=== PATIENT | male | born 1965 | race Caucasian/White ===

== ENCOUNTER 2016-06-21 07:11 | Inpatient (IN) | payer OTHER ==
[2016-06-21] VITALS (8 sets, daily range): BP systolic 144–172; BP diastolic 89–102; PULSE 88–101; TEMP 37.3–37.8; O2SAT 96–100; Ht 172.7 cm; Wt 89.8 kg
[~2016-06-21] VITALS: Ht 172.7 cm; Wt 89.8 kg
[~2016-06-21 07:11] MED LIST: ATEN-173 PO; CARB200T PO; CARB200T3 PO; VLT/50 PO
[2016-06-21] MEDS ORDERED: SODIUM CHLORIDE 0.9% 1000ML 1,000 ML IV STA ×2 (07:17→08:24)
[2016-06-21] MEDS ORDERED: FAMOTIDINE 20MG/102 ML D5W IV STA (07:17)
[2016-06-21] MEDS ORDERED: ONDANSETRON 8 MG/54 ML D5W IV STA (07:17)
[2016-06-21] MEDS ORDERED: PANTOprazole INJ 80 MG in DEXTROSE 5% 100ML IV SCH (07:30)
[2016-06-21] MEDS ORDERED: MULTI-VITAMIN INFUSION INJ 10 ML, THIAMINE HCL INJ 100 MG, FoLIC ACID INJ 1 MG in SODIU... IV ONE (07:45)
[2016-06-21] MEDS ORDERED: PANTOprazole INJ 40 MG in DEXTROSE 5% 100ML IV SCH (07:45)
[2016-06-21] MEDS ORDERED: LORAZEPAM 2 MG/ML 1 ML VIAL IV STA ×2 (07:45→08:58)
[2016-06-21] MEDS ORDERED: OCTREOTIDE IV BOLUS & DRIP IV STA ×2 (07:45→10:20)
[2016-06-21 07:59] LABS: HEMATOCRIT 34.5 % (42-52); MEAN CELL VOLUME 96.1 fL (80-100); MEAN CORPUSCULAR HEMOGLOBIN 33.7 pg (25-34); MEAN CORPUSCULAR HGB CONC 35.1 g/dl (32-36); MEAN PLATELET VOLUME 9.7 fL (7.4-10.4); PLATELET COUNT 209 K/uL (130-400); RED BLOOD COUNT 3.59 M/uL (4.7-6.1)
[2016-06-21 08:05] LABS: INR 1.1 (0.9-1.1); PARTIAL THROMBOPLASTIN RATIO 1.2; PROTHROMBIN TIME (PATIENT) 12.3 SECONDS (9.0-12.0)
[2016-06-21 08:12] LABS: ISTAT CREATININE 0.7 mg/dl (0.6-1.3); ISTAT HEMOGLOBIN 12.9 g/dl (14.0-18.0); ISTAT IONIZED CALCIUM 1.03 mmol/l (1.12-1.32)
[2016-06-21 08:13] LABS: BUN/CREATININE RATIO 31.8 (10-20); CALCIUM 8.5 mg/dl (8.5-10.1); CREATININE 1.1 mg/dl (0.60-1.40)
[2016-06-21] MEDS ORDERED: DAPTOmycin IV 500 MG in SODIUM CHLORIDE 0.9% 50ML 50 ML IV STA (08:19)
[2016-06-21] MEDS ORDERED: AZTREONAM IV 2,000 MG in DEXTROSE 5% 100ML 100 ML IV STA (08:19)
[2016-06-21] MEDS ORDERED: POTASSIUM CHLORIDE 10 MEQ / 100ML WTR IV STA (08:24)
[2016-06-21 08:38] LABS: BASO % 0.1 %; BASO ABS # 0.01 K/uL (0-0.2); COMPLETE YES; HYPERSEGMENTED POLYS 1+; IG% 0.6 %; LYMPH % 10.6 %; LYMPH ABS # 1.72 K/uL (1.2-3.4); MONO % 8.9 %; NEUT % 79.8 %
[2016-06-21] MEDS ORDERED: ASPI325T39 PO (08:38)
[2016-06-21] MEDS ORDERED: OCTREOTIDE ACETATE INJ 500 MCG in NSS 100ML IV SCH ×2 (09:00→20:30)
[2016-06-21] MEDS ORDERED: OCTREOTIDE ACETATE INJ 100 MCG in SYRINGE 9 ML IV ONE (09:00)
--- NOTE | 2016-06-21 09:06 | History and Physical ---
History & Physical Date & Time of Service: Jun 21, 2016 at 09:05 Chief Complaint: Rectal Bleed,Black Stool,Diarrhea,Vomit Up Blood Primary Care Physician: Ashish Alvarez M.D. History of Present Illness Source: patient 51M with a PMHx of seizure disorder, mental retardation and alcoholism was brought in to the hospital by his mother. Mother is not present at bedside for exam, however was present for the ER physician evaluation. Patient is a poor historian. During the exam patient continually kept taking sips from his vomit bag. Patient had received 2mg of ATIVAN during the physical. Vomitus is pink tinged and small in amount. Chart review reveals previous grand mal seizures and prior admissions for alcohol withdrawal. ROS: Difficult to appreciate, patient states that he is in pain in his legs bilaterally, worse in his right leg. Pt denies chest pain, denies SOB. PMHx: Pt denies any chronic medical issues. Allergies: Penicillins (according to chart) Meds: Chart review reveals pt is on a seizure medication, pt is unable to verify the history. SHx: At first denies any alcohol use, then admitted having 4 beers in Sunday ( Superbowl Sunday) and then beer on the Sunday prior to that. Past Medical/Surgical History Medical Problems: (1) HTN (hypertension) Status: Chronic Family History Cancer Diabetes mellitus Hypertension Lung disease Seizures Social History Smoking Status: Never Smoker Marital Status: Housing status: lives with family (mom), other Occupational Status: disabled Immunizations History of Influenza Vaccine: Yes Influenza Vaccine Date: Apr 11, 2012 History of Tetanus Vaccine?: Yes Tetanus Immunization Date: Nov 04, 2001 History of Pneumococcal: No History of Hepatitis B Vaccine: No Multi-Drug Resistant Organisms History of MDRO: No Allergies Coded Allergies: Penicillins (Verified Allergy, Unknown, 06/21/16) Home Medications Miscellaneous Medications Aspirin (Aspirin Ec), 325 MG PO Review of Systems Constitutional: + sweats, No chills, No fever Respiratory: No cough, No shortness of breath Cardiovascular: No chest pain Abdomen: + diarrhea, + vomiting Physical Exam Vital Signs Date Time Temp Pulse Resp B/P Pulse Ox O2 Delivery O2 Flow Rate FiO2 06/21/16 08:40 126 22 159/95 97 Room Air 06/21/16 08:18 124 24 161/99 95 Room Air 06/21/16 07:40 132 06/21/16 07:40 131 32 174/103 96 Room Air 06/21/16 07:39 96 Room Air 06/21/16 07:15 37.2 137 20 116/78 95 Room Air General Appearance: WD/WN, + mild distress, + obese Respiratory/Chest: chest non-tender, lungs clear, normal breath sounds, no respiratory distress, no accessory muscle use Cardiovascular: no edema, no gallop, no JVD, no murmur, + tachycardia Abdomen/GI: normal bowel sounds, non tender, soft, no organomegaly, no pulsatile mass, normal rectal exam Extremities/Musculoskelatal: normal inspection, no calf tenderness, no pedal edema Neurologic/Psych: normal mood/affect, normal reflexes, oriented x 3, + pertinent finding (Patient is stuporous and cannot intelligibly answer questions , alert to person, place and time. Poor historian - doesn't know why his mother brought him to the hospital.) Diagnostics Laboratory Results Results Past 24 Hours Test 06/21/16 07:45 06/21/16 07:53 06/21/16 08:01 06/21/16 08:51 Range/Units White Blood Count 16.30 4.8-10.8 K/uL Red Blood Count 3.59 4.7-6.1 M/uL Hemoglobin 12.1 14.0-18.0 g/dL Hematocrit 34.5 42-52 % Mean Corpuscular Volume 96.1 80-100 fL Mean Corpuscular Hemoglobin 33.7 25-34 pg Mean Corpuscular Hemoglobin Concent 35.1 32-36 g/dl Platelet Count 209 130-400 K/uL Mean Platelet Volume 9.7 7.4-10.4 fL Neutrophils (%) (Auto) 79.8 % Lymphocytes (%) (Auto) 10.6 % Monocytes (%) (Auto) 8.9 % Eosinophils (%) (Auto) 0.0 % Basophils (%) (Auto) 0.1 % Neutrophils # (Auto) 13.03 1.4-6.5 K/uL Lymphocytes # (Auto) 1.72 1.2-3.4 K/uL Monocytes # (Auto) 1.45 0.11-0.59 K/uL Eosinophils # (Auto) 0.00 0-0.5 K/uL Basophils # (Auto) 0.01 0-0.2 K/uL RDW Standard Deviation 46.8 36.4-46.3 fL RDW Coefficient of Variation 13.3 11.5-14.5 % Immature Granulocyte % (Auto) 0.6 % Immature Granulocyte # (Auto) 0.09 0.00-0.02 K/uL Hypersegmented Polys 1+ Prothrombin Time 12.3 9.0-12.0 SECONDS Prothromb Time International Ratio 1.1 0.9-1.1 Activated Partial Thromboplast Time 30.8 21.0-31.0 SECONDS Partial Thromboplastin Ratio 1.2 Sodium Level 124 136-145 mmol/L Potassium Level 3.0 3.5-5.1 mmol/L Chloride Level 85 98-107 mmol/L Carbon Dioxide Level 26 21-32 mmol/L Anion Gap 13.0 19.0 16-25 mmol/L Blood Urea Nitrogen 35 7-18 mg/dl Creatinine 1.10 0.60-1.40 mg/dl Est Creatinine Clear Calc Drug Dose 77.7 ml/min Estimated GFR () 90.2 Estimated GFR (Non- 77.9 BUN/Creatinine Ratio 31.8 10-20 Random Glucose 116 70-99 mg/dl Calcium Level 8.5 8.5-10.1 mg/dl Total Bilirubin 2.1 0.2-1 mg/dl Direct Bilirubin 0.5 0-0.2 mg/dl Aspartate Amino Transf (AST/SGOT) 54 15-37 U/L Alanine Aminotransferase (ALT/SGPT) 33 12-78 U/L Alkaline Phosphatase 30 45-117 U/L Troponin I 0.046 0-0.045 ng/ml Total Protein 6.8 6.4-8.2 gm/dl Albumin 3.0 3.4-5.0 gm/dl Lipase 95 73-393 U/L Bedside Lactic Acid Venous 3.08 0.90-1.70 mmol/L Bedside Hemoglobin 12.9 14.0-18.0 g/dl Bedside Hematocrit 38 42-52 % Bedside Sodium 124 135-144 mEq/L Bedside Potassium 3.0 3.3-5.0 mEq/L Bedside Chloride 83 101-112 mEq/L Bedside Total CO2 26 24-31 mEq/l Bedside Blood Urea Nitrogen 32 7-18 mg/dl Bedside Creatinine 0.7 0.6-1.3 mg/dl Bedside Glucose (other) 121 70-99 mg/dl Bedside Ionized Calcium (Leigh) 1.03 1.12-1.32 mmol/l Microbiology Results 06/21/16 Blood Culture, Received Pending 06/21/16 Blood Culture, Received Pending Diagnostic Radiology SINGLE VIEW CHEST CLINICAL HISTORY: Hematemesis. FINDINGS: An AP, portable, upright chest radiograph is compared to study dated 04/17/2012. Correlation is made with chest CT dated 08/06/2010. The examination is degraded by portable technique and patient rotation. The heart is top normal for projection. The pulmonary vasculature is noncongested. There is minimal bibasilar atelectasis. The lungs and pleural spaces are otherwise clear. No pneumothorax is seen. The bony thorax is grossly intact. IMPRESSION: No acute cardiopulmonary abnormality. EKG Sinus tachycardia Possible Anterior infarct , age undetermined Abnormal ECG When compared with ECG of 25-JUN-2012 09:50, OR interval has decreased Vent. rate has increased BY 60 BPM Borderline criteria for Anterior infarct are now Present T wave amplitude has decreased in Anterior leads Impression Assessment and Plan 51M with a PMH of seizures, MR and alcoholism brought in by mom for hematemesis and hematochesia. Patient received 2mg of Ativan in the ER. labs are significant for elevated WBC. Blood cultures drawn in the ER and pt is started on aztreonam and daptomycin in the ER. Hematemesis and dark stool - Possibly2/2 likely esophageal varices from Alcoholism - Pt is vomiting in the ER, given a vomit bag. - Hemoglobin 12.1, Monitor Serially - Consult GI. Spoke to PA with GI - she will see him soon. - c/w Protonix drip and Octreotide. - IVF. Diarrhea - Consider colonoscopy. - follow up C. Diff. - possibly due to gi bleed AMS likely 2/2 to MR, withdrawal symptoms and Ativan administration - Patient is a poor historian and unable to follow commands. Alcoholism w withdrawel symtpoms - Pt denies significant alcohol history, chart review and sipping from vomit bag indicate otherwise. Family states he is a chronic drinker x 6 years. - s/p 2units of Ativan in the ER. - Banana bag x 2 + Thiamine administration. - Consider ethyl alcohol level and urine tox screen. - Ativan PRN. Possible Sepsis - Pt is tachycardic with altered mental status. - Lactate and wbc elevated - Chest X-ray shows no acute process. - Blood cultures drawn and patient is started on Daptomycin and Aztreonam. - f/u UA. Electrolytes - Hyponatremia: Banana bag then dextrose, and monitor closely - Hypokalemia: Replete potassium D5+20meq KCl 150mls/hr as maintenance. - Hypophosphatemia: Replace with K Phos 30mmol. Dispo: SCDs, Full Code, admit to tele. Resident Involvement: Resident Care Provided Care Provided: Adult Hospital Medicine Reviewed: Pt Seen/Exam by Me History 51 y/o M with h/o alcohol abuse brought to ED for mental status change, black stool and bloody vomitus unable give any history Constitutional: denies: fever General Appearance: mild distress (restless in bed) Respiratory: no respiratory distress, decreased breath sounds Cardiovascular: regular rate, rhythm Gastrointestinal: normal bowel sounds, non tender, soft Neurologic/Psychiatric: other (restless, drowsy, unable to hold conversation) Skin Characteristics: warm/dry Assessment/Plan I have reviewed the medical record and performed a history and physical examination of this patient today. I have discussed the case with Dr. Nava. The above note reflects my findings, conclusions, and recommendations.
--- NOTE | 2016-06-21 09:39 | DIAGNOSTIC IMAGING REPORT ---
SINGLE VIEW CHEST CLINICAL HISTORY: Hematemesis. FINDINGS: An AP, portable, upright chest radiograph is compared to study dated 04/17/2012. Correlation is made with chest CT dated 08/06/2010. The examination is degraded by portable technique and patient rotation. The heart is top normal for projection. The pulmonary vasculature is noncongested. There is minimal bibasilar atelectasis. The lungs and pleural spaces are otherwise clear. No pneumothorax is seen. The bony thorax is grossly intact. IMPRESSION: No acute cardiopulmonary abnormality. Electronically signed by: Audi Bartlett M.D. 06/21/2016 9:38 AM Dictated Date/Time: 06/21/2016 9:36 AM
[2016-06-21] MEDS ORDERED: ONDANSETRON INJ 2 MG/ML 2 ML VIAL IV PRN ×2 (10:15→12:15)
[2016-06-21] MEDS ORDERED: LORAZEPAM 2 MG/ML 1 ML VIAL IV PRN (10:15)
[2016-06-21] MEDS ORDERED: INFLUENZA ADMINISTRATION CHARGE ONE (10:15)
[2016-06-21] MEDS ORDERED: INFLUENZA VIRUS QUAD VACCINE 0.5 ML SYR IM. ONE (10:15)
[2016-06-21] MEDS ORDERED: ONDANSETRON INJ 2 MG/ML 2 ML VIAL ONE (10:36)
[2016-06-21] MEDS ORDERED: LIDOCAINE HCL 2% 2 ML VIAL (20MG/ML) ONE (10:36)
[2016-06-21] MEDS ORDERED: PROPOFOL IV EMULSION 10 MG/ML 20 ML VIAL IV ONE (10:36)
[2016-06-21] MEDS ORDERED: MIDAZOLAM HCL 1 MG/ML 2ML VIAL ONE (10:36)
[2016-06-21] MEDS ORDERED: DEXAMETHASONE SOD INJ 4 MG/ML VIAL ONE (10:36)
[2016-06-21] MEDS ORDERED: FENTANYL CITRATE INJ 50 MCG/1 ML 2 ML VIAL ONE (10:36)
--- NOTE | 2016-06-21 10:38 | Gastrointestinal Consultation ---
Gastrointestinal Consultation Date of Consultation: Jun 21, 2016 Attending Physician: Dr. Colon Consulting Physician: Ashlee Monroe PA-C Reason for Consultation: Upper GI bleeding History of Present Illness Patient is a 51 year old male with a past medical history of alcoholism and mental retardation who was brought to the hospital by his mother for reported episodes of severe vomiting with bright red blood. She reported that the bleeding was significant and covered the bathroom of their house. She reports that the patient has continued struggles with alcohol abuse. He reports his last drink was during the Super Bowl. She reported in the ER that for several weeks prior, he had been vomiting and they noted some dark coffee-ground material, until today when it was bright red. The patient has never had an EGD. He does not follow-up routinely with a medical provider. During my evaluation the patient is lethargic, however he was recently given 2 gm Ativan IV. He continues to vomit pink-tinged vomit, but I do not note bright red blood during my visit. He is having issues managing his secretions to an extent and is notably drooling during exam. There is no reported history of NSAID use or family history of IBD or GI malignancy. History is limited by patient's mental status. Mother is not available for further discussion at the time of my visit. Attempted to call provided number and was not able to be reached. Family History Cancer Diabetes mellitus Hypertension Lung disease Seizures Social History Smoking Status: Never Smoker Alcohol Use: occasionally Marital Status: Housing Status: lives with family Occupation Status: disabled Allergies Coded Allergies: Penicillins (Verified Allergy, Unknown, 06/21/16) Current Medications Home Meds and Scripts Medications Dose Route/Sig Max Daily Dose Days Date Category Aspirin Ec (Aspirin) 325 Mg Tab 325 Mg PO 06/21/16 Reported Review of Systems Poor participation with ROS due to mental status; mother unavailable Physical Exam Date Time Temp Pulse Resp B/P Pulse Ox O2 Delivery O2 Flow Rate FiO2 06/21/16 10:13 118 28 164/102 96 Room Air 06/21/16 09:52 118 26 167/102 96 Room Air 06/21/16 09:34 119 26 155/82 94 Room Air 06/21/16 09:14 148/90 06/21/16 09:13 117 26 170/106 98 Room Air 06/21/16 08:55 97 Room Air 06/21/16 08:40 126 22 159/95 97 Room Air 06/21/16 08:18 124 24 161/99 95 Room Air 06/21/16 07:40 132 06/21/16 07:40 131 32 174/103 96 Room Air 06/21/16 07:39 96 Room Air 06/21/16 07:15 37.2 137 20 116/78 95 Room Air General Appearance: + mild distress Eyes: normal inspection, PERRL Respiratory/Chest: chest non-tender, lungs clear Cardiovascular: regular rate, rhythm Abdomen: normal bowel sounds, non tender, soft, + pertinent finding (Vomiting) Extremities: non-tender Neurologic/Psych: alert Laboratory Results Last 24 Hours Test 06/21/16 07:45 06/21/16 07:53 06/21/16 08:01 06/21/16 09:07 White Blood Count 16.30 K/uL Red Blood Count 3.59 M/uL Hemoglobin 12.1 g/dL Hematocrit 34.5 % Mean Corpuscular Volume 96.1 fL Mean Corpuscular Hemoglobin 33.7 pg Mean Corpuscular Hemoglobin Concent 35.1 g/dl Platelet Count 209 K/uL Mean Platelet Volume 9.7 fL Neutrophils (%) (Auto) 79.8 % Lymphocytes (%) (Auto) 10.6 % Monocytes (%) (Auto) 8.9 % Eosinophils (%) (Auto) 0.0 % Basophils (%) (Auto) 0.1 % Neutrophils # (Auto) 13.03 K/uL Lymphocytes # (Auto) 1.72 K/uL Monocytes # (Auto) 1.45 K/uL Eosinophils # (Auto) 0.00 K/uL Basophils # (Auto) 0.01 K/uL RDW Standard Deviation 46.8 fL RDW Coefficient of Variation 13.3 % Immature Granulocyte % (Auto) 0.6 % Immature Granulocyte # (Auto) 0.09 K/uL Hypersegmented Polys 1+ Prothrombin Time 12.3 SECONDS Prothromb Time International Ratio 1.1 Activated Partial Thromboplast Time 30.8 SECONDS Partial Thromboplastin Ratio 1.2 Sodium Level 124 mmol/L Potassium Level 3.0 mmol/L Chloride Level 85 mmol/L Carbon Dioxide Level 26 mmol/L Anion Gap 13.0 mmol/L 19.0 mmol/L Blood Urea Nitrogen 35 mg/dl Creatinine 1.10 mg/dl Est Creatinine Clear Calc Drug Dose 77.7 ml/min Estimated GFR () 90.2 Estimated GFR (Non- 77.9 BUN/Creatinine Ratio 31.8 Random Glucose 116 mg/dl Calcium Level 8.5 mg/dl Total Bilirubin 2.1 mg/dl Direct Bilirubin 0.5 mg/dl Aspartate Amino Transf (AST/SGOT) 54 U/L Alanine Aminotransferase (ALT/SGPT) 33 U/L Alkaline Phosphatase 30 U/L Troponin I 0.046 ng/ml Total Protein 6.8 gm/dl Albumin 3.0 gm/dl Lipase 95 U/L Bedside Lactic Acid Venous 3.08 mmol/L Bedside Hemoglobin 12.9 g/dl Bedside Hematocrit 38 % Bedside Sodium 124 mEq/L Bedside Potassium 3.0 mEq/L Bedside Chloride 83 mEq/L Bedside Total CO2 26 mEq/l Bedside Blood Urea Nitrogen 32 mg/dl Bedside Creatinine 0.7 mg/dl Bedside Glucose (other) 121 mg/dl Bedside Ionized Calcium (Leigh) 1.03 mmol/l Ammonia 20.0 umol/L Test 06/21/16 10:07 Impression Patient is a 51 year old male who presents to the hospital for vomiting with GI bleeding. Plan 1) Continue Protonix infusion. 2) Monitor airway. 3) EGD in OR for further evaluation of upper GI bleed. Patient is at high risk for aspiration given continued vomiting and poor management of his secretions. 4) Continue alcohol withdrawal precautions. 5) Hgb stable for now, however continue to monitor H/H Thank you for allowing us to participate in the care of this patient. If you should have any further questions or concerns, do not hesitate to contact us. Agree with BERT Sparrow as above Abd: Soft, NT, ND, +BS Witnessed hematemesis in ER Patient unable to provide consent and caregiver (mother) not able to be reached on phone number she provided. This constitutes an emergency situation and we will proceed with EGD for further evaluation of Hematemesis. Continue Protonix gtt at this time. EGD will be done in the OR with general anesthesia to ensure airway protection.
[2016-06-21] MEDS ORDERED: LACTATED RINGER'S 1000ML 1,000 ML IV PRN (12:14)
--- NOTE | 2016-06-21 13:03 | GI REPORT ---
Procedure Date: 06/21/2016 12:03 PM Procedure: Upper GI endoscopy Indications: Hematemesis Medicines: General Anesthesia, Monitored Anesthesia Care Complications: No immediate complications. Estimated Blood Loss: Estimated blood loss: none. Procedure: Pre-Anesthesia Assessment: - Prior to the procedure, a History and Physical was performed, and patient medications and allergies were reviewed. The patient's tolerance of previous anesthesia was also reviewed. The risks and benefits of the procedure and the sedation options and risks were discussed with the patient. All questions were answered, and informed consent was obtained. Prior Anticoagulants: The patient has taken no previous anticoagulant or antiplatelet agents. ASA Grade Assessment: IV - A patient with severe systemic disease that is a constant threat to life. After reviewing the risks and benefits, the patient was deemed in satisfactory condition to undergo the procedure. After obtaining informed consent, the endoscope was passed under direct vision. Throughout the procedure, the patient's blood pressure, pulse, and oxygen saturations were monitored continuously. The Scope was introduced through the mouth, and advanced to the second part of duodenum. The upper GI endoscopy was accomplished without difficulty. The patient tolerated the procedure well. Findings: Few cratered esophageal ulcers with oozing blood and stigmata of recent bleeding were found. The largest lesion was 5 mm in largest dimension. Area was successfully injected with 5 mL of a 1:10,000 solution of epinephrine for hemostasis. Coagulation for hemostasis using heater probe was successful. The stomach was normal. The examined duodenum was normal. Impression: - Bleeding esophageal ulcers. Injected. Treated with a heater probe. - Normal stomach. - Normal examined duodenum. - No specimens collected. Recommendation: - Admit the patient to ICU for ongoing care. - NPO today. - Give Protonix (pantoprazole): 8 mg/hr IV by continuous infusion for 3 days. - Repeat the upper endoscopy PRN to evaluate the response to therapy. - Monitor for signs of alcohol withdrawal. Carlito Silva, DO 06/21/2016 1:03:11 PM This report has been signed electronically. Note Initiated On: 06/21/2016 12:03 PM I attest to the content of the Intraoperative Record and orders documented therein, exceptions below
[2016-06-21] MEDS ORDERED: SUCCINYLCHOLINE CHLORIDE 20 MG/ML 10 ML VIAL IV ONE (13:36)
[2016-06-21] MEDS ORDERED: ROCURONIUM BROMIDE 10 MG/ML 5 ML VIAL ONE (13:36)
--- NOTE | 2016-06-21 13:41 | Anesthesiology Progress Note ---
Anesthesia Post Op Note Date & Time Jun 21, 2016 at 13:40 Vital Signs Pain Intensity: 0 Vital Signs Past 12 Hours Date Time Temp Pulse Resp B/P Pulse Ox O2 Delivery O2 Flow Rate FiO2 06/21/16 13:35 108 25 173/103 99 Nasal Cannula 4 06/21/16 13:25 110 30 157/100 100 Mask 10 06/21/16 13:15 111 27 173/107 100 Mask 10 06/21/16 13:08 37.8 114 19 161/93 99 Mask 10 06/21/16 11:23 110 20 152/113 96 06/21/16 11:01 108 24 169/96 96 Room Air 06/21/16 10:34 106 26 174/102 95 Room Air 06/21/16 10:13 118 28 164/102 96 Room Air 06/21/16 09:52 118 26 167/102 96 Room Air 06/21/16 09:34 119 26 155/82 94 Room Air 06/21/16 09:14 148/90 06/21/16 09:13 117 26 170/106 98 Room Air 06/21/16 08:55 97 Room Air 06/21/16 08:40 126 22 159/95 97 Room Air 06/21/16 08:18 124 24 161/99 95 Room Air 06/21/16 07:40 132 06/21/16 07:40 131 32 174/103 96 Room Air 06/21/16 07:39 96 Room Air 06/21/16 07:15 37.2 137 20 116/78 95 Room Air Notes Mental Status: alert / awake / arousable, participated in evaluation Pt Amnestic to Procedure: Yes Nausea / Vomiting: adequately controlled Pain: adequately controlled Airway Patency, RR, SpO2: stable & adequate BP & HR: stable & adequate Hydration State: stable & adequate Anesthetic Complications: no major complications apparent Groggy w/ elevated BP but unchanged from pre-op.
[2016-06-21] MEDS: PANTOprazole INJ 40 MG in DEXTROSE 5% 100ML IV SCH ×3 (14:30→23:55)
[2016-06-21] MEDS ORDERED: THIAMINE HCL INJ 250 MG in SODIUM CHLORIDE 0.9% 50ML 50 ML IV STA (15:50)
[2016-06-21] MEDS ORDERED: LORAZEPAM 1 MG TAB PO PRN (16:00)
[2016-06-21 16:24] LABS: COMPLETE YES; HEMATOCRIT 29.1 % (42-52); IG% 0.3 %; LYMPH % 4.5 %; LYMPH ABS # 0.54 K/uL (1.2-3.4); MEAN CELL VOLUME 94.8 fL (80-100); MEAN CORPUSCULAR HEMOGLOBIN 33.6 pg (25-34); MEAN CORPUSCULAR HGB CONC 35.4 g/dl (32-36); MEAN PLATELET VOLUME 9.8 fL (7.4-10.4); MONO % 4.8 %; NEUT % 90.4 %; PLATELET COUNT 154 K/uL (130-400); RED BLOOD COUNT 3.07 M/uL (4.7-6.1); WHITE BLOOD COUNT 11.98 K/uL (4.8-10.8)
[2016-06-21] MEDS ORDERED: POTASSIUM PHOS 3 MMOL/1 ML INFUSION IV STA (16:27)
[2016-06-21 16:50] LABS: ALB/GLOB RATIO 0.7 (0.9-2); BUN/CREATININE RATIO 29.3 (10-20); CALCIUM 7.4 mg/dl (8.5-10.1); CREATININE 0.71 mg/dl (0.60-1.40); FERRITIN 807.2 ng/ml (8.0-388.0); POTASSIUM 3.5 mmol/L (3.5-5.1)
[2016-06-21] MEDS: THIAMINE HCL INJ 500 MG in SODIUM CHLORIDE 0.9% 50ML 50 ML IV SCH (16:52)
[2016-06-21] MEDS: D5NSS + 20MEQ KCL 1,000 ML IV SCH (16:52)
[2016-06-21] MEDS ORDERED: POTASSIUM PHOSPHATE INJ 30 MMOL in SODIUM CHLORIDE 0.9% 500ML 500 ML IV SCH (17:00)
[2016-06-21] MEDS ORDERED: VANCOMYCIN CONSULT ACTIVE PRN (17:15)
[2016-06-21 17:22] LABS: URINE APPEARANCE CLEAR (CLEAR); URINE BILIRUBIN NEG (NEG); URINE COLOR YELLOW; URINE NITRITE NEG (NEG); URINE SPECIFIC GRAVITY 1.003 (1.000-1.030); UROBILINOGEN NEG (NEG)
[2016-06-21 17:35] LABS: MANUAL MICROSCOPIC REQUIRED? NO; REVIEW REQ? NO
[2016-06-21 17:40] LABS: BENZODIAZEPINE, URINE NEG (NEG); COCAINE,URINE NEG (NEG); PHENCYCLIDINE, URINE NEG (NEG)
--- NOTE | 2016-06-21 17:40 | Medical Consult ---
Consultation Date of Consultation: Jun 21, 2016. Attending Physician: Renata Colon M.D. Reason for Consultation: Daptomycin therapy History of Present Illness History obtained from medical records and discussion with medical staff. Patient unable to provide adequate history. 51-year-old male with history of mental retardation and longstanding alcohol abuse, has apparently been ill for several weeks with nausea, vomiting, diarrhea , And cough, with episodes coffee-ground emesis as well as hematemesis. was finally brought to the hospital and admitted, and has undergone endoscopy with finding of bleeding esophageal ulcerations. He has been started on empiric antibiotic therapy for possible sepsis with daptomycin and aztreonam. Patient has history of penicillin allergy. Thus far blood cultures are no growth, chest x-ray, read by me, shows no evidence of pneumonia. No report of ill contacts. Past Medical/Surgical History Medical Problems: (1) GI bleed (2) HTN (hypertension) (4) seizure disorder (5) alcohol abuse Family History Cancer Diabetes mellitus Hypertension Lung disease Seizures Social History Smoking Status: Never Smoker Marital Status: Housing Status: lives with family Occupation Status: disabled Allergies Coded Allergies: Penicillins (Verified Allergy, Unknown, 06/21/16) Current Inpatient Medications Current Inpatient Medications Medications (Trade) Dose Ordered Sig/Jr Route Start Time Stop Time Status Last Admin Dose Admin Octreotide Acetate 500 mcg/ Sodium Chloride 105 ml @ 10 mls/hr [id number] IV 06/21/16 09:00 06/21/16 19:29 06/21/16 10:08 10 MLS/HR Potassium Chloride/Dextrose/ Sod Cl (D5nss + 20meq KCl) 1,000 ml @ 150 mls/hr [id number] IV 06/21/16 16:00 07/21/16 15:59 06/21/16 16:52 150 MLS/HR Ondansetron HCl 4 mg 4 mg Q6H PRN IV 06/21/16 10:15 07/21/16 10:14 Multivitamins/ Thiamine HCl/ Folic Acid/Sodium Chloride (Mvi Infusion Inj/Vitamin B-1 Inj/Folvite Inj/ Nss 1000ml) 1,011.2 ml @ 500 mls/ hr TODAY@0700 IV 06/22/16 07:00 06/22/16 09:02 Lorazepam 1 mg 1 mg ONE PRN IV 06/21/16 10:15 07/05/16 10:14 Aztreonam 2000 mg/ Dextrose 110 ml @ 100 mls/hr Q8H IV 06/21/16 18:00 06/23/16 17:59 Pantoprazole Sodium 40 mg/ Dextrose 100 ml @ 20 mls/hr Q5H IV 06/21/16 13:00 07/21/16 12:59 06/21/16 14:30 20 MLS/HR Octreotide Acetate/Sodium Chloride (Sandostatin Inj/ Nss 100ml) 105 ml @ 10 mls/hr [id number] IV 06/21/16 20:30 07/21/16 20:29 Lorazepam 1 mg 1 mg ONE PRN PO 06/21/16 16:00 07/05/16 15:59 Thiamine HCl 500 mg/Sodium Chloride 55 ml @ 110 mls/hr Q8@0000,0800,1600 IV 06/21/16 16:30 06/24/16 08:29 06/21/16 16:52 110 MLS/HR Potassium Phosphate/Sodium Chloride (Potassium Phosphate Inj/Nss 500ml) 510 ml @ 88 mls/hr TODAY@1700 IV 06/21/16 17:00 06/21/16 23:00 06/21/16 16:57 88 MLS/HR Vancomycin HCl (Consult) 1 ea UD PRN N/A 06/21/16 17:15 07/21/16 17:14 Review of Systems Not obtainable at present because of mental status Physical Exam Date Time Temp Pulse Resp B/P Pulse Ox O2 Delivery O2 Flow Rate FiO2 06/21/16 16:00 37.8 101 14 172/102 100 Nasal Cannula 4.0 06/21/16 15:00 113 22 169/113 98 Nasal Cannula 4 06/21/16 14:45 108 25 175/116 95 Nasal Cannula 4 06/21/16 14:30 108 25 170/106 98 Nasal Cannula 4 06/21/16 14:15 117 22 172/103 98 Nasal Cannula 4 06/21/16 14:00 111 26 169/106 96 Nasal Cannula 4 06/21/16 13:45 38.0 114 28 166/108 99 Nasal Cannula 4 06/21/16 13:35 108 25 173/103 99 Nasal Cannula 4 06/21/16 13:25 110 30 157/100 100 Mask 10 06/21/16 13:15 111 27 173/107 100 Mask 10 06/21/16 13:08 37.8 114 19 161/93 99 Mask 10 06/21/16 11:23 110 20 152/113 96 06/21/16 11:01 108 24 169/96 96 Room Air 06/21/16 10:34 106 26 174/102 95 Room Air 06/21/16 10:13 118 28 164/102 96 Room Air 06/21/16 09:52 118 26 167/102 96 Room Air 06/21/16 09:34 119 26 155/82 94 Room Air 06/21/16 09:14 148/90 06/21/16 09:13 117 26 170/106 98 Room Air 06/21/16 08:55 97 Room Air 06/21/16 08:40 126 22 159/95 97 Room Air 06/21/16 08:18 124 24 161/99 95 Room Air 06/21/16 07:40 132 06/21/16 07:40 131 32 174/103 96 Room Air 06/21/16 07:39 96 Room Air 06/21/16 07:15 37.2 137 20 116/78 95 Room Air General Appearance: WD/WN, no apparent distress Head: normocephalic, atraumatic Eyes: normal inspection, + abnormal sclerae exam (icteric) ENT: normal ENT inspection, pharynx normal Neck: supple, no adenopathy, thyroid normal, trachea midline Respiratory/Chest: chest non-tender, lungs clear, normal breath sounds, no respiratory distress Cardiovascular: regular rate, rhythm, no gallop, no murmur Abdomen/GI: normal bowel sounds, non tender, soft, no organomegaly Back: normal inspection, no CVA tenderness Extremities/Musculoskelatal: no calf tenderness, non-tender Neurologic/Psych: alert, + disoriented Skin: normal color, warm/dry, no rash Lymphatic: no adenopathy Laboratory Results Date/Time Source Procedure Growth Status 06/21/16 08:54 Blood Blood Culture Pending Received 06/21/16 08:48 Blood Blood Culture Pending Received 06/21/16 16:30 Urine,Catheterized Urine Culture Pending Received Last 24 Hours Test 06/21/16 07:45 06/21/16 07:53 06/21/16 08:01 06/21/16 09:07 White Blood Count 16.30 K/uL Red Blood Count 3.59 M/uL Hemoglobin 12.1 g/dL Hematocrit 34.5 % Mean Corpuscular Volume 96.1 fL Mean Corpuscular Hemoglobin 33.7 pg Mean Corpuscular Hemoglobin Concent 35.1 g/dl Platelet Count 209 K/uL Mean Platelet Volume 9.7 fL Neutrophils (%) (Auto) 79.8 % Lymphocytes (%) (Auto) 10.6 % Monocytes (%) (Auto) 8.9 % Eosinophils (%) (Auto) 0.0 % Basophils (%) (Auto) 0.1 % Neutrophils # (Auto) 13.03 K/uL Lymphocytes # (Auto) 1.72 K/uL Monocytes # (Auto) 1.45 K/uL Eosinophils # (Auto) 0.00 K/uL Basophils # (Auto) 0.01 K/uL RDW Standard Deviation 46.8 fL RDW Coefficient of Variation 13.3 % Immature Granulocyte % (Auto) 0.6 % Immature Granulocyte # (Auto) 0.09 K/uL Hypersegmented Polys 1+ Prothrombin Time 12.3 SECONDS Prothromb Time International Ratio 1.1 Activated Partial Thromboplast Time 30.8 SECONDS Partial Thromboplastin Ratio 1.2 Sodium Level 124 mmol/L Potassium Level 3.0 mmol/L Chloride Level 85 mmol/L Carbon Dioxide Level 26 mmol/L Anion Gap 13.0 mmol/L 19.0 mmol/L Blood Urea Nitrogen 35 mg/dl Creatinine 1.10 mg/dl Est Creatinine Clear Calc Drug Dose 77.7 ml/min Estimated GFR () 90.2 Estimated GFR (Non- 77.9 BUN/Creatinine Ratio 31.8 Random Glucose 116 mg/dl Calcium Level 8.5 mg/dl Phosphorus Level 1.0 mg/dl Magnesium Level 2.0 mg/dl Total Bilirubin 2.1 mg/dl Direct Bilirubin 0.5 mg/dl Aspartate Amino Transf (AST/SGOT) 54 U/L Alanine Aminotransferase (ALT/SGPT) 33 U/L Alkaline Phosphatase 30 U/L Troponin I 0.046 ng/ml Total Protein 6.8 gm/dl Albumin 3.0 gm/dl Lipase 95 U/L Hepatitis C Antibody Screen NEG Bedside Lactic Acid Venous 3.08 mmol/L Bedside Hemoglobin 12.9 g/dl Bedside Hematocrit 38 % Bedside Sodium 124 mEq/L Bedside Potassium 3.0 mEq/L Bedside Chloride 83 mEq/L Bedside Total CO2 26 mEq/l Bedside Blood Urea Nitrogen 32 mg/dl Bedside Creatinine 0.7 mg/dl Bedside Glucose (other) 121 mg/dl Bedside Ionized Calcium (Leigh) 1.03 mmol/l Ammonia 20.0 umol/L Test 06/21/16 10:55 06/21/16 15:58 06/21/16 16:30 06/21/16 16:40 Ethyl Alcohol mg/dL < 3.0 mg/dl White Blood Count 11.98 K/uL Red Blood Count 3.07 M/uL Hemoglobin 10.3 g/dL Hematocrit 29.1 % Mean Corpuscular Volume 94.8 fL Mean Corpuscular Hemoglobin 33.6 pg Mean Corpuscular Hemoglobin Concent 35.4 g/dl Platelet Count 154 K/uL Mean Platelet Volume 9.8 fL Neutrophils (%) (Auto) 90.4 % Lymphocytes (%) (Auto) 4.5 % Monocytes (%) (Auto) 4.8 % Eosinophils (%) (Auto) 0.0 % Basophils (%) (Auto) 0.0 % Neutrophils # (Auto) 10.83 K/uL Lymphocytes # (Auto) 0.54 K/uL Monocytes # (Auto) 0.57 K/uL Eosinophils # (Auto) 0.00 K/uL Basophils # (Auto) 0.00 K/uL RDW Standard Deviation 46.6 fL RDW Coefficient of Variation 13.4 % Immature Granulocyte % (Auto) 0.3 % Immature Granulocyte # (Auto) 0.04 K/uL Sodium Level 131 mmol/L Potassium Level 3.5 mmol/L Chloride Level 94 mmol/L Carbon Dioxide Level 24 mmol/L Anion Gap 13.0 mmol/L Blood Urea Nitrogen 21 mg/dl Creatinine 0.71 mg/dl Est Creatinine Clear Calc Drug Dose 120.4 ml/min Estimated GFR () 126.8 Estimated GFR (Non- 109.4 BUN/Creatinine Ratio 29.3 Random Glucose 162 mg/dl Calcium Level 7.4 mg/dl Iron Level 148 mcg/dl Total Iron Binding Capacity 208 mcg/dl Ferritin 807.2 ng/ml Total Bilirubin 1.3 mg/dl Aspartate Amino Transf (AST/SGOT) 38 U/L Alanine Aminotransferase (ALT/SGPT) 25 U/L Alkaline Phosphatase 26 U/L Troponin I 0.039 ng/ml Total Protein 5.7 gm/dl Albumin 2.4 gm/dl Globulin 3.3 gm/dl Albumin/Globulin Ratio 0.7 Vitamin B12 Level 475 pg/mL Procalcitonin 16.83 ng/mL Lactic Acid Level 1.0 mmol/L Patient Name: BRADY HESTER Unit Number: [id number] Dictated: 06/21/16935 Transcribed: 06/21/16935 EV Printed Date/Time: [~ rep prt dt]/[~ rep prt tm] [~ rep ct labl] - [~ rep ct ivnm] [facility] Radiology Department [place], [place] [id number] Dictated: 06/21/16935 Transcribed: 06/21/16935 EV Printed Date/Time: [~ rep prt dt]/[~ rep prt tm] [~ rep ct labl] - [~ rep ct ivnm] SINGLE VIEW CHEST CLINICAL HISTORY: Hematemesis. FINDINGS: An AP, portable, upright chest radiograph is compared to study dated 04/17/2012. Correlation is made with chest CT dated 08/06/2010. The examination is degraded by portable technique and patient rotation. The heart is top normal for projection. The pulmonary vasculature is noncongested. There is minimal bibasilar atelectasis. The lungs and pleural spaces are otherwise clear. No pneumothorax is seen. The bony thorax is grossly intact. IMPRESSION: No acute cardiopulmonary abnormality. Electronically signed by: Audi Bartlett M.D. 06/21/2016 9:38 AM Dictated Date/Time: 06/21/2016 9:36 AM The status of this report is Signed. Draft = Not yet reviewed or approved by Radiologist. Signed = Reviewed and approved by Radiologist. <AttendingPhy></AttendingPhy> <FamilyPhy>Ashish Alvarez M.D.</FamilyPhy> < PrimaryPhy>Ashish Alvarez M.D.</PrimaryPhy> <UnitNumber>[id number]</UnitNumber > <VisitNumber>[id number]</VisitNumber> <PatientName>BRADY HESTER</ PatientName> <DateOfBirth>1965</DateOfBirth> <Location>[facility]</Location> < ServiceDate>06/21/16</ServiceDate> <MNE>ESINDI</MNE> <OrderingPhy>Justo Valdez MD</OrderingPhy> <OrderingPhyMNE>f rep ord dr moran</OrderingPhyMNE> < DictatingPhyMNE>f rep dict dr moran</DictatingPhyMNE> <CCListMNE>f rep ct jhonye</ CCListMNE> <AdmittingPhyMNE>f pt admit dr moran</AdmittingPhyMNE> <AttendingPhyMNE >f pt attend dr moran</AttendingPhyMNE> <ConsultingPhyMNE>f pt consult dr moran</ConsultingPhyMNE> <FamilyPhyMNE>f pt fam dr moran</FamilyPhyMNE> <OtherPhyMNE>f pt other dr moran</OtherPhyMNE> < PrimaryPhyMNE>f pt prim care dr moran</PrimaryPhyMNE> <ReferringPhyMNE>f pt referring dr moran</ReferringPhyMNE> Assessment & Plan 51-year-old male with history of seizure disorder and alcohol abuse, now presents with acute gastrointestinal bleed with esophageal ulcerations seen on endoscopy. Patient with fever post procedure, and agree with empiric antibiotic coverage pending culture results and further workup. No obvious source of infection evident at present. Have substituted vancomycin for daptomycin as vancomycin will cover potential for pulmonary process given repeated vomiting episodes. Will follow and adjust antibiotics as necessary.
--- NOTE | 2016-06-21 17:45 | Critical Care Consultation ---
Critical Care Consultation Date of Consultation: Jun 21, 2016. Attending Physician: Renata Colon M.D. History of Present Illness Hx from mother at bedside as patient sedated from anaesthesia. Mother had illness with stomach cramps, diarrhea and cough 3 weeks previously. He caught the same illness afterwards but never got better and became progressively worse. Wouldn't drink much water, eating his normal (poor) diet of chips, cookies and lunch meat. He was chewing then gagging, then vomiting with blood in his vomit. His last alcoholic drink was on Sunday. He passes blood in his urine and stool for the past 2-3 years getting progressively worse and has not sought medical attention for this. In the past 2-3 days the diarrhea became much worse and he was passing large amounts of black stool. He has been crawling around on hands and knees for the last 2-3 days to get around the house mainly to the bathroom. He has been a heavy alcohol drinker since his teenager years. Since his father' s 6 years ago he has been drinking at least a 6 pack daily. He was living in a motel until Feb 2016 but then ran out of money so moved in with his mother since then. His alcohol consumption has decreased to 1-2 beers/day since that time. He has previously gone through drug and alcohol rehabilitation at [place]. As above his last alcoholic drink was on Sunday. He has had balance problems for years but getting worse in the last 2-3 years. 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 Occasional memory short term memory issues but appears to be intermittent. He also has intermittent vision problems where he finds he cannot reads but his mother is unable to give me further details of this. No known chest pain or shortness of breath. Takes 81mg ASA in the morning, no other medication or supplements. Initially prescribed by Dr Alvarez (not seen for 6 years) for his heart. No previous known WA. No previous stroke. Previously on seizure medication but hasn't taken it for many years. Reportedly previous seizures related to high fevers. Not previous been seen by neurology. Past Medical/Surgical History Chronic GI and urine blood, not previously investigated Alcohol Seizures Family History Cancer Diabetes mellitus Hypertension Lung disease Seizures Father dies in his 70's from lung ca. (lifelong smoker) No IBD or GI malignancy Social History Smoking Status: Never Smoker Smokeless Tobacco Use: Yes Alcohol Use: heavy Drug Use: none Marital Status: Housing Status: lives with family Occupation Status: disabled Allergies Coded Allergies: Penicillins (Verified Allergy, Unknown, 06/21/16) Home Medications Miscellaneous Medications Aspirin (Aspirin Ec), 325 MG PO Current Inpatient Medications Current Inpatient Medications Medications (Trade) Dose Ordered Sig/Jr Route Start Time Stop Time Status Last Admin Dose Admin Octreotide Acetate 500 mcg/ Sodium Chloride 105 ml @ 10 mls/hr [id number] IV 06/21/16 09:00 06/21/16 19:29 06/21/16 10:08 10 MLS/HR Potassium Chloride/Dextrose/ Sod Cl (D5nss + 20meq KCl) 1,000 ml @ 150 mls/hr [id number] IV 06/21/16 16:00 07/21/16 15:59 Ondansetron HCl 4 mg 4 mg Q6H PRN IV 06/21/16 10:15 07/21/16 10:14 Multivitamins/ Thiamine HCl/ Folic Acid/Sodium Chloride (Mvi Infusion Inj/Vitamin B-1 Inj/Folvite Inj/ Nss 1000ml) 1,011.2 ml @ 500 mls/ hr TODAY@0700 IV 06/22/16 07:00 06/22/16 09:02 Lorazepam 1 mg 1 mg ONE PRN IV 06/21/16 10:15 07/05/16 10:14 Daptomycin 500 mg/ Sodium Chloride 60 ml @ 100 mls/hr Q24H IV 06/22/16 09:00 06/24/16 08:59 Aztreonam 2000 mg/ Dextrose 110 ml @ 100 mls/hr Q8H IV 06/21/16 18:00 06/23/16 17:59 Pantoprazole Sodium 40 mg/ Dextrose 100 ml @ 20 mls/hr Q5H IV 06/21/16 13:00 07/21/16 12:59 06/21/16 14:30 20 MLS/HR Octreotide Acetate/Sodium Chloride (Sandostatin Inj/ Nss 100ml) 105 ml @ 10 mls/hr [id number] IV 06/21/16 20:30 07/21/16 20:29 Ondansetron HCl 4 mg 4 mg ONE PRN IV 06/21/16 12:15 06/21/16 17:15 Lactated Ringer's 1,000 ml @ 110 mls/hr Q9H6M PRN IV 06/21/16 12:14 06/21/16 17:14 Thiamine HCl/ Sodium Chloride (Vitamin B-1 Inj/ Nss 50ml) 52.5 ml @ 208 mls/hr QAM IV 06/22/16 09:00 06/26/16 08:59 Lorazepam (Ativan Tab) 1 mg ONE PRN PO 06/21/16 16:00 07/05/16 15:59 Review of Systems Unable to obtain due to patient sedation. Physical Exam Date Time Temp Pulse Resp B/P Pulse Ox O2 Delivery O2 Flow Rate FiO2 06/21/16 16:00 37.8 101 14 172/102 100 Nasal Cannula 4.0 06/21/16 15:00 113 22 169/113 98 Nasal Cannula 4 06/21/16 14:45 108 25 175/116 95 Nasal Cannula 4 06/21/16 14:30 108 25 170/106 98 Nasal Cannula 4 06/21/16 14:15 117 22 172/103 98 Nasal Cannula 4 06/21/16 14:00 111 26 169/106 96 Nasal Cannula 4 06/21/16 13:45 38.0 114 28 166/108 99 Nasal Cannula 4 06/21/16 13:35 108 25 173/103 99 Nasal Cannula 4 06/21/16 13:25 110 30 157/100 100 Mask 10 06/21/16 13:15 111 27 173/107 100 Mask 10 06/21/16 13:08 37.8 114 19 161/93 99 Mask 10 06/21/16 11:23 110 20 152/113 96 06/21/16 11:01 108 24 169/96 96 Room Air 06/21/16 10:34 106 26 174/102 95 Room Air 06/21/16 10:13 118 28 164/102 96 Room Air 06/21/16 09:52 118 26 167/102 96 Room Air 06/21/16 09:34 119 26 155/82 94 Room Air 06/21/16 09:14 148/90 06/21/16 09:13 117 26 170/106 98 Room Air 06/21/16 08:55 97 Room Air 06/21/16 08:40 126 22 159/95 97 Room Air 06/21/16 08:18 124 24 161/99 95 Room Air 06/21/16 07:40 132 06/21/16 07:40 131 32 174/103 96 Room Air 06/21/16 07:39 96 Room Air 06/21/16 07:15 37.2 137 20 116/78 95 Room Air General Appearance: WD/WN, no apparent distress (sedated), + pertinent finding (patient gown covered in urine) Head: normocephalic, atraumatic (old scar across right eyelid) Eyes: PERRL (small) Neck: supple, no JVD, trachea midline Respiratory/Chest: chest non-tender, lungs clear, normal breath sounds, no respiratory distress, no accessory muscle use Cardiovascular: regular rate, rhythm, no murmur, normal peripheral pulses Abdomen/GI: normal bowel sounds, non tender, soft, + pertinent finding ( palpable bladder) Back: no CVA tenderness Extremities/Musculoskelatal: normal inspection, no calf tenderness, normal capillary refill, no pedal edema Neurologic/Psych: + pertinent finding (patient is sedated) Skin: warm/dry, no rash, + jaundice, + pertinent finding (excoration vernon around anus) Laboratory Results Last 24 Hours Test 06/21/16 07:45 06/21/16 07:53 06/21/16 08:01 06/21/16 09:07 White Blood Count 16.30 K/uL Red Blood Count 3.59 M/uL Hemoglobin 12.1 g/dL Hematocrit 34.5 % Mean Corpuscular Volume 96.1 fL Mean Corpuscular Hemoglobin 33.7 pg Mean Corpuscular Hemoglobin Concent 35.1 g/dl Platelet Count 209 K/uL Mean Platelet Volume 9.7 fL Neutrophils (%) (Auto) 79.8 % Lymphocytes (%) (Auto) 10.6 % Monocytes (%) (Auto) 8.9 % Eosinophils (%) (Auto) 0.0 % Basophils (%) (Auto) 0.1 % Neutrophils # (Auto) 13.03 K/uL Lymphocytes # (Auto) 1.72 K/uL Monocytes # (Auto) 1.45 K/uL Eosinophils # (Auto) 0.00 K/uL Basophils # (Auto) 0.01 K/uL RDW Standard Deviation 46.8 fL RDW Coefficient of Variation 13.3 % Immature Granulocyte % (Auto) 0.6 % Immature Granulocyte # (Auto) 0.09 K/uL Hypersegmented Polys 1+ Prothrombin Time 12.3 SECONDS Prothromb Time International Ratio 1.1 Activated Partial Thromboplast Time 30.8 SECONDS Partial Thromboplastin Ratio 1.2 Sodium Level 124 mmol/L Potassium Level 3.0 mmol/L Chloride Level 85 mmol/L Carbon Dioxide Level 26 mmol/L Anion Gap 13.0 mmol/L 19.0 mmol/L Blood Urea Nitrogen 35 mg/dl Creatinine 1.10 mg/dl Est Creatinine Clear Calc Drug Dose 77.7 ml/min Estimated GFR () 90.2 Estimated GFR (Non- 77.9 BUN/Creatinine Ratio 31.8 Random Glucose 116 mg/dl Calcium Level 8.5 mg/dl Phosphorus Level 1.0 mg/dl Magnesium Level 2.0 mg/dl Total Bilirubin 2.1 mg/dl Direct Bilirubin 0.5 mg/dl Aspartate Amino Transf (AST/SGOT) 54 U/L Alanine Aminotransferase (ALT/SGPT) 33 U/L Alkaline Phosphatase 30 U/L Troponin I 0.046 ng/ml Total Protein 6.8 gm/dl Albumin 3.0 gm/dl Lipase 95 U/L Hepatitis C Antibody Screen NEG Bedside Lactic Acid Venous 3.08 mmol/L Bedside Hemoglobin 12.9 g/dl Bedside Hematocrit 38 % Bedside Sodium 124 mEq/L Bedside Potassium 3.0 mEq/L Bedside Chloride 83 mEq/L Bedside Total CO2 26 mEq/l Bedside Blood Urea Nitrogen 32 mg/dl Bedside Creatinine 0.7 mg/dl Bedside Glucose (other) 121 mg/dl Bedside Ionized Calcium (Leigh) 1.03 mmol/l Ammonia 20.0 umol/L Test 06/21/16 10:55 06/21/16 12:00 06/21/16 15:58 06/21/16 16:00 Ethyl Alcohol mg/dL < 3.0 mg/dl White Blood Count 11.98 K/uL Red Blood Count 3.07 M/uL Hemoglobin 10.3 g/dL Hematocrit 29.1 % Mean Corpuscular Volume 94.8 fL Mean Corpuscular Hemoglobin 33.6 pg Mean Corpuscular Hemoglobin Concent 35.4 g/dl Platelet Count 154 K/uL Mean Platelet Volume 9.8 fL Neutrophils (%) (Auto) 90.4 % Lymphocytes (%) (Auto) 4.5 % Monocytes (%) (Auto) 4.8 % Eosinophils (%) (Auto) 0.0 % Basophils (%) (Auto) 0.0 % Neutrophils # (Auto) 10.83 K/uL Lymphocytes # (Auto) 0.54 K/uL Monocytes # (Auto) 0.57 K/uL Eosinophils # (Auto) 0.00 K/uL Basophils # (Auto) 0.00 K/uL RDW Standard Deviation 46.6 fL RDW Coefficient of Variation 13.4 % Immature Granulocyte % (Auto) 0.3 % Immature Granulocyte # (Auto) 0.04 K/uL Test 06/21/16 16:06 Diagnostic Results SINGLE VIEW CHEST CLINICAL HISTORY: Hematemesis. FINDINGS: An AP, portable, upright chest radiograph is compared to study dated 04/17/2012. Correlation is made with chest CT dated 08/06/2010. The examination is degraded by portable technique and patient rotation. The heart is top normal for projection. The pulmonary vasculature is noncongested. There is minimal bibasilar atelectasis. The lungs and pleural spaces are otherwise clear. No pneumothorax is seen. The bony thorax is grossly intact. IMPRESSION: No acute cardiopulmonary abnormality. Electronically signed by: Audi Bartlett M.D. 06/21/2016 9:38 AM Dictated Date/Time: 06/21/2016 9:36 AM Assessment & Plan 51 yo male with alcohol use disorder, Hx seizures, no routine medical care presented with diarrheal illness for 2-3 weeks with GI bleeding, hematemesis. Fever noted since admission with a high WBC, blood cultures taken and started on aztreonam and daptomycin in the ER. Neuro: Currently sedated from anesthesia s/p EGD in the OR Possible Wernicke's encephalopathy from history of balance issues and chronic alcohol use. At risk for alcohol withdrawal given previous alcohol use: AWSS scale, Ativan PRN for AWSS >5. B12 added to labs Alcohol and urine tox screen negative on admission CV: Sinus tachycardia: likely in response to sepsis Elevated troponin: no known chest pain or shortness of breath, EKG sinus tachy, possible anterior infarct age undetermined, T wave amplitude has decreased in anterior leads. 132bpm. Likely in response to sepsis, no family Hx of WA at a young age. Will repeat troponin and EKG. HTN: no known O/P hypertension, does not have routine medical care. Resp: CXR negative for infection. Will repeat in morning. Saturating well on 4L NC O2 at present. GI: Appreciate GI management. Continue Protonix drip. Bleeding ulcers injected with epinephrine and heat cauterization in the OR. Three peripheral IV (x2 in right arm, x1 left). Lipase negative for pancreatitis : chronic hematuria - will send UA + culture for sepsis workup. Maya cath to gravity insert - likely has urinary retention. I&Os No BESS on labs HEME: WBC elevated, neutrophilia, sepsis with unknown source. Hgb trend Q4H until morning and reassess Plt stable Endo: Corrected calcium 8.2 (WNL) Hyponatremia: likely beer drinker's potomania. Recheck Na sent. Urine Na to assess prerenal vs renal cause. Should correct without Na in fluids. Hypokalemia: GI losses most likely, repeat K and will replete as per ICU protocol. D5 + 20 meq KCl 150 MLS/HR as maintenance. Hypophosphatemia: likely cause from GI loss, vit D def. poor intake. Replace with K Phos 30 mmol. Repeat on tomorrow labs with Mg. ID: Sepsis, no current sign of shock. qSOFA on admission 2. Initial lactic acid 3. Repeat ordered. ID consult placed by hospitalist c.diff ordered (no Hx of Abx use) Add rapid influenza Added urine analysis sent with culture Blood cultures pending Continue aztreonam and daptomycin pending blood cultures and ID consult. VTE Prophylaxis - SCDs + TEDs. Chemical contraindicated due to GI bleed. Code - Full Disposition - Continued ICU stay due to risk of alcohol withdrawal and s/p EGD for acute GI bleed. Resident Physician Supervision Note: I was present with Dr. Joaquin Sauceda during the history and exam. I discussed the case with the resident and agree with the findings and plan as documented in the note. Any exceptions or clarifications are listed here: Patient with h/o alcohol abuse (beer), presented with UGI bleeding. S/p EGD, no transfusions required so far Continue Protonix drip, monitor CBC every 6 hours Documented By: Teo Lua MD Resident Tracking Resident Involvement: Resident Care Provided Care Provided: Adult Hospital Medicine (ICU)
[2016-06-21] MEDS: AZTREONAM IV 2,000 MG in DEXTROSE 5% 100ML 100 ML IV SCH (18:27)
[2016-06-21 19:58] LABS: HEMATOCRIT 28.2 % (42-52)
--- NOTE | 2016-06-21 20:49 | Pharmacy Progress Note ---
Pharmacy Antibiotic Consult Date of Service: Jun 21, 2016. Pharmacy Dosing Scope Pharmacy is consulted to initiate VANCOMYCIN IV dosing therapy, order appropriate labs and adjust drug dose/frequency. Subjective The patient is a 51 year old male admitted on Jun 21, 2016 at 10:25. Objective Height (Feet): 5 Height (Inches): 8.00 Weight (Kilograms): 73.000 Lab Results (24hrs): Laboratory Tests Test 06/21/16 07:45 06/21/16 15:58 BUN/Creatinine Ratio 31.8 29.3 Blood Urea Nitrogen 35 mg/dl 21 mg/dl Creatinine 1.10 mg/dl 0.71 mg/dl White Blood Count 16.30 K/uL 11.98 K/uL Red Blood Count 3.59 M/uL 3.07 M/uL Hemoglobin 12.1 g/dL 10.3 g/dL Hematocrit 34.5 % 29.1 % Mean Corpuscular Volume 96.1 fL 94.8 fL Mean Corpuscular Hemoglobin 33.7 pg 33.6 pg Mean Corpuscular Hemoglobin Concent 35.1 g/dl 35.4 g/dl Platelet Count 209 K/uL 154 K/uL Mean Platelet Volume 9.7 fL 9.8 fL Neutrophils (%) (Auto) 79.8 % 90.4 % Lymphocytes (%) (Auto) 10.6 % 4.5 % Monocytes (%) (Auto) 8.9 % 4.8 % Eosinophils (%) (Auto) 0.0 % 0.0 % Basophils (%) (Auto) 0.1 % 0.0 % Neutrophils # (Auto) 13.03 K/uL 10.83 K/uL Lymphocytes # (Auto) 1.72 K/uL 0.54 K/uL Monocytes # (Auto) 1.45 K/uL 0.57 K/uL Eosinophils # (Auto) 0.00 K/uL 0.00 K/uL Basophils # (Auto) 0.01 K/uL 0.00 K/uL Micro Results: * 06/21/16 -- Nasal -- pending * 06/21/16 -- Urine -- pending * 06/21/16 -- Blood x 2 -- pending Recent Pertinent Medications Item Value Date Time Daptomycin 500 mg/ 60 ml @ 100 mls/hr 06/22/16 0900 Sodium Chloride Q24H/IV Aztreonam 2000 mg/ 110 ml @ 100 mls/hr 06/21/16 1800 Dextrose Q8H/IV 06/21/16 1827 Assessment & Plan 51yo male admitted with GI bleed, developed fever post-endoscopy. Initially ordered AZACTAM and DAPTOMYCIN, but changed to AZACTAM and VANCOMYCIN to cover for possible pulmonary source of infection due to recent h/o vomiting. VANCOMYCIN: * Patient rec'd DAPTOMYCIN x 1 dose this morning at 0900. Will start VANCOMYCIN tomorrow morning (per Dr Prater). * Loading dose: VANCOMYCIN 1850mg (~25mg/kg) IV X 1 dose then VANCOMYCIN 1100mg (~15mg/kg) IV every 10 hours. * Estimated Pk parameters: Vd ~0.7 L/kg ke ~0.087 t1/2 ~8 hours * Goal trough level estimate: between 15 - 20 mcg/mL. * Trough level has been ordered for: @ 1330. Pharmacy will continue to follow and will adjust dose/frequency as necessary. Thank you
[2016-06-22] VITALS (16 sets, daily range): BP systolic 138–159; BP diastolic 68–97; PULSE 72–90; TEMP 36.5–37.2; O2SAT 94–99
[2016-06-22 00:11] LABS: HEMATOCRIT 27.6 % (42-52)
[2016-06-22] MEDS: D5NSS + 20MEQ KCL 1,000 ML IV SCH ×4 (01:01→17:51)
[2016-06-22] MEDS: THIAMINE HCL INJ 500 MG in SODIUM CHLORIDE 0.9% 50ML 50 ML IV SCH ×2 (01:02→08:03)
[2016-06-22] MEDS: AZTREONAM IV 2,000 MG in DEXTROSE 5% 100ML 100 ML IV SCH ×3 (01:46→17:51)
[2016-06-22] MEDS: PANTOprazole INJ 40 MG in DEXTROSE 5% 100ML IV SCH ×4 (04:55→21:18)
[2016-06-22 06:13] LABS: HEMATOCRIT 25.6 % (42-52); IG% 0.4 %; LYMPH % 4.8 %; LYMPH ABS # 0.37 K/uL (1.2-3.4); MEAN CELL VOLUME 95.5 fL (80-100); MEAN CORPUSCULAR HEMOGLOBIN 33.2 pg (25-34); MEAN CORPUSCULAR HGB CONC 34.8 g/dl (32-36); MEAN PLATELET VOLUME 10.1 fL (7.4-10.4); MONO % 11.4 %; NEUT % 83.4 %; PLATELET COUNT 151 K/uL (130-400); RED BLOOD COUNT 2.68 M/uL (4.7-6.1); WHITE BLOOD COUNT 7.78 K/uL (4.8-10.8)
[2016-06-22 06:38] LABS: BUN/CREATININE RATIO 25.2 (10-20); CALCIUM 7.3 mg/dl (8.5-10.1); CREATININE 0.6 mg/dl (0.60-1.40); MAGNESIUM 2.1 mg/dl (1.8-2.4); POTASSIUM 3.7 mmol/L (3.5-5.1)
[2016-06-22 06:44] LABS: COMPLETE YES
[2016-06-22 06:46] LABS: ALB/GLOB RATIO 0.8 (0.9-2); PHOSPHORUS 1.9 mg/dl (2.5-4.9)
[2016-06-22] MEDS ORDERED: MULTI-VITAMIN INFUSION INJ 10 ML, THIAMINE HCL INJ 100 MG, FoLIC ACID INJ 1 MG in SODIU... IV SCH (07:00)
[2016-06-22] MEDS ORDERED: POTASSIUM PHOS 3 MMOL/1 ML INFUSION IV STA (07:42)
[2016-06-22] MEDS ORDERED: VANCOMYCIN INJ 1,850 MG in SODIUM CHLORIDE 0.9% 500ML 500 ML IV SCH (08:00)
[2016-06-22] MEDS ORDERED: POTASSIUM PHOSPHATE INJ 30 MMOL in SODIUM CHLORIDE 0.9% 500ML 500 ML IV SCH (08:00)
[2016-06-22 08:19] LABS: HEMATOCRIT 25.5 % (42-52)
[2016-06-22] MEDS ORDERED: DAPTOmycin IV 500 MG in SODIUM CHLORIDE 0.9% 50ML 50 ML IV SCH (09:00)
[2016-06-22] MEDS ORDERED: THIAMINE HCL INJ 100 MG in SYRINGE 9 ML IV SCH (09:00)
[2016-06-22] MEDS ORDERED: THIAMINE HCL INJ 250 MG in SODIUM CHLORIDE 0.9% 50ML 50 ML IV SCH (09:00)
--- NOTE | 2016-06-22 09:25 | Gastroenterology Progress Note ---
Progress Note Date of Service: Jun 22, 2016 Subjective Pt evaluation today including: conversation w/ patient, physical exam, lab review, review of studies Patient is a 51 yo male admitted with hematemesis. He underwent an EGD in the OR emergently on 06/21 that indicated esophageal ulcerations with evidence of bleeding. These were treated with epi injection & coag therapy. He is presently on IV Protonix. H/H was 12.1/34.5 on admission and had since declined to 8.8/ 25.5. His initial mild troponin bump has since normalized. Patient reports heartburn. He reports that he has a "stomach ache." He denies any melena or further vomiting. He offers no further complaints but does express frustration that he will have to remain in the hospital for several days. Review of Systems Constitutional: No chills, No fever Respiratory: No cough, No shortness of breath Cardiac: No chest pain Abdomen: + pain, + problem reported (heartburn), No GI bleeding, No constipation, No diarrhea, No nausea, No vomiting Musculoskeletal: No joint pain Neuro: No problem reported Skin: No problem reported Medications Current Inpatient Medications Medications (Trade) Dose Ordered Sig/Jr Route Start Time Stop Time Status Last Admin Dose Admin Potassium Chloride/Dextrose/ Sod Cl (D5nss + 20meq KCl) 1,000 ml @ 150 mls/hr Q6H40M IV 06/21/16 16:00 07/21/16 15:59 06/22/16 01:01 150 MLS/HR Ondansetron HCl (Zofran Inj) 4 mg Q6H PRN IV 06/21/16 10:15 07/21/16 10:14 06/22/16 01:01 4 MG Lorazepam 1 mg 1 mg ONE PRN IV 06/21/16 10:15 07/05/16 10:14 Aztreonam 2000 mg/ Dextrose 110 ml @ 100 mls/hr Q8H IV 06/21/16 18:00 06/23/16 17:59 06/22/16 01:46 100 MLS/HR Pantoprazole Sodium/Dextrose (Protonix Inj/D5 100ml) 100 ml @ 20 mls/hr Q5H IV 06/21/16 13:00 07/21/16 12:59 06/22/16 04:55 20 MLS/HR Lorazepam 1 mg 1 mg ONE PRN PO 06/21/16 16:00 07/05/16 15:59 Thiamine HCl/ Sodium Chloride (Vitamin B-1 Inj/ Nss 50ml) 55 ml @ 110 mls/hr Q8@0000,0800,1600 IV 06/21/16 16:30 06/24/16 08:29 06/22/16 08:03 110 MLS/HR Vancomycin HCl 1 ea 1 ea UD PRN N/A 06/21/16 17:15 07/21/16 17:14 Vancomycin HCl 1850 mg/Sodium Chloride 537 ml @ 200 mls/hr TODAY@0800 IV 06/22/16 08:00 06/22/16 10:42 Vancomycin HCl 1100 mg/Sodium Chloride 272 ml @ 125 mls/hr Q10H IV 06/22/16 18:00 06/29/16 17:59 Potassium Phosphate/Sodium Chloride (Potassium Phosphate Inj/Nss 500ml) 510 ml @ 102 mls/hr TODAY@0800 IV 06/22/16 08:00 06/22/16 12:59 06/22/16 08:03 102 MLS/HR Objective Vital Signs Date Time Temp Pulse Resp B/P Pulse Ox O2 Delivery O2 Flow Rate FiO2 06/22/16 06:02 84 8 146/93 97 Room Air 06/22/16 04:58 80 0 153/96 95 06/22/16 04:01 36.5 84 16 94 Room Air 06/22/16 04:00 97 Room Air 06/22/16 02:01 84 22 153/68 95 Room Air 06/22/16 00:01 37.2 90 17 159/95 97 Room Air 06/21/16 23:59 97 Room Air 06/21/16 22:00 37.3 91 18 163/98 97 Room Air 06/21/16 20:00 37.5 88 14 144/89 96 Room Air 06/21/16 19:44 96 Room Air 06/21/16 19:00 91 3 147/95 98 Nasal Cannula 2.0 06/21/16 18:00 92 16 159/94 100 Nasal Cannula 2.0 06/21/16 16:00 37.8 101 14 172/102 100 Nasal Cannula 4.0 06/21/16 16:00 100 Nasal Cannula 4.0 06/21/16 15:00 113 22 169/113 98 Nasal Cannula 4 06/21/16 14:45 108 25 175/116 95 Nasal Cannula 4 06/21/16 14:30 108 25 170/106 98 Nasal Cannula 4 06/21/16 14:15 117 22 172/103 98 Nasal Cannula 4 06/21/16 14:00 111 26 169/106 96 Nasal Cannula 4 06/21/16 13:45 38.0 114 28 166/108 99 Nasal Cannula 4 06/21/16 13:35 108 25 173/103 99 Nasal Cannula 4 06/21/16 13:25 110 30 157/100 100 Mask 10 06/21/16 13:15 111 27 173/107 100 Mask 10 06/21/16 13:08 37.8 114 19 161/93 99 Mask 10 06/21/16 11:23 110 20 152/113 96 06/21/16 11:01 108 24 169/96 96 Room Air 06/21/16 10:34 106 26 174/102 95 Room Air 06/21/16 10:13 118 28 164/102 96 Room Air 06/21/16 09:52 118 26 167/102 96 Room Air 06/21/16 09:34 119 26 155/82 94 Room Air Physical Exam General Appearance: no apparent distress Eyes: normal inspection, PERRL ENT: hearing grossly normal Respiratory/Chest: lungs clear Cardiovascular: regular rate, rhythm Abdomen: normal bowel sounds, non tender, soft Extremities: non-tender Neurologic/Psych: alert Skin: normal color Laboratory Results Last 24 Hours Test 06/21/16 10:55 06/21/16 15:58 06/21/16 16:30 06/21/16 16:40 Ethyl Alcohol mg/dL < 3.0 mg/dl White Blood Count 11.98 K/uL Red Blood Count 3.07 M/uL Hemoglobin 10.3 g/dL Hematocrit 29.1 % Mean Corpuscular Volume 94.8 fL Mean Corpuscular Hemoglobin 33.6 pg Mean Corpuscular Hemoglobin Concent 35.4 g/dl Platelet Count 154 K/uL Mean Platelet Volume 9.8 fL Neutrophils (%) (Auto) 90.4 % Lymphocytes (%) (Auto) 4.5 % Monocytes (%) (Auto) 4.8 % Eosinophils (%) (Auto) 0.0 % Basophils (%) (Auto) 0.0 % Neutrophils # (Auto) 10.83 K/uL Lymphocytes # (Auto) 0.54 K/uL Monocytes # (Auto) 0.57 K/uL Eosinophils # (Auto) 0.00 K/uL Basophils # (Auto) 0.00 K/uL RDW Standard Deviation 46.6 fL RDW Coefficient of Variation 13.4 % Immature Granulocyte % (Auto) 0.3 % Immature Granulocyte # (Auto) 0.04 K/uL Sodium Level 131 mmol/L Potassium Level 3.5 mmol/L Chloride Level 94 mmol/L Carbon Dioxide Level 24 mmol/L Anion Gap 13.0 mmol/L Blood Urea Nitrogen 21 mg/dl Creatinine 0.71 mg/dl Est Creatinine Clear Calc Drug Dose 120.4 ml/min Estimated GFR () 126.8 Estimated GFR (Non- 109.4 BUN/Creatinine Ratio 29.3 Random Glucose 162 mg/dl Calcium Level 7.4 mg/dl Iron Level 148 mcg/dl Total Iron Binding Capacity 208 mcg/dl Ferritin 807.2 ng/ml Total Bilirubin 1.3 mg/dl Aspartate Amino Transf (AST/SGOT) 38 U/L Alanine Aminotransferase (ALT/SGPT) 25 U/L Alkaline Phosphatase 26 U/L Troponin I 0.039 ng/ml Total Protein 5.7 gm/dl Albumin 2.4 gm/dl Globulin 3.3 gm/dl Albumin/Globulin Ratio 0.7 Vitamin B12 Level 475 pg/mL Procalcitonin 16.83 ng/mL Urine Color YELLOW Urine Appearance CLEAR Urine pH 7.0 Urine Specific [place] 1.003 Urine Protein NEG Urine Glucose (UA) TRACE Urine Ketones TRACE Urine Occult Blood NEG Urine Nitrite NEG Urine Bilirubin NEG Urine Urobilinogen NEG Urine Leukocyte Esterase NEG Urine WBC (Auto) 1-5 /hpf Urine RBC (Auto) 0-4 /hpf Urine Hyaline Casts (Auto) 0 /lpf Urine Epithelial Cells (Auto) 5-10 /lpf Urine Bacteria (Auto) NEG Urine Random Sodium 41 mEq/L Urine Opiates Screen NEG Urine Methadone, Qualitative NEG Urine Barbiturates NEG Urine Phencyclidine (PCP) Level NEG Ur Amphetamine/Methamphetamine NEG MDMA (Ecstasy) Screen NEG Urine Benzodiazepines Screen NEG Urine Cocaine Metabolite NEG Urine Marijuana (THC) NEG Influenza Type A Antigen Neg for Influ A Influenza Type B Antigen Neg for Influ B Lactic Acid Level 1.0 mmol/L Test 06/21/16 19:43 06/22/16 00:02 06/22/16 05:45 06/22/16 08:10 Hemoglobin 9.9 g/dL 9.7 g/dL 8.9 g/dL 8.8 g/dL Hematocrit 28.2 % 27.6 % 25.6 % 25.5 % White Blood Count 7.78 K/uL Red Blood Count 2.68 M/uL Mean Corpuscular Volume 95.5 fL Mean Corpuscular Hemoglobin 33.2 pg Mean Corpuscular Hemoglobin Concent 34.8 g/dl Platelet Count 151 K/uL Mean Platelet Volume 10.1 fL Neutrophils (%) (Auto) 83.4 % Lymphocytes (%) (Auto) 4.8 % Monocytes (%) (Auto) 11.4 % Eosinophils (%) (Auto) 0.0 % Basophils (%) (Auto) 0.0 % Neutrophils # (Auto) 6.49 K/uL Lymphocytes # (Auto) 0.37 K/uL Monocytes # (Auto) 0.89 K/uL Eosinophils # (Auto) 0.00 K/uL Basophils # (Auto) 0.00 K/uL RDW Standard Deviation 47.0 fL RDW Coefficient of Variation 13.4 % Immature Granulocyte % (Auto) 0.4 % Immature Granulocyte # (Auto) 0.03 K/uL Red Blood Cell Morphology Unremarkable Sodium Level 137 mmol/L Potassium Level 3.7 mmol/L Chloride Level 103 mmol/L Carbon Dioxide Level 24 mmol/L Anion Gap 10.0 mmol/L Blood Urea Nitrogen 15 mg/dl Creatinine 0.60 mg/dl Est Creatinine Clear Calc Drug Dose 159.5 ml/min Estimated GFR () 135.9 Estimated GFR (Non- 117.2 BUN/Creatinine Ratio 25.2 Random Glucose 129 mg/dl Calcium Level 7.3 mg/dl Phosphorus Level 1.9 mg/dl Magnesium Level 2.1 mg/dl Total Bilirubin 0.7 mg/dl Aspartate Amino Transf (AST/SGOT) 21 U/L Alanine Aminotransferase (ALT/SGPT) 20 U/L Alkaline Phosphatase 21 U/L Total Protein 5.1 gm/dl Albumin 2.2 gm/dl Globulin 2.9 gm/dl Albumin/Globulin Ratio 0.8 25-Hydroxy Vitamin D Total 8.0 ng/ml Folate 5.89 ng/mL Assessment and Plan Patient is a 51 yo male with an upper GI bleed due to esophageal ulcerations. Patient has a history of alcohol abuse. H/H 8.8/25.5. 1) Continue Protonix infusion for 72 hours. 2) Add Carafate 1 gm four times daily due to patient's complaints of persistent heartburn. 3) Okay to advance to clear liquids for lunch on 06/22/2016 after 24 hours of IV Protonix drip. 4) Continue to monitor H/H, monitor for further signs of bleeding, & transfuse supportively if indicated. 5) Continue alcohol withdrawal precautions & supportive care per primary team. Thank you for allowing us to participate in the care of this patient. If you should have any further questions or concerns, do not hesitate to contact us. Agree with BERT Sparrow, as above No signs of overt GI bleeding Abd: Soft, NT, ND, +BS Continue current therapy with Protonix gtt and Carafate
--- NOTE | 2016-06-22 10:18 | EMERGENCY ROOM VISIT NOTE ---
History Report prepared by Min: Thaddeus Matthews Under the Supervision of: Dr. Justo Valdez M.D. First contact with patient: 07:17 Chief Complaint: RECTAL BLEEDING Stated Complaint: RECTAL BLEED,BLACK STOOL,DIARRHEA,VOMIT UP BLOOD Nursing Triage Summary: mother reports pt has been falling due to weakness started 2 weeks ago with spitting up blood and rectal bleeding . mother reports pt has black stool and coffee ground emesis. feels pt is dehydrated History of Present Illness The patient is a 51 year old male who presents to the Emergency Room with complaints of recurrent hematemesis for the past four weeks. His mother notes that the patient vomits a large amount of blood. The patient reports black tarry stools that are also watery. He has also been incontinent of stool without having the urge to go. The mother also notes that the patient has been falling frequently secondary to weakness. The patient recently fell and hit his head, however he denies any headaches. The patient has been to the ED in the past for alcohol problems. He has been dealing with alcoholism for many years. The patient hasn't had a drink since three days ago. The patient has dealt with withdrawal in the past. The patient has never had an endoscopy or colonoscopy. He follows up with Dr. Alvarez, Internal Medicine. Patient denies LOC, fevers, chills, diaphoresis, visual changes, neck pain, chest pain, breathing difficulties, abdominal pain, back pain, urinary symptoms, numbness, lymphadenopathy, rash, or other complaints. Source of History: patient, parent Onset: four weeks Position: other (GI) Quality: other (hematemesis) Timing: other (recurrent) Associated Symptoms: + diarrhea, + melena, + weakness Review of Systems See HPI for pertinent positives and negatives. A total of ten systems were reviewed and were otherwise negative. Past Medical & Surgical Medical Problems: (1) GI bleed (2) HTN (hypertension) Family History Cancer Diabetes mellitus Hypertension Lung disease Seizures Social History Smoking Status: Never Smoker Alcohol Use: occasionally Marital Status: Housing Status: lives with family Occupation Status: disabled Current/Historical Medications Miscellaneous Medications Aspirin (Aspirin Ec), 325 MG PO Allergies Coded Allergies: Penicillins (Verified Allergy, Unknown, 06/21/16) Physical Exam Vital Signs Date Time Temp Pulse Resp B/P Pulse Ox O2 Delivery O2 Flow Rate FiO2 06/21/16 10:13 118 28 164/102 96 Room Air 06/21/16 09:52 118 26 167/102 96 Room Air 06/21/16 09:34 119 26 155/82 94 Room Air 06/21/16 09:14 148/90 06/21/16 09:13 117 26 170/106 98 Room Air 06/21/16 08:55 97 Room Air 06/21/16 08:40 126 22 159/95 97 Room Air 06/21/16 08:18 124 24 161/99 95 Room Air 06/21/16 07:40 132 06/21/16 07:40 131 32 174/103 96 Room Air 06/21/16 07:39 96 Room Air 06/21/16 07:15 37.2 137 20 116/78 95 Room Air Physical Exam GENERAL: Awake, alert, ill-appearing, in moderate distress. HENT: Normocephalic, atraumatic. Oropharynx unremarkable. Coffee ground emesis around face. EYES: Pale conjunctiva. Sclera non-icteric. NECK: Supple. No nuchal rigidity. FROM. No JVD. RESPIRATORY: Clear to auscultation. CARDIAC: Tachycardic, normal rhythm. Extremities warm and well perfused. Pulses equal. ABDOMEN: Soft, non-distended. No tenderness to palpation. No rebound or guarding. No masses. RECTAL: black stool, Hemoccult positive. MUSCULOSKELETAL: Chest examination reveals no tenderness. The back is symmetrical on inspection without obvious abnormality. There is no CVA tenderness to palpation. No joint edema. LOWER EXTREMITIES: Calves are equal size bilaterally and non-tender. Trace lower extremity edema. No discoloration. NEURO: Normal sensorium. No sensory or motor deficits noted. SKIN: No rash or jaundice noted. Medical Decision & Procedures ER Provider Diagnostic Interpretation: X-ray: Per my interpretation, radiologist review. SINGLE VIEW CHEST CLINICAL HISTORY: Hematemesis. FINDINGS: An AP, portable, upright chest radiograph is compared to study dated 04/17/2012. Correlation is made with chest CT dated 08/06/2010. The examination is degraded by portable technique and patient rotation. The heart is top normal for projection. The pulmonary vasculature is noncongested. There is minimal bibasilar atelectasis. The lungs and pleural spaces are otherwise clear. No pneumothorax is seen. The bony thorax is grossly intact. IMPRESSION: No acute cardiopulmonary abnormality. Electronically signed by: Audi Bartlett M.D. 06/21/2016 9:38 AM Dictated Date/Time: 06/21/2016 9:36 AM Laboratory Results Test 06/21/16 07:45 06/21/16 07:53 06/21/16 08:01 06/21/16 09:07 Hypersegmented Polys 1+ Prothrombin Time 12.3 SECONDS (9.0-12.0) Prothromb Time International Ratio 1.1 (0.9-1.1) Activated Partial Thromboplast Time 30.8 SECONDS (21.0-31.0) Partial Thromboplastin Ratio 1.2 Direct Bilirubin 0.5 mg/dl (0-0.2) Lipase 95 U/L (73-393) Hepatitis C Antibody Screen NEG (NEG) Bedside Lactic Acid Venous 3.08 mmol/L (0.90-1.70) Bedside Hemoglobin 12.9 g/dl (14.0-18.0) Bedside Hematocrit 38 % (42-52) Bedside Sodium 124 mEq/L (135-144) Bedside Potassium 3.0 mEq/L (3.3-5.0) Bedside Chloride 83 mEq/L (101-112) Bedside Total CO2 26 mEq/l (24-31) Bedside Blood Urea Nitrogen 32 mg/dl (7-18) Bedside Creatinine 0.7 mg/dl (0.6-1.3) Bedside Glucose (other) 121 mg/dl (70-99) Bedside Ionized Calcium (Leigh) 1.03 mmol/l (1.12-1.32) Ammonia 20.0 umol/L (11-32) Laboratory results reviewed by me Medications Administered Medications (Trade) Dose Ordered Sig/Jr Route Start Time Stop Time Status Last Admin Dose Admin Sodium Chloride (Nss 1000ml) 1,000 ml @ 999 mls/hr Q1H1M STAT IV 06/21/16 07:17 06/21/16 08:17 DC 06/21/16 07:44 999 MLS/HR Ondansetron HCl (Zofran 8mg Iv) 8 mg NOW STAT IV 06/21/16 07:17 06/21/16 07:24 DC 06/21/16 07:44 8 MG Famotidine (Pepcid 20mg/100 ml) 20 mg ONE STAT IV 06/21/16 07:17 2/8/17 07:24 DC 06/21/16 07:58 20 MG Pantoprazole Sodium 1 ea 1 ea NOW STAT IV 06/21/16 07:17 06/21/16 07:24 DC 06/21/16 08:13 1 EA Pantoprazole Sodium 80 mg/ Dextrose 120 ml @ 480 mls/hr TODAY@0730 IV 06/21/16 07:30 06/21/16 07:44 DC 06/21/16 08:13 480 MLS/HR Pantoprazole Sodium/Dextrose (Protonix Inj/D5 100ml) 100 ml @ 20 mls/hr Q5H IV 06/21/16 07:45 06/21/16 12:44 DC 06/21/16 08:12 20 MLS/HR Lorazepam (Ativan Inj) 1 mg NOW STAT IV 06/21/16 07:45 06/21/16 07:47 DC 06/21/16 08:07 1 MG Octreotide Acetate 1 ea 1 ea NOW STAT IV 06/21/16 07:45 06/21/16 07:47 DC 06/21/16 09:43 1 EA Multivitamins 10 ml/Thiamine HCl 100 mg/Folic Acid 1 mg/Sodium Chloride 1,011.2 ml @ 200 mls/ hr Q5H4M ONCE IV 06/21/16 07:45 06/21/16 12:48 DC 06/21/16 08:31 200 MLS/HR Daptomycin 500 mg/ Sodium Chloride 60 ml @ 100 mls/hr NOW STAT IV 06/21/16 08:19 06/21/16 08:54 DC 06/21/16 08:53 100 MLS/HR Aztreonam/Dextrose (Azactam IV/D5 100ml) 110 ml @ 100 mls/hr NOW STAT IV 06/21/16 08:19 06/21/16 09:24 DC 06/21/16 09:06 100 MLS/HR Potassium Chloride 10 meq 10 meq NOW STAT IV 06/21/16 08:24 06/21/16 08:26 DC 06/21/16 08:32 10 MEQ Sodium Chloride 1,000 ml @ 999 mls/hr Q1H1M STAT IV 06/21/16 08:24 06/21/16 09:24 DC 06/21/16 08:51 999 MLS/HR Octreotide Acetate 100 mcg/ Syringe 10 ml @ 3 mls/min TODAY@0900 ONCE IV 06/21/16 09:00 06/21/16 09:03 DC 06/21/16 09:43 3 MLS/MIN Octreotide Acetate/Sodium Chloride (Sandostatin Inj/ Nss 100ml) 105 ml @ 10 mls/hr [id number] IV 06/21/16 09:00 06/21/16 18:13 DC 06/21/16 10:08 10 MLS/HR Lorazepam (Ativan Inj) 1 mg NOW STAT IV 06/21/16 08:58 06/21/16 08:59 DC 06/21/16 09:12 1 MG Ondansetron HCl (Zofran Inj) 4 mg Q6H PRN IV 06/21/16 10:15 07/21/16 10:14 06/22/16 01:01 4 MG ECG Indication: weakness Rate (beats per minute): 132 Rhythm: sinus tachycardia Findings: no acute ischemic change, other (PRWP) ED Course 0717: Protonix IV bolus/drip 1 ea IV, Famotidine 20 mg IV, Zofran 8 mg IV, NSS 1000 ml @ 999 mls/hr. 0725: The patient was evaluated in room A2. A complete history and physical exam was performed. 0730: Pantoprazole Sodium 80 mg / dextrose 120 ml @ 480 mls/hr IV. 0745: Multivitamins 10 ml / thiamine HCl 100 mg / Folic Acid 1 mg / NSS 1011.2 ml @ 200 mls/hr, Octreotide Acetate 1 ea IV, Ativan 1 mg IV, Protonix Sodium 40 mg / dextrose 100 ml @ 20 mls/hr. 0819: Aztreonam 2000 mg / dextrose 110 ml @ 100 mls/hr. 0824: NSS 1000 ml @ 999 mls/hr, Potassium Chloride 10 meq IV. 0835: Spoke with Dr. Boyer, [facility] Hospitalist. The patient will be evaluated. 0851: Reassessed the patient. He is doing better. 0900: Octreotide Acetate 500 mcg / NSS 105 ml @ 10 mls/hr, Octreotide Acetate 100 mcg / syringe 10 ml @ 3 mls/min. 0945: The patient appears confused and is acting out by pulling at his lines, so he will be restrained. Dr. Colon, [facility] Hospitalist, was updated. GI will be consulted and the patient will be taken to the ICU. Medical Decision Triage Nursing notes reviewed. The patient's presentation and history were concerning for possible GI bleed and alcoholism. Etiologies such as peptic ulcer disease, variceal bleed, gastritis, diverticulosis, AVM, coagulopathy, colitis, inflammatory bowel disease, malignancy,Yanira-Marinelli tear, esophagitis,epistaxis, fissure, hemorrhoids, withdrawal, electrolyte abnormalities, liver failure, as well as others were entertained. The patient was evaluated promptly upon arrival. He was ill. He was tachycardic. He had coffee-ground emesis dried on his face as well as heme- positive melanotic stools. 2 IVs were established. Normal saline hydration was initiated. Protonix, Pepcid, Ativan, and banana bag was ordered. The patient has a long history of alcoholism. He has never had an endoscopy performed. He previously had some elevation of LFTs. He has a high likelihood of varices and octreotide was ordered. The patient was reassessed frequently. His CBC revealed a leukocytosis. Mild anemia present. The patient had elevation of his lactate. I-STAT also revealed a low potassium at 3.0. The patient was given additional IV fluids. Potassium was repleted. Daptomycin and aztreonam administered for sepsis coverage. The patient's troponin was mildly elevated. Internal medicine was consulted. The patient was frequently reassessed. He did require additional IV Ativan. The patient was experiencing some mild confusion and pulling out his lines. Soft wrist restraints were ordered. The patient was one-on-one nursing. I did discuss the case with the [facility] service. The patient will be admitted to the ICU for GI consultation and further management. The chart was completed utilizing [employer] voice recognition software. Grammatical errors, random word insertions, pronoun errors, and incomplete sentences are an occasional consequence of this system due to software limitations, ambient noise, and hardware issues. Any formal questions or concerns about the content, text, or information contained within the body of this dictation should be directly addressed to the physician for clarification. Consults Time Called: 0825 Consulting Physician: Dr. Boyer [facility] Returned Call: [phone]: Spoke with Dr. Boyer [place] Hospitalist. The patient will be evaluated. Impression Primary Impression: GI bleed Additional Impressions: Hypokalemia Sepsis Alcohol abuse Critical Care I have personally spent greater than 75 minutes of critical care time in the direct management of this patient. This includes bedside care, interpretation of diagnostic studies, and testing, discussion with consultants, patient, and family members, and other required patient management activities. This 75 minutes is in excess of all separately billable procedures. Scribe Attestation The scribe's documentation has been prepared under my direction and personally reviewed by me in its entirety. I confirm that the note above accurately reflects all work, treatment, procedures, and medical decision making performed by me. Departure Information Dispostion Being Evaluated By Hospitalist Referrals Ashish Alvarez M.D. (PCP) Patient Instructions My New [facility] Problem Qualifiers
[2016-06-22] MEDS: SUCRALFATE 1 GM/10 ML UDC PO SCH ×3 (11:24→21:18)
[2016-06-22 11:27] LABS: HEMATOCRIT 25.3 % (42-52)
--- NOTE | 2016-06-22 11:42 | Critical Care Progress Note ---
Critical Care Progress Note Date of Service Jun 22, 2016. Attending Dr Durand Subjective Patient is alert and orientated x3 this morning. He continues to have abdominal pain but is much improved from yesterday. No nausea or vomiting. No BM since admission. Denies chest pain or shortness of breath. Has had a cough, URI Sx for the last week. Confirmed no recent antibiotics. Confirmed Hx taken from his mother yesterday. Although notes he was taking aspirin 325 mg BID for joint pains. Objective VITAL SIGNS: were reviewed as below GENERAL: no acute distress SKIN: Warm dry and pink, no rashes, no lesions HEAD: Normocephalic and atraumatic EYES: extraocular muscles intact, no nystagmus, pupils equal and reactive to light OROPHARYNX: non erythematous, clear and moist LUNGS: clear to auscultation, no accessory muscle use HEART: Regular rate and rhythm, heart sounds 1+2, no murmurs ABDOMEN: Generalized tenderness mostly in epigastric region, soft, non distended , bowel sounds normal EXTREMITIES: Warm and well perfused, no calf tenderness/swelling, no pedal edema. Missing all but his 1st toe on both feet (previously employment coach accident) . NEUROLOGICALLY: Awake alert and oriented without focal deficit. No facial droop. Cerebellar testing is within normal limits. There is no nystagmus. Speech is clear. Vision is grossly normal. MUSCULOSKELETAL: Good muscle tone. No evidence of trauma Assessment & Plan 51 yo male with alcohol use disorder, Hx seizures, no routine medical care presented with diarrheal illness for 2-3 weeks with GI bleeding, hematemesis. Fever noted since admission with a high WBC, blood cultures taken and started on aztreonam and daptomycin in the ER. EGD in OR emergently by Dr iSlva on showed bleeding esophageal ulcers. Neuro: No nystagmus and orientated x3. Less likely Wernicke's and will switch dose of thiamine to prophylaxis 250mg IV daily for 3 days. At risk for alcohol withdrawal given previous alcohol use: AWSS scale, Ativan PRN for AWSS >5. B12 + folate WNL. Vit D low, replace with 50,000 units weekly for 6 weeks, then 800 IU daily thereafter. Alcohol and urine tox screen negative on admission. Last alcoholic drink 5 days previously. Resistant to drug and alcohol rehabilitation. Previously been to [facility] CV: Sinus tachycardia resolved: likely in response to sepsis + hypovolemia Initial elevated troponin: no known chest pain or shortness of breath, EKG sinus tachy, possible anterior infarct age undetermined, T wave amplitude has decreased in anterior leads. 132bpm. Not ACS; likely demand ischemia in response to sepsis, troponin now WNL. HTN: no known O/P hypertension, does not have routine medical care. Continue to trend, appears mostly resolved without outpatient medications. Resp: CXR negative for infection. Repeat with 2 view this morning to assess for pneumonia as source of sepsis. Saturating well on room air. GI: Appreciate GI management. Continue Protonix drip for 72 hours. Bleeding esophageal ulcers injected with epinephrine and heat cauterization in the OR. Octreotide stopped as no sign of esophageal varices on EGD. Advance diet to clear liquids at lunch. Carafate added by GI. Three peripheral IV (x2 in right arm, x1 left). Lipase negative for pancreatitis Chronic GI bleeding outside of this episode warrants a colonoscopy as an outpatient. He is also 51 yo without a screening colonoscopy previously. : Chronic intermittent hematuria - UA negative for infection or blood. Culture pending Nunez cath to gravity insert 06/21/16 due to skin irritation and retention. D/c once up and moving likely tomorrow morning. No BESS on labs HEME: WBC elevated, neutrophilia, sepsis with unknown source. Hgb trend Q4H until morning and reassess Plt stable Endo: Ionized calcium 1.03. Replace with calcium gluconate. Hyponatremia resolved: likely beer drinker's potomania. Recheck Na sent. Urine Na to assess prerenal vs renal cause. Should correct without Na in fluids. Hypokalemia resolved: secondary to GI loss Hypophosphatemia: likely cause from GI loss, vit D def. poor intake. Replace Vit D as low as above. Additional 30 mmol K Phos ordered this morning. ID: SIRS, no apparent source, no current sign of shock. qSOFA on admission 2. Initial lactic acid 3, now WNL. ID consult - switched daptomycin to vancomycin c.diff ordered (no Hx of Abx use) Influenza negative Added urine analysis sent with culture Blood cultures pending Continue aztreonam and vancomycin pending blood cultures and ID advice. MRSA nose swab negative VTE Prophylaxis - SCDs + TEDs. Chemical contraindicated due to GI bleed. Code - Full Disposition - Can be stepped down from ICU as clinically improving. Hgb drop likely dilutional to a large extent. Uncertain discharge planning at this time as mother feels she is not coping with him at home. Resident Physician Supervision Note: I interviewed and examined the patient. Discussed with Dr. Sauceda and agree with findings and plan as documented in the note. Any exceptions or clarifications are listed here: The patient's care was discussed on multidisciplinary rounds. He has not had a BM since being in the icu and remains on a protonix infusion. Hgb stable at 8.8 after large drop. No transfusions and no hemodynamic instability today. He is taking clears and has no specific complaints. Will vinson h/h to Q6h and advance diet per GI. Continue PPI gtt x3 days. Carafate noted. Out of bed to chair and watch for signs of ETOH withdrawal. Receiving MVI, folate, thiamine. May need PT. Continue abx per IC service and suggest low threshold to deescalate them with WBC not elevated. No further fevers Fever could have been from bleeding. Keep nunez for another day due to groin excoriation. Ok to transfer to medical floor. Please reconsult if needed. Documented By: Roberta Durand Data Medications: Current Inpatient Medications Medications (Trade) Dose Ordered Sig/Jr Route Start Time Stop Time Status Last Admin Dose Admin Potassium Chloride/Dextrose/ Sod Cl (D5nss + 20meq KCl) 1,000 ml @ 150 mls/hr Q6H40M IV 06/21/16 16:00 07/21/16 15:59 06/22/16 01:01 150 MLS/HR Ondansetron HCl (Zofran Inj) 4 mg Q6H PRN IV 06/21/16 10:15 07/21/16 10:14 06/22/16 01:01 4 MG Lorazepam 1 mg 1 mg ONE PRN IV 06/21/16 10:15 07/05/16 10:14 Aztreonam 2000 mg/ Dextrose 110 ml @ 100 mls/hr Q8H IV 06/21/16 18:00 06/23/16 17:59 06/22/16 01:46 100 MLS/HR Pantoprazole Sodium/Dextrose (Protonix Inj/D5 100ml) 100 ml @ 20 mls/hr Q5H IV 06/21/16 13:00 07/21/16 12:59 06/22/16 04:55 20 MLS/HR Lorazepam (Ativan Tab) 1 mg ONE PRN PO 06/21/16 16:00 07/05/16 15:59 Vancomycin HCl 1 ea 1 ea UD PRN N/A 06/21/16 17:15 07/21/16 17:14 Vancomycin HCl 1100 mg/Sodium Chloride 272 ml @ 125 mls/hr Q10H IV 06/22/16 18:00 06/29/16 17:59 Potassium Phosphate/Sodium Chloride (Potassium Phosphate Inj/Nss 500ml) 510 ml @ 102 mls/hr TODAY@0800 IV 06/22/16 08:00 06/22/16 12:59 06/22/16 08:03 102 MLS/HR Sucralfate 1 gm 1 gm ACHS PO 06/22/16 11:00 07/22/16 10:59 Thiamine HCl/ Sodium Chloride (Vitamin B-1 Inj/ Nss 50ml) 52.5 ml @ 110 mls/hr DAILY IV 06/23/16 09:00 06/24/16 09:29 I & O: 24-Hour Column 06/22/16 07:59 Intake Total 7268 ml Output Total 2975 ml Balance 4293 ml Vital Signs: Date Time Temp Pulse Resp B/P Pulse Ox O2 Delivery O2 Flow Rate FiO2 06/22/16 10:00 90 20 138/85 98 Room Air 06/22/16 08:00 98 Room Air 06/22/16 08:00 37.1 74 16 151/91 98 Room Air 06/22/16 06:02 84 8 146/93 97 Room Air 06/22/16 04:58 80 0 153/96 95 06/22/16 04:01 36.5 84 16 94 Room Air 06/22/16 04:00 97 Room Air 06/22/16 02:01 84 22 153/68 95 Room Air 06/22/16 00:01 37.2 90 17 159/95 97 Room Air 06/21/16 23:59 97 Room Air 06/21/16 22:00 37.3 91 18 163/98 97 Room Air 06/21/16 20:00 37.5 88 14 144/89 96 Room Air 06/21/16 19:44 96 Room Air 06/21/16 19:00 91 3 147/95 98 Nasal Cannula 2.0 06/21/16 18:00 92 16 159/94 100 Nasal Cannula 2.0 06/21/16 16:00 37.8 101 14 172/102 100 Nasal Cannula 4.0 06/21/16 16:00 100 Nasal Cannula 4.0 06/21/16 15:00 113 22 169/113 98 Nasal Cannula 4 06/21/16 14:45 108 25 175/116 95 Nasal Cannula 4 06/21/16 14:30 108 25 170/106 98 Nasal Cannula 4 06/21/16 14:15 117 22 172/103 98 Nasal Cannula 4 06/21/16 14:00 111 26 169/106 96 Nasal Cannula 4 06/21/16 13:45 38.0 114 28 166/108 99 Nasal Cannula 4 06/21/16 13:35 108 25 173/103 99 Nasal Cannula 4 06/21/16 13:25 110 30 157/100 100 Mask 10 06/21/16 13:15 111 27 173/107 100 Mask 10 06/21/16 13:08 37.8 114 19 161/93 99 Mask 10 06/21/16 11:23 110 20 152/113 96 Laboratory Results: Last 24 Hours Test 06/21/16 15:58 06/21/16 16:30 06/21/16 16:40 06/21/16 19:43 White Blood Count 11.98 K/uL Red Blood Count 3.07 M/uL Hemoglobin 10.3 g/dL 9.9 g/dL Hematocrit 29.1 % 28.2 % Mean Corpuscular Volume 94.8 fL Mean Corpuscular Hemoglobin 33.6 pg Mean Corpuscular Hemoglobin Concent 35.4 g/dl Platelet Count 154 K/uL Mean Platelet Volume 9.8 fL Neutrophils (%) (Auto) 90.4 % Lymphocytes (%) (Auto) 4.5 % Monocytes (%) (Auto) 4.8 % Eosinophils (%) (Auto) 0.0 % Basophils (%) (Auto) 0.0 % Neutrophils # (Auto) 10.83 K/uL Lymphocytes # (Auto) 0.54 K/uL Monocytes # (Auto) 0.57 K/uL Eosinophils # (Auto) 0.00 K/uL Basophils # (Auto) 0.00 K/uL RDW Standard Deviation 46.6 fL RDW Coefficient of Variation 13.4 % Immature Granulocyte % (Auto) 0.3 % Immature Granulocyte # (Auto) 0.04 K/uL Sodium Level 131 mmol/L Potassium Level 3.5 mmol/L Chloride Level 94 mmol/L Carbon Dioxide Level 24 mmol/L Anion Gap 13.0 mmol/L Blood Urea Nitrogen 21 mg/dl Creatinine 0.71 mg/dl Est Creatinine Clear Calc Drug Dose 120.4 ml/min Estimated GFR () 126.8 Estimated GFR (Non- 109.4 BUN/Creatinine Ratio 29.3 Random Glucose 162 mg/dl Calcium Level 7.4 mg/dl Iron Level 148 mcg/dl Total Iron Binding Capacity 208 mcg/dl Ferritin 807.2 ng/ml Total Bilirubin 1.3 mg/dl Aspartate Amino Transf (AST/SGOT) 38 U/L Alanine Aminotransferase (ALT/SGPT) 25 U/L Alkaline Phosphatase 26 U/L Troponin I 0.039 ng/ml Total Protein 5.7 gm/dl Albumin 2.4 gm/dl Globulin 3.3 gm/dl Albumin/Globulin Ratio 0.7 Vitamin B12 Level 475 pg/mL Procalcitonin 16.83 ng/mL Urine Color YELLOW Urine Appearance CLEAR Urine pH 7.0 Urine Specific [place] 1.003 Urine Protein NEG Urine Glucose (UA) TRACE Urine Ketones TRACE Urine Occult Blood NEG Urine Nitrite NEG Urine Bilirubin NEG Urine Urobilinogen NEG Urine Leukocyte Esterase NEG Urine WBC (Auto) 1-5 /hpf Urine RBC (Auto) 0-4 /hpf Urine Hyaline Casts (Auto) 0 /lpf Urine Epithelial Cells (Auto) 5-10 /lpf Urine Bacteria (Auto) NEG Urine Random Sodium 41 mEq/L Urine Opiates Screen NEG Urine Methadone, Qualitative NEG Urine Barbiturates NEG Urine Phencyclidine (PCP) Level NEG Ur Amphetamine/Methamphetamine NEG MDMA (Ecstasy) Screen NEG Urine Benzodiazepines Screen NEG Urine Cocaine Metabolite NEG Urine Marijuana (THC) NEG Influenza Type A Antigen Neg for Influ A Influenza Type B Antigen Neg for Influ B Lactic Acid Level 1.0 mmol/L Test 06/22/16 00:02 06/22/16 05:45 06/22/16 08:10 06/22/16 11:00 Hemoglobin 9.7 g/dL 8.9 g/dL 8.8 g/dL Hematocrit 27.6 % 25.6 % 25.5 % White Blood Count 7.78 K/uL Red Blood Count 2.68 M/uL Mean Corpuscular Volume 95.5 fL Mean Corpuscular Hemoglobin 33.2 pg Mean Corpuscular Hemoglobin Concent 34.8 g/dl Platelet Count 151 K/uL Mean Platelet Volume 10.1 fL Neutrophils (%) (Auto) 83.4 % Lymphocytes (%) (Auto) 4.8 % Monocytes (%) (Auto) 11.4 % Eosinophils (%) (Auto) 0.0 % Basophils (%) (Auto) 0.0 % Neutrophils # (Auto) 6.49 K/uL Lymphocytes # (Auto) 0.37 K/uL Monocytes # (Auto) 0.89 K/uL Eosinophils # (Auto) 0.00 K/uL Basophils # (Auto) 0.00 K/uL RDW Standard Deviation 47.0 fL RDW Coefficient of Variation 13.4 % Immature Granulocyte % (Auto) 0.4 % Immature Granulocyte # (Auto) 0.03 K/uL Red Blood Cell Morphology Unremarkable Sodium Level 137 mmol/L Potassium Level 3.7 mmol/L Chloride Level 103 mmol/L Carbon Dioxide Level 24 mmol/L Anion Gap 10.0 mmol/L Blood Urea Nitrogen 15 mg/dl Creatinine 0.60 mg/dl Est Creatinine Clear Calc Drug Dose 159.5 ml/min Estimated GFR () 135.9 Estimated GFR (Non- 117.2 BUN/Creatinine Ratio 25.2 Random Glucose 129 mg/dl Calcium Level 7.3 mg/dl Phosphorus Level 1.9 mg/dl Magnesium Level 2.1 mg/dl Total Bilirubin 0.7 mg/dl Aspartate Amino Transf (AST/SGOT) 21 U/L Alanine Aminotransferase (ALT/SGPT) 20 U/L Alkaline Phosphatase 21 U/L Total Protein 5.1 gm/dl Albumin 2.2 gm/dl Globulin 2.9 gm/dl Albumin/Globulin Ratio 0.8 25-Hydroxy Vitamin D Total 8.0 ng/ml Folate 5.89 ng/mL Resident Tracking Resident Involvement: Resident Care Provided Care Provided: Adult Hospital Medicine (ICU)
[2016-06-22] MEDS ORDERED: ERGOCALCIFEROL 50,000 INTER.UNIT CAP PO SCH (12:00)
--- NOTE | 2016-06-22 16:09 | Family Medicine Progress Note ---
Progress Note Date of Service Jun 22, 2016. Subjective Pt evaluation today including: conversation w/ patient, physical exam, chart review, lab review The patient was seen and examined at bedside. No acute overnight events. Patient is resting comfortably at bedside. Patient remembers talking to me. Patient states that he drinks 6 beers per day (yesterday pt denies chronic alcohol usage). Last drink was Sunday. No tremors on exam. Pt denies having any pain but reports feeling nauseous. Pt doesn't remember his mom brining him to the hospital and doesn't remember the exact reason he was brought into the hospital. Plan of care was described to the patient and all questions were answered. Constitutional: No chills, No fever, No sweats, No weight loss Respiratory: No cough, No shortness of breath, No sputum, No wheezing Cardiovascular: No chest pain Abdomen: + nausea, No constipation, No diarrhea, No pain, No vomiting Musculoskeletal: No joint pain Male : No dysuria Objective Physical Exam General Appearance: WD/WN, no apparent distress Respiratory/Chest: chest non-tender, lungs clear, normal breath sounds, no respiratory distress, no accessory muscle use Cardiovascular: regular rate, rhythm, no edema, no gallop, no JVD, no murmur Abdomen: normal bowel sounds, non tender, soft, no organomegaly Extremities: non-tender, no pedal edema, no calf tenderness Neurologic/Psychiatric: + pertinent finding (No tremors on exam. Patient is able to raise both legs and has 5/5 muscle strengh in LE bilaterally. ) Skin: warm/dry Assessment and Plan 51M with a PMHx of seizures, MR and alcoholism brought in by mom for hematemesis and hematochezia. Patient received 2mg of Ativan in the ER. Labs are significant for elevated WBC. Alcohol and urine tox screen negative on admission. Pt reports his last drink was 3 days prior to admission (Sunday). Blood cultures drawn in the ER and pt is started on aztreonam and daptomycin in the ER for empiric sepsis treatment. Dr. Silva upper GI scoped the patient on 06/21/16 and was discharged into the ICU for esophageal bleeding. Patient was given Ativan PRN for withdrawal symptoms. Patient is improving clinically. Hematemesis and dark stool 2/2 Esophageal bleeding ulcers - Pt reports feeling nauseous but has not vomited today. S/p upper endoscopy with epinephrine injection and cauterization of esophageal bleeding ulcers in the ER. - Hemoglobin 8.8<--8.9<--12.1, likely due to hemodilution after correcting dehydration. - GI - c/w Protonix drip x 3 days, currently completing Day #1/3, discontinue Octreotide due to no varices seen on upper endoscopy. - GI - adding Carafate 1 gm four times daily for GERD like symptoms. - GI - Progress to clear liquids diet. - Continue to monitor Hemoglobin. Elevated Troponins - Peaked at 0.4, now downtrending, no STEMI on EKG, likely demand ischemia from tachycardia. Chronic Alcoholism - Family states he is a chronic drinker x 6 years. Negative ethyl alcohol level and urine tox in the ER. Lipase negative for acute pancreatitis. - s/p 2units of Ativan in the ER, no Ativan since, ativan is ordered PRN as per AWSS scale and hospital protocol. - s/p Banana bag x 2. - c/w thiamine supplementation. Possible Sepsis - Tachycardia and AMS has resolved, pt is AAO x 3 and responding to questions. MRSA swab negative. WBC downtrending. - Chest X-ray shows no acute process. - UA from catheter showed no growth of bacteria. - Blood cultures still pending. - c/w Aztreonam Day #2, per ID (Dr. Prater) substitute vancomycin for daptomycin as vanco provides better pulmonary coverage. Electrolytes - Hyponatremia: 137 today, resolved. - Hypokalemia: 3.7 today, c/w potassium supplementation. - Hypophosphatemia: 1.9 today - low, c/w phosphate supplementation. Diarrhea (resolved)- According to nursing notes, no diarrhea since admission. Dispo: SCDs, Full Code, ICU Resident Involvement: Resident Care Provided Care Provided: Adult Hospital Medicine Reviewed: Pt Seen/Exam by Me History had egd yesterday showing multiple esophageal ulcers more alert today Constitutional: denies: fever Respiratory: negative: short of breath Cardiovascular: denies chest pain Gastrointestinal/Abdominal: negative: abdominal pain, diarrhea General Appearance: no apparent distress Respiratory: lungs clear, no respiratory distress Cardiovascular: regular rate, rhythm Neurologic/Psychiatric: other (somnolent - easily arousable) Skin Characteristics: warm/dry Assessment/Plan I have reviewed the medical record and performed a history and physical examination of this patient today. I have discussed the case with Dr. James. The above note reflects my findings, conclusions, and recommendations. Transfer to U
--- NOTE | 2016-06-22 16:35 | Infectious Disease Progress Nt ---
Progress Note Date of Service Jun 22, 2016. Subjective Pt evaluation today including: conversation w/ patient, physical exam, chart review, lab review, review of studies, conversation w/ application consultant, review of inpatient medication list Patient more alert and conversant today. Temperature down. Cultures remain negative to date. No increase in cough or shortness of breath. Hemodynamically stable overnight. All Other Systems: Reviewed and Negative Medications Current Inpatient Medications Medications (Trade) Dose Ordered Sig/Jr Route Start Time Stop Time Status Last Admin Dose Admin Potassium Chloride/Dextrose/ Sod Cl (D5nss + 20meq KCl) 1,000 ml @ 150 mls/hr Q6H40M IV 06/21/16 16:00 07/21/16 15:59 06/22/16 11:25 150 MLS/HR Ondansetron HCl (Zofran Inj) 4 mg Q6H PRN IV 06/21/16 10:15 07/21/16 10:14 06/22/16 01:01 4 MG Lorazepam 1 mg 1 mg ONE PRN IV 06/21/16 10:15 07/05/16 10:14 Aztreonam 2000 mg/ Dextrose 110 ml @ 100 mls/hr Q8H IV 06/21/16 18:00 06/23/16 17:59 06/22/16 11:25 100 MLS/HR Pantoprazole Sodium/Dextrose (Protonix Inj/D5 100ml) 100 ml @ 20 mls/hr Q5H IV 06/21/16 13:00 07/21/16 12:59 06/22/16 16:16 20 MLS/HR Lorazepam (Ativan Tab) 1 mg ONE PRN PO 06/21/16 16:00 07/05/16 15:59 Vancomycin HCl (Consult) 1 ea UD PRN N/A 06/21/16 17:15 07/21/16 17:14 Sucralfate 1 gm 1 gm ACHS PO 06/22/16 11:00 07/22/16 10:59 06/22/16 16:15 1 GM Thiamine HCl/ Sodium Chloride (Vitamin B-1 Inj/ Nss 50ml) 52.5 ml @ 110 mls/hr DAILY IV 06/23/16 09:00 06/24/16 09:29 Ergocalciferol 28266 interunit 50,000 interunit Q7D@1200 PO 06/22/16 12:00 07/22/16 11:59 06/22/16 16:13 50,000 INTERUNIT Vancomycin HCl/ Sodium Chloride (Vancomycin Inj/ Nss 250ml) 275 ml @ 125 mls/hr Q8H IV 06/22/16 18:00 06/29/16 17:59 Objective Vital Signs Date Time Temp Pulse Resp B/P Pulse Ox O2 Delivery O2 Flow Rate FiO2 06/22/16 14:00 85 20 150/90 99 Room Air 06/22/16 12:00 99 Room Air 06/22/16 12:00 37.1 72 21 158/97 98 Room Air 06/22/16 10:00 90 20 138/85 98 Room Air 06/22/16 08:00 Room Air 06/22/16 08:00 98 Room Air 06/22/16 08:00 37.1 74 16 151/91 98 Room Air 06/22/16 06:02 84 8 146/93 97 Room Air 06/22/16 04:58 80 0 153/96 95 06/22/16 04:01 36.5 84 16 94 Room Air 06/22/16 04:00 97 Room Air 06/22/16 02:01 84 22 153/68 95 Room Air 06/22/16 00:01 37.2 90 17 159/95 97 Room Air 06/21/16 23:59 97 Room Air 06/21/16 22:00 37.3 91 18 163/98 97 Room Air 06/21/16 20:00 37.5 88 14 144/89 96 Room Air 06/21/16 19:44 96 Room Air 06/21/16 19:00 91 3 147/95 98 Nasal Cannula 2.0 06/21/16 18:00 92 16 159/94 100 Nasal Cannula 2.0 Physical Exam General Appearance: WD/WN, no apparent distress Eyes: normal inspection, EOMI, sclerae normal ENT: normal ENT inspection, pharynx normal Neck: supple, no adenopathy, trachea midline Respiratory/Chest: lungs clear, normal breath sounds, no respiratory distress Cardiovascular: regular rate, rhythm, no gallop, no murmur Abdomen: normal bowel sounds, non tender, soft, no organomegaly Extremities: non-tender, no calf tenderness Neurologic/Psychiatric: alert, oriented x 3 Skin: normal color, warm/dry, no rash Lymphatic: no adenopathy Laboratory Results Last 24 Hours Test 06/21/16 16:40 06/21/16 19:43 06/22/16 00:02 06/22/16 05:45 Lactic Acid Level 1.0 mmol/L Hemoglobin 9.9 g/dL 9.7 g/dL 8.9 g/dL Hematocrit 28.2 % 27.6 % 25.6 % White Blood Count 7.78 K/uL Red Blood Count 2.68 M/uL Mean Corpuscular Volume 95.5 fL Mean Corpuscular Hemoglobin 33.2 pg Mean Corpuscular Hemoglobin Concent 34.8 g/dl Platelet Count 151 K/uL Mean Platelet Volume 10.1 fL Neutrophils (%) (Auto) 83.4 % Lymphocytes (%) (Auto) 4.8 % Monocytes (%) (Auto) 11.4 % Eosinophils (%) (Auto) 0.0 % Basophils (%) (Auto) 0.0 % Neutrophils # (Auto) 6.49 K/uL Lymphocytes # (Auto) 0.37 K/uL Monocytes # (Auto) 0.89 K/uL Eosinophils # (Auto) 0.00 K/uL Basophils # (Auto) 0.00 K/uL RDW Standard Deviation 47.0 fL RDW Coefficient of Variation 13.4 % Immature Granulocyte % (Auto) 0.4 % Immature Granulocyte # (Auto) 0.03 K/uL Red Blood Cell Morphology Unremarkable Sodium Level 137 mmol/L Potassium Level 3.7 mmol/L Chloride Level 103 mmol/L Carbon Dioxide Level 24 mmol/L Anion Gap 10.0 mmol/L Blood Urea Nitrogen 15 mg/dl Creatinine 0.60 mg/dl Est Creatinine Clear Calc Drug Dose 159.5 ml/min Estimated GFR () 135.9 Estimated GFR (Non- 117.2 BUN/Creatinine Ratio 25.2 Random Glucose 129 mg/dl Calcium Level 7.3 mg/dl Phosphorus Level 1.9 mg/dl Magnesium Level 2.1 mg/dl Total Bilirubin 0.7 mg/dl Aspartate Amino Transf (AST/SGOT) 21 U/L Alanine Aminotransferase (ALT/SGPT) 20 U/L Alkaline Phosphatase 21 U/L Total Protein 5.1 gm/dl Albumin 2.2 gm/dl Globulin 2.9 gm/dl Albumin/Globulin Ratio 0.8 25-Hydroxy Vitamin D Total 8.0 ng/ml Folate 5.89 ng/mL Test 06/22/16 08:10 06/22/16 11:20 Hemoglobin 8.8 g/dL 8.8 g/dL Hematocrit 25.5 % 25.3 % Assessment and Plan 51-year-old male with history of seizure disorder and alcohol abuse, now presents with acute gastrointestinal bleed with esophageal ulcerations seen on endoscopy. Patient with fever post procedure, and agree with empiric antibiotic coverage pending culture results and further workup. No obvious source of infection evident at present. Have substituted vancomycin for daptomycin as vancomycin will cover potential for pulmonary process given repeated vomiting episodes. Will follow and adjust antibiotics as necessary.
[2016-06-22] MEDS: VANCOMYCIN INJ 1,250 MG in SODIUM CHLORIDE 0.9% 250ML 250 ML IV SCH (17:51)
[2016-06-22] MEDS ORDERED: VANCOMYCIN INJ 1,100 MG in SODIUM CHLORIDE 0.9% 250ML 250 ML IV SCH (18:00)
[2016-06-22 18:09] LABS: HEMATOCRIT 25.7 % (42-52)
--- NOTE | 2016-06-22 19:11 | DIAGNOSTIC IMAGING REPORT ---
TWO VIEW CHEST CLINICAL HISTORY: GI bleeding. FINDINGS: AP and lateral chest radiographs are compared to study dated 06/21/2016 and correlated with chest CT dated 08/06/2010. The AP view is degraded by patient rotation. The heart is top normal for projection. The mediastinal contour is within normal limits. Chronic interstitial thickening is unchanged. No airspace consolidation or pleural effusion is identified. There is no pneumothorax. The skeletal structures are osteopenic. The bony thorax appears intact. IMPRESSION: No acute cardiopulmonary abnormality and no significant change from yesterday. Electronically signed by: Audi Bartlett M.D. 06/22/2016 7:10 PM Dictated Date/Time: 06/22/2016 7:08 PM
[2016-06-22] MEDS ORDERED: ALUMINUM/MAGNESIUM/SIMETH (MAALOX MAX) 30 ML UDC PO PRN (20:45)
[2016-06-22 23:28] LABS: HEMATOCRIT 26.9 % (42-52)
[2016-06-23] VITALS (8 sets, daily range): BP systolic 145–163; BP diastolic 81–106; PULSE 73–103; TEMP 36.8–37.7; O2SAT 96–99
[2016-06-23] MEDS: D5NSS + 20MEQ KCL 1,000 ML IV SCH ×3 (01:28→15:35)
[2016-06-23] MEDS: AZTREONAM IV 2,000 MG in DEXTROSE 5% 100ML 100 ML IV SCH (01:38)
[2016-06-23] MEDS: VANCOMYCIN INJ 1,250 MG in SODIUM CHLORIDE 0.9% 250ML 250 ML IV SCH (01:38)
[2016-06-23] MEDS: PANTOprazole INJ 40 MG in DEXTROSE 5% 100ML IV SCH ×5 (01:38→22:23)
[2016-06-23] MEDS: SUCRALFATE 1 GM/10 ML UDC PO SCH ×4 (06:28→20:32)
[2016-06-23 07:39] LABS: HEMATOCRIT 27.1 % (42-52); MEAN CELL VOLUME 96.1 fL (80-100); MEAN CORPUSCULAR HEMOGLOBIN 32.6 pg (25-34); MEAN CORPUSCULAR HGB CONC 33.9 g/dl (32-36); PLATELET COUNT 160 K/uL (130-400); RED BLOOD COUNT 2.82 M/uL (4.7-6.1); WHITE BLOOD COUNT 8.19 K/uL (4.8-10.8)
[2016-06-23 08:13] LABS: BUN/CREATININE RATIO 8.8 (10-20); CALCIUM 7.3 mg/dl (8.5-10.1); CREATININE 0.6 mg/dl (0.60-1.40); POTASSIUM 3.6 mmol/L (3.5-5.1)
[2016-06-23 08:22] LABS: PHOSPHORUS 1.6 mg/dl (2.5-4.9)
[2016-06-23] MEDS: THIAMINE HCL INJ 250 MG in SODIUM CHLORIDE 0.9% 50ML 50 ML IV SCH (08:38)
[2016-06-23] MEDS ORDERED: VANCOMYCIN TROUGH SCH ×2 (09:30→13:30)
--- NOTE | 2016-06-23 09:43 | Gastroenterology Progress Note ---
Progress Note Date of Service: Jun 23, 2016 Subjective Pt evaluation today including: conversation w/ patient, physical exam, lab review, review of studies Follow-up of 51 yo male with upper GI bleeding found to have significant ulcerations of the esophagus. The patient reports that his abdominal discomfort and heartburn has subsided. He denies nausea or vomiting. He reports he is moving his bowels. He denies melena or hematochezia. His H/H is improved at 9.2/27.1 this AM. He continues on an IV Protonix infusion. Review of Systems Constitutional: + problem reported (subjective complaint of fever; currently afebrile) Respiratory: No cough, No shortness of breath Cardiac: No chest pain Abdomen: No GI bleeding, No constipation, No diarrhea, No nausea, No pain, No vomiting Musculoskeletal: No joint pain, No problem reported Skin: No problem reported Medications Current Inpatient Medications Medications (Trade) Dose Ordered Sig/Jr Route Start Time Stop Time Status Last Admin Dose Admin Potassium Chloride/Dextrose/ Sod Cl (D5nss + 20meq KCl) 1,000 ml @ 150 mls/hr Q6H40M IV 06/21/16 16:00 07/21/16 15:59 06/23/16 09:02 150 MLS/HR Ondansetron HCl (Zofran Inj) 4 mg Q6H PRN IV 06/21/16 10:15 07/21/16 10:14 06/22/16 01:01 4 MG Lorazepam 1 mg 1 mg ONE PRN IV 06/21/16 10:15 07/05/16 10:14 Pantoprazole Sodium/Dextrose (Protonix Inj/D5 100ml) 100 ml @ 20 mls/hr Q5H IV 06/21/16 13:00 07/21/16 12:59 06/23/16 06:26 20 MLS/HR Lorazepam (Ativan Tab) 1 mg ONE PRN PO 06/21/16 16:00 07/05/16 15:59 Sucralfate 1 gm 1 gm ACHS PO 06/22/16 11:00 07/22/16 10:59 06/23/16 06:28 1 GM Thiamine HCl/ Sodium Chloride (Vitamin B-1 Inj/ Nss 50ml) 52.5 ml @ 110 mls/hr DAILY IV 06/23/16 09:00 06/24/16 09:29 06/23/16 08:38 110 MLS/HR Ergocalciferol (Vitamin D Cap) 50,000 interunit Q7D@1200 PO 06/22/16 12:00 07/22/16 11:59 06/22/16 16:13 50,000 INTERUNIT Acetaminophen (Tylenol Tab) 650 mg Q4H PRN PO 06/22/16 20:45 07/22/16 20:44 Al Hydrox/Mg Hydrox/Simethicone (Maalox Max Susp) 15 ml Q6H PRN PO 06/22/16 20:45 07/22/16 20:44 06/22/16 21:18 15 ML Objective Vital Signs Date Time Temp Pulse Resp B/P Pulse Ox O2 Delivery O2 Flow Rate FiO2 06/23/16 08:00 36.9 86 18 147/87 96 06/23/16 04:00 Room Air 06/23/16 03:10 36.8 73 22 160/92 97 Room Air 06/22/16 23:59 Room Air 06/22/16 23:11 36.7 86 20 158/95 99 Room Air 06/22/16 20:00 97 Room Air 06/22/16 19:07 37.2 80 16 156/94 97 Room Air 06/22/16 18:47 37.1 79 21 98 06/22/16 18:00 79 21 150/91 98 Room Air 06/22/16 16:00 37.1 80 16 149/96 99 Room Air 06/22/16 16:00 Room Air 06/22/16 14:00 85 20 150/90 99 Room Air 06/22/16 12:00 99 Room Air 06/22/16 12:00 37.1 72 21 158/97 98 Room Air 06/22/16 10:00 90 20 138/85 98 Room Air Physical Exam General Appearance: no apparent distress Eyes: normal inspection, PERRL ENT: hearing grossly normal Respiratory/Chest: lungs clear, normal breath sounds Cardiovascular: regular rate, rhythm Abdomen: normal bowel sounds, non tender, soft Extremities: non-tender Neurologic/Psych: alert Skin: normal color Laboratory Results Last 24 Hours Test 06/22/16 11:20 06/22/16 17:37 06/22/16 23:18 06/23/16 07:26 Hemoglobin 8.8 g/dL 8.8 g/dL 9.1 g/dL 9.2 g/dL Hematocrit 25.3 % 25.7 % 26.9 % 27.1 % White Blood Count 8.19 K/uL Red Blood Count 2.82 M/uL Mean Corpuscular Volume 96.1 fL Mean Corpuscular Hemoglobin 32.6 pg Mean Corpuscular Hemoglobin Concent 33.9 g/dl RDW Standard Deviation 46.9 fL RDW Coefficient of Variation 13.4 % Platelet Count 160 K/uL Mean Platelet Volume 10.0 fL Sodium Level 131 mmol/L Potassium Level 3.6 mmol/L Chloride Level 98 mmol/L Carbon Dioxide Level 23 mmol/L Anion Gap 10.0 mmol/L Blood Urea Nitrogen 5 mg/dl Creatinine 0.60 mg/dl Est Creatinine Clear Calc Drug Dose 160.3 ml/min Estimated GFR () 135.9 Estimated GFR (Non- 117.2 BUN/Creatinine Ratio 8.8 Random Glucose 109 mg/dl Calcium Level 7.3 mg/dl Phosphorus Level 1.6 mg/dl Test 06/23/16 09:30 Assessment and Plan Patient is a 51 yo male with an upper GI bleed due to esophageal ulcerations. Patient has a history of alcohol abuse. H/H 9.2/27.1. Patient has been spiking intermittent fevers. Cultures are unremarkable thus far. Patient is being treated for a possible aspiration pneumonia given his original presentation of altered mental status & vomiting. 1) Continue Protonix infusion for total of 72 hours, after which time he can be transitioned to Protonix 40 mg BID. 2) Carafate 1 gm four times daily x 10 days. 3) Continue clear liquid diet. Anticipate transition to light diet in next 24 hours. 4) Continue to monitor H/H, monitor for further signs of bleeding, & transfuse supportively if indicated. 5) Continue alcohol withdrawal precautions, fever work-up & supportive care per primary team. Thank you for allowing us to participate in the care of this patient. If you should have any further questions or concerns, do not hesitate to contact us. Agree with BERT Sparrow as above Abd: Soft, NT, ND, +BS Continue current therapy No overt GI bleeding Advance diet as tolerated
[2016-06-23] MEDS: ACETAMINOPHEN 325 MG TAB PO PRN (11:46)
[2016-06-23] MEDS ORDERED: SODIUM PHOSPHATE 3 MMOL/1 ML INFUSION IV STA ×2 (14:53→14:55)
[2016-06-23] MEDS ORDERED: SODIUM PHOSPHATE INJ 21 MMOL in SODIUM CHLORIDE 0.9% 500ML 500 ML IV ONE (16:00)
--- NOTE | 2016-06-23 17:26 | Family Medicine Progress Note ---
Progress Note Date of Service Jun 23, 2016. Subjective Pt evaluation today including: conversation w/ patient, physical exam, chart review, lab review The patient was seen and examined at bedside. No acute overnight events. Patient has no complaints at the present time. Mom is present at bedside, mom corroborates that the pt is a chronic drinker and is concerned about his diet and nutritional status. Patient is resting comfortably in bed. Denies having any epigastric pain. Eating and urinating well. Plan of care was described to the patient and all questions were answered. Constitutional: No chills, No fever, No sweats, No weight loss Respiratory: No cough, No shortness of breath, No sputum, No wheezing Cardiovascular: No chest pain Abdomen: No diarrhea, No nausea, No pain, No vomiting Objective Physical Exam General Appearance: WD/WN, no apparent distress Respiratory/Chest: chest non-tender, lungs clear, normal breath sounds, no respiratory distress, no accessory muscle use Cardiovascular: regular rate, rhythm, no edema, no gallop, no JVD, no murmur Abdomen: normal bowel sounds, non tender, soft, no organomegaly Extremities: normal range of motion, non-tender, no pedal edema, no calf tenderness Neurologic/Psychiatric: alert, normal mood/affect, oriented x 3 Assessment and Plan 51M with a PMHx of seizures, MR and alcoholism brought in by mom for hematemesis and hematochezia. Patient received 2mg of Ativan in the ER. Labs are significant for elevated WBC. Alcohol and urine tox screen negative on admission. Pt reports his last drink was 3 days prior to admission (Sunday). Blood cultures drawn in the ER and pt is started on aztreonam and daptomycin in the ER for empiric sepsis treatment. Dr. Silva upper GI scoped the patient on 06/21/16 and was discharged into the ICU for esophageal bleeding. Patient was given Ativan PRN for withdrawal symptoms. Antibiotics were discontinued on 06/23 due to lack of source and clinical signs of infection. Patient is improving clinically. Hematemesis and dark stool 2/2 Esophageal bleeding ulcers - S/p upper endoscopy with epinephrine injection and cauterization of esophageal bleeding ulcers in the ER. - Hemoglobin 9.2<--8.8<--8.9<--12.1. - GI - c/w Protonix drip until Sunday, then Protonix 40mg BID. - adding Carafate 1 gm QID x 10 (Day #07/21) for GERD like symptoms. - If diet (clears) is tolerated, progress diet on Sunday - Continue to monitor Hemoglobin. Elevated Troponins- Peaked at 0.4, now downtrending, no STEMI on EKG, likely demand ischemia from tachycardia. Chronic Alcoholism - Negative ethyl alcohol level and urine tox in the ER. Lipase negative for acute pancreatitis. - s/p 2units of Ativan in the ER, no Ativan since, ativan is ordered PRN as per AWSS scale and hospital protocol. - s/p Banana bag x 2. - c/w thiamine supplementation. Possible Sepsis - s/p 2 days of Zosyn and Vanco. Blood and urine cultures resulted negative. Chest X-ray was negative. Pt has no clinical symptoms of infection. DC Abx. Electrolytes - Hyponatremia: today 131<--137 today, resolved. - Hypokalemia: today 3.6<--3.7, c/w potassium supplementation. - Hypophosphatemia: today 1.6<--1.9, c/w phosphate supplementation. Diarrhea (resolved)- According to nursing notes, no diarrhea since admission. Dispo: Full Code, Med Surg, Clear liquid diet advance tomorrow. Resident Involvement: Resident Care Provided Care Provided: Adult Hospital Medicine
[2016-06-24] VITALS (8 sets, daily range): BP systolic 157–178; BP diastolic 87–98; PULSE 76–86; TEMP 37–37.3; O2SAT 95–99
[2016-06-24] MEDS: ACETAMINOPHEN 325 MG TAB PO PRN ×3 (00:07→19:25)
[2016-06-24] MEDS: PANTOprazole INJ 40 MG in DEXTROSE 5% 100ML IV SCH ×3 (02:16→11:14)
[2016-06-24] MEDS: D5NSS + 20MEQ KCL 1,000 ML IV SCH ×2 (02:16→05:16)
[2016-06-24] MEDS: SUCRALFATE 1 GM/10 ML UDC PO SCH ×4 (06:09→20:37)
[2016-06-24] MEDS: THIAMINE HCL INJ 250 MG in SODIUM CHLORIDE 0.9% 50ML 50 ML IV SCH (08:45)
[2016-06-24] MEDS ORDERED: ACETAMINOPHEN 325 MG TAB ONE (08:48)
[2016-06-24 09:01] LABS: HEMATOCRIT 27.4 % (42-52); MEAN CELL VOLUME 95.8 fL (80-100); MEAN CORPUSCULAR HEMOGLOBIN 33.6 pg (25-34); MEAN PLATELET VOLUME 10.3 fL (7.4-10.4); PLATELET COUNT 180 K/uL (130-400); RED BLOOD COUNT 2.86 M/uL (4.7-6.1); WHITE BLOOD COUNT 7.54 K/uL (4.8-10.8)
[2016-06-24 09:40] LABS: BUN/CREATININE RATIO 5.2 (10-20); CALCIUM 7.9 mg/dl (8.5-10.1); CREATININE 0.65 mg/dl (0.60-1.40); MAGNESIUM 1.9 mg/dl (1.8-2.4); POTASSIUM 3.7 mmol/L (3.5-5.1)
[2016-06-24 09:56] LABS: PHOSPHORUS 2.8 mg/dl (2.5-4.9)
--- NOTE | 2016-06-24 15:48 | Family Medicine Progress Note ---
Progress Note Date of Service Jun 24, 2016. Subjective Pt evaluation today including: conversation w/ patient, physical exam, chart review, lab review Pain: Denies Patient was seen at the bedside. No acute events overnight. Patient complains of headache. Per nurse he received acetaminophen 650mg. Tolerating full liquid diet well. Denies SOB, nausea, vomiting, abdominal pain, constipation, diarrhea , melena, hematochezia, or any other additional problems. Constitutional: No fever, No weight loss Respiratory: No cough, No shortness of breath, No wheezing Cardiovascular: No chest pain, No edema Abdomen: No constipation, No diarrhea, No nausea, No pain, No vomiting Musculoskeletal: No muscle pain Skin: No rash Medications Current Inpatient Medications Medications (Trade) Dose Ordered Sig/Jr Route Start Time Stop Time Status Last Admin Dose Admin Ondansetron HCl (Zofran Inj) 4 mg Q6H PRN IV 06/21/16 10:15 07/21/16 10:14 06/22/16 01:01 4 MG Lorazepam (Ativan Inj) 1 mg ONE PRN IV 06/21/16 10:15 07/05/16 10:14 Lorazepam (Ativan Tab) 1 mg ONE PRN PO 06/21/16 16:00 07/05/16 15:59 Sucralfate (Carafate Susp) 1 gm ACHS PO 06/22/16 11:00 07/22/16 10:59 06/24/16 11:14 1 GM Ergocalciferol (Vitamin D Cap) 50,000 interunit Q7D@1200 PO 06/22/16 12:00 07/22/16 11:59 06/22/16 16:13 50,000 INTERUNIT Acetaminophen (Tylenol Tab) 650 mg Q4H PRN PO 06/22/16 20:45 07/22/16 20:44 06/24/16 08:51 650 MG Al Hydrox/Mg Hydrox/Simethicone (Maalox Max Susp) 15 ml Q6H PRN PO 06/22/16 20:45 07/22/16 20:44 06/22/16 21:18 15 ML Pantoprazole Sodium (Protonix Tab) 40 mg BID PO 06/24/16 21:00 07/24/16 20:59 Objective Vital Signs Date Time Temp Pulse Resp B/P Pulse Ox O2 Delivery O2 Flow Rate FiO2 06/24/16 11:39 37.0 76 22 165/98 97 Room Air 06/24/16 09:46 95 Room Air 06/24/16 08:15 37.3 80 18 178/94 95 Room Air 06/24/16 08:00 99 Room Air 06/24/16 02:35 86 158/87 06/24/16 01:44 99 Room Air 06/23/16 23:28 37.2 103 16 163/106 98 Room Air 06/23/16 18:15 91 16 145/81 99 Room Air 06/23/16 17:30 99 Room Air 06/23/16 16:38 37.7 81 18 96 2.0 06/23/16 16:00 Room Air Physical Exam General Appearance: no apparent distress Neck: supple, trachea midline Respiratory/Chest: chest non-tender, lungs clear, normal breath sounds, no respiratory distress Cardiovascular: regular rate, rhythm, no edema Abdomen: normal bowel sounds, non tender, soft Extremities: non-tender, no pedal edema Neurologic/Psychiatric: alert, normal mood/affect Skin: normal color, warm/dry, no rash Laboratory Results Results Past 24 Hours Test 06/24/16 08:35 Range/Units White Blood Count 7.54 4.8-10.8 K/uL Red Blood Count 2.86 4.7-6.1 M/uL Hemoglobin 9.6 14.0-18.0 g/dL Hematocrit 27.4 42-52 % Mean Corpuscular Volume 95.8 80-100 fL Mean Corpuscular Hemoglobin 33.6 25-34 pg Mean Corpuscular Hemoglobin Concent 35.0 32-36 g/dl RDW Standard Deviation 46.2 36.4-46.3 fL RDW Coefficient of Variation 13.1 11.5-14.5 % Platelet Count 180 130-400 K/uL Mean Platelet Volume 10.3 7.4-10.4 fL Sodium Level 131 136-145 mmol/L Potassium Level 3.7 3.5-5.1 mmol/L Chloride Level 98 98-107 mmol/L Carbon Dioxide Level 23 21-32 mmol/L Anion Gap 10.0 3-11 mmol/L Blood Urea Nitrogen 3 7-18 mg/dl Creatinine 0.65 0.60-1.40 mg/dl Est Creatinine Clear Calc Drug Dose 148.0 ml/min Estimated GFR () 131.5 Estimated GFR (Non- 113.4 BUN/Creatinine Ratio 5.2 10-20 Random Glucose 127 70-99 mg/dl Calcium Level 7.9 8.5-10.1 mg/dl Phosphorus Level 2.8 2.5-4.9 mg/dl Magnesium Level 1.9 1.8-2.4 mg/dl Assessment and Plan This is a 51 y/o M with a PMHx of seizures, mentally challenged and alcoholism brought in by mom for hematemesis and hematochezia. Patient received 2mg of Ativan in the ER. Labs were significant for elevated WBC. Alcohol and urine tox screen negative on admission. Pt reports his last drink was 3 days prior to admission (Sunday). Blood cultures drawn in the ER and pt is started on aztreonam and daptomycin in the ER for empiric sepsis treatment. Dr. Silva upper GI scoped the patient on 06/21/16 and was discharged into the ICU for esophageal bleeding. Patient was given Ativan PRN for withdrawal symptoms. Antibiotics were discontinued on 06/23/16 due to lack of source and clinical signs of infection. Patient is improving clinically. Removed nunez today and advance the diet to regular diet. 1. Hematemesis and dark stool 2/2 Esophageal bleeding ulcers - S/p upper endoscopy with epinephrine injection and cauterization of esophageal bleeding ulcers in the ER. - Hemoglobin continues to improve (9.6). - Per GI Recommendation - Switched Protonix drip to PO 40mg BID today (06/24) - Continue Carafate 1 gm QID x 10 (Day #4) for GERD like symptoms. - Advanced diet to regular diet (mechanical soft) - Continue to monitor H&H 2. Elevated Troponin (resolved) - Patient has normal troponin now - No STEMI on EKG, likely demand ischemia from tachycardia. 3. Chronic Alcoholism - Negative ethyl alcohol level and urine tox in the ER. Lipase negative for acute pancreatitis. - S/p 2units of Ativan in the ER, no Ativan since, ativan is ordered PRN as per AWSS scale and hospital protocol. - S/p Banana bag x 2. - Start thiamine 100mg PO today 4. Possible Sepsis - S/p 2 days of Zosyn and Vanco. D/c Abx given blood and urine cultures negative. Pt has no clinical symptoms of infection. - Chest X-ray was negative. 5. Electrolytes - Hyponatremia: continues to be 131, BMP tomorrow am - Hypokalemia: resolved - Hypophosphatemia: resolved, received supplement yesterday (06/23/16) 6. Diarrhea (resolved) - According to nursing notes, no diarrhea since admission. Dispo: Patient will be ambulating today with assistance if needed. Reassess tomorrow and possible discharge. Reviewed: Pt Seen/Exam by Me History no dark stool Constitutional: denies: fever Respiratory: negative: short of breath Cardiovascular: denies chest pain Gastrointestinal/Abdominal: negative: abdominal pain General Appearance: no apparent distress Respiratory: lungs clear, no respiratory distress Cardiovascular: regular rate, rhythm Gastrointestinal: normal bowel sounds, non tender, soft Neurologic/Psychiatric: alert, oriented x 3 Skin Characteristics: warm/dry Assessment/Plan I have reviewed the medical record and performed a history and physical examination of this patient today. I have discussed the case with Dr. Manzo. The above note reflects my findings, conclusions, and recommendations.
[2016-06-24] MEDS: PANTOprazole SOD 40 MG TAB PO SCH (20:37)
[2016-06-25 06:22] LABS: HEMATOCRIT 30.2 % (42-52); MEAN CELL VOLUME 97.4 fL (80-100); MEAN CORPUSCULAR HEMOGLOBIN 33.5 pg (25-34); MEAN CORPUSCULAR HGB CONC 34.4 g/dl (32-36); MEAN PLATELET VOLUME 10.7 fL (7.4-10.4); PLATELET COUNT 243 K/uL (130-400); WHITE BLOOD COUNT 12.08 K/uL (4.8-10.8)
[2016-06-25] MEDS: SUCRALFATE 1 GM/10 ML UDC PO SCH (06:24)
[2016-06-25 06:53] LABS: BUN/CREATININE RATIO 10.7 (10-20); CALCIUM 8.5 mg/dl (8.5-10.1); CREATININE 0.7 mg/dl (0.60-1.40); MAGNESIUM 2.1 mg/dl (1.8-2.4); POTASSIUM 3.9 mmol/L (3.5-5.1)
[2016-06-25] MEDS: ACETAMINOPHEN 325 MG TAB PO PRN (07:51)
[2016-06-25 08:00] VITALS: O2SAT 97
[2016-06-25 08:16] VITALS: BP 159/93; PULSE 82; TEMP 37.2; O2SAT 97
[2016-06-25] MEDS: PANTOprazole SOD 40 MG TAB PO SCH (08:54)
[2016-06-25] MEDS ORDERED: THIAMINE HCL 100 MG TAB PO SCH (09:00)
[2016-06-25] MEDS ORDERED: THM100 PO (09:08)
[2016-06-25] MEDS ORDERED: CRFUDL PO (09:08)
[2016-06-25] MEDS ORDERED: PRT40 PO (09:08)
--- NOTE | 2016-06-25 09:26 | Discharge Instructions ---
Discharge Instructions Admission Reason for Admission: Gi Bleed Discharge Discharge Diagnosis / Problem: Esophageal bleeding ulcers Discharge Goals Goal(s): Decrease discomfort, Improve disease control, Diagnostic testing Activity Recommendations Activity Limitations: resume your previous activity . Instructions / Follow-Up Instructions / Follow-Up You were admitted to the hospital for blood in vomit and stool. - You had a upper endoscopy done which showed that you have a esophageal bleeding ulcer. - You are prescribed 3 new medications. Take them as directed below: 1. Protonix 40mg, take two times daily 2. Carafate 1gm, take four times daily for 5 days 3. Thiamine (Vitamin B1) 100mg take daily - Follow up with your primary doctor in 1-2 weeks - Follow up with the Gastroenterology doctor also for possible another endoscopy If your symptoms become worse or have new symptoms, please inform your primary doctor or come back to the hospital. Current Hospital Diet Patient's current hospital diet: Regular Diet Discharge Diet Recommended Diet: Regular Diet Procedures Procedures Performed: Esophagogastroduodenoscopy Pending Studies Studies pending at discharge: no Medical Emergencies . Who to Call and When: Medical Emergencies: If at any time you feel your situation is an emergency, please call 911 immediately. . Non-Emergent Contact Non-Emergency issues call your: Primary Care Provider . . "Provider Documentation" section prepared by Maritza Manzo. VTE Core Measure Inpt VTE Proph given/why not?: Contraindicated
[2016-06-25 09:47] VITALS: BP 159/93; PULSE 82; TEMP 37.2; O2SAT 97
--- NOTE | 2016-06-25 18:41 | Discharge Summary ---
Discharge Summary Admission Date: Jun 21, 2016 at 10:25 Discharge Date: Jun 25, 2016 Discharge Disposition: Home Principal Diagnosis: Esophageal bleeding ulcers Immunizations: Have You Had Influenza Vaccine: Yes Influenza Vaccine Date: Apr 11, 2012 History of Tetanus Vaccine?: Yes Tetanus Immunization Date: Nov 04, 2001 History of Pneumococcal: No History of Hepatitis B Vaccine: No Procedures: Upper GI Endoscopy (06/21/16) Findings: Few cratered esophageal ulcers with oozing blood and stigmata of recent bleeding were found. The largest lesion was 5 mm in largest dimension. Area was successfully injected with 5 mL of a 1:10,000 solution of epinephrine for hemostasis. Coagulation for hemostasis using heater probe was successful. The stomach was normal. The examined duodenum was normal. Impression: - Bleeding esophageal ulcers. Injected. Treated with a heater probe. - Normal stomach. - Normal examined duodenum. - No specimens collected. Recommendation: - Admit the patient to ICU for ongoing care. - NPO today. - Give Protonix (pantoprazole): 8 mg/hr IV by continuous infusion for 3 days. - Repeat the upper endoscopy PRN to evaluate the response to therapy. - Monitor for signs of alcohol withdrawal. TWO VIEW CHEST CLINICAL HISTORY: GI bleeding. FINDINGS: AP and lateral chest radiographs are compared to study dated 06/21/2016 and correlated with chest CT dated 08/06/2010. The AP view is degraded by patient rotation. The heart is top normal for projection. The mediastinal contour is within normal limits. Chronic interstitial thickening is unchanged. No airspace consolidation or pleural effusion is identified. There is no pneumothorax. The skeletal structures are osteopenic. The bony thorax appears intact. IMPRESSION: No acute cardiopulmonary abnormality and no significant change from yesterday. Electronically signed by: Audi Bartlett M.D. 06/22/2016 7:10 PM Dictated Date/Time: 06/22/2016 7:08 PM (Maritza Manzo MD) Medication Reconciliation New Medications: Pantoprazole (Pantoprazole Sodium) 40 Mg Tab 40 MG PO BID for 30 Days, #60 TAB Sucralfate (Sucralfate) 1 Gm/10 Ml Susp 1 GM PO QID for 5 Days Thiamine HCl (Vitamin B-1) 100 Mg Tab 100 MG PO QAM for 30 Days, #30 TAB Continued Medications: Aspirin (Aspirin Ec) 325 Mg Tab 325 MG PO Discharge Exam Patient was seen at the bedside. No acute event overnight. Patient tolerated food well. Denies SOB, chest pain, nausea, vomiting, dizziness, melena, hematochezia, or any other additional complaints. Review of Systems: Constitutional: No chills, No fever Respiratory: No cough, No dyspnea on exertion, No shortness of breath, No sputum, No wheezing Cardiovascular: No chest pain, No edema Abdomen: No GI bleeding, No constipation, No diarrhea, No nausea, No pain, No vomiting Musculoskeletal: No muscle pain Genitourinary - Male: No dysuria Integumentary: No rash Physical Exam: General Appearance: WD/WN, no apparent distress Neck: supple, trachea midline Respiratory/Chest: chest non-tender, lungs clear, normal breath sounds, no respiratory distress Cardiovascular: regular rate, rhythm, no edema Abdomen / GI: normal bowel sounds, non tender, soft Extremities: no pedal edema, non-tender Neurologic/Psychiatric: alert, normal mood/affect Skin: normal color, warm/dry, no rash (Maritza Manzo MD) Review of Systems: Constitutional: No fever Respiratory: No shortness of breath Cardiovascular: No chest pain Abdomen: No GI bleeding, No nausea, No pain, No vomiting Physical Exam: General Appearance: no apparent distress Respiratory/Chest: lungs clear, no respiratory distress Cardiovascular: regular rate, rhythm Abdomen / GI: normal bowel sounds, non tender, soft Neurologic/Psychiatric: alert, oriented x 3 Skin: warm/dry (Renata Colon M.D.) Hospital Course This is a 51 y/o M with a PMHx of seizures, mentally challenged and alcoholism brought in by mom for hematemesis and hematochezia. Patient received 2mg of Ativan in the ER. Labs were significant for elevated WBC. Alcohol and urine tox screen negative on admission. Pt reports his last drink was 3 days prior to admission (Sunday). Blood cultures drawn in the ER and pt is started on aztreonam and daptomycin in the ER for empiric sepsis treatment. Dr. Silva performed upper GI endoscopy on 06/21/16 and was discharged into the ICU for esophageal bleeding. Patient was given Ativan PRN for withdrawal symptoms. Antibiotics were discontinued on 06/23/16 due to lack of source and clinical signs of infection. Removed Maya catheter on 06/24/16 and advance the diet to regular diet. 1. Hematemesis and dark stool 2/2 Esophageal bleeding ulcers - S/p upper endoscopy with epinephrine injection and cauterization of esophageal bleeding ulcers in the ER. - Hemoglobin continues to improve. On discharged his Hgb was 10.4 - Patient was started on Protonix drip and changed to PO 40mg BID on - Discharge home with Carafate 1 gm QID x 5 days for total 10 days course. Also Protonix 40mg BID. 2. Elevated Troponin (resolved) - Patient had elevated troponin but it resolved - No STEMI on EKG, likely demand ischemia from tachycardia. 3. Chronic Alcoholism - Negative ethyl alcohol level and urine tox in the ER. Lipase negative for acute pancreatitis. - S/p 2units of Ativan in the ER, no Ativan since, ativan was ordered PRN as per AWSS scale and hospital protocol. - S/p Banana bag x 2. - Discharged home with thiamine 100mg PO today 4. Possible Sepsis - S/p 2 days of Zosyn and Vanco. D/c Abx given blood and urine cultures negative. Pt has no clinical symptoms of infection. - Chest X-ray was negative. Patient was recommended to follow up with PCP and GI after discharge. Total Time Spent: Greater than 30 minutes This includes examination of the patient, discharge planning, medication reconciliation, and communication with other providers. (Maritza Manzo MD) I have reviewed the medical record and performed a history and physical examination of this patient today. I have discussed the case with Dr. Manzo. The above note reflects my findings, conclusions, and recommendations. Total Time Spent: Greater than 30 minutes (35 min) (Renata Colon M.D.) Discharge Instructions Please refer to the electronic Patient Visit Report (Discharge Instructions) for additional information. (Maritza Manzo MD) Additional Copies To Ashish Alvarez M.D.
[2016-06-26] MEDS ORDERED: CEFAZOLIN 1000MG/55 ML D5W IV SCH (06:00)
[2016-06-26] MEDS ORDERED: LACTATED RINGER'S 1000ML 1,000 ML IV SCH (06:00)
[2016-07-25] MEDS ORDERED: MULT-506 PO (12:18)
[2016-07-25] MEDS ORDERED: PANT1TAB48 PO (12:18)
== END 2016-06-25 10:04 | disposition home or self-care (01) | DRG 381 ==
LOC: ENRESERVTM → CANRESERV → ENRESERVDT → C.EDB 07:13 → C.MSICU 10:25 → CANBEDREQ 11:18 → C.2E 06-22 19:04 → C.MS2W 06-23 17:14
PROVIDERS: ADMIT Family Medicine; ATTEND Family Medicine
PROC: 3E0G8GC Introduction of Other Therapeutic Substance into Upper GI, Via Natural or Artificial Opening Endoscopic (ICD-10-PCS; principal; 2016-06-21 09:30)
PROC: 0W3P8ZZ Control Bleeding in Gastrointestinal Tract, Via Natural or Artificial Opening Endoscopic (ICD-10-PCS; principal; 2016-06-21 09:30)
DX: K22.11 Ulcer of esophagus with bleeding (principal); I24.8 Other forms of acute ischemic heart disease; E87.1 Hypo-osmolality and hyponatremia; F10.239 Alcohol dependence with withdrawal, unspecified; R65.10 Systemic inflammatory response syndrome (SIRS) of non-infectious origin without acute organ dysfunction; T51.0X2A Toxic effect of ethanol, intentional self-harm, initial encounter; E87.6 Hypokalemia; E83.39 Other disorders of phosphorus metabolism; R50.9 Fever, unspecified; R00.0 Tachycardia, unspecified; D64.9 Anemia, unspecified; R19.7 Diarrhea, unspecified; R29.6 Repeated falls; R33.9 Retention of urine, unspecified; R31.9 Hematuria, unspecified; S30.811A Abrasion of abdominal wall, initial encounter; X58.XXXA Exposure to other specified factors, initial encounter; Y92.230 Patient room in hospital as the place of occurrence of the external cause; E55.9 Vitamin D deficiency, unspecified; I10 Essential (primary) hypertension; G40.909 Epilepsy, unspecified, not intractable, without status epilepticus; F79 Unspecified intellectual disabilities; Z78.1 Physical restraint status; Z79.82 Long term (current) use of aspirin

== ENCOUNTER → 2016-07-05 | Outpatient (CLI) | payer OTHER ==
[~2016-07-05] MED LIST changes: +ASPI325T39 PO; -ATEN-173 PO; -CARB200T PO; -CARB200T3 PO; +CRFUDL PO; +CZR25 PO; +LOSA1TAB PO; +MULT-506 PO; +NZRCR EXT; +PANT1TAB48 PO; +PARO1TAB27 PO; +PRLSR20 PO; +PRT40 PO; +THIA100T11 PO; +THM100 PO; +VITACAP26; -VLT/50 PO
[2016-07-05 17:29] LABS: BASO % 0.4 %; BASO ABS # 0.04 K/uL (0-0.2); COMPLETE YES; EOS % 1.1 %; HEMATOCRIT 35.5 % (42-52); IG% 0.4 %; LYMPH % 9.5 %; LYMPH ABS # 0.96 K/uL (1.2-3.4); MEAN CORPUSCULAR HEMOGLOBIN 32.7 pg (25-34); MEAN CORPUSCULAR HGB CONC 32.7 g/dl (32-36); MEAN PLATELET VOLUME 8.8 fL (7.4-10.4); MONO % 5.8 %; NEUT % 82.8 %; PLATELET COUNT 506 K/uL (130-400); RED BLOOD COUNT 3.55 M/uL (4.7-6.1); WHITE BLOOD COUNT 10.06 K/uL (4.8-10.8)
[2016-07-05 19:23] LABS: ALT/SGPT 25 U/L (12-78); AST/SGOT 16 U/L (15-37); BLOOD UREA NITROGEN 10 mg/dl (7-18); BUN/CREATININE RATIO 12.6 (10-20); CALCIUM 8.9 mg/dl (8.5-10.1); CARBON DIOXIDE 28 mmol/L (21-32); CHLORIDE 100 mmol/L (98-107); CREATININE 0.76 mg/dl (0.60-1.40); GLUCOSE 93 mg/dl (70-99); SODIUM 136 mmol/L (136-145)
[2016-07-05 19:24] LABS: ALB/GLOB RATIO 0.9 (0.9-2); ALKALINE PHOSPHATASE 66 U/L (45-117)
[2016-07-06 06:10] LABS: ESTIMATED AVERAGE GLUCOSE 91 mg/dl; HA1C FLAG Normal (Normal)
== END | disposition home or self-care (01) ==
LOC: C.LABBFT 14:16
PROVIDERS: ATTEND Internal Medicine
DX: K22.11 Ulcer of esophagus with bleeding (principal); R73.9 Hyperglycemia, unspecified

== ENCOUNTER → 2016-07-26 | Day surgery (SDC) | payer OTHER ==
[2016-07-25 12:18] VITALS: BMI 28.0
[~2016-07-26] VITALS: Ht 172.7 cm; Wt 84.1 kg
[~2016-07-26] MED LIST changes: -ASPI325T39 PO; -CRFUDL PO; +FENTANYL CITRATE INJ 50 MCG/1 ML 2 ML VIAL ONE; +LIDOCAINE HCL 2% 2 ML VIAL (20MG/ML) ONE; +MIDAZOLAM HCL 1 MG/ML 2ML VIAL ONE; +PROPOFOL IV EMULSION 10 MG/ML 20 ML VIAL IV ONE; -PRT40 PO; -THM100 PO
[2016-07-26 13:36] VITALS: Ht 172.7 cm; Wt 84.1 kg
--- NOTE | 2016-07-26 14:24 | Endo History and Physical ---
History & Physical Date of Service: Jul 26, 2016. Chief Complaint: Rectal bleeding Referring Physician: Dr. Alvarez History of Present Illness Rectal bleed, FH colon cancer Past Surgical History Hx Cardiac Surgery: No Hx Internal Defibrillator: No Hx Pacemaker: No Hx Abdominal Surgery: Yes (HERNIA REPAIR) Hx of Implantable Prosthesis: No Hx Post-Op Nausea and Vomiting: No Hx Cancer Surgery: No Hx Thoracic Surgery: No Hx Orthopedic: Yes (RT FOOT TOE AMPUTATION EXCEPT LITTLE TOE) Hx Urinary Tract Surgery: No Family History Colon CA Social History Smoking Status: Never Smoker Hx Substance Use: No Hx Alcohol Use: Yes (4-5 DRINKS/DAY) Allergies Coded Allergies: Penicillins (Verified Allergy, Unknown, UNKNOWN - HAPPENED CHILD, ) Current Medications Reported Home Medications Medications Dose Route/Sig Max Daily Dose Days Date Category Protonix (Pantoprazole) 40 Mg Tab 40 Mg PO BID 07/25/16 Reported Multivitamin (Multivitamins) Tab 1 Tab PO QAM 07/25/16 Reported Vital Signs Weight (Kilograms): 84.09 Height (Feet): 5 Height (Inches): 8 Date Time Temp Pulse Resp B/P Pulse Ox O2 Delivery O2 Flow Rate FiO2 07/26/16 13:42 37 91 20 166/106 97 Room Air Physical Exam General Appearance: no apparent distress Respiratory/Chest: Auscultation: breath sounds normal Cardiovascular: Heart Auscultation: RRR Abdomen: Inspection & Palpation: soft, non-distended Assessment and Plan Rectal bleed - cscopy
--- NOTE | 2016-07-26 14:44 | Discharge Instructions ---
Endoscopy Patient Instructions Date / Procedure(s) Performed Jul 26, 2016. Colonoscopy Allergy Information Coded Allergies: Penicillins (Verified Allergy, Unknown, UNKNOWN - HAPPENED CHILD, ) Discharge Date / Findings Jul 26, 2016. normal exam Provider Instructions Activity Restrictions - No exercising or heavy lifting for 24 hours. - Do not drink alcohol the day of the procedure. - Do not drive a car or operate machinery until the day after the procedure. - Do not make any important decisions or sign important papers in 24 hours after the procedure. Following Day: - Return to full activity which may include returning to work/school. Diet Start your diet with liquids and light foods (jello, soup, juice, toast). Then eat your usual diet if not nauseated. Treatment For Common After Affects For mild abdominal pain, bloating, or excessive gas: - Rest - Eat lightly - Lie on right side Follow-Up Information Follow-up with Dr. Alvarez as scheduled Anesthesia Information What You Should Know You have had a procedure that required some medicine to reduce anxiety and discomfort. This treatment is called moderate sedation. After receiving the treatment, you may be sleepy, but you will be able to breathe on your own. The effects of the treatment may last for several hours. Follow these instructions along with Activity/Diet recommendations noted above: * Do NOT do anything where dizziness or clumsiness would be dangerous. * Rest quietly at home today, then you can be up and about tomorrow. * Have a responsible person stay with you the rest of today. * You may have had an I.V. today. If so, you may take the dressing off later today. Recommendations Call your doctor if: * Trouble breathing * Continuous vomiting for more than 24 hours * Temperature above 101 degrees * Severe abdominal pain or bloating * Pain not relieved by pain medicine ordered * There is increased drainage or redness from any incision * A large amount of rectal bleeding greater than 2-3 tablespoons. (If you had a polyp/s removed or have hemorrhoids, a small amount of blood - from the rectum is to be expected.) * You have any unanswered questions or concerns. IN THE EVENT OF A SERIOUS EMERGENCY, GO TO THE NEAREST EMERGENCY ROOM Your discharge instructions were prepared by provider Rhonda Cuello. Patient Instructions Signature Page Donald Hernandez Patient (or Guardian) Signature/Date: I have read and understand the instructions given to me by my caregivers. Caregiver/RN/Doctor Signature/Date: The above-named patient and/or guardian has received patient instructions on this date. + Original Patient Signature Page (only) stays with chart. Please make copy for patient.
--- NOTE | 2016-07-26 14:44 | GI REPORT ---
Procedure Date: 07/26/2016 2:24 PM Procedure: Colonoscopy Indications: Rectal bleeding Medicines: See the Anesthesia note for documentation of the administered medications Complications: No immediate complications. Estimated Blood Loss: Estimated blood loss: none. Procedure: Pre-Anesthesia Assessment: - ASA Grade Assessment: III - A patient with severe systemic disease. After I obtained informed consent, the scope was passed under direct vision. Throughout the procedure, the patient's blood pressure, pulse, and oxygen saturations were monitored continuously. The Scope was introduced through the anus and advanced to the terminal ileum. The colonoscopy was performed without difficulty. The patient tolerated the procedure well. The quality of the bowel preparation was good. Findings: The perianal and digital rectal examinations were normal. The entire examined colon appeared normal. The terminal ileum appeared normal. Impression: - The entire examined colon is normal. - The examined portion of the ileum was normal. - No specimens collected. Recommendation: - Discharge patient to home. Repeat exam in 10 years. Minda Lara MD 07/26/2016 2:43:59 PM This report has been signed electronically. Note Initiated On: 07/26/2016 2:24 PM I attest to the content of the Intraoperative Record and orders documented therein, exceptions below
[2016-07-26 15:15] VITALS: BP 155/98; PULSE 80; O2SAT 99
--- NOTE | 2016-07-26 15:19 | Anesthesiology Progress Note ---
Anesthesia Post Op Note Date & Time Jul 26, 2016 at 15:19 Vital Signs Pain Intensity: 0 Vital Signs Past 12 Hours Date Time Temp Pulse Resp B/P Pulse Ox O2 Delivery O2 Flow Rate FiO2 07/26/16 14:59 89 18 122/86 100 Room Air 07/26/16 14:44 89 16 147/85 98 Room Air 07/26/16 13:42 37 91 20 166/106 97 Room Air Notes Mental Status: alert / awake / arousable, participated in evaluation Pt Amnestic to Procedure: Yes Nausea / Vomiting: adequately controlled Pain: adequately controlled Airway Patency, RR, SpO2: stable & adequate BP & HR: stable & adequate Hydration State: stable & adequate Anesthetic Complications: no major complications apparent
== END | disposition home or self-care (01) ==
LOC: C.GI 13:02
PROVIDERS: ATTEND Internal Medicine Gastroenterology
DX: K62.5 Hemorrhage of anus and rectum (principal); Z80.0 Family history of malignant neoplasm of digestive organs; Z98.890 Other specified postprocedural states; Z89.421 Acquired absence of other right toe(s); Z88.0 Allergy status to penicillin

== ENCOUNTER → 2016-08-18 | Outpatient (CLI) | payer SELFPAY ==
[~2016-08-18] MED LIST changes: -FENTANYL CITRATE INJ 50 MCG/1 ML 2 ML VIAL ONE; +FLV1 PO; -LIDOCAINE HCL 2% 2 ML VIAL (20MG/ML) ONE; +LOSA100T65 PO; +METO25TA3 PO; -MIDAZOLAM HCL 1 MG/ML 2ML VIAL ONE; -PROPOFOL IV EMULSION 10 MG/ML 20 ML VIAL IV ONE
[2016-08-18 16:48] LABS: HEMATOCRIT 39.3 % (42-52); MEAN CELL VOLUME 89.1 fL (80-100); MEAN CORPUSCULAR HEMOGLOBIN 29.3 pg (25-34); MEAN CORPUSCULAR HGB CONC 32.8 g/dl (32-36); MEAN PLATELET VOLUME 9.4 fL (7.4-10.4); PLATELET COUNT 420 K/uL (130-400); RED BLOOD COUNT 4.41 M/uL (4.7-6.1); WHITE BLOOD COUNT 7.75 K/uL (4.8-10.8)
[2016-08-18 16:58] LABS: ALB/GLOB RATIO 0.9 (0.9-2); ALT/SGPT 25 U/L (12-78); AST/SGOT 38 U/L (15-37); BLOOD UREA NITROGEN 9 mg/dl (7-18); BUN/CREATININE RATIO 12.5 (10-20); CALCIUM 9.3 mg/dl (8.5-10.1); CARBON DIOXIDE 26 mmol/L (21-32); CHLORIDE 99 mmol/L (98-107); CREATININE 0.75 mg/dl (0.60-1.40); GLUCOSE 87 mg/dl (70-99); SODIUM 138 mmol/L (136-145)
[2016-08-18 17:09] LABS: ALKALINE PHOSPHATASE 65 U/L (45-117); THYROID STIMULATING HORMONE 0.742 uIu/ml (0.300-4.500)
== END | disposition home or self-care (01) ==
LOC: C.LABBFT 12:56
PROVIDERS: ATTEND Internal Medicine
DX: K92.2 Gastrointestinal hemorrhage, unspecified (principal); I10 Essential (primary) hypertension

== ENCOUNTER → 2016-09-01 | Day surgery (SDC) | payer SELFPAY ==
[2016-07-25 12:29] VITALS: Ht 172.7 cm; Wt 84.1 kg
[~2016-09-01] VITALS: Ht 172.7 cm; Wt 84.1 kg
[~2016-09-01] MED LIST changes: +ATROPINE SULFATE 0.1 MG/ML 5ML SYR IV PRN; +EpHEDrine SULFATE INJ 50 MG/ML AMP IV PRN; +LABETALOL HCL IV 5 MG/ML 20ML IV ONE; +LABETALOL HCL IV 5 MG/ML 20ML IV PRN; +LIDOCAINE HCL 2% 2 ML VIAL (20MG/ML) ONE; +MIDAZOLAM HCL 1 MG/ML 2ML VIAL ONE; +ONDANSETRON INJ 2 MG/ML 2 ML VIAL ONE; +PROPOFOL IV EMULSION 10 MG/ML 20 ML VIAL IV ONE; +SODIUM CHLORIDE 0.9% 500ML 500 ML IV ONE
--- NOTE | 2016-09-01 10:39 | Endo History and Physical ---
History & Physical Date of Service: Sep 01, 2016. Chief Complaint: GERD Referring Physician: Ashish Alvarez History of Present Illness 51 yo CM who presents for EGD secondary to GERD. Past Surgical History Hx Cardiac Surgery: No Hx Internal Defibrillator: No Hx Pacemaker: No Hx Abdominal Surgery: Yes (HERNIA REPAIR) Hx of Implantable Prosthesis: No Hx Post-Op Nausea and Vomiting: No Hx Cancer Surgery: No Hx Thoracic Surgery: No Hx Orthopedic: Yes (RT FOOT TOE AMPUTATION EXCEPT LITTLE TOE) Hx Urinary Tract Surgery: No Family History Colon CA Social History Smoking Status: Never Smoker Hx Substance Use: No Hx Alcohol Use: Yes (4-5 DRINKS/DAY) Allergies Coded Allergies: Penicillins (Verified Allergy, Unknown, UNKNOWN - HAPPENED CHILD, ) Current Medications Reported Home Medications Medications Dose Route/Sig Max Daily Dose Days Date Category Protonix (Pantoprazole) 40 Mg Tab 40 Mg PO BID 07/25/16 Reported Multivitamin (Multivitamins) Tab 1 Tab PO QAM 07/25/16 Reported Vital Signs Weight (Kilograms): 84.09 Height (Feet): 5 Height (Inches): 8 Date Time Temp Pulse Resp B/P Pulse Ox O2 Delivery O2 Flow Rate FiO2 09/01/16 10:23 92 20 165/97 94 Room Air 09/01/16 10:09 173/101 09/01/16 10:06 37.2 104 20 178/101 97 Room Air Physical Exam General Appearance: WD/WN, no apparent distress Respiratory/Chest: Auscultation: breath sounds normal Cardiovascular: Heart Auscultation: RRR Abdomen: Bowel Sounds: normal Inspection & Palpation: soft, non-distended, no tenderness, guarding & rebound Assessment and Plan Assessment: 51 yo CM who presents for EGD secondary to GERD. Plan: Proceed with EGD.
--- NOTE | 2016-09-01 11:10 | GI REPORT ---
Procedure Date: 09/01/2016 10:39 AM Procedure: Upper GI endoscopy Indications: Follow-up of esophageal ulcer Medicines: Monitored Anesthesia Care Complications: No immediate complications. Estimated Blood Loss: Estimated blood loss: none. Procedure: Pre-Anesthesia Assessment: - Prior to the procedure, a History and Physical was performed, and patient medications and allergies were reviewed. The patient's tolerance of previous anesthesia was also reviewed. The risks and benefits of the procedure and the sedation options and risks were discussed with the patient. All questions were answered, and informed consent was obtained. Prior Anticoagulants: The patient has taken no previous anticoagulant or antiplatelet agents. ASA Grade Assessment: III - A patient with severe systemic disease. After reviewing the risks and benefits, the patient was deemed in satisfactory condition to undergo the procedure. After obtaining informed consent, the endoscope was passed under direct vision. Throughout the procedure, the patient's blood pressure, pulse, and oxygen saturations were monitored continuously. The scope was introduced through the mouth, and advanced to the second part of duodenum. The upper GI endoscopy was accomplished without difficulty. The patient tolerated the procedure well. Findings: Moderately severe esophagitis with no bleeding was found. Biopsies were taken with a cold forceps for histology. A small hiatus hernia was present. Localized moderate inflammation characterized by erythema was found in the gastric antrum. Biopsies were taken with a cold forceps for histology. The examined duodenum was normal. Impression: - Moderately severe reflux esophagitis. Biopsied. - Small hiatus hernia. - Gastritis. Biopsied. - Normal examined duodenum. Recommendation: - Resume previous diet. - Continue present medications. - Await pathology results. - Return to GI clinic as previously scheduled. Carlito Silva DO 09/01/2016 11:08:54 AM This report has been signed electronically. Note Initiated On: 09/01/2016 10:39 AM I attest to the content of the Intraoperative Record and orders documented therein, exceptions below
--- NOTE | 2016-09-01 11:21 | Anesthesiology Progress Note ---
Anesthesia Post Op Note Date & Time Sep 01, 2016 at 11:20 Vital Signs Pain Intensity: 0 Vital Signs Past 12 Hours Date Time Temp Pulse Resp B/P Pulse Ox O2 Delivery O2 Flow Rate FiO2 09/01/16 11:10 87 20 136/84 96 Room Air 09/01/16 11:00 84 16 102/57 95 Room Air 09/01/16 10:23 92 20 165/97 94 Room Air 09/01/16 10:09 173/101 09/01/16 10:06 37.2 104 20 178/101 97 Room Air Notes Mental Status: alert / awake / arousable, participated in evaluation Pt Amnestic to Procedure: Yes Nausea / Vomiting: adequately controlled Pain: adequately controlled Airway Patency, RR, SpO2: stable & adequate BP & HR: stable & adequate Hydration State: stable & adequate Anesthetic Complications: no major complications apparent
[2016-09-01 11:23] VITALS: BP 139/82; PULSE 87; O2SAT 96
--- NOTE | 2016-09-01 11:31 | Discharge Instructions ---
Endoscopy Patient Instructions Date / Procedure(s) Performed Sep 01, 2016. EGD Allergy Information Coded Allergies: Penicillins (Verified Allergy, Unknown, UNKNOWN - HAPPENED CHILD, ) Discharge Date / Findings Sep 01, 2016. Gastritis s/p biopsies Hiatal hernia Esophagitis s/p biopsies Medication Instructions OK to resume all medications today as prescribed Reported Home Medications Medications Dose Route/Sig Max Daily Dose Days Date Category Protonix (Pantoprazole) 40 Mg Tab 40 Mg PO BID 07/25/16 Reported Multivitamin (Multivitamins) Tab 1 Tab PO QAM 07/25/16 Reported Provider Instructions Activity Restrictions - No exercising or heavy lifting for 24 hours. - Do not drink alcohol the day of the procedure. - Do not drive a car or operate machinery until the day after the procedure. - Do not make any important decisions or sign important papers in 24 hours after the procedure. Following Day: - Return to full activity which may include returning to work/school. Diet Start your diet with liquids and light foods (jello, soup, juice, toast). Then eat your usual diet if not nauseated. Treatment For Common After Affects For mild abdominal pain, bloating, or excessive gas: - Rest - Eat lightly - Lie on right side Follow-Up Information Follow-up with Carlito Silva as scheduled Anesthesia Information What You Should Know You have had a procedure that required some medicine to reduce anxiety and discomfort. This treatment is called moderate sedation. After receiving the treatment, you may be sleepy, but you will be able to breathe on your own. The effects of the treatment may last for several hours. Follow these instructions along with Activity/Diet recommendations noted above: * Do NOT do anything where dizziness or clumsiness would be dangerous. * Rest quietly at home today, then you can be up and about tomorrow. * Have a responsible person stay with you the rest of today. * You may have had an I.V. today. If so, you may take the dressing off later today. Recommendations Call your doctor if: * Trouble breathing * Continuous vomiting for more than 24 hours * Temperature above 101 degrees * Severe abdominal pain or bloating * Pain not relieved by pain medicine ordered * There is increased drainage or redness from any incision * A large amount of rectal bleeding greater than 2-3 tablespoons. (If you had a polyp/s removed or have hemorrhoids, a small amount of blood - from the rectum is to be expected.) * You have any unanswered questions or concerns. IN THE EVENT OF A SERIOUS EMERGENCY, GO TO THE NEAREST EMERGENCY ROOM Your discharge instructions were prepared by provider Carlito Silva. Patient Instructions Signature Page Donald Hernandez Patient (or Guardian) Signature/Date: I have read and understand the instructions given to me by my caregivers. Caregiver/RN/Doctor Signature/Date: The above-named patient and/or guardian has received patient instructions on this date. + Original Patient Signature Page (only) stays with chart. Please make copy for patient.
== END | disposition home or self-care (01) ==
LOC: C.GI 08:33
PROVIDERS: ATTEND Internal Medicine
DX: K21.0 Gastro-esophageal reflux disease with esophagitis (principal); K44.9 Diaphragmatic hernia without obstruction or gangrene; K29.70 Gastritis, unspecified, without bleeding; Z79.899 Other long term (current) drug therapy

== ENCOUNTER 2016-09-04 12:06 | Inpatient (IN) | payer OTHER ==
[~2016-09-04] VITALS: Ht 172.7 cm; Wt 83.9 kg
[~2016-09-04 12:06] MED LIST changes: -ATROPINE SULFATE 0.1 MG/ML 5ML SYR IV PRN; -CZR25 PO; -EpHEDrine SULFATE INJ 50 MG/ML AMP IV PRN; -FLV1 PO; -LABETALOL HCL IV 5 MG/ML 20ML IV ONE; -LABETALOL HCL IV 5 MG/ML 20ML IV PRN; -LIDOCAINE HCL 2% 2 ML VIAL (20MG/ML) ONE; -LOSA100T65 PO; -LOSA1TAB PO; -METO25TA3 PO; -MIDAZOLAM HCL 1 MG/ML 2ML VIAL ONE; -NZRCR EXT; -ONDANSETRON INJ 2 MG/ML 2 ML VIAL ONE; -PARO1TAB27 PO; -PRLSR20 PO; -PROPOFOL IV EMULSION 10 MG/ML 20 ML VIAL IV ONE; -SODIUM CHLORIDE 0.9% 500ML 500 ML IV ONE; -THIA100T11 PO; -VITACAP26
[2016-09-04] MEDS ORDERED: SODIUM CHLORIDE 0.9% 1000ML 1,000 ML IV STA ×2 (12:22)
--- NOTE | 2016-09-04 12:37 | DIAGNOSTIC IMAGING REPORT ---
CHEST ONE VIEW PORTABLE CLINICAL HISTORY: Gastrointestinal hemorrhage COMPARISON STUDY: 06/22/2016 FINDINGS: The heart is the upper limits of normal in size. There is no failure. There is no lobar consolidation. There are slightly prominent right basal markings likely atelectatic. No free intraperitoneal air is visualized[ IMPRESSION: Slightly prominent right basal markings likely atelectatic. No evidence of failure. No evidence of lobar consolidation. Electronically signed by: Alexis Gaming M.D. 09/04/2016 12:35 PM Dictated Date/Time: 09/04/2016 12:34 PM
[2016-09-04 12:42] LABS: ISTAT CREATININE 1.5 mg/dl (0.6-1.3); ISTAT HEMOGLOBIN 13.9 g/dl (14.0-18.0); ISTAT IONIZED CALCIUM 1.03 mmol/l (1.12-1.32)
[2016-09-04] MEDS ORDERED: PANTOprazole INJ 80 MG in DEXTROSE 5% 100ML IV SCH (12:45)
[2016-09-04 12:49] LABS: BASO % 0.2 %; BASO ABS # 0.03 K/uL (0-0.2); COMPLETE YES; HEMATOCRIT 38.1 % (42-52); IG% 0.2 %; LYMPH % 2.9 %; MEAN CELL VOLUME 90.1 fL (80-100); MEAN CORPUSCULAR HEMOGLOBIN 28.8 pg (25-34); MEAN PLATELET VOLUME 9.5 fL (7.4-10.4); MONO % 6.1 %; NEUT % 90.6 %; PLATELET COUNT 192 K/uL (130-400); RED BLOOD COUNT 4.23 M/uL (4.7-6.1); WHITE BLOOD COUNT 13.85 K/uL (4.8-10.8)
[2016-09-04 12:55] LABS: CALCIUM 8.7 mg/dl (8.5-10.1)
[2016-09-04 12:57] LABS: ALT/SGPT 34 U/L (12-78); BLOOD UREA NITROGEN 11 mg/dl (7-18); BUN/CREATININE RATIO 7.1 (10-20); CARBON DIOXIDE 23 mmol/L (21-32); CHLORIDE 99 mmol/L (98-107); GLUCOSE 97 mg/dl (70-99); MAGNESIUM 1.8 mg/dl (1.8-2.4); POTASSIUM 4.5 mmol/L (3.5-5.1); SODIUM 137 mmol/L (136-145)
[2016-09-04 12:59] LABS: ALKALINE PHOSPHATASE 54 U/L (45-117); AST/SGOT 72 U/L (15-37)
[2016-09-04] MEDS ORDERED: PANTOprazole INJ 40 MG in DEXTROSE 5% 100ML IV SCH ×2 (13:00→18:00)
[2016-09-04] MEDS ORDERED: PARO1TAB27 PO (13:10)
[2016-09-04] MEDS ORDERED: VITACAP26 (13:10)
[2016-09-04] MEDS: SODIUM CHLORIDE 0.9% 1000ML 1,000 ML IV SCH ×2 (14:14→23:15)
[2016-09-04 14:15] LABS: INR 0.9 (0.9-1.1); PARTIAL THROMBOPLASTIN RATIO 1.1
[2016-09-04] MEDS ORDERED: MAGNESIUM HYDROXIDE SUSP 30 ML UDC PO PRN (14:15)
[2016-09-04] MEDS ORDERED: LORAZEPAM 2 MG/ML 1 ML VIAL IV PRN (14:15)
[2016-09-04] MEDS ORDERED: POLYETHYLENE (MIRALAX) 17 GM PACK PO PRN (14:15)
[2016-09-04] MEDS ORDERED: ALUMINUM/MAGNESIUM/SIMETH (MAALOX MAX) 30 ML UDC PO PRN (14:15)
[2016-09-04] MEDS ORDERED: ONDANSETRON INJ 2 MG/ML 2 ML VIAL IV PRN (14:15)
[2016-09-04] MEDS ORDERED: ACETAMINOPHEN 325 MG TAB PO PRN (14:15)
[2016-09-04] MEDS ORDERED: PANTOprazole INJ 40 MG in DEXTROSE 5% 100ML 100 ML IV SCH (14:15)
[2016-09-04] MEDS ORDERED: LOSA1TAB PO (14:20)
[2016-09-04] MEDS ORDERED: THIA100T11 PO (14:20)
--- NOTE | 2016-09-04 14:21 | EMERGENCY ROOM VISIT NOTE ---
History Report prepared by Min: Brandy Pelaez Under the Supervision of: Dr. Audi San M.D. First contact with patient: 12:16 Chief Complaint: RECTAL BLEEDING Stated Complaint: BLEEDING History of Present Illness The patient is a 51 year old male who presents to the Emergency Room with complaints of persistent rectal bleeding that started 2-3 days ago. Per the patient's friend, the blood is dark red. He is also experiencing rectal pain. The patient's friend also states that the patient is always cold. The patient denies lightheadedness, dizziness, shortness of breath, palpitations, abdominal pain, and vomiting. He states that he experienced diarrhea yesterday after he ate 2 slices of pizza. The patient is not on any blood thinners. The patient's friend states that the patient has a bleeding ulcer in his intestine and he has been admitted to the hospital in the past for it. She thinks that he received a blood transfusion when he was admitted. The patient had an endoscopy done [address] Ricardo SOLIZ. Per the endoscopy report, the endoscopy revealed severe esophagitis without active bleeding as well as inflammation of the antrum of the stomach. Biopsies were obtained from the patient's esophagus and stomach. The patient's friend adds that he drinks a lot of alcohol at home. The patient states that his last drink of alcohol was last night. The patient's friend adds that the patient has been falling recently, but that is not new for him. He denies any recent syncopal events. The patient is on Prilosec. Source of History: patient, friend Onset: 2-3 days ago Position: other (rectum) Quality: other (rectal bleeding) Timing: other (persistent) Associated Symptoms: + diarrhea, No abdominal pain, No vomiting Note: rectal pain, no lightheadedness, no dizziness. no palpitations Review of Systems See HPI for pertinent positives & negatives. A total of 10 systems reviewed and were otherwise negative. Past Medical & Surgical Medical Problems: (1) GI bleed (2) HTN (hypertension) Family History Cancer Diabetes mellitus Hypertension Lung disease Seizures Social History Smoking Status: Never Smoker Alcohol Use: occasionally Drug Use: none Marital Status: Housing Status: lives with family Occupation Status: disabled Current/Historical Medications Scheduled Losartan Potassium (Cozaar), 25 MG PO DAILY Multivitamin (Multivitamin), 1 TAB PO QAM Pantoprazole (Protonix), 40 MG PO BID Thiamine Hcl (Vitamin B-1), 100 MG PO DAILY Miscellaneous Medications Vitamins C & E (Vitamin C) Allergies Coded Allergies: Penicillins (Verified Allergy, Unknown, UNKNOWN - HAPPENED CHILD, ) Physical Exam Vital Signs Date Time Temp Pulse Resp B/P Pulse Ox O2 Delivery O2 Flow Rate FiO2 09/04/16 14:27 98 Room Air 09/04/16 13:03 105 20 118/79 09/04/16 12:10 36.9 126 20 89/57 98 Room Air Physical Exam GENERAL: Patient is in no acute distress. HEENT: No acute trauma, normocephalic atraumatic, mucous membranes moist, no nasal congestion, no scleral icterus. NECK: No stridor, no adenopathy, no meningismus, trachea is midline. LUNGS: Clear to auscultation bilaterally, no wheeze, no rhonchi, breath sounds equal. HEART: Tachycardic with a regular rhythm, no murmurs ABDOMEN: Soft, nontender, bowel sounds positive, no hernias, no peritonitis. EXTREMITIES: No cyanosis or edema, full range of motion of all the joints without pain or difficulty, no signs for acute trauma. RECTAL: Maroon colored stool, heme positive. NEUROLOGIC: Oriented x 3, no acute motor or sensory deficits, no focal weakness. SKIN: No rash, no jaundice, no diaphoresis. Medical Decision & Procedures ER Provider Diagnostic Interpretation: X-ray results as stated below per interpretation by me and the radiologist: CHEST ONE VIEW PORTABLE IMPRESSION: Slightly prominent right basal markings likely atelectatic. No evidence of failure. No evidence of lobar consolidation. Electronically signed by: Alexis Gaming M.D. 09/04/2016 12:35 PM Dictated Date/Time: 09/04/2016 12:34 PM Laboratory Results 09/04/16 12:22 Red Blood Count 4.23, Mean Corpuscular Volume 90.1, Mean Corpuscular Hemoglobin 28.8, Mean Corpuscular Hemoglobin Concent 32.0, Mean Platelet Volume 9.5, Neutrophils (%) (Auto) 90.6, Lymphocytes (%) (Auto) 2.9, Monocytes (%) (Auto) 6.1, Eosinophils (%) (Auto) 0.0, Basophils (%) (Auto) 0.2, Neutrophils # (Auto) 12.54, Lymphocytes # (Auto) 0.40, Monocytes # (Auto) 0.85, Eosinophils # (Auto) 0.00, Basophils # (Auto) 0.03 09/04/16 12:22 Test 09/04/16 12:22 09/04/16 12:29 09/04/16 12:50 09/04/16 13:29 White Blood Count 13.85 K/uL (4.8-10.8) Red Blood Count 4.23 M/uL (4.7-6.1) Hemoglobin 12.2 g/dL (14.0-18.0) Hematocrit 38.1 % (42-52) Mean Corpuscular Volume 90.1 fL (80-100) Mean Corpuscular Hemoglobin 28.8 pg (25-34) Mean Corpuscular Hemoglobin Concent 32.0 g/dl (32-36) Platelet Count 192 K/uL (130-400) Mean Platelet Volume 9.5 fL (7.4-10.4) Neutrophils (%) (Auto) 90.6 % Lymphocytes (%) (Auto) 2.9 % Monocytes (%) (Auto) 6.1 % Eosinophils (%) (Auto) 0.0 % Basophils (%) (Auto) 0.2 % Neutrophils # (Auto) 12.54 K/uL (1.4-6.5) Lymphocytes # (Auto) 0.40 K/uL (1.2-3.4) Monocytes # (Auto) 0.85 K/uL (0.11-0.59) Eosinophils # (Auto) 0.00 K/uL (0-0.5) Basophils # (Auto) 0.03 K/uL (0-0.2) RDW Standard Deviation 54.4 fL (36.4-46.3) RDW Coefficient of Variation 16.5 % (11.5-14.5) Immature Granulocyte % (Auto) 0.2 % Immature Granulocyte # (Auto) 0.03 K/uL (0.00-0.02) Est Creatinine Clear Calc Drug Dose 62.5 ml/min Estimated GFR () 62.0 Estimated GFR (Non- 53.5 BUN/Creatinine Ratio 7.1 (10-20) Calcium Level 8.7 mg/dl (8.5-10.1) Magnesium Level 1.8 mg/dl (1.8-2.4) Total Bilirubin 0.6 mg/dl (0.2-1) Direct Bilirubin < 0.1 mg/dl (0-0.2) Aspartate Amino Transf (AST/SGOT) 72 U/L (15-37) Alanine Aminotransferase (ALT/SGPT) 34 U/L (12-78) Alkaline Phosphatase 54 U/L (45-117) Total Protein 7.5 gm/dl (6.4-8.2) Albumin 3.4 gm/dl (3.4-5.0) Lipase 188 U/L (73-393) Bedside Hemoglobin 13.9 g/dl (14.0-18.0) Bedside Hematocrit 41 % (42-52) Bedside Sodium 134 mEq/L (135-144) Bedside Potassium 4.6 mEq/L (3.3-5.0) Bedside Chloride 99 mEq/L (101-112) Bedside Total CO2 21 mEq/l (24-31) Anion Gap 20.0 mmol/L (16-25) Bedside Blood Urea Nitrogen 11 mg/dl (7-18) Bedside Creatinine 1.5 mg/dl (0.6-1.3) Bedside Glucose (other) 93 mg/dl (70-99) Bedside Ionized Calcium (Leigh) 1.03 mmol/l (1.12-1.32) Ethyl Alcohol mg/dL 143.0 mg/dl (0-3) Prothrombin Time 10.0 SECONDS (9.0-12.0) Prothromb Time International Ratio 0.9 (0.9-1.1) Activated Partial Thromboplast Time 28.9 SECONDS (21.0-31.0) Partial Thromboplastin Ratio 1.1 Laboratory results reviewed by me. Medications Administered Medications (Trade) Dose Ordered Sig/Jr Route Start Time Stop Time Status Last Admin Dose Admin Sodium Chloride 1,000 ml @ 200 mls/hr Q5H STAT IV 09/04/16 12:22 09/04/16 15:55 DC 09/04/16 12:22 200 MLS/HR Sodium Chloride 1,000 ml @ 999 mls/hr Q1H1M STAT IV 09/04/16 12:22 09/04/16 13:22 DC 09/04/16 12:22 999 MLS/HR Pantoprazole Sodium 80 mg/ Dextrose 120 ml @ 480 mls/hr 1245 IV 09/04/16 12:45 09/04/16 12:59 DC 09/04/16 13:01 480 MLS/HR Pantoprazole Sodium 40 mg/ Dextrose 100 ml @ 20 mls/hr Q5H IV 09/04/16 13:00 09/04/16 17:59 DC 09/04/16 13:01 20 MLS/HR Sodium Chloride (Nss 1000ml) 1,000 ml @ 125 mls/hr Q8H IV 09/04/16 14:14 10/04/16 14:13 09/04/16 14:14 125 MLS/HR Lorazepam (Ativan Inj) 1 mg ONE PRN IV 09/04/16 14:15 09/04/16 17:02 DC 09/04/16 17:02 2 MG ECG Indication: other (hypotension) Rate (beats per minute): 111 Rhythm: sinus tachycardia Findings: 1st degree AV block, no acute ischemic change, no ectopy ED Course 1217: The patient was evaluated in room B11. A complete history and physical exam was performed. 1222: Ordered Pantoprazole Sodium 1 ea IV, Sodium Chloride 1000 ml @ 999 mls/hr IV, Sodium Chloride 1000 ml @ 200 mls/hr IV 1241: Discussed the patient's case with Dr. Ricardo SOLIZ. He said to medically admit the patient and he will consult. He suspects that the bleeding is likely from a biopsy site. 1245: Ordered Pantoprazole Sodium 80 mg/Dextrose 120 ml @ 480 mls/hr IV 1300: Ordered Pantoprazole Sodium 40 mg/Dextrose 100 ml @ 20 mls/hr IV 1309: Discussed the patient's case with Dr[place]enee [facility] [place] The patient will be evaluated for further management. 1412: Upon reexamination the patient is resting comfortably. I discussed results and treatment plan with the patient and his friend. They verbalize agreement and understanding. The patient will be evaluated for further management. Medical Decision Differential diagnoses considered include upper GI bleeding, lower GI bleeding, anemia, alcohol intoxication, electrolyte imbalance, bleeding from biopsy sites , liver disease. There is a mild leukocytosis, this could be consistent with infection or possibly just the stress today's presentation. The patient is mildly anemic but the number is not critical. There was no significant electrolyte abnormality, kidney failure or hepatitis. No pancreatitis. There was no coagulopathy. Urinalysis does not show infection. EKG shows a sinus tachycardia, no acute ischemia. Chest film shows no free air or pneumonia. By my exam, the stool was maroon and dark and heme positive. Alcohol level was about 140. The patient received IV saline, he was given IV Protonix and placed on a Protonix drip. A blood transfusion was not required. His vital signs improved with the IV saline. The patient is likely bleeding from his recent biopsy sites. I did speak to the GI physician on-call. I spoke to the on-call hospitalist. Admission/ observation is warranted. The patient is aware of his findings and case management has been involved. Consults Time Called: 1226 Consulting Physician: Dr. Ricardo SOLIZ Returned Call: [phone] Discussed the patient's case with Dr. Ricardo SOLIZ. He said to medically admit the patient and he will consult. He suspects that the bleeding is likely from a biopsy site. Additional Consults: Time Called: [phone] Consulted Physician: Dr. Christina BRODY Returned Call: [phone] Additional Comments: Discussed the patient's case with Dr. Christina BRODY. The patient will be evaluated for further management. Impression Primary Impression: Upper gastrointestinal bleed Additional Impressions: Alcoholism Hypotension Scribe Attestation The scribe's documentation has been prepared under my direction and personally reviewed by me in its entirety. I confirm that the note above accurately reflects all work, treatment, procedures, and medical decision making performed by me. Departure Information Dispostion Being Evaluated By Hospitalist Referrals No Doctor, Assigned (PCP) Patient Instructions My [facility] Problem Qualifiers Additional Impressions: Hypotension Hypotension type: unspecified hypotension type Qualified Codes: I95.9 - Hypotension, unspecified
[2016-09-04 14:27] VITALS: O2SAT 98; Ht 172.7 cm; Wt 83.9 kg
[2016-09-04] MEDS: LIDOCAINE HCL 2% JELLY 30 ML TUBE EXT SCH ×2 (14:45→19:27)
[2016-09-04 15:15] VITALS: BP 133/70; PULSE 118; TEMP 38.4; O2SAT 93
[2016-09-04] MEDS ORDERED: FoLIC ACID INJ 1 MG in SYRINGE 9.8 ML IV ONE (15:15)
[2016-09-04 15:48] LABS: HEMATOCRIT 35.1 % (42-52)
[2016-09-04] MEDS: THIAMINE HCL INJ 100 MG in SYRINGE 9 ML IV SCH (16:51)
[2016-09-04] MEDS: PANTOprazole INJ 40 MG in DEXTROSE 5% 100ML IV SCH ×2 (16:51→22:14)
[2016-09-04] MEDS ORDERED: ACETAMINOPHEN IV 100 ML IV PRN (17:30)
[2016-09-04] MEDS ORDERED: GABAPENTIN 600 MG TAB PO SCH (18:00)
--- NOTE | 2016-09-04 18:15 | DIAGNOSTIC IMAGING REPORT ---
CT SCAN OF THE BRAIN WITHOUT IV CONTRAST CLINICAL HISTORY: Seizure. COMPARISON STUDY: CT of the brain dated 04/16/2014. TECHNIQUE: Unenhanced axial CT scan of the brain is performed from the vertex to the skull base. Automated dose control exposure was utilized. The vertex was scanned twice due to motion artifact. CT DOSE: 1003.45 mGycm FINDINGS: Brain parenchyma: There is asymmetric cerebellar atrophy mild cerebellar atrophy. Mild subcortical and periventricular microangiopathic disease is noted. There is no hemorrhage, mass effect, or evidence of acute territorial ischemia by CT criteria. Bryant-white matter is preserved. No extra-axial fluid collection is seen. Ventricles, sulci, cisterns: Normal in configuration. Intracranial vasculature: The visualized intracranial vasculature at the skull base is normal in appearance. Calvarium: Unremarkable. Sinuses and mastoids: The visualized paranasal sinuses are clear. The mastoid air cells are well pneumatized. Orbits: The bony orbits are grossly intact. IMPRESSION: 1. There is no hemorrhage, mass effect, or evidence of acute territorial ischemia by CT criteria. 2. There is asymmetric cerebellar atrophy as compared to the remaining brain parenchyma. Electronically signed by: Audi Bartlett M.D. 09/04/2016 6:12 PM Dictated Date/Time: 09/04/2016 6:10 PM
[2016-09-04 18:19] LABS: URINE APPEARANCE CLOUDY (CLEAR); URINE BILIRUBIN NEG (NEG); URINE COLOR YELLOW; URINE EPITHELIAL CELL AUTO >30 /lpf (0-5); URINE NITRITE NEG (NEG); URINE SPECIFIC GRAVITY 1.019 (1.000-1.030); UROBILINOGEN NEG (NEG); ZZURINE CULT IF INDIC CATH NO
[2016-09-04 18:23] LABS: MANUAL MICROSCOPIC REQUIRED? NO; REVIEW REQ? YES
[2016-09-04 18:35] LABS: URINE PATH CASTS 0-3 GRANULAR CASTS /lpf (0)
[2016-09-04 18:59] VITALS: BP 178/91; PULSE 139; TEMP 39.2; O2SAT 97
[2016-09-04 19:02] LABS: BENZODIAZEPINE, URINE NEG (NEG); COCAINE,URINE NEG (NEG); PHENCYCLIDINE, URINE NEG (NEG)
--- NOTE | 2016-09-04 19:04 | History and Physical ---
History & Physical Date & Time of Service: Sep 04, 2016 at 18:28 Chief Complaint: Gi Bleed Primary Care Physician: No Doctor, Assigned History of Present Illness Source: patient, clinic records, hospital records This is a 51 y/o male with a history of alcohol abuse, esophageal ulcer, hypertension, and hyperlipidemia who presented to the ED on 09/04 with abdominal pain and bright red blood per rectum. The patient had an EGD on 09/[address] Silva to follow an esophageal ulcer. The EGD revealed moderate to severe esophagitis without bleeding at that time as well as moderate gastritis. The patient did have a 6 pack of beer over the weekend and experienced some melena and diarrhea. The patient woke up early this morning around 3 AM with abdominal pain and copious bright red blood coming from his rectum. The patient describes the pain as a 4/10 dull pain in the center of his abdomen. Patient does have history of alcohol abuse and states that he typically drinks 2 -3 40 ounce beers a day. The patient also chews tobacco and will swallow the liquid. The patient states that he has stopped chewing tobacco recently and is trying to cut down his alcohol use. He states he is compliant with his Protonix. The patient denies fevers, chills, sweats, chest pain, palpitations, claudication, cough, wheezing, shortness of breath, nausea, vomiting, dysuria, hematuria, urinary retention, paralysis, weakness, numbness and tingling. Past Medical/Surgical History Medical Problems: (1) HTN (hypertension) Status: Chronic Alcohol abuse HLD H/o esophageal ulcer Family History Cancer Diabetes mellitus Hypertension Lung disease Seizures Stroke Social History Smoking Status: Never Smoker Smokeless Tobacco Use: Yes Alcohol Use: heavy Drug Use: none Marital Status: single Housing status: lives with family (mother), other Occupational Status: disabled Immunizations History of Influenza Vaccine: Yes Influenza Vaccine Date: Apr 11, 2012 History of Tetanus Vaccine?: Yes Tetanus Immunization Date: Nov 04, 2001 History of Pneumococcal: No History of Hepatitis B Vaccine: No Multi-Drug Resistant Organisms History of MDRO: No Allergies Coded Allergies: Penicillins (Verified Allergy, Unknown, UNKNOWN - HAPPENED CHILD, ) Home Medications Scheduled Losartan Potassium (Cozaar), 25 MG PO DAILY Multivitamin (Multivitamin), 1 TAB PO QAM Pantoprazole (Protonix), 40 MG PO BID Thiamine Hcl (Vitamin B-1), 100 MG PO DAILY Miscellaneous Medications Vitamins C & E (Vitamin C) Review of Systems Constitutional: No chills, No fever, No sweats Eyes: No diplopia, No eye pain, No worsening of vision ENT: No hearing loss, No sore throat, No trouble swallowing Respiratory: No cough, No shortness of breath, No wheezing Cardiovascular: No chest pain, No claudication, No palpitations Abdomen: + GI bleeding, + diarrhea, + pain, No nausea, No vomiting Musculoskeletal: No calf pain, No joint pain, No muscle pain Genitourinary - Male: No dysuria, No hematuria, No urinary retention Neurologic: No numbness/tingling, No paralysis, No weakness Integumentary: No color change, No itch, No rash Physical Exam Vital Signs Date Time Temp Pulse Resp B/P Pulse Ox O2 Delivery O2 Flow Rate FiO2 09/04/16 16:00 Room Air 09/04/16 15:15 38.4 118 24 133/70 93 Room Air 09/04/16 14:30 107 18 145/81 09/04/16 14:27 98 Room Air 09/04/16 13:03 105 20 118/79 09/04/16 12:10 36.9 126 20 89/57 98 Room Air General Appearance: WD/WN, no apparent distress Head: normocephalic, atraumatic Eyes: normal inspection, PERRL, EOMI, + pertinent finding (nystagmus with leftward gaze. Eyes appear bloodshot) ENT: normal ENT inspection, hearing grossly normal, pharynx normal Neck: supple, no JVD, trachea midline Respiratory/Chest: lungs clear, normal breath sounds, no respiratory distress Cardiovascular: no edema, no murmur, + tachycardia (regular rhythm) Abdomen/GI: normal bowel sounds, soft, + tenderness (RLQ TTP) Extremities/Musculoskelatal: normal inspection, no calf tenderness, no pedal edema Neurologic/Psych: alert, normal mood/affect, oriented x 3, + pertinent finding (fidgety, possible early withdrawal) Skin: normal color, warm/dry, no rash Diagnostics Laboratory Results Results Past 24 Hours Test 09/04/16 12:22 09/04/16 12:29 09/04/16 12:50 09/04/16 13:29 Range/Units White Blood Count 13.85 4.8-10.8 K/uL Red Blood Count 4.23 4.7-6.1 M/uL Hemoglobin 12.2 14.0-18.0 g/dL Hematocrit 38.1 42-52 % Mean Corpuscular Volume 90.1 80-100 fL Mean Corpuscular Hemoglobin 28.8 25-34 pg Mean Corpuscular Hemoglobin Concent 32.0 32-36 g/dl Platelet Count 192 130-400 K/uL Mean Platelet Volume 9.5 7.4-10.4 fL Neutrophils (%) (Auto) 90.6 % Lymphocytes (%) (Auto) 2.9 % Monocytes (%) (Auto) 6.1 % Eosinophils (%) (Auto) 0.0 % Basophils (%) (Auto) 0.2 % Neutrophils # (Auto) 12.54 1.4-6.5 K/uL Lymphocytes # (Auto) 0.40 1.2-3.4 K/uL Monocytes # (Auto) 0.85 0.11-0.59 K/uL Eosinophils # (Auto) 0.00 0-0.5 K/uL Basophils # (Auto) 0.03 0-0.2 K/uL RDW Standard Deviation 54.4 36.4-46.3 fL RDW Coefficient of Variation 16.5 11.5-14.5 % Immature Granulocyte % (Auto) 0.2 % Immature Granulocyte # (Auto) 0.03 0.00-0.02 K/uL Sodium Level 137 136-145 mmol/L Potassium Level 4.5 3.5-5.1 mmol/L Chloride Level 99 98-107 mmol/L Carbon Dioxide Level 23 21-32 mmol/L Anion Gap 15.0 20.0 16-25 mmol/L Blood Urea Nitrogen 11 7-18 mg/dl Creatinine 1.50 0.60-1.40 mg/dl Est Creatinine Clear Calc Drug Dose 62.5 ml/min Estimated GFR () 62.0 Estimated GFR (Non- 53.5 BUN/Creatinine Ratio 7.1 10-20 Random Glucose 97 70-99 mg/dl Calcium Level 8.7 8.5-10.1 mg/dl Magnesium Level 1.8 1.8-2.4 mg/dl Total Bilirubin 0.6 0.2-1 mg/dl Direct Bilirubin < 0.1 0-0.2 mg/dl Aspartate Amino Transf (AST/SGOT) 72 15-37 U/L Alanine Aminotransferase (ALT/SGPT) 34 12-78 U/L Alkaline Phosphatase 54 45-117 U/L Total Protein 7.5 6.4-8.2 gm/dl Albumin 3.4 3.4-5.0 gm/dl Lipase 188 73-393 U/L Bedside Hemoglobin 13.9 14.0-18.0 g/dl Bedside Hematocrit 41 42-52 % Bedside Sodium 134 135-144 mEq/L Bedside Potassium 4.6 3.3-5.0 mEq/L Bedside Chloride 99 101-112 mEq/L Bedside Total CO2 21 24-31 mEq/l Bedside Blood Urea Nitrogen 11 7-18 mg/dl Bedside Creatinine 1.5 0.6-1.3 mg/dl Bedside Glucose (other) 93 70-99 mg/dl Bedside Ionized Calcium (Leigh) 1.03 1.12-1.32 mmol/l Ethyl Alcohol mg/dL 143.0 0-3 mg/dl Prothrombin Time 10.0 9.0-12.0 SECONDS Prothromb Time International Ratio 0.9 0.9-1.1 Activated Partial Thromboplast Time 28.9 21.0-31.0 SECONDS Partial Thromboplastin Ratio 1.1 Test 09/04/16 15:33 09/04/16 17:06 09/04/16 17:55 Range/Units Hemoglobin 11.3 14.0-18.0 g/dL Hematocrit 35.1 42-52 % Bedside Glucose 103 70-99 mg/dl Urine Color YELLOW Urine Appearance CLOUDY CLEAR Urine pH 5.0 4.5-7.5 Urine Specific [place] 1.019 1.000-1.030 Urine Protein 2+ NEG Urine Glucose (UA) NEG NEG Urine Ketones 1+ NEG Urine Occult Blood 2+ NEG Urine Nitrite NEG NEG Urine Bilirubin NEG NEG Urine Urobilinogen NEG NEG Urine Leukocyte Esterase NEG NEG Microbiology Results 09/04/16 Blood Culture, Received Pending 09/04/16 Blood Culture, Received Pending Diagnostic Radiology Reviewed the following studies and agree with interpretation as follows: Patient Name: BRADY HESTER Unit Number: [id number] Dictated: 09/04/16 1234 Transcribed: 09/04/16 1234 ARG Printed Date/Time: [~ rep prt dt]/[~ rep prt tm] [~ rep ct labl] - [~ rep ct ivnm] [facility] [place] [place] [address] Dictated: 09/04/16 1234 Transcribed: 09/04/16 1234 ARG Printed Date/Time: [~ rep prt dt]/[~ rep prt tm] [~ rep ct labl] - [~ rep ct ivnm] Patient: BRADY HESTER Address1: [address] Rec: [id number] Address2: [address] Acct ID: [id number] [facility] Zip: [place] [address] Date: 1965 Sex: M Room/Bed: Ref Phy: No Doctor, Assigned SC: RAMESH Att Phy: Report #: [id number] Yoselyn Phy: No Doctor, Assigned Test: CXR1P Admit Phy: Quality Assurance/R&D Lab Technician: MARIBEL Interpreting Phy: Alexis Gaming M.D. Diagnosis: BLEEDING Ordering Phy: Audi San M.D. Service Date: 09/04/16 Admit Date: 09/04/16 MNE: [id number] CONF: DICTATED BY: Alexis Gaming M.D.]] CC: Audi San M.D. No Doctor, Assigned Endcc: [~ rep ct add3]] CHEST ONE VIEW PORTABLE CLINICAL HISTORY: Gastrointestinal hemorrhage COMPARISON STUDY: 06/22/2016 FINDINGS: The heart is the upper limits of normal in size. There is no failure. There is no lobar consolidation. There are slightly prominent right basal markings likely atelectatic. No free intraperitoneal air is visualized[ IMPRESSION: Slightly prominent right basal markings likely atelectatic. No evidence of failure. No evidence of lobar consolidation. Electronically signed by: Alexis Gaming M.D. 09/04/2016 12:35 PM Dictated Date/Time: 09/04/2016 12:34 PM The status of this report is Signed. Draft = Not yet reviewed or approved by Radiologist. Signed = Reviewed and approved by Radiologist. <AttendingPhy></AttendingPhy> <FamilyPhy>No Doctor, Assigned</FamilyPhy> < PrimaryPhy>No Doctor, Assigned</PrimaryPhy> <UnitNumber>[id number]</UnitNumber> <VisitNumber>[id number]</VisitNumber> <PatientName>BRADY HESTER</PatientName > <DateOfBirth>1965</DateOfBirth> <Location>[facility]</Location> <ServiceDate> 09/04/16</ServiceDate> <MNE>ESINDI</MNE> <OrderingPhy>Audi San M.D.</ OrderingPhy> <OrderingPhyMNE>f rep ord dr moran</OrderingPhyMNE> <DictatingPhyMNE> f rep dict dr moran</DictatingPhyMNE> <CCListMNE>f rep ct dean</CCListMNE> < AdmittingPhyMNE>f pt admit dr moran</AdmittingPhyMNE> <AttendingPhyMNE>f pt attend dr moran</AttendingPhyMNE> <ConsultingPhyMNE>f pt consult dr moran</ConsultingPhyMNE> <FamilyPhyMNE>f pt fam dr moran</FamilyPhyMNE> <OtherPhyMNE>f pt other dr moran</OtherPhyMNE> < PrimaryPhyMNE>f pt prim care dr moran</PrimaryPhyMNE> <ReferringPhyMNE>f pt referring dr moran</ReferringPhyMNE> Impression Assessment and Plan 51 y/o male with a history of alcohol abuse, esophageal ulcer, hypertension, and hyperlipidemia who presented to the ED on 09/04 with abdominal pain and bright red blood per rectum. EGD on 09/01 with severe esophagitis and moderate gastritis. The patient then drank six-pack of beer and had melena the last few days. Woke up this morning with abdominal pain and bright red blood per rectum. Patient tachycardic on arrival with a heart rate of 126. Hypotensive with a blood pressure of 89/57. Afebrile on arrival. CXR shows slightly prominent right basal markings, likely atelectatic. WBC elevated at 13.85. Hemoglobin stable at 12.2. Creatinine elevated above baseline at 1.5. Alcohol level 143. Patient received 1 L of fluid bolus in ED, BP improved to 118/79. GI bleed, likely upper/diarrhea--recent EGD with esophagitis, gastritis -Admit to telemetry -NPO -Protonix drip -NSS at 125 cc/hr -Check H&H q6h, hemoglobin currently stable -Type and screen, 2 units PRBC already type and crossed per ED orders -Consult GI, appreciate recs. Recent EGD performed by Dr. Silva -Check EKG -Check C. difficile and stool cultures Alcohol abuse/withdrawal -Alcohol withdrawal protocol -Seizure precautions -Lorazepam IV prn per protocol -Thiamine 100 mg IV qd -Folic acid 1 mg IV qd -Patient developed a seizure after being transferred to the floor. He received 2 mg Ativan IV. Patient also became febrile with a temperature of 39.4 -CT of head -Gabapentin per protocol -Insert Maya catheter, check UA, CII -Check urine drug screen -Obtain blood cultures BESS--baseline creatinine 0.7 -Creatinine 1.5 on arrival -IVF as above HTN--stable, currently low normal BP -Hold losartan for now GI prophylaxis -Maalox Max 15 mL PO q4h prn dyspepsia -Milk of magnesia 30 mL PO q6h prn constipation -Miralax 17 gm PO qd prn constipation -Zofran 4 mg IV q6h prn nausea DVT prophylaxis -Hold chemical prophylaxis due to GI bleed -DARSHAN costa and SCDs Code Status -Level I, FULL RESUSCITATION STATUS This chart was completed in part utilizing [employer] Speech Voice Recognition software. Attempts were made to minimize the grammatical errors, random word insertions, pronoun errors and incomplete sentences. Any formal questions or concerns about the content, text or information contained within the body of this dictation should be directly addressed to the provider for clarification. Level of Care Telemetry Advanced Directives Existing Living Will: No Existing Power of Aviation Support Equipment Repairer: No Resuscitation Status FULL RESUSCITATION VTE Prophylaxis VTE Risk Assessment Done? Y/N: Yes Risk Level: Moderate Given or contraindicated: T.E.DDoris Stockings, SCD's Note Attending Admission Note & Attestation: Pt seen/examined, chart reviewed, and care plan d/w CANDACE Hilton. I agree w/ the mejia components of her admission documentation. 51yo male with alcoholism and recently dx esophagitis/gastritis as seen on EGD just 3 days ago performed by Dr. Silva who presented today with concerns of BRBPR that started about 0300 this morning. He admits to etoh use throughout the weekend; last etoh was sometime late yesterday evening. He also had intermittent dark/melena type stools this weekend. Upon ER presentation today was tachycardic & hypotensive. BP quickly responded to IVF. During my first assessment in the ER he admitted to feeling shaky and admitted to past withdrawal symptoms with cessation of etoh. PMH, PSH, allergies, meds, sochx, famhx, ros - reviewed vitals - tachy, BP now normal gen - disheveled, smells of etoh mouth - poor dentition heart - tachy lungs - CTA b/l abd - soft, mildly tender at the junction of the RUQ and RLQ, BS+, no HSM ext - no edema neuro - tremors rectal - there is a wide swath of significant karoline-rectal irritation & macerated skin with drops of blood in this region; digital exam - ?external hemorrhoid but exam was difficult due to discomfort Cr 1.5 Hb 12.2 A/P: 1. alcoholism with probable, early withdrawal 2. known esophagitis/gastritis 3. BRBPR - etiology unclear; had normal colonoscopy just 1 month ago 4. abdominal discomfort in the setting of #3 - ischemia? infectious colitis? ( e.g. c diff, etc) 5. mild hypotension - resolved NPO PPI drip re-consult GI lidocaine jelly for karoline-rectal area consider CT abd/pelvis send c diff toxin etoh withdrawal precautions thiamine, folic acid, etc telemetry status Joaquin Vasquez MD
[2016-09-04 21:31] LABS: HEMATOCRIT 33.2 % (42-52)
[2016-09-04] MEDS ORDERED: GABAPENTIN 1200MG LOADING DOSE PO ONE (23:00)
[2016-09-04 23:06] VITALS: BP 169/92; PULSE 105; TEMP 37.2; O2SAT 99
[2016-09-05] VITALS (10 sets, daily range): BP systolic 137–187; BP diastolic 71–109; PULSE 76–113; TEMP 36.7–38.4; O2SAT 92–100
[2016-09-05] MEDS: LORAZEPAM 2 MG/ML 1 ML VIAL IV PRN ×3 (00:03→21:49)
[2016-09-05] MEDS: PANTOprazole INJ 40 MG in DEXTROSE 5% 100ML IV SCH ×2 (02:05→07:11)
[2016-09-05] MEDS: LIDOCAINE HCL 2% JELLY 30 ML TUBE EXT SCH ×4 (02:07→20:33)
[2016-09-05 02:40] LABS: BASO % 0.1 %; BASO ABS # 0.01 K/uL (0-0.2); COMPLETE YES; HEMATOCRIT 32.5 % (42-52); IG% 0.1 %; LYMPH % 5.7 %; LYMPH ABS # 0.39 K/uL (1.2-3.4); MEAN CORPUSCULAR HGB CONC 32.6 g/dl (32-36); MONO % 10.6 %; NEUT % 83.5 %; PLATELET COUNT 142 K/uL (130-400); RED BLOOD COUNT 3.65 M/uL (4.7-6.1); WHITE BLOOD COUNT 6.81 K/uL (4.8-10.8)
[2016-09-05 03:28] LABS: BUN/CREATININE RATIO 17.2 (10-20); CALCIUM 7.6 mg/dl (8.5-10.1); CREATININE 0.79 mg/dl (0.60-1.40); POTASSIUM 3.8 mmol/L (3.5-5.1)
[2016-09-05] MEDS: GABAPENTIN 600MG Q6H DOSE PO SCH ×2 (05:52→11:12)
--- NOTE | 2016-09-05 09:18 | Gastrointestinal Consultation ---
Gastrointestinal Consultation Date of Consultation: Sep 05, 2016 Attending Physician: Dr. Cisneros Consulting Physician: Dr. Silva/FLOR Yang Reason for Consultation: Rectal bleeding History of Present Illness Patient is a 51 year old male with a history of alcohol abuse admitted with a RAFAEL level of 143. He states he presented to the ER with reports of bright red rectal bleeding. On arrival, he was noted to have a H&H of 12.2 and 38.1. After fluid rehydration, his H&H has remained ~10. The patient remains heme negative and he reports today that he has not had any further bleeding rectally. Patient has been placed on a PPI ggt at 8 mg/hr. He has been kept NPO. He denies any nausea or vomiting, abdominal pain, odynophagia or dysphagia. Patient consumes 2 -3 40 ounces beers consistently every day per his report. He was previously diagnosed with an esophageal ulcer. Repeat EGD was performed by Dr. Silva 4 days ago which demonstrated severe esophagitis and gastritis. Past Medical/Surgical History Medical Problems: (1) Alcohol abuse Status: Acute (2) Alcoholism Status: Acute (3) Hypokalemia Status: Acute (4) Hypotension Status: Acute (5) Sepsis Status: Acute (6) Upper gastrointestinal bleed Status: Acute Past Medical History: 1. Alcohol abuse 2. Hyperlipidemia 3. Esophageal ulcer 4. Gastritis and esophagitis 5. Seizures Past Surgical History: 1. Upper endoscopy Family History Cancer Diabetes mellitus Hypertension Lung disease Seizures Stroke Social History Smoking Status: Never Smoker Alcohol Use: heavy Drug Use: none Marital Status: single Housing Status: lives with family Occupation Status: disabled Allergies Coded Allergies: Penicillins (Verified Allergy, Unknown, UNKNOWN - HAPPENED CHILD, ) Current Medications Home Meds and Scripts Medications Dose Route/Sig Max Daily Dose Days Date Category Vitamin B-1 (Thiamine HCl) 100 Mg Tab 100 Mg PO DAILY 09/04/16 Reported Cozaar (Losartan Potassium) 25 Mg Tab 25 Mg PO DAILY 09/04/16 Reported Vitamin C (Vitamins C & E) 1 Cap Cap 09/04/16 Reported Protonix (Pantoprazole) 40 Mg Tab 40 Mg PO BID 07/25/16 Reported Multivitamin (Multivitamins) Tab 1 Tab PO QAM 07/25/16 Reported Review of Systems Constitutional: No problem reported Eyes: No problem reported ENT: + see HPI Respiratory: No problem reported Cardiac: No problem reported Abdomen: + see HPI Musculoskeletal: No problem reported Male : No problem reported Neuro: No problem reported Psych: + see HPI, + substance abuse Skin: No problem reported Physical Exam Date Time Temp Pulse Resp B/P Pulse Ox O2 Delivery O2 Flow Rate FiO2 09/05/16 07:42 36.9 101 18 187/100 100 2.0 09/05/16 05:49 37.0 79 14 177/109 100 Nasal Cannula 2.0 09/05/16 04:00 Nasal Cannula 09/05/16 03:31 36.9 85 22 170/91 100 Nasal Cannula 2.0 09/05/16 02:09 36.7 76 12 153/90 100 Nasal Cannula 2.0 09/05/16 00:10 Nasal Cannula 09/04/16 23:06 37.2 105 20 169/92 99 Nasal Cannula 4.0 09/04/16 20:00 Room Air 09/04/16 18:59 39.2 139 20 178/91 97 Nasal Cannula 4.0 09/04/16 16:00 Room Air 09/04/16 15:15 38.4 118 24 133/70 93 Room Air 09/04/16 14:30 107 18 145/81 09/04/16 14:27 98 Room Air 09/04/16 13:03 105 20 118/79 09/04/16 12:10 36.9 126 20 89/57 98 Room Air General Appearance: no apparent distress Eyes: EOMI ENT: hearing grossly normal Neck: supple Respiratory/Chest: lungs clear, normal breath sounds, no respiratory distress Cardiovascular: regular rate, rhythm, no gallop, no murmur Abdomen: normal bowel sounds, non tender, soft Extremities: no pedal edema Neurologic/Psych: alert, normal mood/affect, oriented x 3 Skin: warm/dry Laboratory Results Last 24 Hours Test 09/04/16 12:22 09/04/16 12:29 09/04/16 12:50 09/04/16 13:29 White Blood Count 13.85 K/uL Red Blood Count 4.23 M/uL Hemoglobin 12.2 g/dL Hematocrit 38.1 % Mean Corpuscular Volume 90.1 fL Mean Corpuscular Hemoglobin 28.8 pg Mean Corpuscular Hemoglobin Concent 32.0 g/dl Platelet Count 192 K/uL Mean Platelet Volume 9.5 fL Neutrophils (%) (Auto) 90.6 % Lymphocytes (%) (Auto) 2.9 % Monocytes (%) (Auto) 6.1 % Eosinophils (%) (Auto) 0.0 % Basophils (%) (Auto) 0.2 % Neutrophils # (Auto) 12.54 K/uL Lymphocytes # (Auto) 0.40 K/uL Monocytes # (Auto) 0.85 K/uL Eosinophils # (Auto) 0.00 K/uL Basophils # (Auto) 0.03 K/uL RDW Standard Deviation 54.4 fL RDW Coefficient of Variation 16.5 % Immature Granulocyte % (Auto) 0.2 % Immature Granulocyte # (Auto) 0.03 K/uL Sodium Level 137 mmol/L Potassium Level 4.5 mmol/L Chloride Level 99 mmol/L Carbon Dioxide Level 23 mmol/L Anion Gap 15.0 mmol/L 20.0 mmol/L Blood Urea Nitrogen 11 mg/dl Creatinine 1.50 mg/dl Est Creatinine Clear Calc Drug Dose 62.5 ml/min Estimated GFR () 62.0 Estimated GFR (Non- 53.5 BUN/Creatinine Ratio 7.1 Random Glucose 97 mg/dl Calcium Level 8.7 mg/dl Magnesium Level 1.8 mg/dl Total Bilirubin 0.6 mg/dl Direct Bilirubin < 0.1 mg/dl Aspartate Amino Transf (AST/SGOT) 72 U/L Alanine Aminotransferase (ALT/SGPT) 34 U/L Alkaline Phosphatase 54 U/L Total Protein 7.5 gm/dl Albumin 3.4 gm/dl Lipase 188 U/L Bedside Hemoglobin 13.9 g/dl Bedside Hematocrit 41 % Bedside Sodium 134 mEq/L Bedside Potassium 4.6 mEq/L Bedside Chloride 99 mEq/L Bedside Total CO2 21 mEq/l Bedside Blood Urea Nitrogen 11 mg/dl Bedside Creatinine 1.5 mg/dl Bedside Glucose (other) 93 mg/dl Bedside Ionized Calcium (Leigh) 1.03 mmol/l Ethyl Alcohol mg/dL 143.0 mg/dl Prothrombin Time 10.0 SECONDS Prothromb Time International Ratio 0.9 Activated Partial Thromboplast Time 28.9 SECONDS Partial Thromboplastin Ratio 1.1 Test 09/04/16 15:33 09/04/16 17:06 09/04/16 17:55 09/04/16 18:00 Hemoglobin 11.3 g/dL Hematocrit 35.1 % Bedside Glucose 103 mg/dl Urine Color YELLOW Urine Appearance CLOUDY Urine pH 5.0 Urine Specific [place] 1.019 Urine Protein 2+ Urine Glucose (UA) NEG Urine Ketones 1+ Urine Occult Blood 2+ Urine Nitrite NEG Urine Bilirubin NEG Urine Urobilinogen NEG Urine Leukocyte Esterase NEG Urine WBC (Auto) 1-5 /hpf Urine RBC (Auto) 0-4 /hpf Urine Hyaline Casts (Auto) 5-10 /lpf Urine Epithelial Cells (Auto) >30 /lpf Urine Bacteria (Auto) NEG Urine Renal Epithelial Cells /lpf Urine Pathogenic Casts 0-3 GRANULAR CASTS /lpf Urine Opiates Screen NEG Urine Methadone, Qualitative NEG Urine Barbiturates NEG Urine Phencyclidine (PCP) Level NEG Ur Amphetamine/Methamphetamine NEG MDMA (Ecstasy) Screen NEG Urine Benzodiazepines Screen NEG Urine Cocaine Metabolite NEG Urine Marijuana (THC) NEG Stool Occult Blood NEGATIVE Test 09/04/16 21:20 09/04/16 23:45 09/05/16 02:30 09/05/16 08:26 Hemoglobin 10.8 g/dL 10.6 g/dL 10.8 g/dL Hematocrit 33.2 % 32.5 % 34.0 % Influenza Type A Antigen Neg for Influ A Influenza Type B Antigen Neg for Influ B White Blood Count 6.81 K/uL Red Blood Count 3.65 M/uL Mean Corpuscular Volume 89.0 fL Mean Corpuscular Hemoglobin 29.0 pg Mean Corpuscular Hemoglobin Concent 32.6 g/dl Platelet Count 142 K/uL Mean Platelet Volume 9.0 fL Neutrophils (%) (Auto) 83.5 % Lymphocytes (%) (Auto) 5.7 % Monocytes (%) (Auto) 10.6 % Eosinophils (%) (Auto) 0.0 % Basophils (%) (Auto) 0.1 % Neutrophils # (Auto) 5.68 K/uL Lymphocytes # (Auto) 0.39 K/uL Monocytes # (Auto) 0.72 K/uL Eosinophils # (Auto) 0.00 K/uL Basophils # (Auto) 0.01 K/uL RDW Standard Deviation 53.5 fL RDW Coefficient of Variation 16.3 % Immature Granulocyte % (Auto) 0.1 % Immature Granulocyte # (Auto) 0.01 K/uL Sodium Level 139 mmol/L Potassium Level 3.8 mmol/L Chloride Level 104 mmol/L Carbon Dioxide Level 30 mmol/L Anion Gap 5.0 mmol/L Blood Urea Nitrogen 14 mg/dl Creatinine 0.79 mg/dl Est Creatinine Clear Calc Drug Dose 117.9 ml/min Estimated GFR () 121.4 Estimated GFR (Non- 104.7 BUN/Creatinine Ratio 17.2 Random Glucose 102 mg/dl Calcium Level 7.6 mg/dl Impression Patient is a 51 year old male with a history of esophageal ulcer in the setting of chronic alcohol abuse admitted with rectal bleeding s/p repeat EGD with findings of esophagitis and gastritis although patient was noted to be heme negative. Plan 1. Transition to Protonix 40 mg PO BID. 2. Add Carafate 1 g ACHS x 10 days. 3. Advance diet as tolerated. 4. Recommend alcohol abstinence and consideration of alcohol treatment program although patient does not consent to either inpatient or outpatient rehab. 5. Recommend discharge to prevent decompensation from alcohol withdrawal. This was discussed with Dr. Cisneros by Dr. Silva. Agree with FLOR Yang as above Abd: Soft, NT, ND, +BS Continue current therapy No plans for invasive testing Discussed case with Dr. Vasquez
[2016-09-05] MEDS: SODIUM CHLORIDE 0.9% 1000ML 1,000 ML IV SCH (11:12)
[2016-09-05] MEDS: FoLIC ACID INJ 1 MG in SYRINGE 9.8 ML IV SCH (11:12)
[2016-09-05] MEDS: SUCRALFATE 1 GM/10 ML UDC PO SCH ×3 (11:12→20:34)
[2016-09-05] MEDS ORDERED: AMLODIPINE BESYLATE 5 MG TAB PO ONE (13:15)
--- NOTE | 2016-09-05 13:20 | Progress Note ---
Subjective Date of Service: Sep 05, 2016. Subjective Pt evaluation today including: conversation w/ patient, physical exam, chart review, lab review, review of studies, review of inpatient medication list Patient had a seizure yesterday afternoon. He has not received ativan IV at midnight last night and also started on gabapentin CIWA protocol along with prn ativan. Was also febrile >39C last night. Patient now tolerating liquid diet. No further BM as of today. No n/v. No abd pain. Problem List Medical Problems: (1) Alcohol abuse Status: Acute (2) Alcoholism Status: Acute (3) Hypokalemia Status: Acute (4) Hypotension Status: Acute (5) Sepsis Status: Acute (6) Upper gastrointestinal bleed Status: Acute Review of Systems All Other Systems: Reviewed and Negative Medications Acetaminophen (Ofirmev Iv) 100 ml @ 400 mls/hr Q8H PRN IV Last administered on 09/04/16 19:26; Admin Dose 400 MLS/HR; Start 09/04/16 at 17:30; Stop at 17:29 Acetaminophen (Tylenol Tab) 650 mg Q4H PRN PO; Start 09/04/16 at 14:15; Stop at 14:14 Al Hydrox/Mg Hydrox/Simethicone (Maalox Max Susp) 15 ml Q4H PRN PO; Start 09/04 at 14:15; Stop 10/04/16 at 14:14 Folic Acid/Syringe (Folvite Inj/ Syringe) 10 ml @ 5 mls/min QAM IV Last administered on 09/05/16 11:12; Admin Dose 5 MLS/MIN; Start 09/05/16 at 09:00; Stop 10/05/16 at 08:59 Gabapentin (Neurontin Tab) 600 mg Q12H PO; Start 09/07/16 at 00:00; Stop at 12:01 Gabapentin (Neurontin Tab) 600 mg Q24H PO; Start 09/08/16 at 12:00; Stop at 12:01 Gabapentin (Neurontin Tab) 600 mg Q8H PO; Start 09/05/16 at 22:00; Stop at 14:01 Heparin Sodium (Porcine) (Heparin 10 Unit/ ml 5 ml Flush) 5 ml PRN PRN FLUSH; Start 09/04/16 at 22:30; Stop 10/04/16 at 22:29 Lidocaine HCl 2 ml 2 ml Q6H EXT Last administered on 09/05/16 11:12; Admin Dose 2 ML; Start 09/04/16 at 14:45; Stop 10/04/16 at 14:44 Lorazepam (Ativan Inj) PRN Dosing -Active Protocol Q1H PRN IV Last administered on 09/05/16 00:03; Admin Dose 1 MG; Start 09/04/16 at 18:00; Stop 10/04/16 at 17:59 Magnesium Hydroxide (Milk Of Magnesia Susp) 30 ml Q12H PRN PO; Start 09/04/16 at 14:15; Stop 10/04/16 at 14:14 Ondansetron HCl (Zofran Inj) 4 mg Q6H PRN IV; Start 09/04/16 at 14:15; Stop at 14:14 Pantoprazole Sodium (Protonix Tab) 40 mg BID PO; Start 09/05/16 at 21:00; Stop 10/05/16 at 20:59 Polyethylene 17 gm 17 gm DAILY PRN PO; Start 09/04/16 at 14:15; Stop 10/04/16 at 14:14 Sodium Chloride (Nss 1000ml) 1,000 ml @ 125 mls/hr Q8H IV Last administered on 09/05/16 11:12; Admin Dose 125 MLS/HR; Start 09/04/16 at 14:14; Stop 10/04/16 at 14:13 Sucralfate (Carafate Susp) 1 gm QID PO Last administered on 09/05/16 11:12; Admin Dose 1 GM; Start 09/05/16 at 13:00; Stop 10/05/16 at 12:59 Thiamine HCl 100 mg/Syringe 10 ml @ 2 mls/min DAILY@1600 IV Last administered on 09/04/16 16:51; Admin Dose 2 MLS/MIN; Start 09/04/16 at 16:00; Stop at 15:59 Objective Vital Signs Date Time Temp Pulse Resp B/P Pulse Ox O2 Delivery O2 Flow Rate FiO2 09/05/16 12:00 Nasal Cannula 09/05/16 11:28 36.9 86 16 166/88 99 2.0 09/05/16 08:00 Nasal Cannula 09/05/16 07:42 36.9 101 18 187/100 100 2.0 09/05/16 05:49 37.0 79 14 177/109 100 Nasal Cannula 2.0 09/05/16 04:00 Nasal Cannula 09/05/16 03:31 36.9 85 22 170/91 100 Nasal Cannula 2.0 09/05/16 02:09 36.7 76 12 153/90 100 Nasal Cannula 2.0 09/05/16 00:10 Nasal Cannula 09/04/16 23:06 37.2 105 20 169/92 99 Nasal Cannula 4.0 09/04/16 20:00 Room Air 09/04/16 18:59 39.2 139 20 178/91 97 Nasal Cannula 4.0 09/04/16 16:00 Room Air 09/04/16 15:15 38.4 118 24 133/70 93 Room Air 09/04/16 14:30 107 18 145/81 09/04/16 14:27 98 Room Air Physical Exam Comments: nad, aox3, fine tremors noted s1 s2 tachycardic, no murmurs appreciated ctab no w/r/r abd soft nt/nd +BS no LE edema Laboratory Results Last 24 Hours Test 09/04/16 13:29 09/04/16 15:33 09/04/16 17:06 09/04/16 17:55 Prothrombin Time 10.0 SECONDS Prothromb Time International Ratio 0.9 Activated Partial Thromboplast Time 28.9 SECONDS Partial Thromboplastin Ratio 1.1 Hemoglobin 11.3 g/dL Hematocrit 35.1 % Bedside Glucose 103 mg/dl Urine Color YELLOW Urine Appearance CLOUDY Urine pH 5.0 Urine Specific [place] 1.019 Urine Protein 2+ Urine Glucose (UA) NEG Urine Ketones 1+ Urine Occult Blood 2+ Urine Nitrite NEG Urine Bilirubin NEG Urine Urobilinogen NEG Urine Leukocyte Esterase NEG Urine WBC (Auto) 1-5 /hpf Urine RBC (Auto) 0-4 /hpf Urine Hyaline Casts (Auto) 5-10 /lpf Urine Epithelial Cells (Auto) >30 /lpf Urine Bacteria (Auto) NEG Urine Renal Epithelial Cells /lpf Urine Pathogenic Casts 0-3 GRANULAR CASTS /lpf Urine Opiates Screen NEG Urine Methadone, Qualitative NEG Urine Barbiturates NEG Urine Phencyclidine (PCP) Level NEG Ur Amphetamine/Methamphetamine NEG MDMA (Ecstasy) Screen NEG Urine Benzodiazepines Screen NEG Urine Cocaine Metabolite NEG Urine Marijuana (THC) NEG Test 09/04/16 18:00 09/04/16 21:20 09/04/16 23:45 09/05/16 02:30 Stool Occult Blood NEGATIVE Hemoglobin 10.8 g/dL 10.6 g/dL Hematocrit 33.2 % 32.5 % Influenza Type A Antigen Neg for Influ A Influenza Type B Antigen Neg for Influ B White Blood Count 6.81 K/uL Red Blood Count 3.65 M/uL Mean Corpuscular Volume 89.0 fL Mean Corpuscular Hemoglobin 29.0 pg Mean Corpuscular Hemoglobin Concent 32.6 g/dl Platelet Count 142 K/uL Mean Platelet Volume 9.0 fL Neutrophils (%) (Auto) 83.5 % Lymphocytes (%) (Auto) 5.7 % Monocytes (%) (Auto) 10.6 % Eosinophils (%) (Auto) 0.0 % Basophils (%) (Auto) 0.1 % Neutrophils # (Auto) 5.68 K/uL Lymphocytes # (Auto) 0.39 K/uL Monocytes # (Auto) 0.72 K/uL Eosinophils # (Auto) 0.00 K/uL Basophils # (Auto) 0.01 K/uL RDW Standard Deviation 53.5 fL RDW Coefficient of Variation 16.3 % Immature Granulocyte % (Auto) 0.1 % Immature Granulocyte # (Auto) 0.01 K/uL Sodium Level 139 mmol/L Potassium Level 3.8 mmol/L Chloride Level 104 mmol/L Carbon Dioxide Level 30 mmol/L Anion Gap 5.0 mmol/L Blood Urea Nitrogen 14 mg/dl Creatinine 0.79 mg/dl Est Creatinine Clear Calc Drug Dose 117.9 ml/min Estimated GFR () 121.4 Estimated GFR (Non- 104.7 BUN/Creatinine Ratio 17.2 Random Glucose 102 mg/dl Calcium Level 7.6 mg/dl Test 09/05/16 08:26 Hemoglobin 10.8 g/dL Hematocrit 34.0 % CLINICAL HISTORY: Seizure. COMPARISON STUDY: CT of the brain dated 04/16/2014. TECHNIQUE: Unenhanced axial CT scan of the brain is performed from the vertex to the skull base. Automated dose control exposure was utilized. The vertex was scanned twice due to motion artifact. CT DOSE: 1003.45 mGycm FINDINGS: Brain parenchyma: There is asymmetric cerebellar atrophy mild cerebellar atrophy. Mild subcortical and periventricular microangiopathic disease is noted. There is no hemorrhage, mass effect, or evidence of acute territorial ischemia by CT criteria. Bryant-white matter is preserved. No extra-axial fluid collection is seen. Ventricles, sulci, cisterns: Normal in configuration. Intracranial vasculature: The visualized intracranial vasculature at the skull base is normal in appearance. Calvarium: Unremarkable. Sinuses and mastoids: The visualized paranasal sinuses are clear. The mastoid air cells are well pneumatized. Orbits: The bony orbits are grossly intact. IMPRESSION: 1. There is no hemorrhage, mass effect, or evidence of acute territorial ischemia by CT criteria. 2. There is asymmetric cerebellar atrophy as compared to the remaining brain parenchyma. Assessment and Plan 1. Alcohol Withdrawal - had seizure last night - started on CIWA protocol including gabapentin and ativan prn - last dose ativan midnight last night, cont monitoring withdrawal symptoms 2. Hematochezia - stable H/H, no further episodes - recent EGD with known severe esophagitis and gastritis - GI recommending converting to oral PPI and carafate - will do daily h/h at this point - alcohol cessation is recommended - tolerating diet, stop IVF 3. HTN - will hold losartan - will start him on amlodipine and will probably be a better option for someone who might have episodes of GI bleeding predisposing him to volume depletion and subsequent BESS - amlodipine 5mg 4. Fever - no source of infection - will re-check CXR for possible aspiration during seizure episode - BCX pending, no abx at this time, will monitor 5. hold off dvt ppx with hsq; start scd
[2016-09-05] MEDS ORDERED: NURSING VERBAL MED ORDER ONE (13:30)
--- NOTE | 2016-09-05 14:56 | DIAGNOSTIC IMAGING REPORT ---
CHEST ONE VIEW PORTABLE HISTORY: fever, cough COMPARISON: Chest 09/04/2016. FINDINGS: The right PICC terminates in the distal SVC. The heart remains top normal in size. No pleural effusions. No pneumothorax. No new focal lung consolidations. Slight prominence of interstitial markings, unchanged. No evidence for overt pulmonary edema. IMPRESSION: No significant change compared to the prior study. No acute process. Electronically signed by: Curly Stewart M.D. 09/05/2016 2:54 PM Dictated Date/Time: 09/05/2016 2:52 PM
[2016-09-05] MEDS: THIAMINE HCL INJ 100 MG in SYRINGE 9 ML IV SCH (15:23)
[2016-09-05] MEDS: GABAPENTIN 600MG Q8H DOSE PO SCH (20:34)
[2016-09-05] MEDS: PANTOprazole SOD 40 MG TAB PO SCH (20:34)
--- NOTE | 2016-09-05 22:10 | Progress Note ---
Progress Note Date of Service Sep 05, 2016. Progress Note Called at 21:40 informing me of patient appearing increasingly agitated and restless. I went to assess the patient. Patient was alerted to person only. Thinks he is at alcohol rehab currently. Seems a little paranoid. Hiding mother's phone number in his socks. Denies any hallucinations or delusions. Patient noted to be febrile and tachycardic No asterixis Normal extra-ocular eye movements Impression: Delirium tremens Plan: Continue alcohol withdrawal monitoring per protocol; Ativan and Gabapentin already on board patient already on daily thiamine and folate Will follow through remainder of overnight; if continues or worsens, we can also evaluate electrolytes including Mg, and Calcium Blood cultures for fever pending Urine and chest x-ray unremarkable for acute process
[2016-09-05] MEDS ORDERED: MULTI-VITAMIN INFUSION INJ 10 ML, THIAMINE HCL INJ 100 MG, FoLIC ACID INJ 1 MG in SODIU... IV ONE (22:30)
[2016-09-06] VITALS (13 sets, daily range): BP systolic 152–175; BP diastolic 85–104; PULSE 90–105; TEMP 36.7–38.2; O2SAT 91–97
[2016-09-06] MEDS: LORAZEPAM 2 MG/ML 1 ML VIAL IV PRN ×8 (03:04→23:51)
[2016-09-06] MEDS: LIDOCAINE HCL 2% JELLY 30 ML TUBE EXT SCH ×4 (03:17→21:32)
[2016-09-06] MEDS: GABAPENTIN 600MG Q8H DOSE PO SCH ×2 (05:50→13:51)
[2016-09-06 06:27] LABS: BASO % 0.5 %; BASO ABS # 0.03 K/uL (0-0.2); COMPLETE YES; EOS % 2.2 %; HEMATOCRIT 32.7 % (42-52); IG% 0.2 %; LYMPH % 12.7 %; MEAN CELL VOLUME 88.6 fL (80-100); MEAN CORPUSCULAR HGB CONC 32.7 g/dl (32-36); MEAN PLATELET VOLUME 10.5 fL (7.4-10.4); MONO % 20.8 %; NEUT % 63.6 %; PLATELET COUNT 127 K/uL (130-400); RED BLOOD COUNT 3.69 M/uL (4.7-6.1); WHITE BLOOD COUNT 5.52 K/uL (4.8-10.8)
[2016-09-06 07:09] LABS: ALB/GLOB RATIO 0.8 (0.9-2); BUN/CREATININE RATIO 6.5 (10-20); CALCIUM 8.2 mg/dl (8.5-10.1); CREATININE 0.74 mg/dl (0.60-1.40); MAGNESIUM 2.1 mg/dl (1.8-2.4); PHOSPHORUS 1.9 mg/dl (2.5-4.9); POTASSIUM 3.3 mmol/L (3.5-5.1)
[2016-09-06 07:11] LABS: FERRITIN 83.7 ng/ml (8.0-388.0)
[2016-09-06] MEDS ORDERED: LORAZEPAM 2 MG TAB PO SCH ×2 (07:15→09:00)
[2016-09-06] MEDS: SUCRALFATE 1 GM/10 ML UDC PO SCH ×4 (09:12→21:32)
[2016-09-06] MEDS: FoLIC ACID INJ 1 MG in SYRINGE 9.8 ML IV SCH (09:12)
[2016-09-06] MEDS: PANTOprazole SOD 40 MG TAB PO SCH ×2 (09:13→21:31)
[2016-09-06] MEDS: AMLODIPINE BESYLATE 5 MG TAB PO SCH (09:13)
[2016-09-06] MEDS ORDERED: POTASSIUM CHLORIDE 20 MEQ TABCR PO ONE (12:00)
--- NOTE | 2016-09-06 12:33 | Progress Note ---
Subjective Date of Service: Sep 06, 2016. Subjective Pt evaluation today including: conversation w/ patient, physical exam, lab review, review of studies, review of inpatient medication list Patient is confused. Remains on 1:1 and on seizure precautions. Receiving prn ativan for CIWA. Denies pain anywhere and eating drinking well per RN. Problem List Medical Problems: (1) Alcohol abuse Status: Acute (2) Alcoholism Status: Acute (3) Hypokalemia Status: Acute (4) Hypotension Status: Acute (5) Sepsis Status: Acute (6) Upper gastrointestinal bleed Status: Acute Review of Systems All Other Systems: Reviewed and Negative Medications Acetaminophen (Ofirmev Iv) 100 ml @ 400 mls/hr Q8H PRN IV Last administered on 09/04/16 19:26; Admin Dose 400 MLS/HR; Start 09/04/16 at 17:30; Stop at 17:29 Acetaminophen (Tylenol Tab) 650 mg Q4H PRN PO Last administered on 09/05/16 20 :33; Admin Dose 650 MG; Start 09/04/16 at 14:15; Stop 10/04/16 at 14:14 Al Hydrox/Mg Hydrox/Simethicone (Maalox Max Susp) 15 ml Q4H PRN PO; Start 09/04 at 14:15; Stop 10/04/16 at 14:14 Amlodipine Besylate (Norvasc Tab) 5 mg QAM PO Last administered on 09/06/16 09: 13; Admin Dose 5 MG; Start 09/06/16 at 09:00; Stop 10/06/16 at 08:59 Folic Acid/Syringe (Folvite Inj/ Syringe) 10 ml @ 5 mls/min QAM IV Last administered on 09/06/16 09:12; Admin Dose 5 MLS/MIN; Start 09/05/16 at 09:00; Stop 10/05/16 at 08:59 Gabapentin (Neurontin Tab) 600 mg Q12H PO; Start 09/07/16 at 00:00; Stop at 12:01 Gabapentin (Neurontin Tab) 600 mg Q24H PO; Start 09/08/16 at 12:00; Stop at 12:01 Heparin Sodium (Porcine) (Heparin 10 Unit/ ml 5 ml Flush) 5 ml PRN PRN FLUSH Last administered on 09/05/16 15:58; Admin Dose 5 ML; Start 09/04/16 at 22:30; Stop 10/04/16 at 22:29 Lidocaine HCl 2 ml 2 ml Q6H EXT Last administered on 09/06/16 09:12; Admin Dose 2 ML; Start 09/04/16 at 14:45; Stop 10/04/16 at 14:44 Lorazepam (Ativan Inj) PRN Dosing -Active Protocol Q1H PRN IV Last administered on 09/06/16 14:08; Admin Dose 2 MG; Start 09/04/16 at 18:00; Stop 10/04/16 at 17:59 Magnesium Hydroxide (Milk Of Magnesia Susp) 30 ml Q12H PRN PO; Start 09/04/16 at 14:15; Stop 10/04/16 at 14:14 Ondansetron HCl (Zofran Inj) 4 mg Q6H PRN IV; Start 09/04/16 at 14:15; Stop at 14:14 Oxazepam (Serax Cap) 10 mg Q12 PO; Start 09/08/16 at 07:00; Stop 09/09/16 at 07: 00 Oxazepam (Serax Cap) 10 mg Q6H PO; Start 09/06/16 at 14:00; Stop 09/07/16 at 07: 00 Oxazepam (Serax Cap) 10 mg Q8H PO; Start 09/07/16 at 07:00; Stop 09/08/16 at 07: 00 Pantoprazole Sodium (Protonix Tab) 40 mg BID PO Last administered on 09/06/16 09:13; Admin Dose 40 MG; Start 09/05/16 at 21:00; Stop 10/05/16 at 20:59 Polyethylene 17 gm 17 gm DAILY PRN PO; Start 09/04/16 at 14:15; Stop 10/04/16 at 14:14 Sucralfate (Carafate Susp) 1 gm QID PO Last administered on 09/06/16 12:41; Admin Dose 1 GM; Start 09/05/16 at 13:00; Stop 10/05/16 at 12:59 Thiamine HCl 100 mg/Syringe 10 ml @ 2 mls/min DAILY@1600 IV Last administered on 4/25/17at 15:23; Admin Dose 2 MLS/MIN; Start 09/04/16 at 16:00; Stop at 15:59 Objective Vital Signs Date Time Temp Pulse Resp B/P Pulse Ox O2 Delivery O2 Flow Rate FiO2 09/06/16 12:00 Room Air 09/06/16 08:00 92 Room Air 09/06/16 07:03 36.7 92 18 163/94 94 Room Air 09/06/16 06:00 36.8 90 18 168/102 92 Room Air 09/06/16 04:00 92 Room Air 09/06/16 03:59 37.2 95 18 156/91 92 Room Air 09/06/16 02:56 37.0 92 152/85 93 Room Air 09/06/16 00:01 92 Room Air 09/05/16 23:26 36.8 105 20 142/83 92 Room Air 09/05/16 20:00 95 Room Air 09/05/16 19:01 38.4 113 20 147/71 93 Room Air 09/05/16 16:00 95 Room Air 09/05/16 15:16 36.8 102 19 137/82 95 Room Air Physical Exam Comments: nad, confused and not oriented to time and place s1 s2 tachycardic, no murmurs appreciated ctab no w/r/r abd soft nt/nd +BS no LE edema Laboratory Results Last 24 Hours Test 09/06/16 05:49 White Blood Count 5.52 K/uL Red Blood Count 3.69 M/uL Hemoglobin 10.7 g/dL Hematocrit 32.7 % Mean Corpuscular Volume 88.6 fL Mean Corpuscular Hemoglobin 29.0 pg Mean Corpuscular Hemoglobin Concent 32.7 g/dl Platelet Count 127 K/uL Mean Platelet Volume 10.5 fL Neutrophils (%) (Auto) 63.6 % Lymphocytes (%) (Auto) 12.7 % Monocytes (%) (Auto) 20.8 % Eosinophils (%) (Auto) 2.2 % Basophils (%) (Auto) 0.5 % Neutrophils # (Auto) 3.51 K/uL Lymphocytes # (Auto) 0.70 K/uL Monocytes # (Auto) 1.15 K/uL Eosinophils # (Auto) 0.12 K/uL Basophils # (Auto) 0.03 K/uL RDW Standard Deviation 51.7 fL RDW Coefficient of Variation 15.9 % Immature Granulocyte % (Auto) 0.2 % Immature Granulocyte # (Auto) 0.01 K/uL Sodium Level 137 mmol/L Potassium Level 3.3 mmol/L Chloride Level 102 mmol/L Carbon Dioxide Level 28 mmol/L Anion Gap 7.0 mmol/L Blood Urea Nitrogen 5 mg/dl Creatinine 0.74 mg/dl Est Creatinine Clear Calc Drug Dose 125.9 ml/min Estimated GFR () 124.7 Estimated GFR (Non- 107.6 BUN/Creatinine Ratio 6.5 Random Glucose 96 mg/dl Calcium Level 8.2 mg/dl Phosphorus Level 1.9 mg/dl Magnesium Level 2.1 mg/dl Iron Level 28 mcg/dl Total Iron Binding Capacity 262 mcg/dl Transferrin 212 mg/dl Transferrin % Saturation 9 % Ferritin 83.7 ng/ml Total Bilirubin 0.6 mg/dl Aspartate Amino Transf (AST/SGOT) 89 U/L Alanine Aminotransferase (ALT/SGPT) 48 U/L Alkaline Phosphatase 44 U/L Total Protein 6.4 gm/dl Albumin 2.9 gm/dl Globulin 3.5 gm/dl Albumin/Globulin Ratio 0.8 Vitamin B12 Level 551 pg/mL Folate 8.71 ng/mL Assessment and Plan 1. Alcohol Withdrawal - no further seizres - started on CIWA protocol including gabapentin and ativan prn - cont CIWA - started on tapering doses of oxazepam and monitor 2. Hematochezia - no further episodes - hb stable - FOBT negative - no further intervention from GI 3. HTN - amlodipine 5mg - bp elevated, likely related to withdrawal - will cont to monitor - if persistently >170-180, will increase dose 4. Fever - no source of infection - will re-check CXR for possible aspiration during seizure episode - BCX pending, no abx at this time, will monitor 5. hold off dvt ppx with hsq; start scd
[2016-09-06] MEDS: OXAZEPAM 10MG CAP PO SCH ×2 (15:26→21:32)
[2016-09-06] MEDS: THIAMINE HCL INJ 100 MG in SYRINGE 9 ML IV SCH (19:06)
[2016-09-06] MEDS: GABAPENTIN 600MG Q12H DOSE PO SCH (23:54)
[2016-09-07] MEDS: OXAZEPAM 10MG CAP PO SCH (01:31)
[2016-09-07 03:34] VITALS: BP 173/105; PULSE 102; TEMP 37; O2SAT 94
[2016-09-07] MEDS: LIDOCAINE HCL 2% JELLY 30 ML TUBE EXT SCH ×4 (04:14→20:45)
[2016-09-07] MEDS: LORAZEPAM 2 MG/ML 1 ML VIAL IV PRN ×3 (05:56→10:03)
[2016-09-07 06:57] VITALS: BP 164/104; PULSE 98; TEMP 36.7; O2SAT 98
[2016-09-07] MEDS ORDERED: LORAZEPAM 2 MG TAB PO SCH (07:00)
[2016-09-07] MEDS ORDERED: OXAZEPAM 10MG CAP PO SCH (07:00)
[2016-09-07 07:06] LABS: BASO % 0.5 %; BASO ABS # 0.03 K/uL (0-0.2); COMPLETE YES; EOS % 3.7 %; HEMATOCRIT 36.3 % (42-52); IG% 0.2 %; LYMPH % 14.8 %; LYMPH ABS # 0.84 K/uL (1.2-3.4); MEAN CELL VOLUME 88.1 fL (80-100); MEAN CORPUSCULAR HEMOGLOBIN 28.2 pg (25-34); MEAN PLATELET VOLUME 10.1 fL (7.4-10.4); MONO % 17.2 %; NEUT % 63.6 %; PLATELET COUNT 143 K/uL (130-400); RED BLOOD COUNT 4.12 M/uL (4.7-6.1); WHITE BLOOD COUNT 5.69 K/uL (4.8-10.8)
[2016-09-07 07:34] LABS: BUN/CREATININE RATIO 5.2 (10-20); CALCIUM 8.8 mg/dl (8.5-10.1); CREATININE 0.64 mg/dl (0.60-1.40); MAGNESIUM 2.2 mg/dl (1.8-2.4); POTASSIUM 3.6 mmol/L (3.5-5.1)
[2016-09-07 07:39] LABS: PHOSPHORUS 2.5 mg/dl (2.5-4.9)
[2016-09-07] MEDS: FoLIC ACID INJ 1 MG in SYRINGE 9.8 ML IV SCH (08:23)
[2016-09-07] MEDS: AMLODIPINE BESYLATE 5 MG TAB PO SCH (08:23)
[2016-09-07] MEDS: PANTOprazole SOD 40 MG TAB PO SCH ×2 (08:24→20:55)
[2016-09-07] MEDS: SUCRALFATE 1 GM/10 ML UDC PO SCH ×4 (08:24→20:55)
--- NOTE | 2016-09-07 10:31 | Progress Note ---
Subjective Date of Service: Sep 07, 2016. Subjective Pt evaluation today including: conversation w/ patient, physical exam, review of studies, review of inpatient medication list Patient sleeping, was just given ativan for continued withdrawal symptoms. Per RN, mother was overwhelmed with patient's condition and anticipated care he will need. Patient remains confused and agitated at times, but tolerating meals. Problem List Medical Problems: (1) Alcohol abuse Status: Acute (2) Alcoholism Status: Acute (3) Hypokalemia Status: Acute (4) Hypotension Status: Acute (5) Sepsis Status: Acute (6) Upper gastrointestinal bleed Status: Acute Review of Systems All Other Systems: Reviewed and Negative Medications Acetaminophen (Ofirmev Iv) 100 ml @ 400 mls/hr Q8H PRN IV Last administered on 09/04/16 19:26; Admin Dose 400 MLS/HR; Start 09/04/16 at 17:30; Stop at 17:29 Acetaminophen (Tylenol Tab) 650 mg Q4H PRN PO Last administered on 09/05/16 20 :33; Admin Dose 650 MG; Start 09/04/16 at 14:15; Stop 10/04/16 at 14:14 Al Hydrox/Mg Hydrox/Simethicone (Maalox Max Susp) 15 ml Q4H PRN PO; Start 09/04 at 14:15; Stop 10/04/16 at 14:14 Amlodipine Besylate (Norvasc Tab) 5 mg QAM PO Last administered on 09/07/16 08: 23; Admin Dose 5 MG; Start 09/06/16 at 09:00; Stop 10/06/16 at 08:59 Folic Acid/Syringe (Folvite Inj/ Syringe) 10 ml @ 5 mls/min QAM IV Last administered on 09/07/16 08:23; Admin Dose 5 MLS/MIN; Start 09/05/16 at 09:00; Stop 10/05/16 at 08:59 Gabapentin (Neurontin Tab) 600 mg Q24H PO; Start 09/08/16 at 12:00; Stop at 12:01 Heparin Sodium (Porcine) (Heparin 10 Unit/ ml 5 ml Flush) 5 ml PRN PRN FLUSH Last administered on 09/06/16 16:12; Admin Dose 10 ML; Start 09/04/16 at 22:30 ; Stop 10/04/16 at 22:29 Lidocaine HCl 2 ml 2 ml Q6H EXT Last administered on 09/06/16 21:32; Admin Dose 2 ML; Start 09/04/16 at 14:45; Stop 10/04/16 at 14:44 Lorazepam (Ativan Inj) PRN Dosing -Active Protocol Q1H PRN IV Last administered on 09/07/16 10:03; Admin Dose 2 MG; Start 09/04/16 at 18:00; Stop 10/04/16 at 17:59 Magnesium Hydroxide (Milk Of Magnesia Susp) 30 ml Q12H PRN PO; Start 09/04/16 at 14:15; Stop 10/04/16 at 14:14 Ondansetron HCl (Zofran Inj) 4 mg Q6H PRN IV; Start 09/04/16 at 14:15; Stop at 14:14 Oxazepam (Serax Cap) 15 mg Q6H PO; Start 09/07/16 at 13:00; Stop 10/07/16 at 12: 59 Pantoprazole Sodium (Protonix Tab) 40 mg BID PO Last administered on 09/07/16 08:24; Admin Dose 40 MG; Start 09/05/16 at 21:00; Stop 10/05/16 at 20:59 Polyethylene 17 gm 17 gm DAILY PRN PO; Start 09/04/16 at 14:15; Stop 10/04/16 at 14:14 Sucralfate (Carafate Susp) 1 gm QID PO Last administered on 09/07/16 08:24; Admin Dose 1 GM; Start 09/05/16 at 13:00; Stop 10/05/16 at 12:59 Thiamine HCl 100 mg/Syringe 10 ml @ 2 mls/min DAILY@1600 IV Last administered on 09/06/16 19:06; Admin Dose 2 MLS/MIN; Start 09/04/16 at 16:00; Stop at 15:59 Objective Vital Signs Date Time Temp Pulse Resp B/P Pulse Ox O2 Delivery O2 Flow Rate FiO2 09/07/16 08:00 Room Air 09/07/16 06:57 36.7 98 22 164/104 98 Room Air 09/07/16 04:00 Room Air 09/07/16 03:34 37.0 102 22 173/105 94 Room Air 09/07/16 00:00 Room Air 09/06/16 22:23 36.7 90 17 155/94 91 Room Air 09/06/16 20:24 37.4 92 19 167/96 96 Room Air 09/06/16 20:07 37.2 94 20 161/97 97 Room Air 09/06/16 20:00 Room Air 09/06/16 19:23 37.1 100 21 175/98 93 Room Air 09/06/16 16:00 Room Air 09/06/16 15:00 37.1 105 16 165/104 94 Room Air 09/06/16 13:44 38.2 102 20 161/98 93 Room Air 09/06/16 12:00 Room Air Physical Exam Comments: nad, sleeping s1 s2 rrr, no murmurs appreciated ctab no w/r/r abd soft nt/nd +BS no LE edema Laboratory Results Last 24 Hours Test 09/07/16 06:00 White Blood Count 5.69 K/uL Red Blood Count 4.12 M/uL Hemoglobin 11.6 g/dL Hematocrit 36.3 % Mean Corpuscular Volume 88.1 fL Mean Corpuscular Hemoglobin 28.2 pg Mean Corpuscular Hemoglobin Concent 32.0 g/dl Platelet Count 143 K/uL Mean Platelet Volume 10.1 fL Neutrophils (%) (Auto) 63.6 % Lymphocytes (%) (Auto) 14.8 % Monocytes (%) (Auto) 17.2 % Eosinophils (%) (Auto) 3.7 % Basophils (%) (Auto) 0.5 % Neutrophils # (Auto) 3.62 K/uL Lymphocytes # (Auto) 0.84 K/uL Monocytes # (Auto) 0.98 K/uL Eosinophils # (Auto) 0.21 K/uL Basophils # (Auto) 0.03 K/uL RDW Standard Deviation 50.8 fL RDW Coefficient of Variation 15.7 % Immature Granulocyte % (Auto) 0.2 % Immature Granulocyte # (Auto) 0.01 K/uL Sodium Level 138 mmol/L Potassium Level 3.6 mmol/L Chloride Level 102 mmol/L Carbon Dioxide Level 28 mmol/L Anion Gap 8.0 mmol/L Blood Urea Nitrogen 3 mg/dl Creatinine 0.64 mg/dl Est Creatinine Clear Calc Drug Dose 144.6 ml/min Estimated GFR () 132.3 Estimated GFR (Non- 114.2 BUN/Creatinine Ratio 5.2 Random Glucose 81 mg/dl Calcium Level 8.8 mg/dl Phosphorus Level 2.5 mg/dl Magnesium Level 2.2 mg/dl Assessment and Plan 1. Alcohol Withdrawal - no further seizres - started on CIWA protocol including gabapentin and ativan prn - cont CIWA - will continue oxazepam and increase dose to 15mg q6h 2. Hematochezia - no further episodes - hb stable - FOBT negative - no further intervention from GI 3. HTN - amlodipine 5mg - bp elevated, likely related to withdrawal - will cont to monitor - if persistently >170-180, will increase dose 4. Fever - no source of infection - will re-check CXR for possible aspiration during seizure episode - BCX NGTD, no abx at this time - has been afebrile 5. hold off dvt ppx with hsq; start scd
[2016-09-07 11:15] VITALS: BP 148/95; PULSE 86; TEMP 36.6; O2SAT 96
[2016-09-07] MEDS: GABAPENTIN 600MG Q12H DOSE PO SCH (12:00)
[2016-09-07] MEDS: OXAZEPAM 15 MG CAP PO SCH ×2 (13:00→17:39)
[2016-09-07 15:43] VITALS: BP 127/85; PULSE 90; TEMP 36.8; O2SAT 97
[2016-09-07] MEDS: THIAMINE HCL INJ 100 MG in SYRINGE 9 ML IV SCH (17:38)
[2016-09-07 18:53] VITALS: BP 122/86; PULSE 99; TEMP 36.6; O2SAT 99
[2016-09-07 23:00] VITALS: BP 142/97; PULSE 98; TEMP 36.5; O2SAT 98
[2016-09-08] VITALS (9 sets, daily range): BP systolic 127–166; BP diastolic 80–116; PULSE 84–113; TEMP 36.4–37.3; O2SAT 97–99
[2016-09-08] MEDS: LORAZEPAM 2 MG/ML 1 ML VIAL IV PRN (00:27)
[2016-09-08] MEDS: OXAZEPAM 15 MG CAP PO SCH ×4 (00:27→22:25)
[2016-09-08] MEDS: LIDOCAINE HCL 2% JELLY 30 ML TUBE EXT SCH ×4 (02:45→20:39)
[2016-09-08] MEDS ORDERED: LORAZEPAM 2 MG TAB PO SCH (07:00)
[2016-09-08] MEDS ORDERED: OXAZEPAM 10MG CAP PO SCH (07:00)
[2016-09-08 07:38] LABS: HEMATOCRIT 36.3 % (42-52)
[2016-09-08] MEDS: SUCRALFATE 1 GM/10 ML UDC PO SCH ×4 (08:46→20:40)
[2016-09-08] MEDS: FoLIC ACID INJ 1 MG in SYRINGE 9.8 ML IV SCH (08:46)
[2016-09-08] MEDS: AMLODIPINE BESYLATE 5 MG TAB PO SCH (08:46)
[2016-09-08] MEDS: PANTOprazole SOD 40 MG TAB PO SCH ×2 (08:46→20:40)
--- NOTE | 2016-09-08 11:04 | Progress Note ---
Subjective Date of Service: Sep 08, 2016. Subjective Pt evaluation today including: conversation w/ patient, physical exam, lab review, review of studies, review of inpatient medication list More cooperative today. Last CIWA ativan given overnight. Arousable and eating meals. Problem List Medical Problems: (1) Alcohol abuse Status: Acute (2) Alcoholism Status: Acute (3) Hypokalemia Status: Acute (4) Hypotension Status: Acute (5) Sepsis Status: Acute (6) Upper gastrointestinal bleed Status: Acute Review of Systems All Other Systems: Reviewed and Negative Medications Acetaminophen (Ofirmev Iv) 100 ml @ 400 mls/hr Q8H PRN IV Last administered on 09/04/16 19:26; Admin Dose 400 MLS/HR; Start 09/04/16 at 17:30; Stop at 17:29 Acetaminophen (Tylenol Tab) 650 mg Q4H PRN PO Last administered on 09/05/16 20 :33; Admin Dose 650 MG; Start 09/04/16 at 14:15; Stop 10/04/16 at 14:14 Al Hydrox/Mg Hydrox/Simethicone (Maalox Max Susp) 15 ml Q4H PRN PO; Start 09/04 at 14:15; Stop 10/04/16 at 14:14 Amlodipine Besylate (Norvasc Tab) 5 mg QAM PO Last administered on 09/08/16 08: 46; Admin Dose 5 MG; Start 09/06/16 at 09:00; Stop 10/06/16 at 08:59 Folic Acid/Syringe (Folvite Inj/ Syringe) 10 ml @ 5 mls/min QAM IV Last administered on 09/08/16 08:46; Admin Dose 5 MLS/MIN; Start 09/05/16 at 09:00; Stop 10/05/16 at 08:59 Heparin Sodium (Porcine) (Heparin 10 Unit/ ml 5 ml Flush) 5 ml PRN PRN FLUSH Last administered on 09/08/16 07:38; Admin Dose 10 ML; Start 09/04/16 at 22:30 ; Stop 10/04/16 at 22:29 Lidocaine HCl 2 ml 2 ml Q6H EXT Last administered on 09/06/16 21:32; Admin Dose 2 ML; Start 09/04/16 at 14:45; Stop 10/04/16 at 14:44 Lorazepam (Ativan Inj) PRN Dosing -Active Protocol Q1H PRN IV Last administered on 09/08/16 00:27; Admin Dose 1 MG; Start 09/04/16 at 18:00; Stop 10/04/16 at 17:59 Magnesium Hydroxide (Milk Of Magnesia Susp) 30 ml Q12H PRN PO; Start 09/04/16 at 14:15; Stop 10/04/16 at 14:14 Ondansetron HCl (Zofran Inj) 4 mg Q6H PRN IV; Start 09/04/16 at 14:15; Stop at 14:14 Oxazepam (Serax Cap) 15 mg Q8H PO; Start 09/08/16 at 15:00; Stop 10/08/16 at 14: 59 Pantoprazole Sodium (Protonix Tab) 40 mg BID PO Last administered on 09/08/16 08:46; Admin Dose 40 MG; Start 09/05/16 at 21:00; Stop 10/05/16 at 20:59 Polyethylene 17 gm 17 gm DAILY PRN PO; Start 09/04/16 at 14:15; Stop 10/04/16 at 14:14 Sucralfate (Carafate Susp) 1 gm QID PO Last administered on 09/08/16 11:38; Admin Dose 1 GM; Start 09/05/16 at 13:00; Stop 10/05/16 at 12:59 Thiamine HCl 100 mg/Syringe 10 ml @ 2 mls/min DAILY@1600 IV Last administered on 09/07/16 17:38; Admin Dose 2 MLS/MIN; Start 09/04/16 at 16:00; Stop at 15:59 Objective Vital Signs Date Time Temp Pulse Resp B/P Pulse Ox O2 Delivery O2 Flow Rate FiO2 09/08/16 08:00 Room Air 09/08/16 07:00 36.7 89 16 157/100 98 Room Air 09/08/16 06:25 36.7 89 18 151/91 97 Room Air 09/08/16 04:00 Room Air 09/08/16 03:57 36.8 89 20 136/88 98 Room Air 09/08/16 02:17 36.6 84 18 142/86 98 Room Air 09/08/16 00:01 36.6 85 18 146/96 98 Room Air 09/07/16 23:59 Room Air 09/07/16 23:00 36.5 98 20 142/97 98 Room Air 09/07/16 20:00 Room Air 09/07/16 18:53 36.6 99 20 122/86 99 Room Air 09/07/16 16:00 Room Air 09/07/16 15:43 36.8 90 18 127/85 97 Room Air 09/07/16 12:00 Room Air 09/07/16 11:15 36.6 86 22 148/95 96 Room Air Physical Exam Comments: nad, arousable, still confused s1 s2 rrr, no murmurs appreciated ctab no w/r/r abd soft nt/nd +BS no LE edema Laboratory Results Last 24 Hours Test 09/08/16 07:00 Hemoglobin 11.5 g/dL Hematocrit 36.3 % Assessment and Plan 1. Alcohol Withdrawal - no further seizures - started on CIWA protocol including gabapentin and ativan prn - cont CIWA - will continue oxazepam and taper to q8h today 2. Hematochezia - no further episodes - hb stable - FOBT negative - no further intervention from GI 3. HTN - amlodipine 5mg - bp elevated, likely related to withdrawal - will cont to monitor - if persistently >170-180, will increase dose 4. Fever - no source of infection - will re-check CXR for possible aspiration during seizure episode - BCX NGTD, no abx at this time - has been afebrile 5. hold off dvt ppx with hsq; start scd
[2016-09-08] MEDS ORDERED: GABAPENTIN 600MG X1 DOSE PO SCH (12:00)
[2016-09-08] MEDS: THIAMINE HCL INJ 100 MG in SYRINGE 9 ML IV SCH (15:19)
[2016-09-09] MEDS: LIDOCAINE HCL 2% JELLY 30 ML TUBE EXT SCH ×4 (02:45→20:01)
[2016-09-09 03:51] VITALS: BP 129/80; PULSE 85; TEMP 37.1; O2SAT 96
[2016-09-09 07:39] VITALS: BP 137/86; PULSE 93; TEMP 37; O2SAT 96
[2016-09-09] MEDS: SUCRALFATE 1 GM/10 ML UDC PO SCH ×4 (08:25→20:02)
[2016-09-09] MEDS: AMLODIPINE BESYLATE 5 MG TAB PO SCH (08:25)
[2016-09-09] MEDS: PANTOprazole SOD 40 MG TAB PO SCH ×2 (08:25→20:02)
[2016-09-09] MEDS: OXAZEPAM 15 MG CAP PO SCH ×2 (08:25→20:04)
[2016-09-09 11:25] VITALS: BP 162/90; PULSE 87; TEMP 36.4; O2SAT 97
--- NOTE | 2016-09-09 11:29 | Progress Note ---
Subjective Date of Service: Sep 09, 2016. Subjective Pt evaluation today including: conversation w/ patient, physical exam, lab review, review of studies, review of inpatient medication list Remains confused but not agitated and cooperative. Able to hold minimal conversation. TOlerating diet well. +BM. No chest pain, no sob. No abd pain. Problem List Medical Problems: (1) Alcohol abuse Status: Acute (2) Alcoholism Status: Acute (3) Hypokalemia Status: Acute (4) Hypotension Status: Acute (5) Sepsis Status: Acute (6) Upper gastrointestinal bleed Status: Acute Review of Systems All Other Systems: Reviewed and Negative Medications Acetaminophen (Ofirmev Iv) 100 ml @ 400 mls/hr Q8H PRN IV Last administered on 09/04/16 19:26; Admin Dose 400 MLS/HR; Start 09/04/16 at 17:30; Stop at 17:29 Acetaminophen (Tylenol Tab) 650 mg Q4H PRN PO Last administered on 09/05/16 20 :33; Admin Dose 650 MG; Start 09/04/16 at 14:15; Stop 10/04/16 at 14:14 Al Hydrox/Mg Hydrox/Simethicone (Maalox Max Susp) 15 ml Q4H PRN PO; Start 09/04 at 14:15; Stop 10/04/16 at 14:14 Amlodipine Besylate (Norvasc Tab) 5 mg QAM PO Last administered on 09/09/16 08: 25; Admin Dose 5 MG; Start 09/06/16 at 09:00; Stop 10/06/16 at 08:59 Folic Acid (Folvite Tab) 1 mg QAM PO Last administered on 09/09/16 12:02; Admin Dose 1 MG; Start 09/09/16 at 09:00; Stop 10/09/16 at 08:59 Heparin Sodium (Porcine) (Heparin 10 Unit/ ml 5 ml Flush) 5 ml PRN PRN FLUSH Last administered on 09/08/16 07:38; Admin Dose 10 ML; Start 09/04/16 at 22:30 ; Stop 10/04/16 at 22:29 Lidocaine HCl 2 ml 2 ml Q6H EXT Last administered on 09/08/16 20:39; Admin Dose 2 ML; Start 09/04/16 at 14:45; Stop 10/04/16 at 14:44 Lorazepam (Ativan Inj) PRN Dosing -Active Protocol Q1H PRN IV Last administered on 09/08/16 00:27; Admin Dose 1 MG; Start 09/04/16 at 18:00; Stop 10/04/16 at 17:59 Magnesium Hydroxide (Milk Of Magnesia Susp) 30 ml Q12H PRN PO; Start 09/04/16 at 14:15; Stop 10/04/16 at 14:14 Ondansetron HCl (Zofran Inj) 4 mg Q6H PRN IV; Start 09/04/16 at 14:15; Stop at 14:14 Oxazepam (Serax Cap) 15 mg Q12 PO Last administered on 09/09/16 08:25; Admin Dose 15 MG; Start 09/09/16 at 08:30; Stop 10/09/16 at 08:29 Pantoprazole Sodium (Protonix Tab) 40 mg BID PO Last administered on 09/09/16 08:25; Admin Dose 40 MG; Start 09/05/16 at 21:00; Stop 10/05/16 at 20:59 Polyethylene (Miralax Powder Packet) 17 gm DAILY PRN PO; Start 09/04/16 at 14: 15; Stop 10/04/16 at 14:14 Sucralfate (Carafate Susp) 1 gm QID PO Last administered on 09/09/16 12:02; Admin Dose 1 GM; Start 09/05/16 at 13:00; Stop 10/05/16 at 12:59 Thiamine HCl (Vitamin B-1 Tab) 100 mg QAM PO Last administered on 09/09/16 12: 02; Admin Dose 100 MG; Start 09/09/16 at 09:00; Stop 10/09/16 at 08:59 Objective Vital Signs Date Time Temp Pulse Resp B/P Pulse Ox O2 Delivery O2 Flow Rate FiO2 09/09/16 11:25 36.4 87 16 162/90 97 09/09/16 08:00 Room Air 09/09/16 07:39 37.0 93 16 137/86 96 Room Air 09/09/16 04:00 Room Air 09/09/16 03:51 37.1 85 17 129/80 96 Room Air 4/29/17 00:00 Room Air 09/08/16 23:57 37.3 89 18 135/82 97 Room Air 09/08/16 20:00 Room Air 09/08/16 19:40 36.6 96 16 127/80 99 Room Air 09/08/16 17:17 36.4 113 18 166/116 99 Room Air 09/08/16 16:00 Room Air 09/08/16 12:00 Room Air 09/08/16 11:44 36.8 86 18 136/83 97 Room Air Physical Exam Comments: nad, awake but oriented only to self, anicteric s1 s2 rrr, no murmurs appreciated ctab no w/r/r abd soft nt nd +BS no LE edema Assessment and Plan 1. Alcohol Withdrawal - no further seizures - started on CIWA protocol including gabapentin and ativan prn - will continue oxazepam and taper to q12h 2. Hematochezia - no further episodes - hb stable - FOBT negative - no further intervention from GI 3. HTN - amlodipine 5mg - bp elevated, likely related to withdrawal - will cont to monitor - if persistently >170-180, will increase dose - off tele 4. Fever - no source of infection - will re-check CXR for possible aspiration during seizure episode - BCX NGTD, no abx at this time - has been afebrile 5. hold off dvt ppx with hsq; start scd
[2016-09-09] MEDS: THIAMINE HCL 100 MG TAB PO SCH (12:02)
[2016-09-09 12:22] VITALS: BP 162/90; PULSE 87; TEMP 36.4; O2SAT 97
[2016-09-09 15:25] VITALS: BP 153/95; PULSE 82; TEMP 36.8; O2SAT 96
[2016-09-09 23:25] VITALS: BP 156/97; PULSE 85; TEMP 36.9; O2SAT 96
[2016-09-10 00:16] VITALS: O2SAT 96
[2016-09-10] MEDS: LIDOCAINE HCL 2% JELLY 30 ML TUBE EXT SCH ×4 (02:36→20:21)
[2016-09-10] MEDS: PANTOprazole SOD 40 MG TAB PO SCH ×2 (07:43→20:21)
[2016-09-10] MEDS: AMLODIPINE BESYLATE 5 MG TAB PO SCH (07:43)
[2016-09-10] MEDS: THIAMINE HCL 100 MG TAB PO SCH (07:43)
[2016-09-10] MEDS: SUCRALFATE 1 GM/10 ML UDC PO SCH ×4 (07:44→20:21)
--- NOTE | 2016-09-10 08:55 | Progress Note ---
Subjective Date of Service: Sep 10, 2016. Subjective Pt evaluation today including: conversation w/ patient, conversation w/ family , physical exam, lab review, review of studies, review of inpatient medication list More responsive, more awake and alert and answering more appropriately. He is able to walk around the room but with some gait imbalance. Mother is concerned he may fall, they do have a few steps at home. Otherwise, no pain anywhere and eating well. Problem List Medical Problems: (1) Alcohol abuse Status: Acute (2) Alcoholism Status: Acute (3) Hypokalemia Status: Acute (4) Hypotension Status: Acute (5) Sepsis Status: Acute (6) Upper gastrointestinal bleed Status: Acute Review of Systems All Other Systems: Reviewed and Negative Medications Acetaminophen (Ofirmev Iv) 100 ml @ 400 mls/hr Q8H PRN IV Last administered on 09/04/16 19:26; Admin Dose 400 MLS/HR; Start 09/04/16 at 17:30; Stop at 17:29 Acetaminophen (Tylenol Tab) 650 mg Q4H PRN PO Last administered on 09/05/16 20 :33; Admin Dose 650 MG; Start 09/04/16 at 14:15; Stop 10/04/16 at 14:14 Al Hydrox/Mg Hydrox/Simethicone (Maalox Max Susp) 15 ml Q4H PRN PO; Start 09/04 at 14:15; Stop 10/04/16 at 14:14 Amlodipine Besylate (Norvasc Tab) 5 mg QAM PO Last administered on 09/10/16 07: 43; Admin Dose 5 MG; Start 09/06/16 at 09:00; Stop 10/06/16 at 08:59 Folic Acid (Folvite Tab) 1 mg QAM PO Last administered on 09/10/16 07:44; Admin Dose 1 MG; Start 09/09/16 at 09:00; Stop 10/09/16 at 08:59 Heparin Sodium (Porcine) (Heparin 10 Unit/ ml 5 ml Flush) 5 ml PRN PRN FLUSH Last administered on 09/08/16 07:38; Admin Dose 10 ML; Start 09/04/16 at 22:30 ; Stop 10/04/16 at 22:29 Lidocaine HCl 2 ml 2 ml Q6H EXT Last administered on 09/08/16 20:39; Admin Dose 2 ML; Start 09/04/16 at 14:45; Stop 10/04/16 at 14:44 Lorazepam (Ativan Inj) PRN Dosing -Active Protocol Q1H PRN IV Last administered on 09/08/16 00:27; Admin Dose 1 MG; Start 09/04/16 at 18:00; Stop 10/04/16 at 17:59 Magnesium Hydroxide (Milk Of Magnesia Susp) 30 ml Q12H PRN PO; Start 09/04/16 at 14:15; Stop 10/04/16 at 14:14 Ondansetron HCl (Zofran Inj) 4 mg Q6H PRN IV; Start 09/04/16 at 14:15; Stop at 14:14 Oxazepam (Serax Cap) 10 mg Q12 PO; Start 09/10/16 at 09:00; Stop 10/10/16 at 08: 59 Pantoprazole Sodium (Protonix Tab) 40 mg BID PO Last administered on 09/10/16 07:43; Admin Dose 40 MG; Start 09/05/16 at 21:00; Stop 10/05/16 at 20:59 Polyethylene (Miralax Powder Packet) 17 gm DAILY PRN PO; Start 09/04/16 at 14: 15; Stop 10/04/16 at 14:14 Sucralfate (Carafate Susp) 1 gm QID PO Last administered on 09/10/16 07:44; Admin Dose 1 GM; Start 09/05/16 at 13:00; Stop 10/05/16 at 12:59 Thiamine HCl (Vitamin B-1 Tab) 100 mg QAM PO Last administered on 09/10/16 07: 43; Admin Dose 100 MG; Start 09/09/16 at 09:00; Stop 10/09/16 at 08:59 Objective Vital Signs Date Time Temp Pulse Resp B/P Pulse Ox O2 Delivery O2 Flow Rate FiO2 09/10/16 00:16 96 Room Air 09/09/16 23:25 36.9 85 18 156/97 96 Room Air 09/09/16 15:25 36.8 82 18 153/95 96 Room Air 09/09/16 13:51 Room Air 09/09/16 12:22 36.4 87 16 97 09/09/16 12:00 Room Air 09/09/16 11:25 36.4 87 16 162/90 97 Physical Exam Comments: nad, aox3, anicteric s1 s2 rrr, no murmurs appreciated ctab no w/r/r abd soft nt/nd +BS no LE edema Assessment and Plan 1. Alcohol Withdrawal - no further seizures - started on CIWA protocol including gabapentin and ativan prn - stop oxazepam today and monitor under CIWA 2. Hematochezia - no further episodes - hb stable - FOBT negative - no further intervention from GI 3. HTN - amlodipine 5mg - bp elevated, likely related to withdrawal - will cont to monitor - if persistently >170-180, will increase dose - off tele 4. Fever - no source of infection - will re-check CXR for possible aspiration during seizure episode - BCX NGTD, no abx at this time - has been afebrile 5. Gait dysfunction - PT/OT eval 6. hold off dvt ppx with hsq; start scd
[2016-09-10] MEDS ORDERED: OXAZEPAM 15 MG CAP PO SCH (09:00)
[2016-09-10] MEDS ORDERED: OXAZEPAM 10MG CAP PO SCH (09:00)
[2016-09-10 09:39] VITALS: BP 169/94; PULSE 75; TEMP 36.7; O2SAT 95
[2016-09-10 14:51] VITALS: BP 141/88; PULSE 87; TEMP 36.9; O2SAT 97
[2016-09-10 23:26] VITALS: BP 169/98; PULSE 100; TEMP 36.8; O2SAT 95
[2016-09-11] VITALS: O2SAT 96
[2016-09-11] MEDS: LIDOCAINE HCL 2% JELLY 30 ML TUBE EXT SCH (02:29)
[2016-09-11] MEDS: AMLODIPINE BESYLATE 5 MG TAB PO SCH (07:31)
[2016-09-11] MEDS: SUCRALFATE 1 GM/10 ML UDC PO SCH (07:31)
[2016-09-11] MEDS: PANTOprazole SOD 40 MG TAB PO SCH (07:31)
[2016-09-11] MEDS: THIAMINE HCL 100 MG TAB PO SCH (07:31)
[2016-09-11 09:35] VITALS: BP 159/94; PULSE 88; TEMP 36.7; O2SAT 97
[2016-09-11 09:59] VITALS: BP 148/91; PULSE 103; O2SAT 98
--- NOTE | 2016-09-11 11:26 | Discharge Instructions ---
Discharge Instructions Date of Service September 11, 2016. Admission Reason for Admission: Gi Bleed Discharge Discharge Diagnosis / Problem: Alcohol withdrawal, GI bleed Discharge Goals Goal(s): Decrease discomfort, Improve function, Increase independence, Improve disease control, Diagnostic testing, Therapeutic intervention Activity Recommendations Activity Limitations: resume your previous activity Exercise/Sports Limitations: none Shower/Bathe: no limitations . Instructions / Follow-Up Instructions / Follow-Up Patient to be discharged home No new medications on discharge Would recommend alcohol rehab upon discharge If worsening fevers, chills, palpitations, tremor, please report to ER Current Hospital Diet Patient's current hospital diet: Regular Diet Discharge Diet Recommended Diet: Regular Diet Pending Studies Studies pending at discharge: no Laboratory Results Hemoglobin A1c Test 07/05/16 14:16 Range/Units Estimated Average Glucose 91 mg/dl Hemoglobin A1c 4.8 4.5-5.6 % Medical Emergencies . Who to Call and When: Medical Emergencies: If at any time you feel your situation is an emergency, please call 911 immediately. . Non-Emergent Contact Non-Emergency issues call your: Primary Care Provider Call Non-Emergent contact if: you have a fever, your pain is worsening . . "Provider Documentation" section prepared by Walter Kumari. . VTE Core Measure Inpt VTE Proph given/why not?: Carlyn Sampson, [facility]
[2016-09-11 11:30] VITALS: BP 148/91; PULSE 103; TEMP 36.7; O2SAT 98
--- NOTE | 2016-09-11 13:27 | Discharge Summary ---
Discharge Summary Date of Service September 11, 2016. Discharge Summary Admission Date: Sep 04, 2016 at 14:29 Discharge Date: September 11, 2016 Discharge Disposition: Home Principal Diagnosis: Alcohol withdrawal, GI bleed Immunizations: Have You Had Influenza Vaccine: Yes Influenza Vaccine Date: Apr 11, 2012 History of Tetanus Vaccine?: Yes Tetanus Immunization Date: Nov 04, 2001 History of Pneumococcal: No History of Hepatitis B Vaccine: No Medication Reconciliation Continued Medications: Losartan Potassium (Cozaar) 25 Mg Tab 25 MG PO DAILY, TAB Multivitamin (Multivitamin) Tab 1 TAB PO QAM Pantoprazole (Protonix) 40 Mg Tab 40 MG PO BID Thiamine Hcl (Vitamin B-1) 100 Mg Tab 100 MG PO DAILY, TAB Vitamins C & E (Vitamin C) 1 Cap Cap Discharge Exam Review of Systems: Constitutional: No chills, No fever Respiratory: No cough, No sputum Cardiovascular: No chest pain, No orthopnea Abdomen: No pain, No vomiting Musculoskeletal: No joint pain, No muscle pain Genitourinary - Male: No dysuria, No hematuria Neurologic: No memory loss, No paralysis Physical Exam: General Appearance: WD/WN, no apparent distress Neck: supple, no adenopathy Respiratory/Chest: lungs clear, normal breath sounds Cardiovascular: no edema, no gallop Abdomen / GI: non tender, soft Neurologic/Psychiatric: alert, oriented x 3 Hospital Course 1. Alcohol Withdrawal - no further seizures - started on CIWA protocol including gabapentin and ativan prn - stop oxazepam today and monitored under CIWA - DC home on 09/11, pt refusing any rehab and alert and oriented and able to safely be discharged home 2. Hematochezia - no further episodes - hb stable - FOBT negative - no further intervention from GI 3. HTN - amlodipine 5mg - bp elevated, likely related to withdrawal - will cont to monitor - DC on ARB 4. Fever - no source of infection - will re-check CXR for possible aspiration during seizure episode - BCX NGTD, no abx at this time - has been afebrile 5. Gait dysfunction - PT/OT eval 6. hold off dvt ppx with hsq; start scd Total Time Spent: Greater than 30 minutes This includes examination of the patient, discharge planning, medication reconciliation, and communication with other providers. Discharge Instructions Please refer to the electronic Patient Visit Report (Discharge Instructions) for additional information.
[2016-10-11] MEDS ORDERED: CZR25 PO (14:43)
[2016-10-11] MEDS ORDERED: NZRCR EXT (14:53)
== END 2016-09-11 11:58 | disposition home or self-care (01) | DRG 897 ==
LOC: ENRESERVTM → ENRESERVDT → C.EDB 12:07 → C.2T 14:29 → C.MS4W 09-09 13:10
PROVIDERS: ADMIT Internal Medicine; ATTEND Hospitalist
PROC: 02HV33Z Insertion of Infusion Device into Superior Vena Cava, Percutaneous Approach (ICD-10-PCS; principal; 2016-09-04)
DX: F10.231 Alcohol dependence with withdrawal delirium (principal); K92.1 Melena; K22.10 Ulcer of esophagus without bleeding; N17.9 Acute kidney failure, unspecified; I10 Essential (primary) hypertension; I95.9 Hypotension, unspecified; E78.5 Hyperlipidemia, unspecified; K29.70 Gastritis, unspecified, without bleeding; R50.9 Fever, unspecified; E87.6 Hypokalemia; Z88.0 Allergy status to penicillin; Z83.3 Family history of diabetes mellitus

== ENCOUNTER 2016-10-07 13:44 | Inpatient (IN) | payer OTHER ==
[~2016-10-07] VITALS: Ht 172.7 cm; Wt 84.0 kg
[~2016-10-07 13:44] MED LIST changes: +LOSA1TAB PO; +THIA100T11 PO; +VITACAP26
[2016-10-07] MEDS ORDERED: LORAZEPAM 2 MG/ML 1 ML VIAL IV STA (13:57)
[2016-10-07] MEDS ORDERED: FAMOTIDINE 20MG/102 ML D5W IV STA (13:57)
[2016-10-07] MEDS ORDERED: SODIUM CHLORIDE 0.9% 1000ML 1,000 ML IV STA ×3 (13:57→14:28)
[2016-10-07] MEDS ORDERED: ONDANSETRON INJ 2 MG/ML 2 ML VIAL IV STA (13:57)
[2016-10-07] MEDS ORDERED: THIAMINE HCL 100 MG/ML 2 ML VIAL IV STA (13:59)
[2016-10-07 14:21] LABS: BASO % 0.5 %; BASO ABS # 0.02 K/uL (0-0.2); COMPLETE YES; EOS % 5.3 %; HEMATOCRIT 40.7 % (42-52); IG% 0.2 %; LYMPH % 24.9 %; LYMPH ABS # 1.09 K/uL (1.2-3.4); MEAN CELL VOLUME 86.6 fL (80-100); MEAN CORPUSCULAR HEMOGLOBIN 28.7 pg (25-34); MEAN CORPUSCULAR HGB CONC 33.2 g/dl (32-36); MEAN PLATELET VOLUME 9.9 fL (7.4-10.4); MONO % 14.8 %; NEUT % 54.3 %; PLATELET COUNT 178 K/uL (130-400); WHITE BLOOD COUNT 4.38 K/uL (4.8-10.8)
[2016-10-07] MEDS ORDERED: PANTOprazole INJ 80 MG in DEXTROSE 5% 100ML IV ONE (14:30)
[2016-10-07] MEDS ORDERED: PANTOprazole INJ 40 MG in DEXTROSE 5% 100ML IV SCH (14:45)
[2016-10-07 14:57] LABS: VEN BLOOD GAS BASE EXCESS -3.8 mmol/L; VENOUS BLOOD GAS PCO2 30 mmHg (38.0-50.0); VENOUS BLOOD GAS PO2 26 mmHg
[2016-10-07 15:00] LABS: ALKALINE PHOSPHATASE 61 U/L (45-117); ALT/SGPT 108 U/L (12-78); BLOOD UREA NITROGEN 5 mg/dl (7-18); BUN/CREATININE RATIO 4.9 (10-20); CALCIUM 8.7 mg/dl (8.5-10.1); CARBON DIOXIDE 18 mmol/L (21-32); CHLORIDE 100 mmol/L (98-107); CREATININE 0.97 mg/dl (0.60-1.40); GLUCOSE 79 mg/dl (70-99); SODIUM 138 mmol/L (136-145)
[2016-10-07 15:01] LABS: VEN BLD GAS O2 SATURATION < 60.0 %
[2016-10-07 15:14] LABS: PARTIAL THROMBOPLASTIN RATIO 1.1; PROTHROMBIN TIME (PATIENT) 10.2 SECONDS (9.0-12.0)
[2016-10-07 15:25] LABS: POTASSIUM 4.2 mmol/L (3.5-5.1)
--- NOTE | 2016-10-07 15:25 | DIAGNOSTIC IMAGING REPORT ---
SINGLE VIEW CHEST CLINICAL HISTORY: Generalized abdominal pain. FINDINGS: 2 AP, portable, upright chest radiographs are compared to study dated 09/05/2016. Correlation is made with chest CT dated 08/06/2010. The examination is degraded by portable technique apical lordotic positioning. The heart is top normal for projection. The pulmonary vasculature is noncongested. Chronic interstitial thickening is similar to previous. There is minimal bibasilar atelectasis. The lungs and pleural spaces are otherwise clear. No pneumothorax is seen. There is a healed left anterolateral seventh rib fracture. IMPRESSION: No acute cardiopulmonary abnormality. Electronically signed by: Audi Bartlett M.D. 10/07/2016 3:24 PM Dictated Date/Time: 10/07/2016 3:21 PM
--- NOTE | 2016-10-07 15:27 | DIAGNOSTIC IMAGING REPORT ---
KUB CLINICAL HISTORY: Generalized abdominal pain. FINDINGS: An AP, portable, supine abdominal radiograph is obtained. No prior studies are available for comparison at the time of dictation. There is a nonobstructed abdominal bowel gas pattern. No evidence of intraperitoneal free air is seen on this supine view. There is no radiographic evidence of nephrolithiasis. Phleboliths are seen in the pelvis. There is lumbosacral spondylosis. A healed left-sided rib fracture is noted. IMPRESSION: Nonobstructed abdominal bowel gas pattern. Electronically signed by: Audi Bartlett M.D. 10/07/2016 3:25 PM Dictated Date/Time: 10/07/2016 3:24 PM
[2016-10-07] MEDS ORDERED: PRLSR20 PO (15:47)
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
[2016-10-07] MEDS ORDERED: POLYETHYLENE (MIRALAX) 17 GM PACK PO PRN (17:15)
[2016-10-07] MEDS ORDERED: ONDANSETRON INJ 2 MG/ML 2 ML VIAL IV PRN (17:15)
[2016-10-07] MEDS ORDERED: MAGNESIUM HYDROXIDE SUSP 30 ML UDC PO PRN (17:15)
[2016-10-07] MEDS ORDERED: SODIUM CHLORIDE 0.9% 1000ML 1,000 ML IV SCH (17:45)
[2016-10-07] MEDS ORDERED: LORAZEPAM 2 MG/ML 1 ML VIAL IV PRN (17:45)
[2016-10-07] MEDS ORDERED: CHLORDIAZEPOXIDE 25 MG CAP PO SCH (17:45)
[2016-10-07 17:50] VITALS: O2SAT 100; Ht 172.7 cm; Wt 84.0 kg
[2016-10-07] MEDS: ACETAMINOPHEN 325 MG TAB PO PRN (19:01)
[2016-10-07] MEDS: D5W AND 1/2NSS 1,000 ML IV SCH (19:08)
[2016-10-07] MEDS ORDERED: MULTI-VITAMIN INFUSION INJ 10 ML, THIAMINE HCL INJ 100 MG, FoLIC ACID INJ 1 MG in SODIU... IV ONE (19:30)
[2016-10-07] MEDS: PANTOprazole SOD 40 MG TAB PO SCH (19:41)
[2016-10-07] MEDS ORDERED: CIPROFLOXACIN / D5W 400 MG in PREMIXED IN D5W 200 ML IV SCH (20:00)
[2016-10-07] MEDS: CHLORDIAZEPOXIDE 50MG 1ST DOSE PO SCH (20:24)
[2016-10-07] MEDS: ENOXAPARIN 40 MG/0.4 ML SYR SQ SCH (20:25)
[2016-10-07] MEDS: CIPROFLOXACIN / D5W 400 MG in PREMIXED IN D5W 200 ML IV SCH (20:26)
[2016-10-07] MEDS: KETOCONAZOLE 2% CR 15 GM TUBE EXT SCH (20:27)
[2016-10-07] MEDS: BUTT PASTE 171 APPLN/57 GM JAR EXT SCH (20:27)
--- NOTE | 2016-10-07 23:24 | EMERGENCY ROOM VISIT NOTE ---
History Report prepared by Min: Alexandrea Spring Under the Supervision of: Dr. Antony Palacios D.O. First contact with patient: 13:53 Chief Complaint: SHORTNESS OF BREATH Stated Complaint: SOB History of Present Illness The patient is a 51 year old male who presents to the Emergency Room with complaints of an episode of shortness of breath starting just prior to arrival. He states that he is on seizure medicine and that before arrival, he was very shaky. He states that his legs gave out from under him and he is unable to walk. He notes that he hasn't eaten anything for a while, but that he is a heavy drinker. He notes that he has had none today. The patient states that he has no bladder control or bowel control. The patient complains of melena, hematochezia, fevers, chills, and vomiting. He denies having blood in his vomit and belly pain. The patient notes that he is currently taking medication for a stomach virus. He reports a history of a stomach ulcer and states that he has had an endoscopy previously. Source of History: patient Onset: prior to arrival Position: other (global) Quality: other (global) Timing: other (episode) Associated Symptoms: + chills, + fevers, + hematochezia, + melena, + vomiting, No abdominal pain Note: The patient complains of shakiness, lack of bowel control, and lack bladder control. The patient denies any substance coming up when coughing. Review of Systems See HPI for pertinent positives & negatives. A total of 10 systems reviewed and were otherwise negative. Past Medical & Surgical Medical Problems: (1) Abdominal pain (2) GI bleed (3) HTN (hypertension) Social History Problems: (1) Alcohol abuse Family History Cancer Diabetes mellitus Hypertension Lung disease Seizures Stroke Social History Smoking Status: Never Smoker Alcohol Use: heavy Drug Use: none Marital Status: single Housing Status: lives with family Occupation Status: disabled Current/Historical Medications Scheduled Losartan Potassium (Cozaar), 25 MG PO DAILY Multivitamin (Multivitamin), 1 TAB PO QAM Omeprazole (Prilosec), 20 MG PO DAILY Pantoprazole (Protonix), 40 MG PO BID Thiamine Hcl (Vitamin B-1), 100 MG PO DAILY Allergies Coded Allergies: Penicillins (Verified Allergy, Unknown, UNKNOWN - HAPPENED CHILD, ) Physical Exam Vital Signs Date Time Temp Pulse Resp B/P Pulse Ox O2 Delivery O2 Flow Rate FiO2 10/07/16 17:09 95 19 100 10/07/16 17:01 142/91 10/07/16 16:54 98 20 100 10/07/16 16:46 143/97 10/07/16 16:39 89 18 100 10/07/16 16:31 150/98 10/07/16 16:24 91 17 100 10/07/16 16:16 136/93 10/07/16 16:09 87 10 88 10/07/16 16:01 130/78 10/07/16 15:54 86 14 100 10/07/16 15:46 122/83 10/07/16 15:39 86 16 100 10/07/16 15:34 85 16 10/07/16 15:31 125/78 10/07/16 15:19 88 22 100 10/07/16 15:17 127/87 10/07/16 15:04 84 14 100 10/07/16 15:01 130/80 10/07/16 14:49 85 12 100 10/07/16 14:47 84 Nasal Cannula 6.0 10/07/16 14:46 125/79 10/07/16 14:45 131/79 10/07/16 14:34 86 23 91 10/07/16 14:30 Room Air 100 10/07/16 14:29 75 40 100 10/07/16 14:26 129/88 10/07/16 14:16 84 10/07/16 14:14 71 28 100 10/07/16 13:47 36.7 83 28 123/70 100 Room Air Physical Exam GENERAL: Patient is awake, alert, and anxious. Patient is in mild distress. Patient is resting comfortably and showing no signs of anxiety EYES: Bilateral conjunctival injection noted. Extraocular movements intact. The pupils are round and reactive. EARS, NOSE, MOUTH AND THROAT: The nose is without any evidence of any deformity. Mucous membranes are dry, tongue is midline NECK: The neck is nontender and supple. RESPIRATORY: There is no evidence of wheezing rhonchi or rales. Lungs sound clear throughout. Significant tachypnea. CARDIOVASCULAR: Tachycardic but regular rhythm noted there no murmurs rubs or gallops normal S1 normal S2 GASTROINTESTINAL: The abdomen is soft. Bowel sounds are present in all quadrants. Abdomen is diffusely tender and distended. No rebound or guarding noted. PELVIS: The Pelvis is stable. No tenderness to palpation is noted. BACK: No midline tenderness or or step-off noted range of motion in flexion extension as well as rotation no signs of muscle spasm noted MUSCULOSKELETAL/EXTREMITIES: There is no evidence of gross deformity full range of motion is noted in the hips and shoulders SKIN: There is no obvious evidence of any rash. There are no petechiae, pallor or cyanosis noted. NEUROLOGIC: Patient is awake alert and oriented x3 strength is symmetric patellar reflexes are 2+ bilaterally resting tremor noted Medical Decision & Procedures ER Provider Diagnostic Interpretation: Radiology results as stated below per my review and radiologist interpretation: SINGLE VIEW CHEST CLINICAL HISTORY: Generalized abdominal pain. FINDINGS: 2 AP, portable, upright chest radiographs are compared to study dated 09/05/2016. Correlation is made with chest CT dated 08/06/2010. The examination is degraded by portable technique apical lordotic positioning. The heart is top normal for projection. The pulmonary vasculature is noncongested. Chronic interstitial thickening is similar to previous. There is minimal bibasilar atelectasis. The lungs and pleural spaces are otherwise clear. No pneumothorax is seen. There is a healed left anterolateral seventh rib fracture. IMPRESSION: No acute cardiopulmonary abnormality. Electronically signed by: Audi Bartlett M.D. 10/07/2016 3:24 PM Dictated Date/Time: 10/07/2016 3:21 PM [facility]UB CLINICAL HISTORY: Generalized abdominal pain. FINDINGS: An AP, portable, supine abdominal radiograph is obtained. No prior studies are available for comparison at the time of dictation. There is a nonobstructed abdominal bowel gas pattern. No evidence of intraperitoneal free air is seen on this supine view. There is no radiographic evidence of nephrolithiasis. Phleboliths are seen in the pelvis. There is lumbosacral spondylosis. A healed left-sided rib fracture is noted. IMPRESSION: Nonobstructed abdominal bowel gas pattern. Electronically signed by: Audi Bartlett M.D. 10/07/2016 3:25 PM Dictated Date/Time: 10/07/2016 3:24 PM Laboratory Results 10/07/16 14:09 Red Blood Count 4.70, Mean Corpuscular Volume 86.6, Mean Corpuscular Hemoglobin 28.7, Mean Corpuscular Hemoglobin Concent 33.2, Mean Platelet Volume 9.9, Neutrophils (%) (Auto) 54.3, Lymphocytes (%) (Auto) 24.9, Monocytes (%) (Auto) 14.8, Eosinophils (%) (Auto) 5.3, Basophils (%) (Auto) 0.5, Neutrophils # (Auto ) 2.38, Lymphocytes # (Auto) 1.09, Monocytes # (Auto) 0.65, Eosinophils # (Auto ) 0.23, Basophils # (Auto) 0.02 10/07/16 14:09 10/07/16 14:55 Test 10/07/16 14:09 10/07/16 14:18 10/07/16 14:41 10/07/16 14:55 White Blood Count 4.38 K/uL (4.8-10.8) Red Blood Count 4.70 M/uL (4.7-6.1) Hemoglobin 13.5 g/dL (14.0-18.0) Hematocrit 40.7 % (42-52) Mean Corpuscular Volume 86.6 fL (80-100) Mean Corpuscular Hemoglobin 28.7 pg (25-34) Mean Corpuscular Hemoglobin Concent 33.2 g/dl (32-36) Platelet Count 178 K/uL (130-400) Mean Platelet Volume 9.9 fL (7.4-10.4) Neutrophils (%) (Auto) 54.3 % Lymphocytes (%) (Auto) 24.9 % Monocytes (%) (Auto) 14.8 % Eosinophils (%) (Auto) 5.3 % Basophils (%) (Auto) 0.5 % Neutrophils # (Auto) 2.38 K/uL (1.4-6.5) Lymphocytes # (Auto) 1.09 K/uL (1.2-3.4) Monocytes # (Auto) 0.65 K/uL (0.11-0.59) Eosinophils # (Auto) 0.23 K/uL (0-0.5) Basophils # (Auto) 0.02 K/uL (0-0.2) RDW Standard Deviation 58.4 fL (36.4-46.3) RDW Coefficient of Variation 18.4 % (11.5-14.5) Immature Granulocyte % (Auto) 0.2 % Immature Granulocyte # (Auto) 0.01 K/uL (0.00-0.02) Anion Gap 20.0 mmol/L (3-11) Est Creatinine Clear Calc Drug Dose 96.2 ml/min Estimated GFR () 105.1 Estimated GFR (Non- 90.7 BUN/Creatinine Ratio 4.9 (10-20) Calcium Level 8.7 mg/dl (8.5-10.1) Total Bilirubin 0.7 mg/dl (0.2-1) Alanine Aminotransferase (ALT/SGPT) 108 U/L (12-78) Alkaline Phosphatase 61 U/L (45-117) Creatine Kinase MB < 0.5 ng/ml (0.5-3.6) Creatine Kinase MB Ratio (0-3.0) Troponin I < 0.015 ng/ml (0-0.045) Total Protein 8.4 gm/dl (6.4-8.2) Albumin 3.9 gm/dl (3.4-5.0) Lipase 244 U/L (73-393) Ethyl Alcohol mg/dL 209.0 mg/dl (0-3) Bedside Lactic Acid Venous 7.07 mmol/L (0.90-1.70) Venous Blood pH 7.43 (7.36-7.41) Venous Blood Partial Pressure CO2 30 mmHg (38.0-50.0) Venous Blood Partial Pressure O2 26 mmHg Venous Blood HCO3 20 mmol/L Venous Blood Oxygen Saturation < 60.0 % Venous Blood Base Excess -3.8 mmol/L Prothrombin Time 10.2 SECONDS (9.0-12.0) Prothromb Time International Ratio 1.0 (0.9-1.1) Activated Partial Thromboplast Time 28.6 SECONDS (21.0-31.0) Partial Thromboplastin Ratio 1.1 Direct Bilirubin 0.2 mg/dl (0-0.2) Aspartate Amino Transf (AST/SGOT) 234 U/L (15-37) Total Creatine Kinase 73 U/L (39-308) Laboratory results per my review. Medications Administered Medications (Trade) Dose Ordered Sig/Jr Route Start Time Stop Time Status Last Admin Dose Admin Sodium Chloride (Nss 1000ml) 1,000 ml @ 999 mls/hr Q1H1M STAT IV 10/07/16 13:57 10/07/16 17:58 DC 10/07/16 14:24 999 MLS/HR Ondansetron HCl (Zofran Inj) 4 mg NOW STAT IV 10/07/16 13:57 10/07/16 13:59 DC 10/07/16 14:24 4 MG Lorazepam (Ativan Inj) 1 mg NOW STAT IV 10/07/16 13:57 10/07/16 13:59 DC 10/07/16 14:23 1 MG Famotidine (Pepcid 20mg/100 ml) 20 mg ONE STAT IV 10/07/16 13:57 10/07/16 13:59 DC 10/07/16 14:25 20 MG Thiamine HCl 100 mg 100 mg NOW STAT IV 10/07/16 13:59 10/07/16 14:00 DC 10/07/16 14:25 100 MG Pantoprazole Sodium 80 mg/ Dextrose 120 ml @ 480 mls/hr NOW ONCE IV 10/07/16 14:30 10/07/16 14:44 DC 10/07/16 15:07 480 MLS/HR Pantoprazole Sodium 40 mg/ Dextrose 100 ml @ 20 mls/hr Q5H IV 10/07/16 14:45 10/07/16 19:44 DC 10/07/16 15:16 20 MLS/HR Sodium Chloride 1,000 ml @ 999 mls/hr Q1H1M STAT IV 10/07/16 14:28 10/07/16 15:28 DC 10/07/16 15:16 999 MLS/HR Sodium Chloride (Nss 1000ml) 1,000 ml @ 250 mls/hr Q4H STAT IV 10/07/16 14:28 10/07/16 18:27 DC 10/07/16 15:57 250 MLS/HR ECG Indication: SOB/dyspnea Rate (beats per minute): 77 Rhythm: normal sinus Findings: PVC (no PVCS), other (diffuse ST segment abnormality noted likely to early repolarization) Comparison ECG Date: 09/06/2016 Change: no significant change ED Course 1354: The patient was evaluated in room B10. A complete history and physical examination were performed. 1357: Ordered Famotidine 20 mg IV, Ativan Inj 1 mg IV, Zofran Inj 4 mg IV, NSS 1000 ml @ 999 mls/hr IV. 1359: Ordered Thiamine HCl 100 mg IV. 1428: Ordered NSS 1000 ml @ 250 mls/hr IV, NSS 1000 ml @ 999 mls/hr IV. 1430: Ordered Pantoprazole Sodium 80 mg/ Dextrose 120 ml @ 480 mls/hr IV. 1445: Ordered Pantoprazole Sodium 40 mg/ Dextrose 100 ml @ 20 mls/hr IV. 1538: I discussed the patient's case with Dr. Pantoja. The patient will be evaluated for further management. Medical Decision Differential diagnosis: Etiologies such as diverticulosis, AVM, coagulopathy, colitis, inflammatory bowel disease, malignancy, Yanira-Marinelli tear, esophagitis, peptic ulcer disease , variceal bleed, gastritis, epistaxis, fissure, hemorrhoids, as well as others were entertained. The patient is a 51-year-old male who presented to the emergency department for an evaluation of difficulty breathing and abdominal pain. The patient has a history of chronic alcoholism. He's had problems with upper GI discomfort in the past. He's had a scope which showed gastritis. He does not have a history of varices. The patient was treated with IV fluids in the emergency department. He was also given thiamine Ativan and proton pump inhibitor. The patient appears to have signs of alcoholic ketoacidosis on laboratory studies. He states that he wishes to stop drinking and I was concerned that given his history he may have alcohol withdrawal. I discussed his case with the on-call [facility] hospitalist group. They have agreed to evaluate the patient in the emergency apartment for further management and disposition. Consults Time Called: 1533 Consulting Physician: Dr. Pantoja Returned Call: [phone] I discussed the patient's case with Dr. Pantoja. The patient will be evaluated for further management. Impression Primary Impression: Dehydration Additional Impressions: Gastritis Alcoholic ketoacidosis Acute alcohol intoxication Scribe Attestation The scribe's documentation has been prepared under my direction and personally reviewed by me in its entirety. I confirm that the note above accurately reflects all work, treatment, procedures, and medical decision making performed by me. Departure Information Dispostion Being Evaluated By Hospitalist Referrals Ashish Alvarez M.D. (PCP) Patient Instructions My [facility] Health Problem Qualifiers Additional Impressions: Gastritis Gastritis type: alcoholic Chronicity: chronic Gastritis bleeding: without bleeding Qualified Codes: K29.20 - Alcoholic gastritis without bleeding Acute alcohol intoxication Complication of substance-induced condition: uncomplicated Qualified Codes: F10.920 - Alcohol use, unspecified with intoxication, uncomplicated
[2016-10-07 23:33] LABS: URINE APPEARANCE CLEAR (CLEAR); URINE BILIRUBIN NEG (NEG); URINE COLOR YELLOW; URINE NITRITE NEG (NEG); URINE SPECIFIC GRAVITY 1.015 (1.000-1.030); UROBILINOGEN NEG (NEG)
[2016-10-07 23:36] LABS: MANUAL MICROSCOPIC REQUIRED? NO; REVIEW REQ? NO
[2016-10-07 23:42] VITALS: BP 123/55; PULSE 114; TEMP 36.9; O2SAT 93
[2016-10-08] LABS: BENZODIAZEPINE, URINE NEG (NEG); COCAINE,URINE NEG (NEG); PHENCYCLIDINE, URINE NEG (NEG)
[2016-10-08 00:20] VITALS: O2SAT 97
[2016-10-08] MEDS: CHLORDIAZEPOXIDE 50MG 1ST DOSE PO SCH ×3 (02:06→16:51)
[2016-10-08] MEDS: D5W AND 1/2NSS 1,000 ML IV SCH ×2 (03:43→16:52)
[2016-10-08 05:59] LABS: BASO % 1.4 %; BASO ABS # 0.06 K/uL (0-0.2); COMPLETE YES; EOS % 4.3 %; HEMATOCRIT 33.5 % (42-52); IG% 0.5 %; LYMPH % 24.6 %; LYMPH ABS # 1.02 K/uL (1.2-3.4); MEAN CELL VOLUME 86.6 fL (80-100); MEAN CORPUSCULAR HEMOGLOBIN 28.2 pg (25-34); MEAN CORPUSCULAR HGB CONC 32.5 g/dl (32-36); MEAN PLATELET VOLUME 9.9 fL (7.4-10.4); MONO % 13.7 %; NEUT % 55.5 %; PLATELET COUNT 157 K/uL (130-400); RED BLOOD COUNT 3.87 M/uL (4.7-6.1); WHITE BLOOD COUNT 4.15 K/uL (4.8-10.8)
[2016-10-08 06:24] LABS: BUN/CREATININE RATIO 9.4 (10-20); CALCIUM 7.5 mg/dl (8.5-10.1); CREATININE 0.73 mg/dl (0.60-1.40); POTASSIUM 3.8 mmol/L (3.5-5.1)
[2016-10-08 06:31] LABS: ALB/GLOB RATIO 0.8 (0.9-2)
[2016-10-08 07:09] VITALS: BP 160/99; PULSE 83; TEMP 36.9; O2SAT 94
[2016-10-08] MEDS ORDERED: ENOXAPARIN 40 MG/0.4 ML SYR SQ SCH (08:00)
--- NOTE | 2016-10-08 08:57 | Family Medicine Progress Note ---
"Progress Note Date of Service October 08, 2016. Subjective Pt evaluation today including: conversation w/ patient, physical exam, chart review, lab review Patient feeling a lot better today. Tolerating food with abdominal symptoms. Headache resolved. Weakness improved, as per patient. Constitutional: No chills, No fever Eyes: No eye pain Respiratory: No cough, No shortness of breath, No wheezing Cardiovascular: No chest pain, No edema, No orthopnea, No palpitations Abdomen: No diarrhea, No nausea, No pain, No vomiting Male : No dysuria, No incontinence Neurologic: + balance problems, + weakness, No numbness/tingling, No paralysis Objective Vital Signs Date Time Temp Pulse Resp B/P Pulse Ox O2 Delivery O2 Flow Rate FiO2 10/08/16 07:09 36.9 83 20 160/99 94 Room Air 10/08/16 00:20 97 Room Air 10/07/16 23:42 36.9 114 24 123/55 93 Room Air 10/07/16 20:00 Room Air 10/07/16 18:25 74 16 132/74 97 10/07/16 18:14 119 22 10/07/16 17:59 81 18 10/07/16 17:50 100 Nasal Cannula 6.0 10/07/16 17:44 87 14 10/07/16 17:29 89 21 10/07/16 17:09 95 19 100 10/07/16 17:01 142/91 10/07/16 16:54 98 20 100 10/07/16 16:46 143/97 10/07/16 16:39 89 18 100 10/07/16 16:31 150/98 10/07/16 16:24 91 17 100 10/07/16 16:16 136/93 10/07/16 16:09 87 10 88 10/07/16 16:01 130/78 10/07/16 15:54 86 14 100 10/07/16 15:46 122/83 10/07/16 15:39 86 16 100 10/07/16 15:34 85 16 10/07/16 15:31 125/78 10/07/16 15:19 88 22 100 10/07/16 15:17 127/87 10/07/16 15:04 84 14 100 10/07/16 15:01 130/80 10/07/16 14:49 85 12 100 10/07/16 14:47 84 Nasal Cannula 6.0 10/07/16 14:46 125/79 10/07/16 14:45 131/79 10/07/16 14:34 86 23 91 10/07/16 14:30 Room Air 100 10/07/16 14:29 75 40 100 10/07/16 14:26 129/88 10/07/16 14:16 84 10/07/16 14:14 71 28 100 10/07/16 13:47 36.7 83 28 123/70 100 Room Air Physical Exam General Appearance: WD/WN, no apparent distress ENT: hearing grossly normal Respiratory/Chest: lungs clear, normal breath sounds, no respiratory distress, no accessory muscle use Cardiovascular: regular rate, rhythm, no murmur Abdomen: normal bowel sounds, non tender, soft Extremities: normal inspection, no pedal edema, no calf tenderness Neurologic/Psychiatric: alert, normal mood/affect, oriented x 3 Skin: normal color, warm/dry, + rash (buttocks) Laboratory Results Results Past 24 Hours Test 10/08/16 05:05 Range/Units White Blood Count 4.15 4.8-10.8 K/uL Red Blood Count 3.87 4.7-6.1 M/uL Hemoglobin 10.9 14.0-18.0 g/dL Hematocrit 33.5 42-52 % Mean Corpuscular Volume 86.6 80-100 fL Mean Corpuscular Hemoglobin 28.2 25-34 pg Mean Corpuscular Hemoglobin Concent 32.5 32-36 g/dl Platelet Count 157 130-400 K/uL Mean Platelet Volume 9.9 7.4-10.4 fL Neutrophils (%) (Auto) 55.5 % Lymphocytes (%) (Auto) 24.6 % Monocytes (%) (Auto) 13.7 % Eosinophils (%) (Auto) 4.3 % Basophils (%) (Auto) 1.4 % Neutrophils # (Auto) 2.30 1.4-6.5 K/uL Lymphocytes # (Auto) 1.02 1.2-3.4 K/uL Monocytes # (Auto) 0.57 0.11-0.59 K/uL Eosinophils # (Auto) 0.18 0-0.5 K/uL Basophils # (Auto) 0.06 0-0.2 K/uL RDW Standard Deviation 59.0 36.4-46.3 fL RDW Coefficient of Variation 18.7 11.5-14.5 % Immature Granulocyte % (Auto) 0.5 % Immature Granulocyte # (Auto) 0.02 0.00-0.02 K/uL Sodium Level 141 136-145 mmol/L Potassium Level 3.8 3.5-5.1 mmol/L Chloride Level 106 98-107 mmol/L Carbon Dioxide Level 29 21-32 mmol/L Anion Gap 6.0 3-11 mmol/L Blood Urea Nitrogen 7 7-18 mg/dl Creatinine 0.73 0.60-1.40 mg/dl Est Creatinine Clear Calc Drug Dose 127.8 ml/min Estimated GFR () 125.4 Estimated GFR (Non- 108.2 BUN/Creatinine Ratio 9.4 10-20 Random Glucose 85 70-99 mg/dl Calcium Level 7.5 8.5-10.1 mg/dl Total Bilirubin 1.0 0.2-1 mg/dl Aspartate Amino Transf (AST/SGOT) 123 15-37 U/L Alanine Aminotransferase (ALT/SGPT) 67 12-78 U/L Alkaline Phosphatase 48 45-117 U/L Total Protein 6.0 6.4-8.2 gm/dl Albumin 2.7 3.4-5.0 gm/dl Globulin 3.3 2.5-4.0 gm/dl Albumin/Globulin Ratio 0.8 0.9-2 Vitamin B12 Level 841 211-911 pg/mL Folate 9.49 >5.38 ng/mL HIV (1&2) Ab and P24 Ag, 4th Gener NEG NEG Assessment and Plan 51 year old male with a history of alcohol abuse, esophagitis, gastritis, esophageal ulcer, HTN and HLD presents to ED with dyspnea, abdominal pain, and headache with desire to reduce alcohol intake. Alcohol abuse/withdrawal - EtOH level 209. Elevated LFT. B12 and folic acid levels normal, urine drug screen negative, HIV screen negative - Alcohol withdrawal AT RISK protocol - Seizure precautions - Lorazepam IV PRN per protocol - Librium per protocol - mIVF D5+1/2NSS - Thiamine PO 100 mg daily - Banana bag - Vitamin B1 pending - Trend CMP Cellulitis/likely perianal fungal infection - Likely due urine + fecal incontinence from inebriation / poor hygiene possibly. Possible proctitis per clinical assessment via TESS. FOBT negative. UA positive only for ketones. Sphincter tone subsequently improved during admission. - IV Ciprofloxacin 400mg q12h transitioned to PO Ciprofloxacin 500mg BID - Topical ketoconazole to be applied to perianal region BID - Topical zinc oxide to be applied to perineal and perianal region BID for skin protection from excretions - Check CBC GI prophylaxis - Pantoprazole 40mg BID - Maalox Max 15 mL PO q4h prn dyspepsia - Milk of magnesia 30 mL PO q6h prn constipation - Miralax 17 gm PO qd prn constipation - Zofran 4 mg IV q6h prn nausea HTN - stable, currently high normal BP - Losartan 25mg daily DVT prophylaxis - Lovenox 40mg SC Dispo - For rehab upon discharge (not [place]) - case management involved - PT/OT eval Full code Continued [facility] stay due to: home environment unsafe for pt Discharge planning: rehab hospital Resident Tracking Resident Involvement: Resident Care Provided Care Provided: Adult Hospital Medicine History Resident Physician Supervision Note: I was present with Dr. Barraza during the history and exam. I discussed the case with the resident and agree with the findings and plan as documented in the note. Any exceptions or clarifications are listed here. Pt reports considerable improvement in function and tremulousness overnight. No pain since headache resolution yesterday. Still wearing depends but with significant improvement in incontinence both fecally and urinary per patient. No apparent perianal pain following treatment. General Appearance: WD/WN, no apparent distress Respiratory: chest non-tender, lungs clear, normal breath sounds, no respiratory distress Cardiovascular: normal peripheral pulses, regular rate, rhythm, no edema, no murmur Gastrointestinal: normal bowel sounds, non tender, soft, other (rectal erythema improving) Assessment/Plan 51 y/o male h/o alcohol use disorder, gastritis/esophagitis w/ ulceration, HTN and HLD p/w complaints of abdominal pain w/ dark stools, concern for alcohol withdrawal, rectal pain/incontinence Rectal cellulitis v. candidiasis - IV cipro, topical ketoconazole and zinc oxide Gait disturbance - improving w/ PT, walking w/ walker Alcohol use disorder/withdrawal - management by protocol, seizure precautions, banana bag | labs as noted | agreeable to rehab inpatient Abdominal pain w/ dark stools - No abdominal complaints, pain on examination and NEG FOBT GI complaints - continue pantoprazole, zofran, maalox HTN - continue losartan DVT PPX - lovenox FULL CODE"
[2016-10-08] MEDS: CIPROFLOXACIN / D5W 400 MG in PREMIXED IN D5W 200 ML IV SCH ×2 (08:58→19:43)
[2016-10-08] MEDS: PANTOprazole SOD 40 MG TAB PO SCH ×2 (08:58→19:45)
[2016-10-08] MEDS: THIAMINE HCL 100 MG TAB PO SCH (08:58)
[2016-10-08] MEDS: MULTIVITAMIN TAB PO SCH (08:59)
[2016-10-08] MEDS: LOSARTAN POTASSIUM 25 MG TAB PO SCH (08:59)
[2016-10-08] MEDS: BUTT PASTE 171 APPLN/57 GM JAR EXT SCH ×2 (08:59→19:44)
[2016-10-08] MEDS: KETOCONAZOLE 2% CR 15 GM TUBE EXT SCH ×2 (08:59→19:44)
[2016-10-08] MEDS: NICOTINE 14 MG/24 HR TDSY TD SCH (09:00)
[2016-10-08] MEDS: ACETAMINOPHEN 325 MG TAB PO PRN (11:23)
[2016-10-08 14:40] VITALS: BP 129/74; PULSE 95; TEMP 36.9; O2SAT 96
[2016-10-08] MEDS ORDERED: CHLORDIAZEPOXIDE 25 MG CAP ONE ×2 (16:49→16:53)
[2016-10-08] MEDS: ENOXAPARIN 40 MG/0.4 ML SYR SQ SCH (21:25)
[2016-10-08] MEDS: CHLORDIAZEPOXIDE 50MG Q8H DOSE PO SCH (21:40)
[2016-10-09 00:07] VITALS: BP 156/84; PULSE 87; TEMP 37; O2SAT 94
[2016-10-09] MEDS: D5W AND 1/2NSS 1,000 ML IV SCH ×3 (00:47→20:16)
[2016-10-09] MEDS: CHLORDIAZEPOXIDE 50MG Q8H DOSE PO SCH ×2 (05:55→13:46)
[2016-10-09 08:31] VITALS: BP 155/90; PULSE 78; TEMP 36.6; O2SAT 94
[2016-10-09] MEDS: PANTOprazole SOD 40 MG TAB PO SCH ×2 (08:48→20:15)
[2016-10-09] MEDS: MULTIVITAMIN TAB PO SCH (08:49)
[2016-10-09] MEDS: CIPROFLOXACIN 500 MG TAB PO SCH ×2 (08:49→20:15)
[2016-10-09] MEDS: THIAMINE HCL 100 MG TAB PO SCH (08:49)
[2016-10-09] MEDS: LOSARTAN POTASSIUM 25 MG TAB PO SCH (08:49)
[2016-10-09] MEDS: NICOTINE 14 MG/24 HR TDSY TD SCH (08:50)
[2016-10-09] MEDS: BUTT PASTE 171 APPLN/57 GM JAR EXT SCH ×2 (08:50→20:17)
[2016-10-09] MEDS: KETOCONAZOLE 2% CR 15 GM TUBE EXT SCH ×2 (08:50→20:17)
[2016-10-09] MEDS: ACETAMINOPHEN 325 MG TAB PO PRN (13:47)
[2016-10-09 16:33] VITALS: BP 144/88; PULSE 82; TEMP 36.7; O2SAT 97
--- NOTE | 2016-10-09 16:54 | Family Medicine Progress Note ---
Progress Note Date of Service October 09, 2016. Subjective Pt evaluation today including: conversation w/ patient, physical exam Patient with no acute events overnight. He is still wearing depends for his incontinence of urine and faeces Will decide tomorrow with regards to rehab facility as outpatient. Patient still has slight tremor and he wants to go to rehab as outpatient Denies any palpitations, chest pain, anxiety, shortness of breath, cough, fever , night sweats, chills, diarrhea, constipation Additional Comments: please see above for ROS Medications Current Inpatient Medications Medications (Trade) Dose Ordered Sig/Jr Route Start Time Stop Time Status Last Admin Dose Admin Enoxaparin Sodium (Lovenox Inj) 40 mg Q24H SQ 10/07/16 21:00 11/06/16 20:59 10/08/16 21:25 40 MG Acetaminophen (Tylenol Tab) 650 mg Q4H PRN PO 10/07/16 17:15 11/06/16 17:14 10/09/16 13:47 650 MG Magnesium Hydroxide (Milk Of Magnesia Susp) 30 ml Q6H PRN PO 10/07/16 17:15 11/06/16 17:14 Polyethylene (Miralax Powder Packet) 17 gm DAILY PRN PO 10/07/16 17:15 11/06/16 17:14 Ondansetron HCl (Zofran Inj) 4 mg Q6H PRN IV 10/07/16 17:15 11/06/16 17:14 Nicotine (Nicoderm Cq 14MG Patch) 1 patch QAM TD 10/08/16 08:00 11/07/16 08:59 10/09/16 08:50 1 PATCH Miscellaneous (Remove Nicoderm Patch) 1 ea HS N/A 10/07/16 21:00 11/06/16 20:59 10/08/16 21:26 1 EA Multivitamins (Multivitamin Tab) 1 tab QAM PO 10/08/16 08:00 11/07/16 08:59 10/09/16 08:49 1 TAB Pantoprazole Sodium (Protonix Tab) 40 mg BID PO 10/07/16 20:00 11/06/16 20:59 10/09/16 08:48 40 MG Thiamine HCl (Vitamin B-1 Tab) 100 mg DAILY PO 10/08/16 08:00 11/07/16 08:59 10/09/16 08:49 100 MG Losartan Potassium 25 mg 25 mg DAILY PO 10/08/16 08:00 11/07/16 08:59 10/09/16 08:49 25 MG Dextrose/Sodium Chloride (D5W And 1/2nss) 1,000 ml @ 100 mls/hr Q10H IV 10/07/16 17:43 11/06/16 17:42 10/09/16 10:31 100 MLS/HR Lorazepam (Ativan Inj) 1 mg ONE PRN IV 10/07/16 17:45 Ketoconazole (Nizoral 2% Crm) 1 appln BID EXT 10/07/16 20:00 10/17/16 20:59 10/09/16 08:50 1 APPLN Chlordiazepoxide (Librium Cap) 25 mg Q8H PO 10/09/16 22:00 10/10/16 14:01 Chlordiazepoxide (Librium Cap) 10 mg Q12H PO 10/10/16 22:00 10/11/16 10:01 Ciprofloxacin (Cipro Tab) 500 mg BID PO 10/09/16 08:00 10/17/16 07:59 10/09/16 08:49 500 MG Objective Vital Signs Date Time Temp Pulse Resp B/P Pulse Ox O2 Delivery O2 Flow Rate FiO2 10/09/16 16:33 36.7 82 18 144/88 97 Room Air 10/09/16 16:00 Room Air 10/09/16 08:50 Room Air 10/09/16 08:31 36.6 78 16 155/90 94 Room Air 10/09/16 00:07 37.0 87 20 156/84 94 Room Air 10/08/16 23:59 Room Air 10/08/16 20:00 Room Air Physical Exam General Appearance: WD/WN, no apparent distress Respiratory/Chest: chest non-tender, lungs clear, no accessory muscle use Cardiovascular: regular rate, rhythm, no edema, no murmur Abdomen: normal bowel sounds, non tender, soft, + pertinent finding (patient wearing depends, anal cellulitis improving) Neurologic/Psychiatric: alert, normal mood/affect, oriented x 3 Assessment and Plan 51 year old male with a history of alcohol abuse, esophagitis, gastritis, esophageal ulcer, HTN and HLD presents to ED with dyspnea, abdominal pain, and headache with desire to reduce alcohol intake. Alcohol abuse/withdrawal - Alcohol withdrawal AT RISK protocol - Seizure precautions - Lorazepam IV PRN per protocol - Librium per protocol - mIVF D5+1/2NSS - Thiamine PO 100 mg daily - Banana bag - Vitamin B1 pending - Trend CMP Cellulitis/likely perianal fungal infection - PO Ciprofloxacin 500mg BID - Topical ketoconazole to be applied to perianal region BID - Topical zinc oxide to be applied to perineal and perianal region BID for skin protection from excretions - Follow HTN - stable, currently high normal BP - Losartan 25mg daily DVT prophylaxis - Lovenox 40mg SC Dispo - For rehab upon discharge (not [facility]) - case management involved - PT/OT eval Continued [facility] stay due to: home environment unsafe for pt
[2016-10-09] MEDS: ENOXAPARIN 40 MG/0.4 ML SYR SQ SCH (20:16)
[2016-10-09] MEDS: CHLORDIAZEPOXIDE 25MG Q8H DOSE PO SCH (21:35)
[2016-10-10 00:12] VITALS: BP 167/96; PULSE 79; TEMP 36.8; O2SAT 98
[2016-10-10] MEDS: CHLORDIAZEPOXIDE 25MG Q8H DOSE PO SCH ×2 (05:31→14:27)
[2016-10-10] MEDS: D5W AND 1/2NSS 1,000 ML IV SCH ×2 (05:32→15:56)
[2016-10-10 05:41] LABS: HEMATOCRIT 34.9 % (42-52); MEAN CELL VOLUME 88.4 fL (80-100); MEAN CORPUSCULAR HEMOGLOBIN 27.3 pg (25-34); MEAN CORPUSCULAR HGB CONC 30.9 g/dl (32-36); MEAN PLATELET VOLUME 9.7 fL (7.4-10.4); PLATELET COUNT 146 K/uL (130-400); RED BLOOD COUNT 3.95 M/uL (4.7-6.1); WHITE BLOOD COUNT 4.33 K/uL (4.8-10.8)
[2016-10-10 06:12] LABS: BUN/CREATININE RATIO 7.3 (10-20); CALCIUM 8.3 mg/dl (8.5-10.1); CREATININE 0.75 mg/dl (0.60-1.40); MAGNESIUM 1.8 mg/dl (1.8-2.4); POTASSIUM 3.6 mmol/L (3.5-5.1)
[2016-10-10 06:15] LABS: ALB/GLOB RATIO 0.9 (0.9-2); PHOSPHORUS 3.3 mg/dl (2.5-4.9)
[2016-10-10 07:20] VITALS: BP 179/103; PULSE 77; TEMP 36.6; O2SAT 98
[2016-10-10 08:38] VITALS: BP 150/101; PULSE 97
[2016-10-10] MEDS: LOSARTAN POTASSIUM 25 MG TAB PO SCH (08:38)
[2016-10-10] MEDS: CIPROFLOXACIN 500 MG TAB PO SCH ×2 (08:39→20:21)
[2016-10-10] MEDS: PANTOprazole SOD 40 MG TAB PO SCH ×2 (08:39→20:21)
[2016-10-10] MEDS: MULTIVITAMIN TAB PO SCH (08:39)
[2016-10-10] MEDS: NICOTINE 14 MG/24 HR TDSY TD SCH (08:39)
[2016-10-10] MEDS: THIAMINE HCL 100 MG TAB PO SCH (08:39)
[2016-10-10] MEDS: KETOCONAZOLE 2% CR 15 GM TUBE EXT SCH ×2 (08:41→20:22)
[2016-10-10] MEDS: BUTT PASTE 171 APPLN/57 GM JAR EXT SCH ×2 (08:41→20:22)
[2016-10-10 12:44] VITALS: BP 135/96; PULSE 111
--- NOTE | 2016-10-10 14:41 | Family Medicine Progress Note ---
Progress Note Date of Service October 10, 2016. Subjective Pt evaluation today including: conversation w/ patient, conversation w/ family , physical exam, chart review, conversation w/ design studio consultant Pain: none PO Intake: adeqaute Voiding: incontinence, voiding difficulty Patient with no acute events overnight Was thoroughly discussed as to whether or not the patient wants to go to rehab. At first it was decided that he didn't but after discussion he said he would be amenable to alcohol and drug rehab Case management said it would be tough as he is using a walker but they will put in the referrals. Patient denies any fevers, chills, night sweats, nausea, vomiting, abdominal pain, chest pain, palpitations, shortness of breath, wheezing. He is still incontinent of urine and stool. Additional Comments: Please see above for ROS Medications Current Inpatient Medications Medications (Trade) Dose Ordered Sig/Jr Route Start Time Stop Time Status Last Admin Dose Admin Enoxaparin Sodium (Lovenox Inj) 40 mg Q24H SQ 10/07/16 21:00 11/06/16 20:59 10/09/16 20:16 40 MG Acetaminophen (Tylenol Tab) 650 mg Q4H PRN PO 10/07/16 17:15 11/06/16 17:14 10/09/16 13:47 650 MG Magnesium Hydroxide (Milk Of Magnesia Susp) 30 ml Q6H PRN PO 10/07/16 17:15 11/06/16 17:14 Polyethylene (Miralax Powder Packet) 17 gm DAILY PRN PO 10/07/16 17:15 11/06/16 17:14 Ondansetron HCl (Zofran Inj) 4 mg Q6H PRN IV 10/07/16 17:15 11/06/16 17:14 Nicotine (Nicoderm Cq 14MG Patch) 1 patch QAM TD 10/08/16 08:00 11/07/16 08:59 10/10/16 08:39 1 PATCH Miscellaneous (Remove Nicoderm Patch) 1 ea HS N/A 10/07/16 21:00 11/06/16 20:59 10/09/16 20:17 1 EA Multivitamins (Multivitamin Tab) 1 tab QAM PO 10/08/16 08:00 11/07/16 08:59 10/10/16 08:39 1 TAB Pantoprazole Sodium (Protonix Tab) 40 mg BID PO 10/07/16 20:00 11/06/16 20:59 10/10/16 08:39 40 MG Thiamine HCl (Vitamin B-1 Tab) 100 mg DAILY PO 10/08/16 08:00 11/07/16 08:59 10/10/16 08:39 100 MG Losartan Potassium 25 mg 25 mg DAILY PO 10/08/16 08:00 11/07/16 08:59 10/10/16 08:38 25 MG Dextrose/Sodium Chloride (D5W And 1/2nss) 1,000 ml @ 100 mls/hr Q10H IV 10/07/16 17:43 11/06/16 17:42 10/10/16 05:32 100 MLS/HR Lorazepam (Ativan Inj) 1 mg ONE PRN IV 10/07/16 17:45 Ketoconazole (Nizoral 2% Crm) 1 appln BID EXT 10/07/16 20:00 10/17/16 20:59 10/10/16 08:41 1 APPLN Chlordiazepoxide (Librium Cap) 10 mg Q12H PO 10/10/16 22:00 10/11/16 10:01 Ciprofloxacin (Cipro Tab) 500 mg BID PO 10/09/16 08:00 10/17/16 07:59 10/10/16 08:39 500 MG Objective Vital Signs Date Time Temp Pulse Resp B/P Pulse Ox O2 Delivery O2 Flow Rate FiO2 10/10/16 12:44 111 135/96 10/10/16 08:38 97 150/101 10/10/16 08:30 Room Air 10/10/16 07:20 36.6 77 18 179/103 98 Room Air 10/10/16 00:12 36.8 79 19 167/96 98 Room Air 10/10/16 00:00 Room Air 10/09/16 16:33 36.7 82 18 144/88 97 Room Air 10/09/16 16:00 Room Air Physical Exam Notes: General Appearance: WD/WN, no apparent distress Respiratory/Chest: chest non-tender, lungs clear, no accessory muscle use Cardiovascular: regular rate, rhythm, no edema, no murmur Abdomen: normal bowel sounds, non tender, soft, + pertinent finding (patient wearing depends, anal cellulitis improving) Neurologic/Psychiatric: alert, normal mood/affect, oriented x 3 Laboratory Results Results Past 24 Hours Test 10/10/16 05:08 Range/Units White Blood Count 4.33 4.8-10.8 K/uL Red Blood Count 3.95 4.7-6.1 M/uL Hemoglobin 10.8 14.0-18.0 g/dL Hematocrit 34.9 42-52 % Mean Corpuscular Volume 88.4 80-100 fL Mean Corpuscular Hemoglobin 27.3 25-34 pg Mean Corpuscular Hemoglobin Concent 30.9 32-36 g/dl RDW Standard Deviation 60.2 36.4-46.3 fL RDW Coefficient of Variation 18.6 11.5-14.5 % Platelet Count 146 130-400 K/uL Mean Platelet Volume 9.7 7.4-10.4 fL Sodium Level 141 136-145 mmol/L Potassium Level 3.6 3.5-5.1 mmol/L Chloride Level 107 98-107 mmol/L Carbon Dioxide Level 29 21-32 mmol/L Anion Gap 5.0 3-11 mmol/L Blood Urea Nitrogen 5 7-18 mg/dl Creatinine 0.75 0.60-1.40 mg/dl Est Creatinine Clear Calc Drug Dose 124.4 ml/min Estimated GFR () 124.0 Estimated GFR (Non- 107.0 BUN/Creatinine Ratio 7.3 10-20 Random Glucose 98 70-99 mg/dl Calcium Level 8.3 8.5-10.1 mg/dl Phosphorus Level 3.3 2.5-4.9 mg/dl Magnesium Level 1.8 1.8-2.4 mg/dl Total Bilirubin 0.5 0.2-1 mg/dl Aspartate Amino Transf (AST/SGOT) 71 15-37 U/L Alanine Aminotransferase (ALT/SGPT) 51 12-78 U/L Alkaline Phosphatase 54 45-117 U/L Total Protein 6.3 6.4-8.2 gm/dl Albumin 2.9 3.4-5.0 gm/dl Globulin 3.4 2.5-4.0 gm/dl Albumin/Globulin Ratio 0.9 0.9-2 Assessment and Plan 51 year old male with a history of alcohol abuse, esophagitis, gastritis, esophageal ulcer, HTN and HLD presents to ED with dyspnea, abdominal pain, and headache with desire to reduce alcohol intake. Alcohol abuse/withdrawal - AWSS score 1 on 10/08 - Alcohol withdrawal AT RISK protocol - Seizure precautions - Lorazepam IV PRN per protocol - Librium per protocol - on q12hr dose now. - Thiamine PO 100 mg daily Cellulitis/likely perianal fungal infection - PO Ciprofloxacin 500mg BID - will d/c in am - Topical ketoconazole to be applied to perianal region BID - Topical zinc oxide to be applied to perineal and perianal region BID for skin protection from excretions - Follow HTN - stable, currently high normal BP - losartan increased to 50mg daily from 25 DVT prophylaxis - Lovenox 40mg SC Dispo - For rehab upon discharge ([facility]) - case management involved- referrals have been sent for drug and alcohol rehab - PT/OT eval Continued [facility] stay due to: other Discharge planning: uncertain Reviewed: Pt Seen/Exam by Me History no new concerns awaiting D and A rehab placement Constitutional: denies: fever Respiratory: negative: short of breath Cardiovascular: denies chest pain General Appearance: no apparent distress Respiratory: lungs clear, no respiratory distress Cardiovascular: regular rate, rhythm Neurologic/Psychiatric: alert, oriented x 3 Skin Characteristics: warm/dry Assessment/Plan I have reviewed the medical record and performed a history and physical examination of this patient today. I have discussed the case with Dr. Franco. The above note reflects my findings, conclusions, and recommendations.
[2016-10-10 15:06] VITALS: BP 144/88; PULSE 88; TEMP 36.9; O2SAT 99
[2016-10-10] MEDS: ENOXAPARIN 40 MG/0.4 ML SYR SQ SCH (20:22)
[2016-10-10] MEDS: CHLORDIAZEPOXIDE 10MG Q12H DOSE PO SCH (21:32)
[2016-10-10 23:46] VITALS: BP 149/88; PULSE 81; TEMP 36.8; O2SAT 95
[2016-10-11] MEDS: D5W AND 1/2NSS 1,000 ML IV SCH (00:47)
[2016-10-11 07:36] VITALS: BP 179/95; PULSE 124; TEMP 36.9; O2SAT 95
[2016-10-11] MEDS ORDERED: LOSARTAN POTASSIUM 25 MG TAB PO SCH (08:00)
[2016-10-11] MEDS: THIAMINE HCL 100 MG TAB PO SCH (08:44)
[2016-10-11] MEDS: PANTOprazole SOD 40 MG TAB PO SCH (08:44)
[2016-10-11] MEDS: MULTIVITAMIN TAB PO SCH (08:44)
[2016-10-11] MEDS: CIPROFLOXACIN 500 MG TAB PO SCH (08:44)
[2016-10-11] MEDS: NICOTINE 14 MG/24 HR TDSY TD SCH (08:44)
[2016-10-11] MEDS: KETOCONAZOLE 2% CR 15 GM TUBE EXT SCH (08:45)
[2016-10-11] MEDS: BUTT PASTE 171 APPLN/57 GM JAR EXT SCH (08:45)
[2016-10-11] MEDS: CHLORDIAZEPOXIDE 10MG Q12H DOSE PO SCH (10:45)
--- NOTE | 2016-10-11 11:02 | Family Medicine Progress Note ---
Progress Note Date of Service October 11, 2016. Subjective Pt evaluation today including: conversation w/ patient, physical exam, conversation w/ loss control consultant, review of inpatient medication list Pain: none PO Intake: good Voiding: incontinence Patient with no acute events overnight It does not look like he will be accepted to a drug and alcohol rehab facility as he has to use a walker and is incontinent of urine and faeces. Discussed with and it seems that it may be best to send him to either a snf or to rehab (for strengthening) before sending him home Constitutional: No fever, No chills Respiratory: No cough, No sputum, No wheezing, No shortness of breath Cardiovascular: No chest pain, No orthopnea, No palpitations Abdomen: No pain, No nausea, No vomiting, No diarrhea Male : No incontinence Medications Current Inpatient Medications Medications (Trade) Dose Ordered Sig/Jr Route Start Time Stop Time Status Last Admin Dose Admin Enoxaparin Sodium (Lovenox Inj) 40 mg Q24H SQ 10/07/16 21:00 11/06/16 20:59 10/10/16 20:22 40 MG Acetaminophen (Tylenol Tab) 650 mg Q4H PRN PO 10/07/16 17:15 11/06/16 17:14 10/09/16 13:47 650 MG Magnesium Hydroxide (Milk Of Magnesia Susp) 30 ml Q6H PRN PO 10/07/16 17:15 11/06/16 17:14 Polyethylene (Miralax Powder Packet) 17 gm DAILY PRN PO 10/07/16 17:15 11/06/16 17:14 Ondansetron HCl (Zofran Inj) 4 mg Q6H PRN IV 10/07/16 17:15 11/06/16 17:14 Nicotine (Nicoderm Cq 14MG Patch) 1 patch QAM TD 10/08/16 08:00 11/07/16 08:59 10/11/16 08:44 1 PATCH Miscellaneous (Remove Nicoderm Patch) 1 ea HS N/A 10/07/16 21:00 11/06/16 20:59 10/10/16 20:22 1 EA Multivitamins (Multivitamin Tab) 1 tab QAM PO 10/08/16 08:00 11/07/16 08:59 10/11/16 08:44 1 TAB Pantoprazole Sodium (Protonix Tab) 40 mg BID PO 10/07/16 20:00 11/06/16 20:59 10/11/16 08:44 40 MG Thiamine HCl (Vitamin B-1 Tab) 100 mg DAILY PO 10/08/16 08:00 11/07/16 08:59 10/11/16 08:44 100 MG Lorazepam (Ativan Inj) 1 mg ONE PRN IV 10/07/16 17:45 Ketoconazole (Nizoral 2% Crm) 1 appln BID EXT 10/07/16 20:00 10/17/16 20:59 10/11/16 08:45 1 APPLN Ciprofloxacin (Cipro Tab) 500 mg BID PO 10/09/16 08:00 10/17/16 07:59 10/11/16 08:44 500 MG Losartan Potassium (coZAAR TAB) 50 mg DAILY PO 10/11/16 08:00 11/10/16 07:59 10/11/16 08:44 50 MG Objective Vital Signs Date Time Temp Pulse Resp B/P Pulse Ox O2 Delivery O2 Flow Rate FiO2 10/11/16 08:40 Room Air 10/11/16 07:36 36.9 124 20 179/95 95 Room Air 10/11/16 00:00 Room Air 10/10/16 23:46 36.8 81 16 149/88 95 10/10/16 16:00 Room Air 10/10/16 15:06 36.9 88 18 144/88 99 Room Air 10/10/16 12:44 111 135/96 Physical Exam General Appearance: WD/WN, no apparent distress, + pertinent finding (patient disheveled and malodorous, lying in bed in position) Respiratory/Chest: chest non-tender, lungs clear, normal breath sounds, no accessory muscle use Cardiovascular: regular rate, rhythm, no edema, no murmur Abdomen: normal bowel sounds, non tender, soft, + pertinent finding (is wearing depends ) Neurologic/Psychiatric: alert, normal mood/affect, oriented x 3 Assessment and Plan 51 year old male with a history of alcohol abuse, esophagitis, gastritis, esophageal ulcer, HTN and HLD presents to ED with dyspnea, abdominal pain, and headache with desire to reduce alcohol intake. Alcohol abuse/withdrawal - AWSS score 1 on 10/08 - Alcohol withdrawal AT RISK protocol - Seizure precautions - Lorazepam IV PRN per protocol - Librium per protocol - on q12hr dose now. - Thiamine PO 100 mg daily Cellulitis/likely perianal fungal infection - PO Ciprofloxacin 500mg BID - Topical ketoconazole to be applied to perianal region BID - Topical zinc oxide to be applied to perineal and perianal region BID for skin protection from excretions - Follow HTN - stable, currently high normal BP - losartan increased to 50mg daily from 25 DVT prophylaxis - Lovenox 40mg SC Dispo - PT/OT evals done - patient not accepted to drug/alcohol rehab facilities - spoke to and might be better for snf or rehab facility in order in improve his strength. will talk to case management Continued [facility] stay due to: ambulation difficulties, home environment unsafe for pt Discharge planning: uncertain
[2016-10-11 11:08] VITALS: BP 124/75; PULSE 87; O2SAT 99
[2016-10-11] MEDS ORDERED: CZR25 PO (14:43)
[2016-10-11 14:44] VITALS: BP 124/75; PULSE 87; TEMP 36.9; O2SAT 99
--- NOTE | 2016-10-11 14:51 | Discharge Instructions ---
Discharge Instructions Date of Service October 11, 2016. Admission Reason for Admission: Abdominal Pain, Alcohol Abuse Discharge Discharge Diagnosis / Problem: Alcohol Withdrawal, Perianal fungal infection Discharge Goals Goal(s): Improve disease control Activity Recommendations Activity Limitations: resume your previous activity With family physician in one week . Current Hospital Diet Patient's current hospital diet: Regular Diet Discharge Diet Recommended Diet: Low Sodium Diet (2gm Na) Pending Studies Studies pending at discharge: no Medical Emergencies . Who to Call and When: Medical Emergencies: If at any time you feel your situation is an emergency, please call 911 immediately. . Non-Emergent Contact Non-Emergency issues call your: Primary Care Provider . . "Provider Documentation" section prepared by Renata Colon. . VTE Core Measure Inpt VTE Proph given/why not?: Enoxaparin (Lovenox)SQ
[2016-10-11] MEDS ORDERED: NZRCR EXT (14:53)
[2016-10-11 15:37] VITALS: BP 152/88; PULSE 95; TEMP 36.5; O2SAT 97
--- NOTE | 2016-10-11 18:14 | Discharge Summary ---
Discharge Summary Date of Service October 11, 2016. (Ian Franco MD) Discharge Summary Admission Date: October 07, 2016 at 17:11 Discharge Date: October 11, 2016 Discharge Disposition: Home Principal Diagnosis: Alcohol withdrawal Immunizations: Have You Had Influenza Vaccine: Yes Influenza Vaccine Date: Apr 11, 2012 History of Tetanus Vaccine?: Yes Tetanus Immunization Date: Nov 04, 2001 History of Pneumococcal: No History of Hepatitis B Vaccine: No (Ian Franco MD) Medication Reconciliation New Medications: Ketoconazole (Ketoconazole) 45 Appln/15 Gm Cr 1 APPLN EXT BID for 4 Days, #15 GM Losartan Potassium (Losartan Potassium) 25 Mg Tab 50 MG PO DAILY for 30 Days, #30 TAB Continued Medications: Multivitamin (Multivitamin) Tab 1 TAB PO QAM Omeprazole (Prilosec) 20 Mg Capcr 20 MG PO DAILY, CAP Pantoprazole (Protonix) 40 Mg Tab 40 MG PO BID Thiamine Hcl (Vitamin B-1) 100 Mg Tab 100 MG PO DAILY, TAB Discontinued Medications: Losartan Potassium (Cozaar) 25 Mg Tab 25 MG PO DAILY, TAB Discharge Exam Review of Systems: Constitutional: No fever Respiratory: No shortness of breath Cardiovascular: No chest pain Neurologic: No memory loss, No weakness Psychiatric: No anxiety Endocrine: No fatigue Physical Exam: General Appearance: no apparent distress Respiratory/Chest: lungs clear, no respiratory distress Cardiovascular: regular rate, rhythm Abdomen / GI: normal bowel sounds, non tender, soft Neurologic/Psychiatric: alert, normal mood/affect, oriented x 3 Skin: warm/dry (Renata Colon M.D.) Hospital Course 51 year old male with a history of alcohol abuse, esophagitis, gastritis, esophageal ulcer, HTN and HLD presents to ED with dyspnea, abdominal pain, and headache with desire to reduce alcohol intake. Alcohol abuse/withdrawal - AWSS score 1 on 10/08 - Patient did not qualify for alcohol and drug abuse rehab - Thiamine PO 100 mg daily - Patient underwent alcohol withdrawal protocol in hospital Cellulitis/likely perianal fungal infection - Topical ketoconazole to be applied to perianal region BID - Topical zinc oxide to be applied to perineal and perianal region BID for skin protection from excretions - Patient was treated for cellulitis with ciprofloxacin HTN - stable, currently high normal BP - losartan increased to 50mg daily from 25 Total Time Spent: Less than 30 minutes This includes examination of the patient, discharge planning, medication reconciliation, and communication with other providers. (Ian Franco MD) I have reviewed the medical record and performed a history and physical examination of this patient today. I have discussed the case with Dr Franco. The above note reflects my findings, conclusions, and recommendations. Reiterated the need to have aggressive outpatient D and A rehab Total Time Spent: Greater than 30 minutes (35) (Renata Colon M.D.) Discharge Instructions Please refer to the electronic Patient Visit Report (Discharge Instructions) for additional information. (Ian Franco MD) Additional Copies To Ashish Alvarez M.D.
== END 2016-10-11 17:00 | disposition home health service (06) | DRG 897 ==
LOC: ENRESERVTM → ENRESERVDT → C.EDB 13:47 → C.4E 17:11
PROVIDERS: ADMIT Family Medicine; ATTEND Family Medicine
DX: F10.239 Alcohol dependence with withdrawal, unspecified (principal); B37.89 Other sites of candidiasis; F10.229 Alcohol dependence with intoxication, unspecified; Y90.7 Blood alcohol level of 200-239 mg/100 ml; I10 Essential (primary) hypertension; R94.6 Abnormal results of thyroid function studies; R10.9 Unspecified abdominal pain; R26.81 Unsteadiness on feet; E86.0 Dehydration; K29.70 Gastritis, unspecified, without bleeding; E78.5 Hyperlipidemia, unspecified; Z87.19 Personal history of other diseases of the digestive system; Z79.899 Other long term (current) drug therapy

== ENCOUNTER → 2016-10-20 | Outpatient (CLI) | payer OTHER ==
[~2016-10-20] MED LIST changes: +CZR25 PO; +FLV1 PO; +LOSA100T65 PO; -LOSA1TAB PO; +METO25TA3 PO; +NZRCR EXT; +PRLSR20 PO; -VITACAP26
[2016-10-21 07:34] LABS: ESTIMATED AVERAGE GLUCOSE 103 mg/dl; HA1C FLAG Normal (Normal)
== END | disposition home or self-care (01) ==
LOC: C.LABBFT 17:13
PROVIDERS: ATTEND Internal Medicine
DX: R73.9 Hyperglycemia, unspecified (principal); R31.9 Hematuria, unspecified

== ENCOUNTER 2017-04-07 18:55 | Inpatient (IN) | payer OTHER ==
[~2017-04-07] VITALS: Ht 177.8 cm; Wt 82.5 kg
[~2017-04-07 18:55] MED LIST changes: -FLV1 PO; -LOSA100T65 PO; -METO25TA3 PO; +PANT1TAB3 PO; -PANT1TAB48 PO
[2017-04-07] MEDS ORDERED: LACTATED RINGER'S 1000ML 1,000 ML IV STA ×2 (19:13→20:50)
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
[2017-04-07] MEDS ORDERED: LOSA100T65 PO (19:34)
--- NOTE | 2017-04-07 19:38 | DIAGNOSTIC IMAGING REPORT ---
CHEST ONE VIEW PORTABLE CLINICAL HISTORY: Seizure. Abdominal pain. COMPARISON STUDY: Chest radiograph October 07, 2016. FINDINGS: Lung volumes are normal. No pneumothorax or pleural effusion is present. Minimal left basilar opacity favors atelectasis. Pulmonary vascularity is normal. Cardiomediastinal silhouette is normal. IMPRESSION: No acute cardiopulmonary findings. Electronically signed by: Eliud Leach M.D. 04/07/2017 7:37 PM Dictated Date/Time: 04/07/2017 7:36 PM
[2017-04-07 20:07] LABS: BASO % 0.3 %; BASO ABS # 0.02 K/uL (0-0.2); COMPLETE YES; EOS % 1.4 %; HEMATOCRIT 33.3 % (42-52); IG% 0.3 %; LYMPH % 8.9 %; LYMPH ABS # 0.55 K/uL (1.2-3.4); MEAN CELL VOLUME 93.5 fL (80-100); MEAN CORPUSCULAR HEMOGLOBIN 31.2 pg (25-34); MEAN CORPUSCULAR HGB CONC 33.3 g/dl (32-36); MEAN PLATELET VOLUME 9.4 fL (7.4-10.4); MONO % 9.5 %; NEUT % 79.6 %; PLATELET COUNT 142 K/uL (130-400); RED BLOOD COUNT 3.56 M/uL (4.7-6.1); WHITE BLOOD COUNT 6.21 K/uL (4.8-10.8)
[2017-04-07 20:37] LABS: BUN/CREATININE RATIO 12.3 (10-20); CREATININE 1.12 mg/dl (0.60-1.40); POTASSIUM 3.3 mmol/L (3.5-5.1)
[2017-04-07] MEDS ORDERED: DIAZEPAM 5MG TAB PO STA (20:50)
--- NOTE | 2017-04-07 21:01 | DIAGNOSTIC IMAGING REPORT ---
CT OF THE HEAD WITHOUT CONTRAST CLINICAL HISTORY: Seizure. COMPARISON STUDY: Head CT September 04, 2016. CT DOSE: 614.27 mGy.cm TECHNIQUE: Helical axial images of the head were obtained without IV contrast. Automated exposure control was utilized for the study. A dose lowering technique was utilized adhering to the principles of ALARA. FINDINGS: No acute intracranial hemorrhage, midline shift or mass effect is present. Ventricular system is normal. Basilar cisterns are patent. There are no extra-axial collections. White matter hypodensities are unchanged and suggest small vessel disease, greater than expected for age. There are no findings to suggest acute dural sinus thrombosis or acute territorial infarct. There is moderate cerebellar and mild cerebral atrophy which is unchanged. There is no calvarial fracture. IMPRESSION: No acute intracranial findings. Electronically signed by: Eliud Leach M.D. 04/07/2017 9:00 PM Dictated Date/Time: 04/07/2017 8:57 PM
[2017-04-07 21:13] LABS: PROTHROMBIN TIME (PATIENT) 10.4 SECONDS (9.0-12.0)
[2017-04-07] MEDS ORDERED: ALUMINUM/MAGNESIUM/SIMETH (MAALOX MAX) 30 ML UDC PO PRN (21:45)
[2017-04-07] MEDS ORDERED: ONDANSETRON INJ 2 MG/ML 2 ML VIAL IV PRN (21:45)
[2017-04-07] MEDS ORDERED: LORAZEPAM 2 MG/ML 1 ML VIAL IV PRN (21:45)
[2017-04-07] MEDS ORDERED: MAGNESIUM HYDROXIDE SUSP 30 ML UDC PO PRN (21:45)
[2017-04-07] MEDS ORDERED: ACETAMINOPHEN 325 MG TAB PO PRN (21:45)
[2017-04-07] MEDS ORDERED: POLYETHYLENE (MIRALAX) 17 GM PACK PO PRN (21:45)
[2017-04-07] MEDS ORDERED: LORAZEPAM 2 MG/ML 1 ML VIAL SQ PRN (21:45)
--- NOTE | 2017-04-07 21:57 | History and Physical ---
History & Physical Date & Time of Service: Apr 07, 2017 at 21:44 Chief Complaint: Seizure Primary Care Physician: Ashish Alvarez M.D. History of Present Illness Source: patient, family 51 y/o M - Hx HTN, upper GI bleed, long-standing history of alcohol abuse and withdrawal seizures. Pt has been admitted to rehab multiple times but does not tend to stay sober. He drinks copious amounts of Stephenson beer daily. He currently resides with his mother and had a prolonged witnessed seizure this evening lasting approximately 40 min followed by several minutes of post-ictal confusion. He denies any preceding symptoms such as CP, SOB, N/V although he is not necessarily a reliable historian. The pt did suffer some minor head trauma at the outset of his seizure. 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 Family History Cancer Diabetes mellitus Hypertension Lung disease Seizures Stroke Social History Pt largely drinks beer and has failed several attempts at rehab Smoking Status: Never Smoker Drug Use: none Marital Status: single Housing status: lives with family, other Occupational Status: disabled Immunizations History of Influenza Vaccine: Yes Influenza Vaccine Date: Apr 11, 2012 History of Tetanus Vaccine?: Yes Tetanus Immunization Date: Nov 04, 2001 History of Pneumococcal: No History of Hepatitis B Vaccine: No Multi-Drug Resistant Organisms History of MDRO: No Allergies Coded Allergies: Penicillins (Verified Allergy, Unknown, UNKNOWN - HAPPENED CHILD, 04/07) Home Medications Scheduled Losartan Potassium (Cozaar), 100 MG PO DAILY Omeprazole (Prilosec), 20 MG PO DAILY Thiamine Hcl (Vitamin B-1), 100 MG PO DAILY Review of Systems Constitutional: No fever, No chills, No sweats Eyes: No worsening of vision ENT: No hearing loss Respiratory: No cough, No sputum, No wheezing Cardiovascular: No chest pain, No orthopnea, No PND Abdomen: No pain, No nausea, No vomiting Musculoskeletal: No joint pain Genitourinary - Male: No hematuria, No dysuria Neurologic: + problem reported (Seizure as reported), No memory loss, No paralysis, No weakness Psychiatric: No depression symptoms Endocrine: No fatigue Hematologic / Lymphatic: No abnormal bleeding/bruising Integumentary: No rash Allergic / Immunologic: No environmental allergies Physical Exam Vital Signs Date Time Temp Pulse Resp B/P (MAP) Pulse Ox O2 Delivery O2 Flow Rate FiO2 04/07/17 20:34 99 20 142/90 100 Room Air 04/07/17 19:07 107 04/07/17 18:59 36.9 106 18 155/91 97 Room Air 04/07/17 18:59 96 Room Air General Appearance: WD/WN, no apparent distress Head: normocephalic, + pertinent finding (Small open wounds on forehead) Eyes: normal inspection ENT: normal ENT inspection, pharynx normal Neck: supple, no JVD Respiratory/Chest: chest non-tender, lungs clear, normal breath sounds Cardiovascular: regular rate, rhythm, no edema, no gallop Abdomen/GI: normal bowel sounds, non tender, soft Back: normal inspection, no CVA tenderness Extremities/Musculoskelatal: no calf tenderness, normal capillary refill, no pedal edema, + pertinent finding (He is missing 2 toes on his R foot) Neurologic/Psych: mobile patrol officer II-XII nml as tested, no motor/sensory deficits, alert, normal mood/affect, normal reflexes, + pertinent finding (He cold not tell me the date and is slow to answer questions but otherwise responds appropriately) Skin: normal color, warm/dry, + pertinent finding (Small skin tears on forehead ) Diagnostics Laboratory Results Results Past 24 Hours Test 04/07/17 19:53 Range/Units White Blood Count 6.21 4.8-10.8 K/uL Red Blood Count 3.56 4.7-6.1 M/uL Hemoglobin 11.1 14.0-18.0 g/dL Hematocrit 33.3 42-52 % Mean Corpuscular Volume 93.5 80-100 fL Mean Corpuscular Hemoglobin 31.2 25-34 pg Mean Corpuscular Hemoglobin Concent 33.3 32-36 g/dl Platelet Count 142 130-400 K/uL Mean Platelet Volume 9.4 7.4-10.4 fL Neutrophils (%) (Auto) 79.6 % Lymphocytes (%) (Auto) 8.9 % Monocytes (%) (Auto) 9.5 % Eosinophils (%) (Auto) 1.4 % Basophils (%) (Auto) 0.3 % Neutrophils # (Auto) 4.94 1.4-6.5 K/uL Lymphocytes # (Auto) 0.55 1.2-3.4 K/uL Monocytes # (Auto) 0.59 0.11-0.59 K/uL Eosinophils # (Auto) 0.09 0-0.5 K/uL Basophils # (Auto) 0.02 0-0.2 K/uL RDW Standard Deviation 49.2 36.4-46.3 fL RDW Coefficient of Variation 14.5 11.5-14.5 % Immature Granulocyte % (Auto) 0.3 % Immature Granulocyte # (Auto) 0.02 0.00-0.02 K/uL Prothrombin Time 10.4 9.0-12.0 SECONDS Prothromb Time International Ratio 1.0 0.9-1.1 Sodium Level 132 136-145 mmol/L Potassium Level 3.3 3.5-5.1 mmol/L Chloride Level 98 98-107 mmol/L Carbon Dioxide Level 29 21-32 mmol/L Anion Gap 5.0 3-11 mmol/L Blood Urea Nitrogen 14 7-18 mg/dl Creatinine 1.12 0.60-1.40 mg/dl Est Creatinine Clear Calc Drug Dose 88.9 ml/min Estimated GFR () 88.3 Estimated GFR (Non- 76.2 BUN/Creatinine Ratio 12.3 10-20 Random Glucose 130 70-99 mg/dl Lactic Acid Level 3.2 0.4-2.0 mmol/L Calcium Level 9.0 8.5-10.1 mg/dl Total Bilirubin 0.7 0.2-1 mg/dl Direct Bilirubin 0.2 0-0.2 mg/dl Aspartate Amino Transf (AST/SGOT) 54 15-37 U/L Alanine Aminotransferase (ALT/SGPT) 39 12-78 U/L Alkaline Phosphatase 43 45-117 U/L Ammonia 18.5 11-32 umol/L Total Creatine Kinase 149 39-308 U/L Total Protein 7.5 6.4-8.2 gm/dl Albumin 3.6 3.4-5.0 gm/dl Lipase 2264 73-393 U/L Prolactin 27.54 ng/mL Ethyl Alcohol mg/dL < 3.0 0-3 mg/dl Diagnostic Radiology No acute findings on head CT Impression Assessment and Plan 51 y/o M - Hx HTN, upper GI bleed, long-standing history of alcohol abuse and withdrawal seizures. Pt has been admitted to rehab multiple times but does not tend to stay sober. He drinks copious amounts of stephenson beer. He currently resides with his mother and had a prolonged witnessed seizure this evening lasting approximately 40 min followed by several minutes of post-ictal confusion. He denies any preceding symptoms such as CP, SOB, N/V. 1) Seizure - due to decreased alcohol intake - pt placed on precautions. Will monitor on telemetry and provide Ativan PRN 2) Alcohol withdrawal - he may be developing early withdrawal signs - we will place on Librium TID and PRN Ativan - Thiamine, Folic and IVF with glucose provided. 3) HTN - cont Losartan - will consider add of B alex if not controlled Full code - SCDs due to head trauma and considerable fall/seizure risk Total time for this admit including review of labs, meds, imaging - discussion with pt and ER attending - 35 min VTE Prophylaxis VTE Risk Assessment Done? Y/N: Yes Risk Level: Low Given or contraindicated: SCD's
[2017-04-07] MEDS ORDERED: MAGNESIUM SULFATE 1GM / D5W 1 GM in PREMIXED IN D5W 100 ML IV STA (22:24)
[2017-04-07] MEDS ORDERED: THIAMINE HCL 100 MG TAB PO STA (22:25)
[2017-04-07] MEDS: D5W AND LACTATED RINGERS 1,000 ML IV SCH (22:33)
[2017-04-07 22:35] VITALS: BP 135/93; PULSE 95; TEMP 36.6; O2SAT 99; Ht 177.8 cm; Wt 82.5 kg
[2017-04-07 23:18] LABS: MANUAL MICROSCOPIC REQUIRED? YES; URINE APPEARANCE CLEAR (CLEAR); URINE COLOR YELLOW; URINE NITRITE NEG (NEG); URINE PH 6.5 (4.5-7.5); UROBILINOGEN NEG (NEG)
[2017-04-07 23:24] LABS: REVIEW REQ? NO
[2017-04-07 23:25] LABS: URINE BILIRUBIN NEG (NEG)
[2017-04-07 23:28] LABS: URINE RBC 0-4 /hpf (0-4)
[2017-04-07 23:29] LABS: URINE BACTERIA NEG (NEG); URINE MUCUS PRESENT (NONE PRSENT)
[2017-04-07 23:31] LABS: ZZUR CULT IF INDIC CLEAN CATCH NO
[2017-04-08] VITALS (10 sets, daily range): BP systolic 116–157; BP diastolic 72–94; PULSE 75–98; TEMP 36.9–37.1; O2SAT 96–98
[2017-04-08] MEDS: POTASSIUM CHLR 10 MEQ / WTR 10 MEQ in PREMIXED WATER 100 ML IV SCH ×2 (00:03→01:05)
[2017-04-08 06:38] LABS: HEMATOCRIT 32.4 % (42-52); MEAN CELL VOLUME 94.2 fL (80-100); MEAN CORPUSCULAR HEMOGLOBIN 30.2 pg (25-34); MEAN CORPUSCULAR HGB CONC 32.1 g/dl (32-36); MEAN PLATELET VOLUME 10.3 fL (7.4-10.4); PLATELET COUNT 147 K/uL (130-400); RED BLOOD COUNT 3.44 M/uL (4.7-6.1); WHITE BLOOD COUNT 6.47 K/uL (4.8-10.8)
[2017-04-08 07:04] LABS: BUN/CREATININE RATIO 14.3 (10-20); CALCIUM 8.8 mg/dl (8.5-10.1); CREATININE 0.84 mg/dl (0.60-1.40); MAGNESIUM 2.3 mg/dl (1.8-2.4); POTASSIUM 3.5 mmol/L (3.5-5.1)
[2017-04-08] MEDS: D5W AND LACTATED RINGERS 1,000 ML IV SCH ×2 (08:09→18:24)
[2017-04-08] MEDS: CHLORDIAZEPOXIDE 25 MG CAP PO SCH ×3 (08:09→21:42)
[2017-04-08] MEDS: LOSARTAN POTASSIUM 50 MG TAB PO SCH (08:10)
[2017-04-08] MEDS: PANTOprazole SOD 40 MG TAB PO SCH (08:10)
[2017-04-08] MEDS: THIAMINE HCL 100 MG TAB PO SCH (08:11)
[2017-04-08] MEDS ORDERED: INFLUENZA ADMINISTRATION CHARGE ONE (12:15)
[2017-04-08] MEDS ORDERED: INFLUENZA VIRUS QUAD VACCINE 0.5 ML SYR IM. ONE (12:15)
--- NOTE | 2017-04-08 17:20 | Family Medicine Progress Note ---
Progress Note Date of Service Apr 08, 2017. Subjective Pt evaluation today including: conversation w/ patient, physical exam, chart review, lab review, review of studies Pain: No pain reported this morning Voiding: no voiding problems, no incontinence Patient is resting comfortably in bed this morning with no acute complaints overnight. The patient states that he normally drinks a 40 of blush every day, and had not had a drink since last Sunday. He states that he fell off his bed and his mother found him and states that he was crawling into the bathroom but he does not recall any of the events. At this time he is alert and oriented and states that he has slight shaking in his hands but otherwise denies any headaches, fevers, chills, chest pain, shortness of breath, anxiety, confusion, or any other withdrawal complaints. He also stated that he would like to do rehabilitation. The last time he was in rehabilitation was 10 years ago and he states that the facility did not meet his needs. The patient states that he does not produce been any other recreational drug use. Constitutional: + fatigue, No fever, No chills, No sweats Eyes: No problem reported Respiratory: No cough, No wheezing, No shortness of breath Cardiovascular: No chest pain, No palpitations Abdomen: No pain, No nausea, No vomiting, No diarrhea Neurologic: No memory loss, No weakness Endo: + fatigue Medications Current Inpatient Medications Medications (Trade) Dose Ordered Sig/Jr Route Start Time Stop Time Status Last Admin Dose Admin Acetaminophen (Tylenol Tab) 650 mg Q4H PRN PO 04/07/17 21:45 05/07/17 21:44 Al Hydrox/Mg Hydrox/Simethicone (Maalox Max Susp) 15 ml Q4H PRN PO 04/07/17 21:45 05/07/17 21:44 Magnesium Hydroxide (Milk Of Magnesia Susp) 30 ml Q12H PRN PO 04/07/17 21:45 05/07/17 21:44 Ondansetron HCl (Zofran Inj) 4 mg Q6H PRN IV 04/07/17 21:45 05/07/17 21:44 Polyethylene (Miralax Powder Packet) 17 gm DAILY PRN PO 04/07/17 21:45 05/07/17 21:44 Dextrose/Lactated Ringer's 1,000 ml @ 100 mls/hr Q10H IV 04/07/17 22:45 05/07/17 22:44 04/08/17 08:09 100 MLS/HR Thiamine HCl (Vitamin B-1 Tab) 100 mg QAM PO 04/08/17 09:00 05/08/17 08:59 04/08/17 08:11 100 MG Folic Acid (Folvite Tab) 1 mg QAM PO 04/08/17 09:00 05/08/17 08:59 04/08/17 08:10 1 MG Chlordiazepoxide (Librium Cap) 25 mg TID PO 04/08/17 09:00 05/08/17 08:59 04/08/17 14:39 25 MG Lorazepam (Ativan Inj) 1 mg Q3H PRN IV 04/07/17 21:45 05/07/17 21:44 04/08/17 10:08 1 MG Losartan Potassium (coZAAR TAB) 100 mg DAILY PO 04/08/17 09:00 05/08/17 08:59 04/08/17 08:10 100 MG Pantoprazole Sodium (Protonix Tab) 40 mg QAM PO 04/08/17 09:00 05/08/17 08:59 04/08/17 08:10 40 MG Objective Vital Signs Date Time Temp Pulse Resp B/P (MAP) Pulse Ox O2 Delivery O2 Flow Rate FiO2 04/08/17 15:05 37.0 88 18 141/78 (99) 96 Room Air 04/08/17 12:00 97 Room Air 04/08/17 11:04 37.0 98 18 116/72 (87) 96 Room Air 04/08/17 08:14 37.1 75 18 150/88 (108) 96 Room Air 04/08/17 08:08 76 153/91 (111) 04/08/17 08:00 97 Room Air 04/08/17 04:00 Room Air 04/08/17 04:00 37.1 87 20 142/87 (105) 97 Room Air 04/08/17 00:19 36.9 81 18 157/94 (115) 97 Room Air 04/08/17 00:00 Room Air 04/07/17 22:35 36.6 95 18 135/93 99 Room Air 04/07/17 21:52 73 20 149/95 99 Room Air 04/07/17 21:46 80 04/07/17 20:34 99 20 142/90 100 Room Air 04/07/17 19:07 107 04/07/17 18:59 36.9 106 18 155/91 97 Room Air 04/07/17 18:59 96 Room Air Physical Exam General Appearance: WD/WN, no apparent distress, + pertinent finding (patient has scab over his forehead) Eyes: normal inspection, sclerae normal Respiratory/Chest: chest non-tender, lungs clear, normal breath sounds Cardiovascular: regular rate, rhythm, no edema, no gallop Abdomen: normal bowel sounds, non tender, soft Extremities: non-tender, no calf tenderness Neurologic/Psychiatric: alert, normal mood/affect, oriented x 3, + pertinent finding (experiencing mild tremor with arm extension bilaterally) Skin: no rash Laboratory Results Results Past 24 Hours Test 04/07/17 19:53 04/07/17 23:00 04/08/17 05:48 Range/Units White Blood Count 6.21 6.47 4.8-10.8 K/uL Red Blood Count 3.56 3.44 4.7-6.1 M/uL Hemoglobin 11.1 10.4 14.0-18.0 g/dL Hematocrit 33.3 32.4 42-52 % Mean Corpuscular Volume 93.5 94.2 80-100 fL Mean Corpuscular Hemoglobin 31.2 30.2 25-34 pg Mean Corpuscular Hemoglobin Concent 33.3 32.1 32-36 g/dl Platelet Count 142 147 130-400 K/uL Mean Platelet Volume 9.4 10.3 7.4-10.4 fL Neutrophils (%) (Auto) 79.6 % Lymphocytes (%) (Auto) 8.9 % Monocytes (%) (Auto) 9.5 % Eosinophils (%) (Auto) 1.4 % Basophils (%) (Auto) 0.3 % Neutrophils # (Auto) 4.94 1.4-6.5 K/uL Lymphocytes # (Auto) 0.55 1.2-3.4 K/uL Monocytes # (Auto) 0.59 0.11-0.59 K/uL Eosinophils # (Auto) 0.09 0-0.5 K/uL Basophils # (Auto) 0.02 0-0.2 K/uL RDW Standard Deviation 49.2 50.0 36.4-46.3 fL RDW Coefficient of Variation 14.5 14.6 11.5-14.5 % Immature Granulocyte % (Auto) 0.3 % Immature Granulocyte # (Auto) 0.02 0.00-0.02 K/uL Prothrombin Time 10.4 9.0-12.0 SECONDS Prothromb Time International Ratio 1.0 0.9-1.1 Sodium Level 132 137 136-145 mmol/L Potassium Level 3.3 3.5 3.5-5.1 mmol/L Chloride Level 98 101 98-107 mmol/L Carbon Dioxide Level 29 27 21-32 mmol/L Anion Gap 5.0 9.0 3-11 mmol/L Blood Urea Nitrogen 14 12 7-18 mg/dl Creatinine 1.12 0.84 0.60-1.40 mg/dl Est Creatinine Clear Calc Drug Dose 88.9 118.6 ml/min Estimated GFR () 88.3 118.3 Estimated GFR (Non- 76.2 102.1 BUN/Creatinine Ratio 12.3 14.3 10-20 Random Glucose 130 101 70-99 mg/dl Lactic Acid Level 3.2 0.4-2.0 mmol/L Calcium Level 9.0 8.8 8.5-10.1 mg/dl Total Bilirubin 0.7 0.2-1 mg/dl Direct Bilirubin 0.2 0-0.2 mg/dl Aspartate Amino Transf (AST/SGOT) 54 15-37 U/L Alanine Aminotransferase (ALT/SGPT) 39 12-78 U/L Alkaline Phosphatase 43 45-117 U/L Ammonia 18.5 11-32 umol/L Total Creatine Kinase 149 39-308 U/L Total Protein 7.5 6.4-8.2 gm/dl Albumin 3.6 3.4-5.0 gm/dl Lipase 2264 2079 73-393 U/L Prolactin 27.54 ng/mL Ethyl Alcohol mg/dL < 3.0 0-3 mg/dl Urine Color YELLOW Urine Appearance CLEAR CLEAR Urine pH 6.5 4.5-7.5 Urine Specific Varney 1.020 1.000-1.030 Urine Protein 2+ NEG Urine Glucose (UA) NEG NEG Urine Ketones 1+ NEG Urine Occult Blood TRACE NEG Urine Nitrite NEG NEG Urine Bilirubin NEG NEG Urine Urobilinogen NEG NEG Urine Leukocyte Esterase NEG NEG Urine RBC 0-4 0-4 /hpf Urine WBC 1-5 0-5 /hpf Urine Epithelial Cells 5-10 0-5 /lpf Urine Bacteria NEG NEG Urine Hyaline Casts 5-10 0-5 /lpf Urine Mucus PRESENT NONE PRSENT Magnesium Level 2.3 1.8-2.4 mg/dl Microbiology Results 04/08/17 C.difficile Toxin B Gene (PCR) - Final, Complete No C. difficile toxin B gene detected Assessment and Plan Patient is a 51-year-old male that presents with a prolonged seizure secondary to alcohol withdrawal 1) Seizures secondary to alcoholic withdrawal - Withdrawal symptoms appear to be currently well controlled with no seizures overnight, currently tolerating by mouth medications, required 1 mg of Ativan this morning - Seizure precautions in place including bed padding - Alcohol withdrawal protocol in place --> Librium 25mg TID, PRN Ativan - Patient given 1mg Ativan at 1000 today - Patient passed bedside dysphagia screen--> regular diet ordered - Dextrose with lactated ringers 100mls/hr 2) Malnutrition secondary to chronic alcoholism - Thiamine 100mg qAM - Folic acid 1mg qAM 3) Hypertension - Continue home Losartan 100mg PO Daily 4) Disposition - Case management consulted regarding rehabilitation 5) Code Status Resident Tracking Resident Involvement: Resident Care Provided Care Provided: Adult Hospital Medicine
[2017-04-08] MEDS: LORAZEPAM INJ 1 MG in SYRINGE 0.5 ML IV PRN (23:41)
[2017-04-09] VITALS (15 sets, daily range): BP systolic 145–200; BP diastolic 83–106; PULSE 67–104; TEMP 36.3–37.1; O2SAT 90–99
[2017-04-09] MEDS: LORAZEPAM INJ 1 MG in SYRINGE 0.5 ML IV PRN (02:42)
[2017-04-09] MEDS ORDERED: LORAZEPAM 2 MG/ML 1 ML VIAL IV PRN (05:00)
[2017-04-09] MEDS ORDERED: LORAZEPAM INJ 2 MG in SYRINGE 1 ML IV STA (05:01)
[2017-04-09] MEDS: D5W AND LACTATED RINGERS 1,000 ML IV SCH ×2 (05:42→16:29)
[2017-04-09] MEDS: LORAZEPAM 1MG IV PHA DISPENSED IV PRN ×3 (06:35→12:36)
[2017-04-09] MEDS: PANTOprazole SOD 40 MG TAB PO SCH (08:27)
[2017-04-09] MEDS: THIAMINE HCL 100 MG TAB PO SCH (08:27)
[2017-04-09] MEDS: LOSARTAN POTASSIUM 50 MG TAB PO SCH (08:27)
[2017-04-09] MEDS: CHLORDIAZEPOXIDE 25 MG CAP PO SCH ×3 (08:31→21:39)
[2017-04-09] MEDS: LORAZEPAM IV PRN ×6 (08:57→23:55)
--- NOTE | 2017-04-09 11:03 | Family Medicine Progress Note ---
Progress Note Date of Service Apr 09, 2017. Subjective Pt evaluation today including: conversation w/ patient, physical exam, chart review, lab review, review of studies Pain: No pain reported Voiding: no voiding problems, no incontinence Patient is resting comfortably in bed this morning with no acute complaints. The patient has been consistently confused overnight, urinating on the floor, pulling out his IV site multiple times, hallucinating, and stating his mother was in the room. He required a dose of Ativan overnight and another dose this morning with a AWSS score of 8. Constitutional: No fever, No chills, No sweats, No fatigue Respiratory: No cough, No wheezing, No shortness of breath Cardiovascular: No chest pain, No palpitations Abdomen: No pain, No nausea, No vomiting Medications Current Inpatient Medications Medications (Trade) Dose Ordered Sig/Jr Route Start Time Stop Time Status Last Admin Dose Admin Acetaminophen (Tylenol Tab) 650 mg Q4H PRN PO 04/07/17 21:45 05/07/17 21:44 Al Hydrox/Mg Hydrox/Simethicone (Maalox Max Susp) 15 ml Q4H PRN PO 04/07/17 21:45 05/07/17 21:44 Magnesium Hydroxide (Milk Of Magnesia Susp) 30 ml Q12H PRN PO 04/07/17 21:45 05/07/17 21:44 Ondansetron HCl (Zofran Inj) 4 mg Q6H PRN IV 04/07/17 21:45 05/07/17 21:44 Polyethylene (Miralax Powder Packet) 17 gm DAILY PRN PO 04/07/17 21:45 05/07/17 21:44 Dextrose/Lactated Ringer's 1,000 ml @ 100 mls/hr Q10H IV 04/07/17 22:45 05/07/17 22:44 04/09/17 05:42 100 MLS/HR Thiamine HCl (Vitamin B-1 Tab) 100 mg QAM PO 04/08/17 09:00 05/08/17 08:59 04/09/17 08:27 100 MG Folic Acid (Folvite Tab) 1 mg QAM PO 04/08/17 09:00 05/08/17 08:59 04/09/17 08:27 1 MG Chlordiazepoxide (Librium Cap) 25 mg TID PO 04/08/17 09:00 05/08/17 08:59 04/09/17 08:31 25 MG Losartan Potassium (coZAAR TAB) 100 mg DAILY PO 04/08/17 09:00 05/08/17 08:59 04/09/17 08:27 100 MG Pantoprazole Sodium (Protonix Tab) 40 mg QAM PO 04/08/17 09:00 05/08/17 08:59 04/09/17 08:27 40 MG Lorazepam (Ativan Inj) PRN Dosing -Active Protocol Q1H PRN IV 04/09/17 05:00 05/09/17 04:59 Lorazepam 1 mg/ Syringe 1 ml @ 1 mls/min Q1H PRN IV 04/09/17 05:00 05/09/17 04:59 04/09/17 10:25 1 MLS/MIN Lorazepam 2 mg/ Syringe 1.5 ml @ 1 mls/min Q1H PRN IV 04/09/17 08:45 05/09/17 08:44 04/09/17 08:57 1 MLS/MIN Objective Vital Signs Date Time Temp Pulse Resp B/P (MAP) Pulse Ox O2 Delivery O2 Flow Rate FiO2 04/09/17 10:19 89 18 165/89 (114) 04/09/17 06:59 36.4 69 16 175/92 (119) 96 Room Air 04/09/17 06:25 37.1 76 18 171/95 (120) 97 Room Air 04/09/17 04:00 Room Air 04/09/17 03:19 37.0 104 20 145/92 (109) 98 Room Air 04/09/17 00:27 36.8 81 20 156/83 (107) 97 Room Air 04/09/17 00:00 Room Air 04/08/17 20:00 36.9 83 20 147/94 (111) 98 Room Air 04/08/17 20:00 Room Air 04/08/17 16:00 96 Room Air 04/08/17 15:05 37.0 88 18 141/78 (99) 96 Room Air 04/08/17 12:00 97 Room Air 04/08/17 11:04 37.0 98 18 116/72 (87) 96 Room Air Physical Exam General Appearance: WD/WN, no apparent distress Eyes: normal inspection, sclerae normal Neck: supple, no carotid bruits Respiratory/Chest: chest non-tender, lungs clear, normal breath sounds Cardiovascular: regular rate, rhythm, no edema, no gallop Abdomen: normal bowel sounds, non tender, soft Neurologic/Psychiatric: alert, + disoriented, + pertinent finding (Confused saying he thought he was at [facility] and that he was going to [facility]. No visible tremor at this time.) Assessment and Plan Patient is a 51-year-old male that presents with a prolonged seizure secondary to alcohol withdrawal 1) Seizures secondary to alcoholic withdrawal - Symptoms today more pronounced including worsening confusion and hallucinations - AWSS Score of 8 this morning, requiring 2mg of Ativan at 0857 - Seizure precautions in place including bed padding - Alcohol withdrawal protocol in place --> Librium 25mg TID, PRN Ativan according to withdrawal protocol - Can increase Librium if Ativan requirements continue to increase - Patient passed bedside dysphagia screen--> regular diet ordered - Dextrose with lactated ringers 100mls/hr 2) Malnutrition secondary to chronic alcoholism - Thiamine 100mg qAM - Folic acid 1mg qAM 3) Hypertension - Continue home Losartan 100mg PO Daily 4) Disposition - Patient stated yesterday prior to current confusion that he would like to attend rehab once again - Case management consulted regarding rehabilitation 5) Code Status Resident Physician Supervision Note: I interviewed and examined the patient. Discussed with Dr. Powell and agree with findings and plan as documented in the note. Any exceptions or clarifications are listed here: None Documented By: Issa Boyer confused. no further seizures vitals noted nad, oriented to self, doesn't know place. no significant tremors DTs - continue benzodiazepines and supportive care, has needed significant amounts of prn so will increase base librium to 50mg tid; continue thiamine, folate, IVF DVT proph - add lovenox (young, overall would be low risk, but mostly bedbound in current state, so risk increases) Resident Tracking Resident Involvement: Resident Care Provided Care Provided: Adult Hospital Medicine
[2017-04-09] MEDS ORDERED: LORAZEPAM INJ 3 MG in SYRINGE 1.5 ML IV PRN (19:45)
[2017-04-09] MEDS: HydrALAZINE HCL 20 MG/ML VIAL IV. PRN (21:06)
[2017-04-10] VITALS (9 sets, daily range): BP systolic 127–176; BP diastolic 68–103; PULSE 77–109; TEMP 36.6–36.9; O2SAT 95–100
[2017-04-10] MEDS: LORAZEPAM IV PRN (02:24)
[2017-04-10] MEDS: D5W AND LACTATED RINGERS 1,000 ML IV SCH ×3 (02:29→20:56)
[2017-04-10] MEDS: LORAZEPAM 1MG IV PHA DISPENSED IV PRN ×3 (06:57→22:56)
[2017-04-10] MEDS: ENOXAPARIN 40 MG/0.4 ML SYR SQ SCH (08:09)
[2017-04-10] MEDS: THIAMINE HCL 100 MG TAB PO SCH (08:10)
[2017-04-10] MEDS: LOSARTAN POTASSIUM 50 MG TAB PO SCH (08:10)
[2017-04-10] MEDS: PANTOprazole SOD 40 MG TAB PO SCH (08:10)
[2017-04-10] MEDS: CHLORDIAZEPOXIDE 25 MG CAP PO SCH ×5 (08:12→22:34)
--- NOTE | 2017-04-10 09:04 | Family Medicine Progress Note ---
Progress Note Date of Service Apr 10, 2017. Subjective Pt evaluation today including: conversation w/ patient, physical exam, chart review, lab review, review of studies Pain: No pain reported this morning Voiding: no voiding problems, no incontinence Patient continues to be confused this morning, when asked where we currently are he says "[address]". He denies any acute complaints this morning. Constitutional: No fever, No fatigue Respiratory: No cough, No shortness of breath Cardiovascular: No chest pain, No palpitations Abdomen: No pain, No nausea, No vomiting, No diarrhea, No constipation Psychiatric: + substance abuse Medications Current Inpatient Medications Medications (Trade) Dose Ordered Sig/Jr Route Start Time Stop Time Status Last Admin Dose Admin Acetaminophen (Tylenol Tab) 650 mg Q4H PRN PO 04/07/17 21:45 05/07/17 21:44 Al Hydrox/Mg Hydrox/Simethicone (Maalox Max Susp) 15 ml Q4H PRN PO 04/07/17 21:45 05/07/17 21:44 Magnesium Hydroxide (Milk Of Magnesia Susp) 30 ml Q12H PRN PO 04/07/17 21:45 05/07/17 21:44 Ondansetron HCl (Zofran Inj) 4 mg Q6H PRN IV 04/07/17 21:45 05/07/17 21:44 Polyethylene (Miralax Powder Packet) 17 gm DAILY PRN PO 04/07/17 21:45 05/07/17 21:44 Dextrose/Lactated Ringer's 1,000 ml @ 100 mls/hr Q10H IV 04/07/17 22:45 05/07/17 22:44 04/10/17 02:29 100 MLS/HR Thiamine HCl (Vitamin B-1 Tab) 100 mg QAM PO 04/08/17 09:00 05/08/17 08:59 04/10/17 08:10 100 MG Folic Acid (Folvite Tab) 1 mg QAM PO 04/08/17 09:00 05/08/17 08:59 04/10/17 08:10 1 MG Losartan Potassium (coZAAR TAB) 100 mg DAILY PO 04/08/17 09:00 05/08/17 08:59 04/10/17 08:10 100 MG Pantoprazole Sodium (Protonix Tab) 40 mg QAM PO 04/08/17 09:00 05/08/17 08:59 04/10/17 08:10 40 MG Lorazepam (Ativan Inj) PRN Dosing -Active Protocol Q1H PRN IV 04/09/17 05:00 05/09/17 04:59 Lorazepam 1 mg/ Syringe 1 ml @ 1 mls/min Q1H PRN IV 04/09/17 05:00 05/09/17 04:59 04/10/17 06:57 1 MLS/MIN Lorazepam 2 mg/ Syringe 1.5 ml @ 1 mls/min Q1H PRN IV 04/09/17 08:45 05/09/17 08:44 04/10/17 02:24 1 MLS/MIN Chlordiazepoxide (Librium Cap) 50 mg TID PO 04/09/17 21:00 05/08/17 08:59 04/10/17 08:12 50 MG Enoxaparin Sodium (Lovenox Inj) 40 mg QAM SQ 04/10/17 09:00 05/10/17 08:59 04/10/17 08:09 40 MG Lorazepam 3 mg/ Syringe 3 ml @ 1 mls/min Q1H PRN IV 04/09/17 19:45 05/09/17 19:44 04/09/17 20:03 1 MLS/MIN Hydralazine HCl (HydrALAZINE INJ) 10 mg Q4H PRN IV. 04/09/17 20:45 05/09/17 20:44 04/09/17 21:06 10 MG Objective Vital Signs Date Time Temp Pulse Resp B/P (MAP) Pulse Ox O2 Delivery O2 Flow Rate FiO2 04/10/17 07:02 36.7 77 18 176/102 (126) 99 Room Air 04/10/17 05:52 36.9 78 18 175/93 (120) 98 Room Air 04/10/17 04:00 98 Room Air 04/10/17 00:00 98 Room Air 04/09/17 23:39 36.7 68 18 146/88 (107) 98 Room Air 04/09/17 22:10 36.5 81 18 155/85 (108) 99 Room Air 04/09/17 21:08 36.3 75 20 200/99 (132) 98 04/09/17 20:15 36.4 73 18 181/102 (128) 98 Room Air 04/09/17 20:00 Room Air 04/09/17 18:48 37.0 67 17 183/100 (127) 98 Room Air 04/09/17 18:16 36.5 71 20 192/102 (132) 90 04/09/17 17:15 36.4 87 18 161/104 (123) 96 Room Air 04/09/17 16:00 Room Air 04/09/17 16:00 37.1 76 18 186/106 (132) 97 Room Air 04/09/17 14:37 36.7 72 18 183/89 (120) 97 Room Air 04/09/17 12:23 37.1 93 18 172/90 (117) 96 Room Air 04/09/17 12:00 Room Air 04/09/17 10:19 89 18 165/89 (114) Physical Exam General Appearance: WD/WN, no apparent distress Eyes: normal inspection, sclerae normal Respiratory/Chest: chest non-tender, lungs clear, normal breath sounds, no respiratory distress, no accessory muscle use Cardiovascular: regular rate, rhythm, no edema, no gallop Abdomen: normal bowel sounds, non tender, soft Extremities: non-tender, no calf tenderness Neurologic/Psychiatric: + disoriented (Oriented to person only, says date in , and place is [facility]), + pertinent finding (Speech comprehensible but statements do not make sense) Assessment and Plan Patient is a 51-year-old male that presents with a prolonged seizure secondary to alcohol withdrawal 1) Seizures secondary to alcoholic withdrawal - Continues to be confused and disoriented despite Librium and Ativan --> Increase Librium once again to 75mg TID - Yesterday patient required significantly more Ativan over the last 24 hours so increased Librium to 50mg TID - Last AWSS scores: 9,8,7,9,6 (most recent) - Seizure precautions in place including bed padding - Alcohol withdrawal protocol in place --> Librium 75mg TID, PRN Ativan according to withdrawal protocol - Can continue to increase Librium if Ativan requirements continue to increase - Patient passed bedside dysphagia screen--> regular diet ordered - Dextrose with lactated ringers 100mls/hr 2) Malnutrition secondary to chronic alcoholism - Thiamine 100mg qAM - Folic acid 1mg qAM 3) Hypertension - Continue home Losartan 100mg PO Daily 4) Disposition - Patient stated yesterday prior to current confusion that he would like to attend rehab once again - Case management consulted regarding rehabilitation 5) DVT Prophylaxis - Lovenox 6) Code Status - Full Resuscitation Resident Physician Supervision Note: I interviewed and examined the patient. Discussed with Dr. Powell and agree with findings and plan as documented in the note. Any exceptions or clarifications are listed here: None Documented By: Issa Rosalind no meaningful HPI or ROS obtainable - i think he loosely mumbles that we're at [facility]. PSYCHOLOGISTS notes he's upset that she won't give him the hot dogs that he sees in the corner of the room. otherwise no acute issues, has overall been calm vitals noted nad breathing unlaobred confused EtOH withdrawal - DTs - ongoing benzos and supportive care. seems to be at/ possibly just past peak withdrawal based on no worsening of sx and prn benzo requirements appear lessening, albeit only slightly. otherwise as above Resident Tracking Resident Involvement: Resident Care Provided Care Provided: Adult Hospital Medicine
--- NOTE | 2017-04-10 11:51 | Medical Student: [facility] ---
Med Student Progress Note Date of Service Apr 10, 2017. Subjective Hospital day 4: Mr. Hernandez is a 51-year-old man with a history of alcohol dependence with recurrent withdrawal seizures, hypertension, and upper GI bleeding who presented to the ED 3 days ago with a seizure. He thinks his last drink was last Sunday. Currently he says he feels "good" but is confused throughout the interview. When discussing rehab he says "[place] isn't so bad." When asked if he'd like to try rehab again, he says, "I don't care." When asked about how he feels about his drinking, he said that with his mother moving it will be a 5 or 6 [address] to obtain alcohol so he will either not drink or just get more when he goes to the store. Nursing reports abnormal behavior like "seeing hotdogs in the hallway" and "talking to his mother." He also reports some epigastric pain and SOB when "doing little things" but is unable to elaborate on either complaint. Review of Systems Respiratory: + shortness of breath, No cough Cardiac: No chest pain Abdomen: + pain (epigastric pain) Male : No dysuria, No urinary frequency Objective Vital Signs Date Time Temp Pulse Resp B/P (MAP) Pulse Ox O2 Delivery O2 Flow Rate FiO2 04/10/17 10:50 36.7 87 18 127/87 (100) 100 Room Air 04/10/17 08:00 Room Air 04/10/17 07:02 36.7 77 18 176/102 (126) 99 Room Air 04/10/17 05:52 36.9 78 18 175/93 (120) 98 Room Air 04/10/17 04:00 98 Room Air 04/10/17 00:00 98 Room Air 04/09/17 23:39 36.7 68 18 146/88 (107) 98 Room Air 04/09/17 22:10 36.5 81 18 155/85 (108) 99 Room Air 04/09/17 21:08 36.3 75 20 200/99 (132) 98 04/09/17 20:15 36.4 73 18 181/102 (128) 98 Room Air 04/09/17 20:00 Room Air 04/09/17 18:48 37.0 67 17 183/100 (127) 98 Room Air 04/09/17 18:16 36.5 71 20 192/102 (132) 90 04/09/17 17:15 36.4 87 18 161/104 (123) 96 Room Air 04/09/17 16:00 Room Air 04/09/17 16:00 37.1 76 18 186/106 (132) 97 Room Air 04/09/17 14:37 36.7 72 18 183/89 (120) 97 Room Air 04/09/17 12:23 37.1 93 18 172/90 (117) 96 Room Air 04/09/17 12:00 Room Air Physical Exam Eyes: bilateral eyes pertinent finding (icteric) ENT: TMs normal, + pertinent finding (poor dentition) Neck: supple, no adenopathy, thyroid normal Respiratory/Chest: lungs clear, normal breath sounds, no respiratory distress Cardiovascular: regular rate, rhythm, no edema, no gallop, no murmur Abdomen: soft, + pertinent finding (liver not palpable. Abdomen is not distended. ) Extremities: no calf tenderness Neurologic/Psychiatric: alert, + pertinent finding (oriented to name and place. believes it is 1972.) Assessment and Plan Assessment and Plan: Mr. Hernandez is a 51-year-old man with a history of alcohol dependence with recurrent withdrawal seizures, hypertension, and upper GI bleeding who presented to the ED 3 days ago with a seizure. Currently reporting feeling "good " other than having some epigastric pain and SOB doing "little things." However , pt is confused and is unable to elaborate on either complaint. WITHDRAWAL SEIZURE - Patient receiving Librium and Ativan PRN - Seizure precautions in place including padding and one-on-one care. MALNUTRITION SECONDARY TO ALCOHOLISM - LR + dextrose given - Thiamine and folic acid given HYPERTENSION - Continue Losartan - Max systolic of 192, max diastolic of 117. Most recent BP is 127/87 DVT PROPHYLAXIS - DARSHAN Stockings - Lovenox
[2017-04-10] MEDS: HydrALAZINE HCL 20 MG/ML VIAL IV. PRN (21:10)
[2017-04-11] VITALS (7 sets, daily range): BP systolic 121–154; BP diastolic 74–89; PULSE 80–105; TEMP 36.7–37.1; O2SAT 96–100
[2017-04-11] MEDS: D5W AND LACTATED RINGERS 1,000 ML IV SCH ×2 (06:31→16:45)
[2017-04-11] MEDS: PANTOprazole SOD 40 MG TAB PO SCH (08:11)
[2017-04-11] MEDS: LOSARTAN POTASSIUM 50 MG TAB PO SCH (08:11)
[2017-04-11] MEDS: ENOXAPARIN 40 MG/0.4 ML SYR SQ SCH (08:11)
[2017-04-11] MEDS: THIAMINE HCL 100 MG TAB PO SCH (08:11)
[2017-04-11] MEDS: CHLORDIAZEPOXIDE 25 MG CAP PO SCH ×3 (08:11→20:20)
--- NOTE | 2017-04-11 08:15 | Medical Student: [facility] ---
Med Student Progress Note Date of Service Apr 11, 2017. Subjective Pt evaluation today including: conversation w/ patient, physical exam Pain: None PO Intake: Adequate Hospital day 5: Mr. Hernandez is a 51-year-old man with a history of alcohol dependence with recurrent withdrawal seizures, hypertension, and upper GI bleeding who presented to the ED 5 days ago with a seizure. Pt reports currently feeling "alright" and his only medical complaint is headache for which he is taking Tylenol. Patient also reports feeling "like he's in jail" and that everyone is "telling him what to do." He says, "I want to do what I want to do and if I fall, I fall." He denies CP, SOB, calf pain, nausea, diarrhea, constipation. He also denies SOB and epigastric pain that he reported yesterday. Review of Systems Respiratory: + see HPI Cardiac: + see HPI Abdomen: + see HPI Objective Vital Signs Date Time Temp Pulse Resp B/P (MAP) Pulse Ox O2 Delivery O2 Flow Rate FiO2 04/11/17 07:06 37.0 105 18 121/74 (90) 98 Room Air 04/11/17 05:10 100 Room Air 04/11/17 03:10 36.7 94 16 154/80 (104) 96 Room Air 04/11/17 00:00 100 Room Air 04/10/17 23:44 36.6 109 20 127/68 (87) 96 Room Air 04/10/17 21:58 36.8 109 20 138/82 (100) 95 Room Air 04/10/17 21:07 36.8 83 20 163/103 (123) 96 04/10/17 20:00 100 Room Air 04/10/17 16:00 Room Air 04/10/17 12:00 Room Air 04/10/17 10:50 36.7 87 18 127/87 (100) 100 Room Air Physical Exam General Appearance: no apparent distress, + pertinent finding (more conversive and less confused today) Respiratory/Chest: lungs clear, normal breath sounds, no respiratory distress Cardiovascular: regular rate, rhythm, no edema, no gallop, no murmur Abdomen: normal bowel sounds, non tender, soft, no organomegaly Extremities: non-tender, no pedal edema, no calf tenderness, + pertinent finding (absence of 3 right toes) Neurologic/Psychiatric: alert Assessment and Plan Assessment and Plan: Hospital day 5: Mr. Hernandez is a 51-year-old man with a history of alcohol dependence with recurrent withdrawal seizures, hypertension, and upper GI bleeding who presented to the ED 5 days ago with a seizure. His only complaints are headache and feeling frustrated for not being able to do what he wants to and having to ask for everything. I reassured pt that this is for his safety and that we will take this one day at a time. He was amenable to working with us toward the goal of being on his own without falls or seizures. WITHDRAWAL SEIZURE - Patient receiving Librium 75mg TID and Ativan PRN. Over the past 24 hours he has required 1 dose of 2mg Ativan and 3 doses of 1mg Ativan. Will monitor for benzodiazepine needs. - Seizure precautions in place including padding and one-on-one care. Pt reassured that these interventions are for his safety. MALNUTRITION SECONDARY TO ALCOHOLISM - LR + dextrose given - Thiamine and folic acid given GASTRITIS - Pt denies epigastric pain today - Continue pantoprazole HYPERTENSION - Continue Losartan and Hydralizine - Max systolic of 192, max diastolic of 117. Most recent BP is 121/74 which is improved from yesterday. DVT PROPHYLAXIS - DARSHAN Stockings - Lovenox - Pt continues to deny calf tenderness, calf swelling, CP, and SOB. No tachypnea.
--- NOTE | 2017-04-11 14:54 | Family Medicine Progress Note ---
Progress Note Date of Service Apr 11, 2017. Subjective Pt evaluation today including: conversation w/ patient, physical exam, chart review, lab review, review of studies Pain: No pain reported this morning Voiding: no voiding problems, no incontinence Patient is resting comfortably in bed this morning with no acute complaints overnight. The patient is asking when he can leave and I explained he is currently withdrawing from alcohol. Patient appears significantly more alert and oriented today but is still mildly confused and worse that his first day of admission prior to worsening withdrawal. The patient denies any fevers, chills, shakes, abdominal pain, shortness of breath, or any other acute complaints. Constitutional: No fever, No chills, No sweats, No fatigue Respiratory: No cough, No shortness of breath Cardiovascular: No chest pain, No palpitations Abdomen: No pain, No nausea, No vomiting Neurologic: No numbness/tingling Medications Current Inpatient Medications Medications (Trade) Dose Ordered Sig/Jr Route Start Time Stop Time Status Last Admin Dose Admin Acetaminophen (Tylenol Tab) 650 mg Q4H PRN PO 04/07/17 21:45 05/07/17 21:44 Al Hydrox/Mg Hydrox/Simethicone (Maalox Max Susp) 15 ml Q4H PRN PO 04/07/17 21:45 05/07/17 21:44 Magnesium Hydroxide (Milk Of Magnesia Susp) 30 ml Q12H PRN PO 04/07/17 21:45 05/07/17 21:44 Ondansetron HCl (Zofran Inj) 4 mg Q6H PRN IV 04/07/17 21:45 05/07/17 21:44 Polyethylene (Miralax Powder Packet) 17 gm DAILY PRN PO 04/07/17 21:45 05/07/17 21:44 Dextrose/Lactated Ringer's 1,000 ml @ 100 mls/hr Q10H IV 04/07/17 22:45 05/07/17 22:44 04/11/17 06:31 100 MLS/HR Thiamine HCl (Vitamin B-1 Tab) 100 mg QAM PO 04/08/17 09:00 05/08/17 08:59 04/11/17 08:11 100 MG Folic Acid (Folvite Tab) 1 mg QAM PO 04/08/17 09:00 05/08/17 08:59 04/11/17 08:11 1 MG Losartan Potassium (coZAAR TAB) 100 mg DAILY PO 04/08/17 09:00 05/08/17 08:59 04/11/17 08:11 100 MG Pantoprazole Sodium (Protonix Tab) 40 mg QAM PO 04/08/17 09:00 05/08/17 08:59 04/11/17 08:11 40 MG Lorazepam (Ativan Inj) PRN Dosing -Active Protocol Q1H PRN IV 04/09/17 05:00 05/09/17 04:59 Lorazepam 1 mg/ Syringe 1 ml @ 1 mls/min Q1H PRN IV 04/09/17 05:00 05/09/17 04:59 04/10/17 22:56 1 MLS/MIN Lorazepam 2 mg/ Syringe 1.5 ml @ 1 mls/min Q1H PRN IV 04/09/17 08:45 05/09/17 08:44 04/10/17 02:24 1 MLS/MIN Enoxaparin Sodium (Lovenox Inj) 40 mg QAM SQ 04/10/17 09:00 05/10/17 08:59 04/11/17 08:11 40 MG Lorazepam 3 mg/ Syringe 3 ml @ 1 mls/min Q1H PRN IV 04/09/17 19:45 05/09/17 19:44 04/09/17 20:03 1 MLS/MIN Hydralazine HCl (HydrALAZINE INJ) 10 mg Q4H PRN IV. 04/09/17 20:45 05/09/17 20:44 04/10/17 21:10 10 MG Chlordiazepoxide (Librium Cap) 75 mg TID PO 04/10/17 14:00 05/08/17 08:59 04/11/17 13:26 75 MG Objective Vital Signs Date Time Temp Pulse Resp B/P (MAP) Pulse Ox O2 Delivery O2 Flow Rate FiO2 04/11/17 12:30 Room Air 04/11/17 11:14 36.8 85 18 145/85 (105) 96 04/11/17 07:45 Room Air 04/11/17 07:06 37.0 105 18 121/74 (90) 98 Room Air 04/11/17 05:10 100 Room Air 11/29/17 03:10 36.7 94 16 154/80 (104) 96 Room Air 04/11/17 00:00 100 Room Air 04/10/17 23:44 36.6 109 20 127/68 (87) 96 Room Air 04/10/17 21:58 36.8 109 20 138/82 (100) 95 Room Air 04/10/17 21:07 36.8 83 20 163/103 (123) 96 04/10/17 20:00 100 Room Air 04/10/17 16:00 Room Air Physical Exam General Appearance: WD/WN, no apparent distress, + pertinent finding Eyes: normal inspection, sclerae normal Respiratory/Chest: chest non-tender, lungs clear, normal breath sounds Cardiovascular: regular rate, rhythm, no edema, no murmur Abdomen: normal bowel sounds, non tender, soft Neurologic/Psychiatric: no motor/sensory deficits, alert, oriented x 3 Assessment and Plan Patient is a 51-year-old male that presents with a prolonged seizure secondary to alcohol withdrawal 1) Seizures secondary to alcoholic withdrawal - Patient appears to be improving although still mildly confused - Stated his name, it was 2016, and that we were either at [facility] or [facility] --> Still not at his level of competency on exam on admission (Fully alert and oriented) - Continues to be confused and disoriented despite Librium and Ativan --> Increase Librium once again to 75mg TID - Yesterday patient required significantly more Ativan over the last 24 hours so increased Librium to 50mg TID - Last AWSS scores: 6,3,6,4 today vs yesterday 9,8,7,9,6 - Seizure precautions in place including bed padding - Alcohol withdrawal protocol in place --> Librium 75mg TID, PRN Ativan according to withdrawal protocol - Can continue to increase Librium if Ativan requirements continue to increase - Patient passed bedside dysphagia screen--> regular diet ordered - Dextrose with lactated ringers 100mls/hr 2) Malnutrition secondary to chronic alcoholism - Thiamine 100mg qAM - Folic acid 1mg qAM 3) Hypertension - Continue home Losartan 100mg PO Daily - Hydralazine 10mg PRN for SBP > 160 DBP > 110 4) Disposition - Patient stated prior to current confusion that he would like to attend rehab once again - Case management will discuss options with patient 5) DVT Prophylaxis - Lovenox 6) Code Status - Full Resuscitation Resident Physician Supervision Note: I interviewed and examined the patient. Discussed with Dr. Powell and agree with findings and plan as documented in the note. Any exceptions or clarifications are listed here: None Documented By: Issa Boyer asleep when i see him, d/w dr powell and he's doing better today less delirious , later seen up and awake in bed eating vitals noted nad breathing unlabored no r/r/w good effort cardio reg no r/m/g DTs - improving - continue current care but art can start to wean benzos as he continues to improve EtOH abuse - thiamine, folate, hopefully he'll opt for rehab otherwise as above
[2017-04-12] MEDS: D5W AND LACTATED RINGERS 1,000 ML IV SCH ×3 (02:45→23:00)
[2017-04-12 04:16] VITALS: BP 119/50; PULSE 81; TEMP 36.2; O2SAT 93
[2017-04-12 08:00] VITALS: O2SAT 98
[2017-04-12 08:25] VITALS: BP 160/91; PULSE 80; TEMP 36.9; O2SAT 98
[2017-04-12] MEDS: PANTOprazole SOD 40 MG TAB PO SCH (08:32)
[2017-04-12] MEDS: THIAMINE HCL 100 MG TAB PO SCH (08:32)
[2017-04-12] MEDS: LOSARTAN POTASSIUM 50 MG TAB PO SCH (08:34)
[2017-04-12] MEDS: ENOXAPARIN 40 MG/0.4 ML SYR SQ SCH (08:35)
[2017-04-12] MEDS: CHLORDIAZEPOXIDE 25 MG CAP PO SCH ×3 (08:46→20:37)
--- NOTE | 2017-04-12 13:30 | Medical Student: [facility] ---
Med Student Progress Note Date of Service Apr 12, 2017. Subjective Pt evaluation today including: conversation w/ patient, physical exam Pain: None PO Intake: Adequate Voiding: no voiding problems Hospital day 6: Mr. Hernandez is a 51-year-old man with a history of alcohol dependence with recurrent withdrawal seizures, hypertension, and upper GI bleeding who presented to the ED 6 days ago with a seizure secondary to alcohol withdrawal. He reports feeling "wonderful" with more energy today. He has no medical complaints. The majority of the interview today consisted of gauging patient motivation for rehab. He says his drinking might be a coping mechanism to "cover" the problems in his life. He lives with his mother but hides the drinking from her. He lacks social support from his son, ex-fiance, and brother. He is willing to try rehabilitation again as long as it is not at [facility] in [place], [place]. Review of Systems Constitutional: No fever, No chills Respiratory: No shortness of breath Cardiac: No chest pain, No edema Abdomen: No pain, No nausea, No vomiting, No diarrhea, No constipation Male : No dysuria Objective Vital Signs Date Time Temp Pulse Resp B/P (MAP) Pulse Ox O2 Delivery O2 Flow Rate FiO2 04/12/17 08:25 36.9 80 18 160/91 (114) 98 Room Air 04/12/17 08:00 98 Room Air 04/12/17 04:16 36.2 81 20 119/50 (73) 93 Room Air 04/12/17 00:00 Room Air 04/11/17 23:24 37.1 91 20 147/83 (104) 97 Room Air 04/11/17 19:41 37.0 80 18 152/89 (110) 97 Room Air 04/11/17 16:00 Room Air Physical Exam General Appearance: no apparent distress (Patient is sitting up in bed eating breakfast. Cooperative with interview. Faster to respond to questions than yesterday and is more coherent. Atremulous. ) ENT: TMs normal, pharynx normal Respiratory/Chest: lungs clear, normal breath sounds, no respiratory distress Cardiovascular: regular rate, rhythm, no edema, no gallop, no murmur Abdomen: normal bowel sounds, non tender, soft Extremities: normal inspection, no pedal edema, no calf tenderness Neurologic/Psychiatric: alert, normal mood/affect Assessment and Plan Assessment and Plan: Hospital day 6: Mr. Hernandez is a 51-year-old man with a history of alcohol dependence with recurrent withdrawal seizures, hypertension, and upper GI bleeding who presented to the ED 6 days ago with a seizure secondary to alcohol withdrawal. Today he is conversive and quick to respond which is improvement from yesterday. He also appears less sedated and tremulous. He reports feeling "wonderful." WITHDRAWAL SEIZURE - Patient has been receiving Librium 75mg TID and Ativan PRN. Pt is requiring less Ativan PRN over the course of his stay, not requiring any over the past 24 hours. With this progression we will start to taper the Librium by dosing 50mg TID. Pt informed to monitor for anxiety, tremor, sweating, or any other symptom that might indicate increased benzodiazepine needs. - Patient continues to have padding in his room for seizure precautions but is now not requiring one-on-one care. PLACEMENT - We had a long discussion with the patient and he is amenable to going to rehab after discharge. He was instructed that this must be orchestrated by him and that he should call the facilities by 5PM today. MALNUTRITION SECONDARY TO ALCOHOLISM - Continue LR + dextrose - Continue Thiamine and folic acid GASTRITIS - Pt denies epigastric pain today - Continue pantoprazole HYPERTENSION - Continue Losartan - Administer hydralazine if SBP>160 or DBP>100. DVT PROPHYLAXIS - DARSHAN Stockings - Lovenox - Pt continues to deny calf tenderness, calf swelling, CP, and SOB. No tachypnea.
--- NOTE | 2017-04-12 15:06 | Family Medicine Progress Note ---
Progress Note Date of Service Apr 12, 2017. Subjective Pt evaluation today including: conversation w/ patient, physical exam, chart review, lab review, review of studies Pain: No pain reported this morning Voiding: no voiding problems, no incontinence Patient is resting comfortably in bed this morning with no acute complaints overnight. Patient appears to be more coherent today and is agreeable to calling a rehabilitation facility and attend rehab after discharge for alcoholism. Constitutional: + problem reported (Denies tremor, agitation, or hallucinations), No fever, No chills, No sweats, No fatigue Respiratory: No cough, No sputum, No wheezing, No shortness of breath Cardiovascular: No chest pain, No palpitations Abdomen: No pain, No nausea, No vomiting, No diarrhea, No constipation Neurologic: No weakness, No numbness/tingling Medications Current Inpatient Medications Medications (Trade) Dose Ordered Sig/Jr Route Start Time Stop Time Status Last Admin Dose Admin Acetaminophen (Tylenol Tab) 650 mg Q4H PRN PO 04/07/17 21:45 05/07/17 21:44 04/11/17 23:47 650 MG Al Hydrox/Mg Hydrox/Simethicone (Maalox Max Susp) 15 ml Q4H PRN PO 04/07/17 21:45 05/07/17 21:44 Magnesium Hydroxide (Milk Of Magnesia Susp) 30 ml Q12H PRN PO 04/07/17 21:45 05/07/17 21:44 Ondansetron HCl (Zofran Inj) 4 mg Q6H PRN IV 04/07/17 21:45 05/07/17 21:44 Polyethylene (Miralax Powder Packet) 17 gm DAILY PRN PO 04/07/17 21:45 05/07/17 21:44 Dextrose/Lactated Ringer's 1,000 ml @ 100 mls/hr Q10H IV 04/07/17 22:45 05/07/17 22:44 04/12/17 12:54 100 MLS/HR Thiamine HCl (Vitamin B-1 Tab) 100 mg QAM PO 04/08/17 09:00 05/08/17 08:59 04/12/17 08:32 100 MG Folic Acid (Folvite Tab) 1 mg QAM PO 04/08/17 09:00 05/08/17 08:59 04/12/17 08:32 1 MG Losartan Potassium (coZAAR TAB) 100 mg DAILY PO 04/08/17 09:00 05/08/17 08:59 04/12/17 08:34 100 MG Pantoprazole Sodium (Protonix Tab) 40 mg QAM PO 04/08/17 09:00 05/08/17 08:59 04/12/17 08:32 40 MG Lorazepam (Ativan Inj) PRN Dosing -Active Protocol Q1H PRN IV 04/09/17 05:00 05/09/17 04:59 Lorazepam 1 mg/ Syringe 1 ml @ 1 mls/min Q1H PRN IV 04/09/17 05:00 05/09/17 04:59 04/10/17 22:56 1 MLS/MIN Lorazepam 2 mg/ Syringe 1.5 ml @ 1 mls/min Q1H PRN IV 04/09/17 08:45 05/09/17 08:44 04/10/17 02:24 1 MLS/MIN Enoxaparin Sodium (Lovenox Inj) 40 mg QAM SQ 04/10/17 09:00 05/10/17 08:59 04/12/17 08:35 40 MG Lorazepam 3 mg/ Syringe 3 ml @ 1 mls/min Q1H PRN IV 04/09/17 19:45 05/09/17 19:44 04/09/17 20:03 1 MLS/MIN Hydralazine HCl (HydrALAZINE INJ) 10 mg Q4H PRN IV. 04/09/17 20:45 05/09/17 20:44 04/10/17 21:10 10 MG Chlordiazepoxide (Librium Cap) 75 mg TID PO 04/10/17 14:00 05/08/17 08:59 04/12/17 14:27 75 MG Objective Vital Signs Date Time Temp Pulse Resp B/P (MAP) Pulse Ox O2 Delivery O2 Flow Rate FiO2 04/12/17 08:25 36.9 80 18 160/91 (114) 98 Room Air 04/12/17 08:00 98 Room Air 04/12/17 04:16 36.2 81 20 119/50 (73) 93 Room Air 04/12/17 00:00 Room Air 04/11/17 23:24 37.1 91 20 147/83 (104) 97 Room Air 04/11/17 19:41 37.0 80 18 152/89 (110) 97 Room Air 04/11/17 16:00 Room Air Physical Exam General Appearance: WD/WN, no apparent distress Eyes: normal inspection, sclerae normal Neck: supple, no carotid bruits Respiratory/Chest: chest non-tender, lungs clear, normal breath sounds Cardiovascular: regular rate, rhythm, no edema, no gallop Abdomen: normal bowel sounds, non tender, soft Neurologic/Psychiatric: alert, normal mood/affect, oriented x 3, + pertinent finding (More coherent today but still responds to some questions innapropriately) Assessment and Plan Patient is a 51-year-old male that presents with a prolonged seizure secondary to alcohol withdrawal 1) Seizures secondary to alcoholic withdrawal - Patient responding more coherently today although still answering some questions inappropriately - At this time withdrawal symptoms have minimized with recent AWSS scores of 6,3 ,6,4 - At this time will begin tapering down Librium to 50mg TID (previous dose of 75mg TID - No Ativan requirement over last 24 hours - Seizure precautions in place including bed padding - Alcohol withdrawal protocol in place --> Librium 50mg TID, PRN Ativan according to withdrawal protocol - Regular diet - Dextrose with lactated ringers 100mls/hr 2) Malnutrition secondary to chronic alcoholism - Thiamine 100mg qAM - Folic acid 1mg qAM 3) Hypertension - Continue home Losartan 100mg PO Daily - Hydralazine 10mg PRN for SBP > 160 DBP > 110 4) Disposition - Case management evaluating rehab options - Patient will call facilities this afternoon to arrange bed 5) DVT Prophylaxis - Lovenox 6) Code Status - Full Resuscitation Resident Physician Supervision Note: I interviewed and examined the patient. Discussed with Dr. Powell and agree with findings and plan as documented in the note. Any exceptions or clarifications are listed here: None Documented By: Issa Rosalind feeling better oriented last few days were a blur encouraged to call for rehabs - discussed that we can't do it for him, and that i can't promise direct transition from hospital to rehab, but that if he works on arranging things now i can have better hopes at making things work for him. EtOH abuse and withdrawal, DTs - improving. for rehab placement. Resident Tracking Resident Involvement: Resident Care Provided Care Provided: Adult Hospital Medicine
[2017-04-12 15:27] VITALS: BP 144/83; PULSE 103; TEMP 36.7; O2SAT 97
[2017-04-13] VITALS (7 sets, daily range): BP systolic 150–180; BP diastolic 87–105; PULSE 76–92; TEMP 36.7–37.1; O2SAT 95–97
[2017-04-13] MEDS: HydrALAZINE HCL 20 MG/ML VIAL IV. PRN ×3 (00:17→16:37)
[2017-04-13] MEDS: ENOXAPARIN 40 MG/0.4 ML SYR SQ SCH (07:44)
[2017-04-13] MEDS: CHLORDIAZEPOXIDE 25 MG CAP PO SCH ×3 (07:44→20:37)
[2017-04-13] MEDS: LOSARTAN POTASSIUM 50 MG TAB PO SCH (07:45)
[2017-04-13] MEDS: THIAMINE HCL 100 MG TAB PO SCH (07:45)
[2017-04-13] MEDS: PANTOprazole SOD 40 MG TAB PO SCH (07:45)
--- NOTE | 2017-04-13 07:56 | Medical Student: [facility] ---
Med Student Progress Note Date of Service Apr 13, 2017. Subjective Pt evaluation today including: conversation w/ patient, physical exam Pain: None PO Intake: Adequate Voiding: no voiding problems Hospital day 7: Mr. Hernandez is a 51-year-old man with a history of alcohol dependence with recurrent withdrawal seizures, hypertension, and upper GI bleeding who presented to the ED 7 days ago with a seizure secondary to alcohol withdrawal. Today he reports feeling "great." He continues to deny tremor, anxiety, or sweating. We discussed his need for rehabilitation and he is still amenable. He says that he didn't call rehab facilities yesterday because he doesn't have his cell phone here and no one taught him how to use the hospital phone. We looked at the list together and tried making some calls with no answer. Review of Systems Constitutional: No fever, No chills Respiratory: No shortness of breath Cardiac: No chest pain Abdomen: No pain, No nausea, No diarrhea, No constipation Male : No dysuria Psychiatric: No anxiety Objective Vital Signs Date Time Temp Pulse Resp B/P (MAP) Pulse Ox O2 Delivery O2 Flow Rate FiO2 04/13/17 05:45 159/97 (117) 04/13/17 04:00 36.7 79 16 175/94 (121) 96 04/13/17 01:30 150/93 (112) 04/13/17 00:37 36.7 76 19 180/100 (126) 95 Room Air 04/13/17 00:00 36.8 77 18 160/97 (118) 96 Room Air 04/13/17 00:00 Room Air 04/12/17 16:00 Room Air 04/12/17 15:27 36.7 103 20 144/83 (103) 97 Room Air 04/12/17 08:25 36.9 80 18 160/91 (114) 98 Room Air 04/12/17 08:00 98 Room Air Physical Exam General Appearance: no apparent distress (cooperative, conversive) Respiratory/Chest: lungs clear, normal breath sounds Cardiovascular: regular rate, rhythm, no edema, no gallop, no murmur Abdomen: normal bowel sounds, non tender Extremities: non-tender, no pedal edema Assessment and Plan Assessment and Plan: Hospital day 7: Mr. Hernandez is a 51-year-old man with a history of alcohol dependence with recurrent withdrawal seizures, hypertension, and upper GI bleeding who presented to the ED 7 days ago with a seizure secondary to alcohol withdrawal. Today he continues to be feel well without signs of withdrawal. WITHDRAWAL SEIZURE - Patient has been receiving Librium 75mg TID and Ativan PRN. Pt is requiring less Ativan PRN over the course of his stay, not requiring any over the past 48 hours. With this progression we started to taper the Librium by dosing 50mg TID today. Pt informed to monitor for anxiety, tremor, sweating, or any other symptom that might indicate increased benzodiazepine needs. - Patient continues to have padding in his room for seizure precautions but is now not requiring one-on-one care. PLACEMENT - From talking with pt today, we learned he was unable to reach the facilities because he doesn't have his cell phone and no one showed him how to use the hospital phone. We tried calling early this AM with no answers. He says he will try calling again as the day progresses. MALNUTRITION SECONDARY TO ALCOHOLISM - Continue LR + dextrose - Continue Thiamine and folic acid GASTRITIS - Pt denies epigastric pain today - Continue pantoprazole HYPERTENSION - Continue Losartan - Administer hydralazine if SBP>160 or DBP>100. DVT PROPHYLAXIS - DARSHAN Stockings - Lovenox - Pt continues to deny calf tenderness, calf swelling, CP, and SOB. No tachypnea.
[2017-04-13] MEDS: D5W AND LACTATED RINGERS 1,000 ML IV SCH ×2 (08:52→17:37)
--- NOTE | 2017-04-13 14:39 | Family Medicine Progress Note ---
Progress Note Date of Service Apr 13, 2017. Subjective Pt evaluation today including: conversation w/ patient, physical exam, chart review, lab review, review of studies Pain: No pain reported this morning Voiding: no voiding problems, no incontinence Patient resting comfortably in bed this morning with no acute complaints. Oriented to place, person, and state the year was [id number]. He is agreeable to begin calling rehab centers and attempted to make calls earlier. Constitutional: No fever, No chills, No fatigue Respiratory: No cough, No sputum, No wheezing, No shortness of breath Cardiovascular: No chest pain, No palpitations Abdomen: No pain, No nausea, No vomiting, No diarrhea, No constipation Medications Current Inpatient Medications Medications (Trade) Dose Ordered Sig/Jr Route Start Time Stop Time Status Last Admin Dose Admin Acetaminophen (Tylenol Tab) 650 mg Q4H PRN PO 04/07/17 21:45 05/07/17 21:44 04/11/17 23:47 650 MG Al Hydrox/Mg Hydrox/Simethicone (Maalox Max Susp) 15 ml Q4H PRN PO 04/07/17 21:45 05/07/17 21:44 Magnesium Hydroxide (Milk Of Magnesia Susp) 30 ml Q12H PRN PO 04/07/17 21:45 05/07/17 21:44 Ondansetron HCl (Zofran Inj) 4 mg Q6H PRN IV 04/07/17 21:45 05/07/17 21:44 Polyethylene (Miralax Powder Packet) 17 gm DAILY PRN PO 04/07/17 21:45 05/07/17 21:44 Dextrose/Lactated Ringer's 1,000 ml @ 100 mls/hr Q10H IV 04/07/17 22:45 05/07/17 22:44 04/13/17 08:52 100 MLS/HR Thiamine HCl (Vitamin B-1 Tab) 100 mg QAM PO 04/08/17 09:00 05/08/17 08:59 04/13/17 07:45 100 MG Folic Acid (Folvite Tab) 1 mg QAM PO 04/08/17 09:00 05/08/17 08:59 04/13/17 07:45 1 MG Losartan Potassium (coZAAR TAB) 100 mg DAILY PO 04/08/17 09:00 05/08/17 08:59 04/13/17 07:45 100 MG Pantoprazole Sodium (Protonix Tab) 40 mg QAM PO 04/08/17 09:00 05/08/17 08:59 04/13/17 07:45 40 MG Lorazepam (Ativan Inj) PRN Dosing -Active Protocol Q1H PRN IV 04/09/17 05:00 05/09/17 04:59 Lorazepam 1 mg/ Syringe 1 ml @ 1 mls/min Q1H PRN IV 04/09/17 05:00 05/09/17 04:59 04/10/17 22:56 1 MLS/MIN Lorazepam 2 mg/ Syringe 1.5 ml @ 1 mls/min Q1H PRN IV 04/09/17 08:45 05/09/17 08:44 04/10/17 02:24 1 MLS/MIN Enoxaparin Sodium (Lovenox Inj) 40 mg QAM SQ 04/10/17 09:00 05/10/17 08:59 04/13/17 07:44 40 MG Lorazepam 3 mg/ Syringe 3 ml @ 1 mls/min Q1H PRN IV 04/09/17 19:45 05/09/17 19:44 04/09/17 20:03 1 MLS/MIN Hydralazine HCl (HydrALAZINE INJ) 10 mg Q4H PRN IV. 04/09/17 20:45 05/09/17 20:44 04/13/17 05:10 10 MG Chlordiazepoxide (Librium Cap) 50 mg TID PO 04/12/17 21:00 05/08/17 08:59 04/13/17 14:15 50 MG Objective Vital Signs Date Time Temp Pulse Resp B/P (MAP) Pulse Ox O2 Delivery O2 Flow Rate FiO2 04/13/17 08:00 Room Air 04/13/17 05:45 159/97 (117) 04/13/17 04:00 36.7 79 16 175/94 (121) 96 04/13/17 01:30 150/93 (112) 04/13/17 00:37 36.7 76 19 180/100 (126) 95 Room Air 04/13/17 00:00 36.8 77 18 160/97 (118) 96 Room Air 04/13/17 00:00 Room Air 04/12/17 16:00 Room Air 04/12/17 15:27 36.7 103 20 144/83 103 97 Room Air Physical Exam General Appearance: WD/WN, no apparent distress Eyes: normal inspection, sclerae normal Respiratory/Chest: chest non-tender, lungs clear, normal breath sounds Cardiovascular: regular rate, rhythm, no edema, no gallop Abdomen: normal bowel sounds, non tender, soft Extremities: non-tender, no pedal edema, no calf tenderness Neurologic/Psychiatric: alert, + pertinent finding (slow speech with mild confusion, improved attention and speech from yesterday) Assessment and Plan Patient is a 51-year-old male that presents with a prolonged seizure secondary to alcohol withdrawal 1) Seizures secondary to alcoholic withdrawal - Patient continuing to improve from withdrawal, making calls to rehabilitation centers to attend on dischae - AWSS score this morning of 1 - Librium to 50mg TID (previously reached maximum dose of 75mg TID) - No Ativan requirement over last 24 hours - Seizure precautions in place including bed padding - Alcohol withdrawal protocol in place --> Librium 50mg TID, PRN Ativan according to withdrawal protocol - Regular diet - Dextrose with lactated ringers 100mls/hr 2) Malnutrition secondary to chronic alcoholism - Thiamine 100mg qAM - Folic acid 1mg qAM 3) Hypertension - Continue home Losartan 100mg PO Daily - Hydralazine 10mg PRN for SBP > 160 DBP > 110 4) Disposition - Provided with list of rehab option, mother has discussed and selected preferred locations - Patient will call facilities this afternoon to arrange bed 5) DVT Prophylaxis - Lovenox 6) Code Status - Full Resuscitation Resident Physician Supervision Note: I interviewed and examined the patient. Discussed with Dr. Powell and agree with findings and plan as documented in the note. Any exceptions or clarifications are listed here: None Documented By: Issa Boyer feeling better, is calling rehabs. by the end of the day he apparently had changed his mind and is going to do outpatient rehab. d/w mother - she is willing ot take him home again "because no one else wants him" but does describe a rather difficult home situation where he will defecate on the floor, bang head into avendaño, and be verbally abusive vitals noted nad breathing unlabored EtOH withdrawal / DTs - improved EtOH abuse - thimaine, folate, will be outpt rehab dispo - probably home in 24-48hrs Resident Tracking Resident Involvement: Resident Care Provided Care Provided: Adult Hospital Medicine
[2017-04-14 00:20] VITALS: BP 168/86; PULSE 85; TEMP 36.9; O2SAT 95
[2017-04-14] MEDS: D5W AND LACTATED RINGERS 1,000 ML IV SCH (05:48)
--- NOTE | 2017-04-14 07:30 | Family Medicine Progress Note ---
Progress Note Date of Service Apr 14, 2017. Subjective Pt evaluation today including: conversation w/ patient, physical exam, chart review, lab review, review of studies, conversation w/ sap pp consultant, review of inpatient medication list Patient well. Denies acute health issues overnight. Oriented to person and place , and states date as Mar 28, 2027. Denies tremors or hallucinations. No fevers, headaches, vision changes, CP, SOB, abdo pain, N/V, leg swelling, rash. He is tolerating diet. No issues with urination or bowel movements. He has no questions with regards to management. As per discussion with patient's mom, she is willing to take him home, if he is medically safe to be home ROS unremarkable except as noted above. Objective Vital Signs Date Time Temp Pulse Resp B/P (MAP) Pulse Ox O2 Delivery O2 Flow Rate FiO2 04/14/17 00:44 Room Air 04/14/17 00:20 36.9 85 19 168/86 (113) 95 Room Air 04/13/17 19:52 Room Air 04/13/17 18:35 150/87 (108) 04/13/17 16:23 Room Air 04/13/17 15:28 37.1 92 18 179/105 (129) 97 04/13/17 08:00 Room Air Physical Exam General Appearance: WD/WN, no apparent distress Eyes: normal inspection ENT: hearing grossly normal Neck: supple, no adenopathy Respiratory/Chest: lungs clear, normal breath sounds, no respiratory distress, no accessory muscle use Cardiovascular: regular rate, rhythm, no murmur Abdomen: normal bowel sounds, non tender, soft Extremities: normal inspection, no pedal edema, no calf tenderness Neurologic/Psychiatric: alert, normal mood/affect, + disoriented (seems improved compared to yesterday) Skin: normal color, warm/dry, no rash Assessment and Plan 51 year old male that presents with a prolonged seizure secondary to alcohol withdrawal Seizures secondary to alcoholic withdrawal Patient placed on alcohol withdrawal protocol and seizure precautions. Patient continuing to improve from withdrawal, made calls to rehabilitation centers to attend on discharge, but subsequently decided on outpatient rehab - Librium to 50mg TID (down from maximum dose of 75mg TID), with no further Ativan requirement over last 24 hours - Plans to d/c Librium on discharge, given likely through withdrawal phase - Patient states he has an appt scheduled for next week at [facility] outpatient Malnutrition secondary to chronic alcoholism - Thiamine 100mg qAM - Folic acid 1mg qAM Hypertension - Continue losartan 100mg PO Daily - Hydralazine 10mg PRN for SBP>160 or DBP>110 VTE Prophylaxis - Lovenox Code Status - Full Resuscitation Resident Physician Supervision Note: I interviewed and examined the patient. Discussed with Dr. Barraza and agree with findings and plan as documented in the note. Any exceptions or clarifications are listed here: None Documented By: Issa Boyer feeling ok plan is home w mom tomorrow and outpt rehab. asked social science teacher to look into [facility] for mom's benefit - see yesterday's conversation vitals noted nad breathing unlabored no pallor or icterus EtOH abuse/withdrawal/DTs - improving. home w outpt rehab as above. continue thiamine/folate indefinitely. librium will auto-taper at discharge due to long half life. anticipate home tomorrow Continued [facility] stay due to: other Discharge planning: home Resident Tracking Resident Involvement: Resident Care Provided Care Provided: Adult Hospital Medicine
[2017-04-14] MEDS: LOSARTAN POTASSIUM 50 MG TAB PO SCH (07:54)
[2017-04-14] MEDS: THIAMINE HCL 100 MG TAB PO SCH (07:54)
[2017-04-14] MEDS: PANTOprazole SOD 40 MG TAB PO SCH (07:54)
[2017-04-14] MEDS: CHLORDIAZEPOXIDE 25 MG CAP PO SCH ×3 (07:54→20:55)
[2017-04-14] MEDS: ENOXAPARIN 40 MG/0.4 ML SYR SQ SCH (07:56)
[2017-04-14 08:18] VITALS: BP 179/97; PULSE 87; TEMP 37.2; O2SAT 93
[2017-04-14 15:57] VITALS: BP 165/92; PULSE 84; TEMP 37.3; O2SAT 96
[2017-04-14 22:55] VITALS: BP_SYST 178; BP_SYST 180; BP_DIAS 91; BP_DIAS 97; PULSE 91; TEMP 36.9; O2SAT 93
[2017-04-14] MEDS: HydrALAZINE HCL 20 MG/ML VIAL IV. PRN (23:01)
[2017-04-15 01:32] VITALS: BP 154/88
[2017-04-15 07:48] VITALS: BP 172/95; PULSE 92; TEMP 37.1; O2SAT 93
[2017-04-15] MEDS: LOSARTAN POTASSIUM 50 MG TAB PO SCH (08:07)
[2017-04-15] MEDS: THIAMINE HCL 100 MG TAB PO SCH (08:08)
[2017-04-15] MEDS: CHLORDIAZEPOXIDE 25 MG CAP PO SCH (08:08)
[2017-04-15] MEDS: PANTOprazole SOD 40 MG TAB PO SCH (08:08)
[2017-04-15] MEDS: ENOXAPARIN 40 MG/0.4 ML SYR SQ SCH (08:09)
[2017-04-15] MEDS ORDERED: FLV1 PO (09:32)
[2017-04-15] MEDS ORDERED: METO25TA3 PO (09:36)
--- NOTE | 2017-04-15 09:55 | Discharge Instructions ---
Discharge Instructions Date of Service Apr 15, 2017. Admission Reason for Admission: Alcohol Abuse, Alcohol Withdrawal Seizure Discharge Discharge Diagnosis / Problem: Seizure secondary to alcohol withdrawl Discharge Goals Goal(s): Decrease discomfort, Increase independence, Diagnostic testing, Therapeutic intervention Activity Recommendations Activity Limitations: resume your previous activity . Instructions / Follow-Up Instructions / Follow-Up You were admitted with seizures secondary to alcohol withdrawal During your hospital admission, you were treated for these and are no longer in withdrawal On discharge, please attend all of your outpatient rehab appointments at [facility]. You are advised the following: DO NOT CONSUME ANY ALCOHOL EVER. Support groups are available if you find you are having cravings or finding it difficult to avoid alcohol. Also, please take your thiamine and folic acid vitamin tablets every day. Upon discharge, please continue your home medication. For blood pressure, in addition to losartan, please take the metoprolol tablet every day. Please follow up with your family doctor in 1 week. Thank you for allowing us to participate in your care Current Hospital Diet Patient's current hospital diet: Regular Diet Discharge Diet Recommended Diet: Regular Diet Pending Studies Studies pending at discharge: no Medical Emergencies . Who to Call and When: Medical Emergencies: If at any time you feel your situation is an emergency, please call 911 immediately. . Non-Emergent Contact Non-Emergency issues call your: Primary Care Provider . . "Provider Documentation" section prepared by Annmarie Barraza. . VTE Core Measure Inpt VTE Proph given/why not?: SCD's Resident Tracking Resident Involvement: Resident Care Provided Care Provided: Adult Hospital Medicine
--- NOTE | 2017-04-15 09:57 | Discharge Summary ---
Discharge Summary Date of Service Apr 15, 2017. Discharge Summary Admission Date: Apr 07, 2017 at 21:38 Discharge Date: Apr 15, 2017 Discharge Disposition: Home Principal Diagnosis: Seizure secondary to alcohol withdrawal Immunizations: Have You Had Influenza Vaccine: Yes Influenza Vaccine Date: Apr 11, 2012 History of Tetanus Vaccine?: Yes Tetanus Immunization Date: Nov 04, 2001 History of Pneumococcal: No History of Hepatitis B Vaccine: No Medication Reconciliation New Medications: Metoprolol Succ (Toprol Xl) (Toprol-Xl) 25 Mg Tabcr 25 MG PO DAILY, #30 TAB 2 Refills Folic Acid (Folic Acid) 1 Mg Tab 1 MG PO QAM, #30 TAB 3 Refills Continued Medications: Losartan Potassium (Cozaar) 100 Mg Tab 100 MG PO DAILY, TAB Omeprazole (Prilosec) 20 Mg Capcr 20 MG PO DAILY, CAP Thiamine Hcl (Vitamin B-1) 100 Mg Tab 100 MG PO DAILY, TAB Discharge Exam Patient well. Denies acute health issues overnight. Oriented to person and place but not time, stating date as Mar 1917, although he was able to accurately recall the current president. Denies tremors or hallucinations. No fevers, headaches, vision changes, CP, SOB, abdo pain, N/V, leg swelling, rash. He is tolerating diet. No issues with urination or bowel movements. Admits to needing a walker to ambulate. Home management discussed with patient and questions answered to his satisfaction. ROS unremarkable except as noted above. Physical Exam: General Appearance: WD/WN, no apparent distress Eyes: normal inspection ENT: hearing grossly normal Neck: supple, no adenopathy Respiratory/Chest: lungs clear, normal breath sounds, no respiratory distress, no accessory muscle use Cardiovascular: regular rate, rhythm, no edema, no murmur, normal peripheral pulses Abdomen / GI: normal bowel sounds, non tender, soft Neurologic/Psychiatric: alert, normal mood/affect, + disoriented, + pertinent finding (Speaking slowly) Skin: normal color, warm/dry, no rash Hospital Course 51 year old male that presents with a prolonged seizure secondary to alcohol withdrawal Seizures secondary to alcoholic withdrawal Patient placed on alcohol withdrawal protocol and seizure precautions. Patient continued to improve from withdrawal, made calls to rehabilitation centers to attend on discharge, but subsequently decided on outpatient rehab. In hospital dose Librium 50mg TID (down from maximum dose of 75mg TID), with no further Ativan requirements over last several days. Discontinued Librium on discharge, given likely through withdrawal phase. Additionally long half life of Librium, and prolonged course while in hospital will mean the benzo will likely auto- taper - Outpatient rehab appt scheduled for next week at [facility] - encouraged patient to attend - Advised NEVER to consume alcohol again - Also suggested to go support groups if having difficulty abstaining/ongoing cravings Malnutrition secondary to chronic alcoholism - Continue Thiamine 100mg and folic acid 1mg daily Hypertension - Continue losartan 100mg PO daily - Start metoprolol succinate 25mg daily - Advised to follow up with PCP in 1-2 weeks to recheck BP VTE Prophylaxis - Lovenox Code Status - Full Resuscitation Resident Physician Supervision Note: I interviewed and examined the patient. Discussed with Dr. Barraza and agree with findings and plan as documented in the note. Any exceptions or clarifications are listed here: None Documented By: Issa Boyer feeling oK to go home. no new complaints. implored to never drink again. vitals noted nad breathing unlabored EtOH abuse/withdrawal/DTs - home as above. thiamine, folate. librium will autotaper. [facility]. no EtOH at home Total Time Spent: Less than 30 minutes This includes examination of the patient, discharge planning, medication reconciliation, and communication with other providers. Discharge Instructions Please refer to the electronic Patient Visit Report (Discharge Instructions) for additional information. Additional Copies To Ashish Alvarez M.D. Resident Tracking Resident Involvement: Resident Care Provided Care Provided: Adult Hospital Medicine
[2017-04-15 10:47] VITALS: BP 172/95; PULSE 92; TEMP 37.1; O2SAT 93
--- NOTE | 2017-04-17 12:46 | EDITING REQUIRED CODING QUERY ---
MALNUTRITION To promote full compliance with coding requirements relating to patient care, physician participation is requested in all cases of spike driver uncertainty. Please assist us with the question(s) below: Please place an X within the parenthesis (x). If other, please document: "Malnutrition" is documented in this record. If possible, please check the box that provides a more specific diagnosis: (x ) Mild malnutrition ( ) Moderate malnutrition ( ) Severe malnutrition ( ) Protein malnutrition (kwashiorkor) ( ) Severe protein calorie malnutrition ( ) Protein calorie malnutrition, unspecified ( ) Other (please specify): Was this diagnosis present on admission? Please place an X within the parenthesis (x). ( x) Present on admission ( ) Not present on admission ( ) Unable to be clinically determined Thank you Jana Ballard
== END 2017-04-15 11:35 | disposition home or self-care (01) | DRG 897 ==
LOC: EDBD 18:55 → C.EDA 18:56 → C.MED 21:38 → ENRESERV 21:51
PROVIDERS: ADMIT Internal Medicine; ATTEND Family Medicine
DX: F10.231 Alcohol dependence with withdrawal delirium (principal); G40.89 Other seizures; E44.1 Mild protein-calorie malnutrition; S01.80XA Unspecified open wound of other part of head, initial encounter; I10 Essential (primary) hypertension; Z51.81 Encounter for therapeutic drug level monitoring; Z79.899 Other long term (current) drug therapy; Z91.81 History of falling; Z82.49 Family history of ischemic heart disease and other diseases of the circulatory system; Z83.3 Family history of diabetes mellitus; Z82.3 Family history of stroke; Z84.89 Family history of other specified conditions; W18.39XA Other fall on same level, initial encounter; Y92.009 Unspecified place in unspecified non-institutional (private) residence as the place of occurrence of the external cause; Y99.8 Other external cause status

== ENCOUNTER → 2017-04-17 | Outpatient (CLI) | payer OTHER ==
[~2017-04-17] MED LIST changes: -CZR25 PO; +FLV1 PO; +LOSA100T65 PO; +METO25TA3 PO; -MULT-506 PO; -NZRCR EXT; -PANT1TAB3 PO
[2017-04-17 17:32] LABS: BASO % 1.2 %; BASO ABS # 0.08 K/uL (0-0.2); COMPLETE YES; EOS % 4.5 %; HEMATOCRIT 30.2 % (42-52); IG% 0.1 %; LYMPH % 16.6 %; LYMPH ABS # 1.11 K/uL (1.2-3.4); MEAN CELL VOLUME 96.2 fL (80-100); MEAN CORPUSCULAR HEMOGLOBIN 29.9 pg (25-34); MEAN CORPUSCULAR HGB CONC 31.1 g/dl (32-36); MEAN PLATELET VOLUME 9.8 fL (7.4-10.4); MONO % 13.8 %; NEUT % 63.8 %; PLATELET COUNT 374 K/uL (130-400); RED BLOOD COUNT 3.14 M/uL (4.7-6.1); WHITE BLOOD COUNT 6.67 K/uL (4.8-10.8)
[2017-04-17 17:44] LABS: ALT/SGPT 22 U/L (12-78); AST/SGOT 17 U/L (15-37); BLOOD UREA NITROGEN 10 mg/dl (7-18); BUN/CREATININE RATIO 11.7 (10-20); CALCIUM 8.2 mg/dl (8.5-10.1); CARBON DIOXIDE 28 mmol/L (21-32); CHLORIDE 105 mmol/L (98-107); CREATININE 0.87 mg/dl (0.60-1.40); GLUCOSE 87 mg/dl (70-99); POTASSIUM 3.4 mmol/L (3.5-5.1); SODIUM 138 mmol/L (136-145)
[2017-04-17 17:55] LABS: ALB/GLOB RATIO 0.8 (0.9-2); ALKALINE PHOSPHATASE 35 U/L (45-117)
== END | disposition home or self-care (01) ==
LOC: C.LABBFT 14:39
PROVIDERS: ATTEND Physician Assistant Medical
DX: G40.909 Epilepsy, unspecified, not intractable, without status epilepticus (principal)